=== PATIENT | female | born 1940 | race Caucasian/White ===

== ENCOUNTER 2017-07-09 13:47 | Emergency (ER) | payer OTHER ==
[~2017-07-09] VITALS: Ht 154.9 cm; Wt 66.5 kg
[~2017-07-09 13:47] MED LIST: ASPI-320 PO; CALC1CHW57 PO; DIAZ2TAB PO; LSN5 PO; MISC-573; ULT50X PO
[2017-07-09 13:51] VITALS: Ht 154.9 cm; Wt 66.5 kg
--- NOTE | 2017-07-09 14:23 | EMERGENCY ROOM VISIT NOTE ---
ED Visit Note First contact with patient: 13:57 This Patient was discussed with the physician assistant bookkeeper, Bird Ramachandran PA-C. The pertinent historical and physical exam findings were confirmed. I agree with the studies ordered and with the interpretations of these studies. I agree with the disposition and care plan.
[2017-07-09 14:29] VITALS: BP 194/98; PULSE 100; TEMP 36.8; O2SAT 96
--- NOTE | 2017-07-11 17:37 | EMERGENCY ROOM VISIT NOTE ---
History First contact with patient: 13:57 Chief Complaint: EAR PAIN Stated Complaint: L EAR PAIN History of Present Illness The patient is a 77 year old white female who presents to the Emergency Room with complaints of decreased hearing in her left ear that has been present for a few weeks. Symptoms started after she developed a cold. She states it took a few days to get over the cold. Gradually her hearing has been getting worse in the left ear. She did see her PCP. She states she was given a trial of antibiotic drops but this did not help her symptoms. She denies any sudden change in hearing. She was told that she would need to see an ENT. She states that when she called a local ENT, she was told that she really needed to see an deli/bakery associate. She reports here for evaluation. No current fevers, chills, sweats, nausea, vomiting, or diarrhea. No rhinorrhea or cough. No other upper respiratory symptoms at this time. She denies any pain, just a lack of hearing on the left. Of note, she does not drive due to recent femur fracture and her was recently diagnosed with cancer. He does receive chemotherapy at the [facility]. Review of Systems REVIEW OF SYSTEM: HEENT: No dizziness, visual problems, or tinnitus. There is no difficulty swallowing and no oral lesions are present. LYMPH: No adenopathy. PULMONARY: No current cough, shortness of breath, sputum production or hemoptysis. CARDIOVASCULAR: No chest pain, palpitations, shortness of breath or peripheral edema. GASTROINTESTINAL: No diarrhea, constipation, nausea, vomiting, or abdominal pain. GENITOURINARY: No dysuria, frequency, urgency or nocturia. NEUROLOGIC: No weakness, muscle tenderness, epilepsy or history of neurological problems. No history of chronic headaches. MUSCULOSKELETAL: No history of joint tenderness/swelling. Positive history of arthritis and arthralgias. SKIN: No rashes or lesions. PSYCHIATRIC: No history of depression or mental illness. ENDOCRINE: No history of diabetes, thyroid disorders, or abnormal hair growth. Past Medical/Surgical History Medical Problems: (1) Hip fracture (2) Hypertension (3) Left leg injury (4) Osteoporosis Surgical Problems: (1) H/O exploratory laparotomy Family History FH: lupus Significant for heart disease. Parents are . Social History Smoking Status: Never Smoker Smokeless Tobacco Use: No Alcohol Use: none Drug Use: none Marital Status: Housing Status: lives with family Occupation Status: retired Current/Historical Medications Scheduled Aspirin (Aspirin EC Low Dose), 81 MG PO BID Calcium W/ Vitamins D & K (Calcium + D), 1 TAB PO DAILY Lisinopril (Lisinopril), 5 MG PO QAM Scheduled PRN Diazepam (Valium), 2 MG PO DAILY PRN for Anxiety Tramadol HCl (Tramadol HCl), 25-50 MG PO Q6H PRN for Pain Durable Medical Equipment Misc. Devices (Roller Walker), UNIT Physical Exam Vital Signs Date Time Temp Pulse Resp B/P (MAP) Pulse Ox O2 Delivery O2 Flow Rate FiO2 07/09/17 14:29 36.8 100 18 194/98 96 07/09/17 13:51 36.8 100 18 194/98 96 Room Air Physical Exam General: Well-developed, well-nourished, elderly white female, in no acute distress. Sitting on the bed. Alert and oriented. Skin: Warm and dry with fair turgor. No rashes or lesions. No ecchymosis or erythema. The patient is not diaphoretic. No abrasions. HEENT: Normocephalic atraumatic. Eyes PERRLA, EOMI. No conjunctiva or scleral injection. Ears TMs intact bilaterally with good light reflexes. No erythema or bulging. No hemotympanum. Canals are patent. No visible abnormality of the external ear auditory canal. Nares patent bilaterally without turbinate enlargement. No significant drainage. No epistaxis. Oropharynx without erythema or exudate. Uvula midline, oral mucosa moist. No lesions present. Lymphatics are palpated without anterior or posterior chain enlargement or tenderness. Medical Decision & Procedures ED Course Patient was educated regarding today's findings. Conservative care measures were discussed. Her symptoms are gradual in onset after a previous upper respiratory infection. They have become worse with time. She was supposed to see an ENT. She states she did call one, but was told to see an deli/bakery associate. She was informed that we do not have any here on the weekend. I did speak with Dr. Yu from ENT. He would be happy to see the patient in his office this week. She may call on Monday for an appointment. Return to the ED for any acute worsening of symptoms. She was reassured that I find nothing visibly wrong with her ear. Patient was seen in conjunction with Dr. Bradshaw, who also evaluated the patient and concurred with today's diagnosis and treatment plan. Medical Decision Possibility of retained foreign body, ear infection, perforated membrane, abnormal bony structure, cerumen impaction, and age-related loss of hearing were considered among others. Medication Reconcilliation Current Medication List: was personally reviewed by me Blood Pressure Screening Patient's blood pressure: Normal blood pressure Impression Primary Impression: Hearing loss in left ear Departure Information Referrals Lee Tellez D.O. (PCP) Forms WORK / SCHOOL INSTRUCTIONS, HOME CARE DOCUMENTATION FORM, IMPORTANT VISIT INFORMATION Patient Instructions My [facility] Additional Instructions Call [facility] ear, nose, throat, or [facility] for follow-up Problem Qualifiers Primary Impression: Hearing loss in left ear Hearing loss type: other Contralateral hearing status: unrestricted hearing on contralateral side Qualified Codes: H91.8X2 - Other specified hearing loss , left ear
== END 2017-07-09 14:30 | disposition home or self-care (01) ==
LOC: C.EDB 13:48 → C.EDD 14:30
DX: H91.8X2 Other specified hearing loss, left ear (principal); I10 Essential (primary) hypertension; M81.0 Age-related osteoporosis without current pathological fracture; Z83.2 Family history of diseases of the blood and blood-forming organs and certain disorders involving the immune mechanism; Z79.82 Long term (current) use of aspirin; Z79.899 Other long term (current) drug therapy

== ENCOUNTER 2018-04-27 06:43 | Inpatient (IN) ==
--- NOTE | 2018-04-26 14:47 | Anesthesiology Consultation ---
Date of Service April 26, 2018 Assessment & Plan (1) Encounter for pre-operative examination: Plan: CBC STAT AM DOS TYPE AND SCREEN AM DOS PATIENT HAS PROCAINE ALLERGY-- "CANT BREATHE." PER PAST ANESTHESIA PRE-EVAL, ALLERGY TO "ALL CAINS." HAD L IM FEMUR NAILING 11/2016 UNDER GENERAL. SEEN IN PRE-OP BY DR MYRICK, WHO NOTED, "Stated she has been told she is allergic to "all cains", actually had allergy testing done to confirm this per her report." NO "CAINS" GIVEN; ANESTHESIA RECORD DOES NOTE THAT ON EMERGENCE PATIENT COMPLAINED OF DIFFICULTY BREATHING, BUT LUNGS WERE CTA B/L AND O2 SAT WAS 100% AND CONTINUED TO BE WNL IN PACU. Chart Review Chart Review: Acceptable Risk for Surgery and Patient NOT seen in Pre Admission Testing History Surgery Operation Date: 04/27/18 08:30 Proposed Procedures p Right Hip Open Reduction Internal Fixation Proximal Femur Fracture - Odell Garza DO Height/Weight Height: 5 ft 1 in Weight: 66.9 kg Allergies Allergy/AdvReac Type Severity Reaction Status Date / Time procaine Allergy Severe CAN'T Unverified 12/02/16 15:15 BREATH oxytetracycline Allergy Unknown . Unverified 12/02/16 15:15 polymyxin B Allergy Unknown . Unverified 12/02/16 15:15 prednisone Allergy Unknown . Unverified 12/02/16 15:15 Sulfa (Sulfonamide Allergy Unknown . Unverified 12/02/16 15:15 Antibiotics) Medications Home Medications Medication Instructions Recorded Confirmed Last Taken ciprofloxacin HCl 500 mg PO BID #20 tab 01/25/18 Unknown diazepam 5 mg PO DAILY 01/25/18 01/25/18 Unknown Past Medical History Medical History Hip fracture Femur fracture Osteoporosis Hypertension Anxiety Retinal artery occlusion Past Surgical History Surgical History H/O exploratory laparotomy (Chronic) History of open reduction and internal fixation (ORIF) procedure "left femur bobby" per pt questionnaire History of tonsillectomy and adenoidectomy Social History Smoking Status: Never smoker Testing Electrocardiogram Date: 01/25/18 Findings: + ST @ (111) Nonspecific ST abnormality. (done in ED at time of fracture)
--- NOTE | 2018-04-26 22:26 | History & Physical Report ---
Date of Service April 26, 2018 Assessment & Plan (1) Fracture of proximal end of right femur: Schedule prophylactic ORIF right proximal femur fx with trochanteric nail for 04.27.18. All potential risks, benefits, complications, alternatives, and rehab have been discussed with the patient and she wishes to proceed. Plan for home with home health upon d/c. History of Present Illness Chief Complaint: right hip pain This is a patient with right hip/thigh pain since 2017. She sustained a fall onto the right side and has had persistent pain. She was seen in our [facility] office with updated x-rays in March that noted a cortical irregularity of the lateral cortex of the proximal right femur. She later had an MRI that noted a stress fx at the site. She is currently being set up for prophylactic IM nail of the femur. Allergies Allergy/AdvReac Type Severity Reaction Status Date / Time minocycline [From Minocin] Allergy Severe SEVERE Verified 04/26/18 16:19 PAIN IN THE HEAD procaine Allergy Severe NOVACAINE->CAN'T Unverified 04/26/18 16:19 BREATH erythromycin base Allergy Unknown Unknown Verified 04/26/18 16:19 oxytetracycline Allergy Unknown . Unverified 04/26/18 16:19 polymyxin B Allergy Unknown . Unverified 04/26/18 16:19 prednisone Allergy Unknown "COULD BE Unverified 04/26/18 16:22 FATAL" - PER PCP Sulfa (Sulfonamide Allergy Unknown Rash Unverified 04/26/18 16:19 Antibiotics) tramadol AdvReac Unknown "PUT ME IN Verified 04/26/18 16:19 A DAZE" Home Medications Home Medications Medication Instructions Recorded Confirmed Type diazepam 5 mg PO DAILY PRN 01/25/18 04/26/18 History acetaminophen [Acetaminophen Extra 500 mg PO QID PRN 04/26/18 04/26/18 History Strength] calcium carbonate-vitamin D3 1 tab PO DAILY 04/26/18 04/26/18 History [Calcium 600 + D(3)] ciprofloxacin HCl 500 mg PO BID 04/26/18 04/26/18 History Past Med/Surg History Medical History Hip fracture Femur fracture Osteoporosis Hypertension H/O - NO MEDICATIONS CURRENTLY PER MD ORDERS Cancer SKIN CANCER Cardiac murmur H/O A CHILD Nausea and vomiting after administration of anesthetic agent Urinary tract infection RECURRENT, TAKING ABX. (STARTED 04/25/18) Anxiety Retinal artery occlusion Surgical History H/O exploratory laparotomy (Chronic) History of dilatation and curettage History of open reduction and internal fixation (ORIF) procedure "left femur bobby" History of tonsillectomy and adenoidectomy Social History Feels Safe at Home: Yes Smoking Status: Never smoker Physical Exam 2 Constitutional: well developed and well nourished; no acute distress ENMT: external ear and nose normal, oropharynx normal Neck: trachea midline, no thyromegaly Respiratory: normal respiratory effort, lungs clear to auscultation Cardiovascular: Rate/Rhythm: regular rate and regular rhythm Heart Sounds: normal S2 Gastrointestinal (Abdomen): normal bowel sounds, soft, nontender, no hepatosplenomegaly Musculoskeletal: Gait: + antalgic gait (right side with the aid of a walker) Hip: + joint line tenderness (Tender along the lateral and anterior right hip /proximal femur.); no deformity, no effusion, no skin erythema, no ecchymosis, SANDRA test negative and log roll test negative Skin: no rashes, warm and dry Neurologic: normal touch/pain/proprioception Psychiatric: A+Ox3, euthymic affect Lymphatic: no cervical or axillary lymphadenopathy
[~2018-04-27 06:43] MED LIST changes: -ASPI-320 PO; -CALC1CHW57 PO; +CEFAZOLIN 1000MG 1,000 MG/7.5 ML SYR IV SCH; -DIAZ2TAB PO; +LR 15ML/HR IV SCH; -LSN5 PO; -MISC-573; -ULT50X PO
[2018-04-27] MEDS ORDERED: BUPIVACAINE 0.5 % 5 MG/1 ML PF 10ML VIAL ONE (06:55)
[2018-04-27] MEDS ORDERED: BUPIVACAINE 0.5 % 5 MG/1 ML MPF 30ML VIAL ONE (07:03)
[2018-04-27] MEDS ORDERED: LIDOCAINE HCL 2% 2 ML VIAL/AMP(20MG/ML) INFIL ONE (07:07)
[2018-04-27] MEDS ORDERED: ROCURONIUM BROMIDE 10 MG/ML 5 ML VIAL ONE (07:07)
[2018-04-27] MEDS ORDERED: PROPOFOL IV EMULSION 10 MG/ML 20 ML VIAL IV ONE (07:07)
[2018-04-27] MEDS ORDERED: MIDAZOLAM HCL 1 MG/ML 2ML VIAL ONE (07:08)
[2018-04-27] MEDS ORDERED: KETAMINE HCL INJ 50 MG/ML 10 ML VIAL ONE (07:08)
[2018-04-27] MEDS ORDERED: fentaNYL citrate 100 MCG/2 ML VIAL ONE (07:08)
[2018-04-27] MEDS ORDERED: HYDROmorphone INJ 2 MG/ML SYR/VIAL ONE (07:09)
[2018-04-27] MEDS ORDERED: SODIUM CHLORIDE 0.9% INJ 10 ML VIAL ONE (07:12)
[2018-04-27 07:23] LABS: Hematocrit (blood only) 36.9 % (37-47); Hemoglobin 12.4 g/dL (12.0-16.0); Mean Corpuscular Volume 83.7 fL (80-100); Mean Platelet Volume 9.6 fL (7.4-10.4); Platelet Count 256 K/uL (130-400); RDW Coefficient of Variation 13.6 % (11.5-14.5); Red Blood Count 4.41 M/uL (4.2-5.4); White Blood Count 8.52 K/uL (4.8-10.8)
[2018-04-27 07:35] LABS: Mean Corpuscular Hgb Conc 33.6 g/dL (32-36)
--- NOTE | 2018-04-27 07:50 | History & Physical Bridge Note ---
Date of Service April 27, 2018 History & Physical Bridge Note I have examined the patient, reviewed the History & Physical and in the interval since the performance of the History & Physical I have noted the following changes of clinical significance: no changes noted
[2018-04-27] MEDS ORDERED: fentaNYL citrate 100 MCG/2 ML VIAL IV PRN (08:03)
[2018-04-27] MEDS ORDERED: ATROPINE SULFATE 0.1 MG/ML 10ML SYR IV PRN (08:03)
[2018-04-27] MEDS ORDERED: ONDANSETRON INJ 2 MG/ML 2 ML VIAL IV PRN ×2 (08:03→11:53)
[2018-04-27] MEDS ORDERED: ePHEDrine sulfate 50 MG/ML AMP IV PRN (08:03)
[2018-04-27] MEDS ORDERED: DEXAMETHASONE SOD INJ 4 MG/ML VIAL ONE (08:59)
[2018-04-27] MEDS ORDERED: ONDANSETRON INJ 2 MG/ML 2 ML VIAL ONE (08:59)
[2018-04-27] MEDS ORDERED: BACITRACIN INJ 50,000 UNIT VIAL ONE (09:18)
[2018-04-27] MEDS ORDERED: GLYCOPYRROLATE 0.2 MG/ML VIAL ONE (09:29)
[2018-04-27] MEDS ORDERED: ATROPINE SO4 1 MG/ML 1ML VIAL ONE (09:29)
[2018-04-27] MEDS ORDERED: PROMETHAZINE HCL INJ 25 MG/ML 1 ML VIAL ONE (09:47)
[2018-04-27] MEDS ORDERED: ePHEDrine sulfate 50 MG/ML SYR ONE (09:47)
--- NOTE | 2018-04-27 10:14 | Post Operative Brief Note ---
Immediate Post Op Note v1 Date of Surgery April 27, 2018 Pre & Post Diagnosis Operation Date: 04/27/18 08:30 Pre-Operative Diagnosis: Right Hip Proximal Femur Fracture Post-Operative Diagnosis: Right Hip Proximal Femur Fracture Procedure Operation Date: 04/27/18 08:30 Actual Procedures p Right Hip Open Reduction Internal Fixation Proximal Femur Fracture(Right) - Odell Garza DO Surgeon Odell Garza DO Hand Ii Cutter Héctor Gore PA-C Estimated Blood Loss 15 Findings Consistent with Post-Op Diagnosis Specimens Bone biopsy right femur Anesthesia Type General Complications none Disposition Accompanied Patient To Recovery: No Disposition: Recovery Room Overlapping Procedure I was present for: the critical portions of procedure. I was immediately available: during the entire case.
--- NOTE | 2018-04-27 10:47 | Anesthesiology Progress Note ---
Date of Service April 27, 2018 Anesthesia Post Procedure Vital Signs Vital Signs: Temp Pulse Pulse Resp BP Pulse Ox 04/27/18 10:40 115 H 15 159/80 H 98 04/27/18 10:30 124 H 13 159/81 H 99 04/27/18 10:22 97.7 F 127 H 28 H 161/75 H 98 04/27/18 07:23 98.2 F 94 H 18 190/86 H 97 Pain Intensity Right Hip: Pain Intensity: 0 Notes Mental Status: alert / awake / arousable and participated in evaluation Patient Amnestic to Procedure: Yes Nausea / Vomiting: adequately controlled Pain: adequately controlled Airway Patency, RR, SpO2: stable & adequate BP & HR: stable & adequate (pt with a baseline sinus tachycardia) Hydration State: stable & adequate Anesthetic Complications: no major complications apparent and Pt Satisfied with anesthetic care
[2018-04-27] MEDS ORDERED: HYDROmorphone INJ 0.5 MG/0.5 ML SYR IV PRN (11:53)
[2018-04-27] MEDS ORDERED: BISACODYL 10 MG SUPP PR PRN (11:53)
[2018-04-27] MEDS ORDERED: diazePAM 5 MG TABLET PO PRN (11:53)
[2018-04-27] MEDS ORDERED: METOCLOPRAMIDE HCL INJ 5 MG/ML 2 ML VIAL IV PRN (11:53)
[2018-04-27] MEDS ORDERED: NALOXONE HCL 0.4 MG/1 ML VIAL/CARP IV PRN (11:53)
[2018-04-27] MEDS ORDERED: MAGNESIUM HYDROXIDE SUSP 30 ML UDC PO PRN (11:53)
[2018-04-27] MEDS: CIPROFLOXACIN 500 MG TAB PO SCH ×2 (13:50→21:14)
[2018-04-27] MEDS: ACETAMINOPHEN 500 MG TAB PO SCH ×2 (13:51→21:13)
[2018-04-27] MEDS: SODIUM CHLORIDE 0.9% 1000ML 1,000 ML IV SCH (13:51)
--- NOTE | 2018-04-27 14:38 | Fluoroscopy Report ---
FL femur RT 2V CLINICAL HISTORY: RIGHT TROCH NAIL COMPARISON STUDY: Right femur fracture 04/13/2018. FLUOROSCOPY TIME: 1 minute and 14 seconds.. FINDINGS: 8 fluoroscopic spot images of the right femur demonstrate an intramedullary bobby with an int erlocking femoral neck pin. The hardware is intact. This traverses the proximal femoral shaft fractur e. Alignment is anatomic. IMPRESSION: Fluoroscopy provided for internal fixation of a right femoral shaft insufficiency fractur e. Electronically signed by: Hilario Moore M.D. 04/27/2018 2:37 PM
[2018-04-27] MEDS: OXYCODONE HCL IR 5 MG TAB (IMMEDIATE RELEASE) PO PRN ×2 (15:48→21:08)
[2018-04-27] MEDS: CEFAZOLIN 1000MG 1,000 MG/7.5 ML SYR IV SCH ×2 (17:15→23:35)
[2018-04-27] MEDS ORDERED: SENNA 8.6 MG TAB PO SCH (21:00)
[2018-04-27] MEDS: ASPIRIN 81 MG ECTAB PO SCH (21:14)
[2018-04-27] MEDS: DOCUSATE SODIUM 100 MG CAP PO SCH (21:14)
[2018-04-28] MEDS: SODIUM CHLORIDE 0.9% 1000ML 1,000 ML IV SCH (00:33)
[2018-04-28] MEDS: OXYCODONE HCL IR 5 MG TAB (IMMEDIATE RELEASE) PO PRN (02:40)
[2018-04-28] MEDS: ACETAMINOPHEN 500 MG TAB PO SCH ×2 (05:28→13:43)
[2018-04-28 06:00] LABS: Hematocrit (blood only) 28.2 % (37-47); Hemoglobin 9.2 g/dL (12.0-16.0); Mean Corpuscular Hgb Conc 32.6 g/dL (32-36); Mean Corpuscular Volume 84.7 fL (80-100); Mean Platelet Volume 9.4 fL (7.4-10.4); Platelet Count 232 K/uL (130-400); RDW Coefficient of Variation 13.7 % (11.5-14.5); RDW Standard Deviation 41.8 fL (36.4-46.3); Red Blood Count 3.33 M/uL (4.2-5.4); White Blood Count 9.58 K/uL (4.8-10.8)
[2018-04-28 06:34] LABS: Calcium 8.4 mg/dl (8.5-10.1); Creatinine Clr Calc Pharmacy 43.6 ml/min; Est GFR (African American) 65.4; Est GFR (Non-African American) 56.4; Potassium 3.9 mmol/L (3.5-5.1)
[2018-04-28 07:00] VITALS: BP 125/64; PULSE 87; TEMP 97.7; O2SAT 93
--- NOTE | 2018-04-28 08:16 | Orthopedic Progress Note ---
Date of Service April 28, 2018 Assessment & Plan (1) Fracture of proximal end of right femur: Postop day 1 PT and OT protocols today. DVT prophylaxis with SCDs, CHELSEY hose, aspirin twice daily Continue pain management. DC planning-patient is planning on home health services. Subjective Postop day 1 status post right TFN for pending fracture. Patient is sitting up in her chair at the bedside. She was having some pain earlier this morning however pain medication has helped that. She denies shortness of breath, chest pain, lightheadedness. No other complaints this morning. She is hoping to go home today. Physical Exam 2 Vital Signs (Past 24 Hours): Last Vital Signs Temp 36.5 C 04/28/18 06:59 Pulse 87 04/28/18 06:59 Resp 18 04/28/18 06:59 BP 125/64 04/28/18 06:59 Pulse Ox 93 04/28/18 06:59 Physical Exam: Dressings are clean, dry, and intact. Thigh is swollen and soft. Nontender. Calves are soft and nontender. Neurovascular is intact. Toes are mobile.
[2018-04-28] MEDS ORDERED: MULTIVITAMIN TAB PO SCH (09:00)
[2018-04-28] MEDS ORDERED: CALCIUM 600MG + VIT D 400 IU TAB PO SCH (09:00)
[2018-04-28] MEDS: DOCUSATE SODIUM 100 MG CAP PO SCH (09:09)
[2018-04-28] MEDS: ASPIRIN 81 MG ECTAB PO SCH (09:09)
[2018-04-28] MEDS: CIPROFLOXACIN 500 MG TAB PO SCH (09:09)
--- NOTE | 2018-04-29 08:17 | Operative Report ---
DATE OF OPERATION: 04/27/2018 PREOPERATIVE DIAGNOSIS: Right proximal femur fracture. POSTOPERATIVE DIAGNOSIS: Same. PROCEDURE: 1. Open reduction internal fixation of right proximal femur fracture with Synthes trochanteric fixation nail. 2. Bone biopsy, right proximal femur. SURGEON: Odell Garza DO VP CARDIOVASCULAR SERVICE LINE: Héctor Gore PA-C, who was present for patient positioning, sterile prep and drape, management of retractors and instruments. He was present through the critical portions of the case including wound closure, application of sterile dressing and transport of the patient to recovery. ANESTHESIA: General LMA. SPECIMENS: Bone biopsy, right proximal femur. DRAINS: None. COMPLICATIONS: None. BLOOD LOSS: 20 mL. PERTINENT HISTORY: This is a 77-year-old woman who had right thigh pain. She has been seen in the office, had radiographs. Noted an occult fracture of her right proximal femur diagnosed as proximal femur fracture. The patient was then scheduled for surgery as indicated. All potential risks, benefits, complications, alternatives, rehab, potential for incomplete relief of symptoms, need for further surgery, DVT, PE, , persistent pain, swelling, scarring, weakness, neurovascular injury, wound complications, hardware failure, nonunion, malunion, and bone fracture were discussed with the patient. The patient decided to proceed with the procedure as indicated. PROCEDURE: The patient was transferred to the operative suite. The proper site was identified. The consent was reviewed, the patient was then administered sedation and spinal anesthetic. Once appropriate, the patient then transferred to the fracture table where the lower extremity was placed in fracture table traction and the nonoperative leg was placed in the well leg gotti. All bony prominences were properly padded and protected. The padded post was placed in the peroneal and the patient was positioned appropriately. Next the left leg was placed on traction and reduction of the fracture was performed under fluoroscopic control. Next the operative hip was then sterilely prepped and draped in the usual fashion. Next a 10-blade scalpel incision was used to make an incision proximal to the greater trochanter. The incision was deep in the subcutaneous tissue and fascia and the tip of the greater trochanter was then palpated followed by placement of a guide pin under fluoroscopic control driven into the greater trochanter down to the level of the less trochanter. This was confirmed in AP and lateral projections followed by placement of the proximal reamer over the cannulated guide pin. Next the reamer was then removed using the soft tissue protector, which was also removed. Next the ball tip guide bobby was placed into the proximal femur under fluoroscopic control confirmed with AP and lateral fluoroscope projections. Next the trochanteric nail was then passed over the guide bobby into the femur, the guide bobby was removed and then under fluoroscopic control appropriate level of the femoral nail was then placed in AP projections. Next the targeting device was then fixed to the driving handle and 10-blade scalpel incision was made in the lateral aspect of the thigh. Next the tissue protector and cannulated guide system was then passed into the soft tissue until it was securely fixed against a lateral aspect of the femoral cortex. This was also confirmed under C-arm. Next the guide pin for the spiral blade was driven into the lateral aspect of the femur confirming this with AP lateral projections until the guide pin was in the center of the femoral neck and head approximately 5 mm from the subcortical bone of the femur. Next the spiral blade was then measured and then the lateral cortex was then drilled with the cortex reamer followed by use of the triple reamer with the depth stop set at appropriate depth. In this case a 90-mm titanium helical blade and a locking screw was then inserted over the cannulated guide bobby under fluoroscopic control. This was seated appropriately then traction was reduced from the limb and the fracture was then gently compressed and locked proximally with the flexible screwdriver. Next the spiral blade was then disengaged from its insertion handle, insertion handle was then removed and the guide pin was removed from the femoral neck and head. Next the lateral targeting arm was used to insert the distal locking screw. First a 10-blade scalpel incision was made in the lateral aspect of the thigh, captured drill sleeves were then tamped gently to the lateral aspect of the femoral cortex then the locking screw hole was then drilled, measured and then an appropriate length screw was placed to lock the distal aspect of the nail. Next targeting sleeves were then removed. The insertion arm was then removed from the nail and final x-rays were obtained in AP and lateral projections. All incisions were then copiously irrigated with sterile normal saline. The proximal gluteus fascia was then closed using interrupted #1 Vicryl, the dermis was closed using buried interrupted 2-0 Vicryl sutures in all three incisions and the skin was then closed using skin shivani. A sterile compressive dressing consisting of Xeroform gauze, sterile 4 x 4's and Tegaderm was applied. The patient was then awakened and taken to recovery in stable condition. After I placed the fixation nail, note that bone biopsy specimen was harvested from the reamers and passed off for pathological evaluation. I attest to the content of the Intraoperative Record and any orders documented therein. Any exceptions are noted below. IVETHD
--- NOTE | 2018-05-04 00:54 | Discharge Summary ---
DISCHARGE DIAGNOSIS: Right proximal femur fracture. SECONDARY DIAGNOSES: Osteoporosis; hypertension; history of skin carcinoma; history of cardiac murmur; history of urinary tract infection in the recent past, still taking antibiotics; anxiety; retinal artery occlusion. CONSULTATIONS: None. COMPLICATIONS: None. PROCEDURES: Right hip open reduction internal fixation, proximal femur fracture, by Dr. Garza on 04/27/2018. BRIEF HISTORY: As dictated in the history and physical. HOSPITAL SUMMARY: The patient was admitted on the above-noted date and had the above-noted surgery performed which she tolerated well. On the first postoperative day, she was sitting in a chair at the bedside. She was having pain earlier that morning, but the pain medication was doing its job. She denies shortness of breath, chest pain or lightheadedness. She had no other complaints and was hoping to go home. Vital signs were stable. She is afebrile. Dressings were clean, dry and intact. The thigh was swollen but soft and nontender. Calves were soft and nontender. Neurovascularly intact. Toes were mobile. The patient was started on PT and OT protocols, continued on DVT prophylaxis and pain management. She was progressing with her physical therapy and it was felt she could be discharged to home on 04/28/2018. For further review, please see chart. LABORATORY AND X-RAY DATA: As per chart. DISCHARGE INSTRUCTIONS: The patient was discharged to home in satisfactory condition with home health services, on 04/28/2018. DIET: Regular. ACTIVITY: Weightbearing as tolerated, right lower extremity with crutches. Follow hip fracture instructions as written and follow up with Dr. Garza in 10-14 days. The patient to call for appointment if one has not been made for her. DISCHARGE MEDICATIONS: Aspirin 81 mg p.o. b.i.d., Percocet 1-2 tabs p.o. q. 6 hours, sennosides 17.2 mg p.o. at bedtime. Resume home meds as listed. Stop taking previous acetaminophen dosage and stop taking naproxen.
== END 2018-04-28 14:20 | disposition home health service (06) | DRG 479 ==
LOC: ASU 06:43 → 3E 10:32

== ENCOUNTER 2020-11-26 12:28 | Inpatient (IN) ==
--- NOTE | 2020-11-26 12:38 | Emergency Department Note ---
Impression & Plan Rebeca-prosthetic femoral shaft fracture, COVID-19, Fall ED Provider Note NAME: RODRIGO CAUSEY AGE: 80 SEX: F : 1940 ARRIVES VIA: Ambulance INFORMANT: Patient, ED PROVIDER(S): Carlos Enrique Santiago MD Chief Complaint: Fall, hip pain HPI: Patient does present with concern for fall that occurred prior to arrival a nd associated right-sided hip pain. The patient states that she believes that she was developing a UTI and was drinking cranberry juice. When the patient was in the kitchen she had gotten the cranberry juice but fell in the kitchen. Patient did not strike her head and denies any head or neck pain. 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 This has been completed by [facility] in the past. The patient did take ibuprofen earlier today. She denies any pain at rest but is worse with movement or palpation. She describes it as achy and nonradiating. Patient denies any upper extremity back chest or abdominal pain. The patient denies any lower extremity pain. The patient is not take blood thinners and denies any CP ROS: See HPI for pertinent positives and negatives. A total of 10 systems were reviewed and otherwise negative. Past medical history: See below Surgical history: See below Social history: See below Physical Exam: GENERAL: NAD, wearing a mask, non-toxic. EYE EXAM: Normal conjunctiva. PERRL, no anisocoria and EOM's grossly intact w/o pain. NECK: Supple, no nuchal rigidity, no adenopathy, non-tender. No signs of meningismus. LUNGS: Clear to auscultation. Normal chest wall mechanics. HEART: NSR, no MRG. ABDOMEN: Abdomen soft, non-tender, normo-active bowel sounds, no masses, no rebound or guarding. BACK: No CVA TTP. SKIN: No rashes and no bruising. UPPER EXTREMITIES: Upper extremities are grossly normal. LOWER EXTREMITIES: Mild pain to the proximal and middle thigh of right lower extremity, which is slightly shortened compared to the left lower extremity. NEURO EXAM: A&O x3, cranial nerves II-XII grossly intact, normal speech, moves all 4 extremities with exception of right lower extremity secondary to pain. Differential diagnoses: Fracture, subluxation, dislocation, contusion, ligamentous injury, neurovascular, compartment syndrome, rhabdomyolysis, as well as other pathologies. Course: Patient was seen and evaluated the bedside. Full history physical exam was performed. EKG interpreted by me Normal sinus rhythm, rate of 94, normal intervals, normal axis, no T WI. Imaging Studies: See Below Cardiac monitoring: An order was placed for continuous cardiac monitoring. The monitor shows a rate of 75 with sinus rhythm. MDM: Patient was seen due to concern for fall and hip pain. Blood work was obtained along with x-rays. Patient also did have a Covid swab. Patient does have a spiral fracture of the hip. Patient is covid positive. I did speak with the on- call hospitalist as well as the on-call orthopedist and the patient was admitted to the medicine service. I spoke with both Dr. Sanchez and Dr. May. Past Med/Surg History Medical History Anxiety Cancer SKIN CANCER Cardiac murmur H/O A CHILD Femur fracture Hip fracture Hypertension H/O - NO MEDICATIONS CURRENTLY PER MD ORDERS Nausea and vomiting after administration of anesthetic agent Osteoporosis Retinal artery occlusion Urinary tract infection RECURRENT, TAKING ABX. (STARTED 04/25/18) Surgical History H/O exploratory laparotomy History of dilatation and curettage History of open reduction and internal fixation (ORIF) procedure "left femur bobby" History of tonsillectomy and adenoidectomy Social History Smoking Status: Never smoker Second Hand Exposure: No; Hx Alcohol Use: No Hx Substance Use: No Preferred Language: Spanish Communication Ability: Effective Adding Machine Operator Required: No Beliefs That Will Affect Care: None Current Living Situation: Alone Feels Safe at Home: Yes Assistive Devices: Walker Allergies Allergies Allergy/AdvReac Type Severity Reaction Status Date / Time minocycline [From Minocin] Allergy Severe SEVERE Verified 11/26/20 16:23 PAIN IN THE HEAD procaine Allergy Severe NOVACAINE->CAN'T Verified 11/26/20 16:23 BREATH erythromycin base Allergy Unknown Unknown Verified 11/26/20 16:23 oxytetracycline Allergy Unknown . Verified 11/26/20 16:23 polymyxin B Allergy Unknown . Verified 11/26/20 16:23 prednisone Allergy Unknown "COULD BE Verified 11/26/20 16:23 FATAL" - PER PCP Sulfa (Sulfonamide Allergy Unknown Rash Verified 11/26/20 16:23 Antibiotics) tramadol AdvReac Unknown "PUT ME IN Verified 11/26/20 16:23 A DAZE" Home Meds Home Medications Medication Instructions Recorded Confirmed ibuprofen 200 mg tablet 400 mg PO Q8H PRN 11/26/20 11/26/20 Results & Data (ED) Vital Signs Vital Signs - 24 hr 11/26/20 12:37 11/26/20 15:44 11/26/20 18:10 Temperature 37.2 C 36.8 C 36.7 C Temperature Source Oral Oral Oral Pulse Rate 70 Pulse Rate [Apical] 96 H 97 H Pulse Rhythm Regular Pulse Rhythm [Apical] Regular Regular Pulse Strength Normal Pulse Strength [Apical] Normal Normal Respiratory Rate 18 17 17 Respiratory Effort / Characteristics Non-Labored Non-Labored Non-Labored Respiratory Depth Normal Normal Normal Respiratory Pattern Regular Regular Regular Blood Pressure 134/54 L Blood Pressure [Left Arm] 150/83 H 156/90 H Blood Pressure Mean 80 Blood Pressure Mean [Left Arm] 105 112 Blood Pressure Position Lying Pulse Oximetry 99 94 94 Oxygen Delivery Method Room Air Room Air Room Air Sepsis Recent Fever Within 48 Hours No Sepsis New/Unexplained Change in Mental Status N/A Sepsis Action Taken by Nursing No Action Required Home Medications Current Medication List: was personally reviewed by me Laboratory Data Attestation: I reviewed the patient's lab results. Result diagrams: 11/26/20 12:51 11/26/20 12:51 Lab Results 11/26/20 11/26/20 11/26/20 Range/Units 12:51 12:51 12:51 WBC 5.76 (4.8-10.8) K/uL RBC 4.14 L (4.2-5.4) M/uL Hgb 11.0 L (12.0-16.0) g/dL Hct 34.8 L (37-47) % MCV 84.1 (80-100) fL MCH 26.6 (25-34) pg MCHC 31.6 L (32-36) g/dL RDW Std Deviation 46.1 (36.4-46.3) fL RDW Coeff of Pj 15.0 H (11.5-14.5) % Plt Count 179 (130-400) K/uL MPV 9.8 (7.4-10.4) fL Immature Gran % (Auto) 0.2 % Neut % (Auto) 81.5 % Lymph % (Auto) 11.8 % Grainger % (Auto) 6.3 % Eos % (Auto) 0.2 % Baso % (Auto) 0.0 % Neut # (Auto) 4.70 (1.4-6.5) K/uL Lymph # (Auto) 0.68 L (1.2-3.4) K/uL Grainger # (Auto) 0.36 (0.11-0.59) K/uL Eos # (Auto) 0.01 (0-0.5) K/uL Baso # (Auto) 0.00 (0-0.2) K/uL Immature Gran # (Auto) 0.01 (0.00-0.02) K/uL PT 9.9 (9.0-12.0) Seconds INR 1.0 (0.9-1.1) APTT 22.4 (21.0-31.0) Seconds PTT Ratio 0.9 Sodium 138 (136-145) mmol/L Potassium 4.2 (3.5-5.1) mmol/L Chloride 109 H (98-107) mmol/L Carbon Dioxide 24 (21-32) mmol/L Anion Gap 5.0 (3-11) BUN 16 (7-18) mg/dl Creatinine 0.94 (0.6-1.2) mg/dl Est Cr Clr Drug Dosing 45.0 ml/min Est GFR ( Amer) 67.3 ml/min Est GFR (Non-Af Amer) 58.1 ml/min BUN/Creatinine Ratio 17.0 (10-20) Glucose 140 H (70-99) mg/dl Calcium 9.1 (8.5-10.1) mg/dl Total Bilirubin 0.3 (0.2-1) mg/dl AST 27 (15-37) U/L ALT 21 (12-78) U/L Alkaline Phosphatase 105 (45-117) U/L Total Protein 7.4 (6.4-8.2) gm/dl Albumin 3.7 (3.4-5.0) gm/dl Globulin 3.7 (2.5-4.0) gm/dl Albumin/Globulin Ratio 1.0 (0.9-2) Urine Color Urine Appearance (Clear) Urine pH (4.5-7.5) Ur Specific Golden (1.000-1.030) Urine Protein (Negative) Urine Glucose (UA) (Negative) Urine Ketones (Negative) Urine Blood (Negative) Urine Nitrite (Negative) Urine Bilirubin (Negative) Urine Urobilinogen (Negative) Ur Leukocyte Esterase (Negative) COVID-19 Eval Order SARS-CoV-2 (PCR) (Negative) 11/26/20 11/26/20 11/26/20 Range/Units 12:53 12:53 13:09 WBC (4.8-10.8) K/uL RBC (4.2-5.4) M/uL Hgb (12.0-16.0) g/dL Hct (37-47) % MCV (80-100) fL MCH (25-34) pg MCHC (32-36) g/dL RDW Std Deviation (36.4-46.3) fL RDW Coeff of Pj (11.5-14.5) % Plt Count (130-400) K/uL MPV (7.4-10.4) fL Immature Gran % (Auto) % Neut % (Auto) % Lymph % (Auto) % Grainger % (Auto) % Eos % (Auto) % Baso % (Auto) % Neut # (Auto) (1.4-6.5) K/uL Lymph # (Auto) (1.2-3.4) K/uL Grainger # (Auto) (0.11-0.59) K/uL Eos # (Auto) (0-0.5) K/uL Baso # (Auto) (0-0.2) K/uL Immature Gran # (Auto) (0.00-0.02) K/uL PT (9.0-12.0) Seconds INR (0.9-1.1) APTT (21.0-31.0) Seconds PTT Ratio Sodium (136-145) mmol/L Potassium (3.5-5.1) mmol/L Chloride (98-107) mmol/L Carbon Dioxide (21-32) mmol/L Anion Gap (3-11) BUN (7-18) mg/dl Creatinine (0.6-1.2) mg/dl Est Cr Clr Drug Dosing ml/min Est GFR ( Amer) ml/min Est GFR (Non-Af Amer) ml/min BUN/Creatinine Ratio (10-20) Glucose (70-99) mg/dl Calcium (8.5-10.1) mg/dl Total Bilirubin (0.2-1) mg/dl AST (15-37) U/L ALT (12-78) U/L Alkaline Phosphatase (45-117) U/L Total Protein (6.4-8.2) gm/dl Albumin (3.4-5.0) gm/dl Globulin (2.5-4.0) gm/dl Albumin/Globulin Ratio (0.9-2) Urine Color Yellow Urine Appearance Clear (Clear) Urine pH 6.0 (4.5-7.5) Ur Specific Golden 1.012 (1.000-1.030) Urine Protein Negative (Negative) Urine Glucose (UA) Negative (Negative) Urine Ketones Negative (Negative) Urine Blood Negative (Negative) Urine Nitrite Negative (Negative) Urine Bilirubin Negative (Negative) Urine Urobilinogen Negative (Negative) Ur Leukocyte Esterase Negative (Negative) COVID-19 Eval Order Covid19 at [facility] SARS-CoV-2 (PCR) POSITIVE A* (Negative) Administered Medications Sodium Chloride (Nss 1000ml) 1,000 mls @ 150 mls/hr IV .[id number] AGUILAR Stop: 11/26/20 19:24 Last Admin: 11/26/20 13:02 Dose: 150 mls/hr Documented by: [id number] Discontinued Medications Fentanyl Citrate (Fentanyl Citrate 100 Mcg/2 Ml Vial) 25 mcg IV NOW STA Stop: 11/26/20 12:46 Last Admin: 11/26/20 13:01 Dose: 25 mcg Documented by: [id number] Ondansetron HCl (Ondansetron Inj 2 Mg/Ml 2 Ml Vial) 4 mg IV NOW STA Stop: 11/26/20 12:46 Last Admin: 11/26/20 13:00 Dose: 4 mg Documented by: [id number] Imaging Data Radiologist's Impression: Hip/Pelvis X-Ray 11/26/20 12:45 XR hip RT 2V w pelvis INDICATION: MN ^fall, r hip pain; prior IRENE TECHNIQUE: 2 views of the right hip and single frontal view of the pelvis were obtained. Comparison: Comparison is made to hip and pelvis radiographs 11/26/2020 FINDINGS: There is a spiral fracture of the proximal femoral diaphysis. The distal fragment is displaced approximately 1 cortex width medially. Bones are osteopenic. IMPRESSION: Spiral fracture of the proximal right femoral diaphysis. ACT 112: Negative or not required by law. Electronically signed by: Familia Borrego M.D. 11/26/2020 2:05 PM Knee X-Ray 11/26/20 13:44 XR knee RT 1 or 2V routine CLINICAL HISTORY: Hip fracture. COMPARISON: Right femur MRI April 13, 2018. FINDINGS: A right femoral intramedullary bobby is partially imaged on this exam. Note is made of an acute oblique mildly displaced fracture of the proximal to mid diaphysis of the right femur better depicted on the right hip radiographs. No distal right femoral fracture is present. There is no right knee joint effusion. IMPRESSION: 1. Partial visualization of a right femoral intramedullary bobby and an acute oblique proximal to mid diaphyseal fracture of the right femur. 2. No distal right femoral fracture. ACT 112: Negative or not required by law. Electronically signed by: Jesse Zambrano M.D. 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 COMPARISON: Right hip and knee radiographs of same day, chest radiograph 01/23/2018 TECHNIQUE: Portable AP view of the chest FINDINGS: Cardiac silhouette is enlarged. Atherosclerosis of the thoracic aorta. Mild right hemidiaphragmatic elevation. Chronic interstitial coarsening with lateral left midlung and left lung base atelectasis/scarring. No pneumothorax, pleural effusion, lobar airspace consolidation or overt pulmonary edema. Degenerative changes of the shoulders and spine. IMPRESSION: No acute process. ACT 112: Negative or not required by law. The above report was generated using voice recognition software. It may contain grammatical, syntax or spelling errors. Electronically signed by: Liu Ibarra M.D. 11/26/2020 4:40 PM Discharge Plan Visit Data Chief Complaint: Hip Pain ED Provider: Carlos Enrique Santiago Discharge Problem: Rebeca-prosthetic femoral shaft fracture, COVID-19, Fall Forms Stand Alone Forms: [employer] Prescriptions Prescriptions: No Action ibuprofen 200 mg Tablet 400 mg PO Q8H PRN (Reason: Pain) RF: 0 Referrals Referrals: Lee Tellez [Primary Care Provider] - Discharge Problem: Fall Qualifiers: Encounter type: initial encounter Qualified Code(s): W19.XXXA - Unspecified fall, initial encounter
[2020-11-26] MEDS ORDERED: SODIUM CHLORIDE 0.9% 1000ML 1,000 ML IV SCH ×2 (12:45→16:30)
[2020-11-26] MEDS ORDERED: ONDANSETRON INJ 2 MG/ML 2 ML VIAL IV STA (12:45)
[2020-11-26] MEDS ORDERED: fentaNYL citrate 100 MCG/2 ML VIAL IV STA (12:45)
[2020-11-26 13:02] LABS: Eosinophils # (auto) 0.01 K/uL (0-0.5); Eosinophils % (auto) 0.2 %; Hematocrit (blood only) 34.8 % (37-47); Immature Granulocytes # (auto) 0.01 K/uL (0.00-0.02); Immature Granulocytes % (auto) 0.2 %; Lymphocytes # (auto) 0.68 K/uL (1.2-3.4); Lymphocytes % (auto) 11.8 %; Mean Corpuscular Hemoglobin 26.6 pg (25-34); Mean Corpuscular Hgb Conc 31.6 g/dL (32-36); Mean Corpuscular Volume 84.1 fL (80-100); Mean Platelet Volume 9.8 fL (7.4-10.4); Monocytes # (auto) 0.36 K/uL (0.11-0.59); Monocytes % (auto) 6.3 %; Neutrophils % (auto) 81.5 %; Platelet Count 179 K/uL (130-400); RDW Standard Deviation 46.1 fL (36.4-46.3); Red Blood Count 4.14 M/uL (4.2-5.4); White Blood Count 5.76 K/uL (4.8-10.8)
[2020-11-26 13:20] LABS: Albumin Level 3.7 gm/dl (3.4-5.0); Calcium 9.1 mg/dl (8.5-10.1); Est GFR (African American) 67.3 ml/min; Est GFR (Non-African American) 58.1 ml/min; Potassium 4.2 mmol/L (3.5-5.1)
[2020-11-26 13:21] LABS: Appearance Urine Clear (Clear); Bilirubin Urine Negative (Negative); Blood Urine Negative (Negative); Color Urine Yellow; Glucose Urine UA Negative (Negative); Ketones Urine Negative (Negative); Leukocyte Esterase Urine Negative (Negative); Nitrite Urine Negative (Negative); Protein Urine Negative (Negative); Specific Gravity Urine 1.012 (1.000-1.030); Urobilinogen Urine Negative (Negative)
[2020-11-26 13:21] LABS: Partial Thromboplastin Ratio 0.9; Partial Thromboplastin Time 22.4 Seconds (21.0-31.0); Prothrombin Time 9.9 Seconds (9.0-12.0)
[2020-11-26 13:23] LABS: Bilirubin,Total 0.3 mg/dl (0.2-1); Globulin 3.7 gm/dl (2.5-4.0); Total Protein 7.4 gm/dl (6.4-8.2)
--- NOTE | 2020-11-26 14:04 | XRay Report ---
XR knee RT 1 or 2V routine CLINICAL HISTORY: Hip fracture. COMPARISON: Right femur MRI April 13, 2018. FINDINGS: A right femoral intramedullary bobby is partially imaged on this exam. Note is made of an ac little traverse oblique mildly displaced fracture of the proximal to mid diaphysis of the right femur better depi cted on the right hip radiographs. No distal right femoral fracture is present. There is no right kne e joint effusion. IMPRESSION: 1. Partial visualization of a right femoral intramedullary bobby and an acute oblique proximal to mid d iaphyseal fracture of the right femur. 2. No distal right femoral fracture. ACT 112: Negative or not required by law. Electronically signed by: Jesse Zambrano M.D. 11/26/2020 2:03 PM
--- NOTE | 2020-11-26 14:07 | XRay Report ---
XR hip RT 2V w pelvis INDICATION: MN ^fall, r hip pain; prior IRENE TECHNIQUE: 2 views of the right hip and single frontal view of the pelvis were obtained. Comparison: Comparison is made to hip and pelvis radiographs 11/26/2020 FINDINGS: There is a spiral fracture of the proximal femoral diaphysis. The distal fragment is displaced approx imately 1 cortex width medially. Bones are osteopenic. IMPRESSION: Spiral fracture of the proximal right femoral diaphysis. ACT 112: Negative or not required by law. Electronically signed by: Familia Borrego M.D. 11/26/2020 2:05 PM
--- NOTE | 2020-11-26 14:59 | History & Physical Report ---
Date of Service November 26, 2020 Assessment & Plan (1) Fracture of proximal end of right femur: Plan: Complex fracture of the proximal right femur with pre-existing intramedullary bobby from previous fracture awaiting Dr. May feels he can address this patient's fracture to our facility Patient is independent takes medications has no unstable angina or heart failure symptoms her cardiac risk factor in the perioperative period is very low really only related to her age. I see no medical reason not to proceed to surgery if we feel we have the equipment expertise to repair here (2) COVID: Plan: Patient was Covid positive status not hypoxic chest x-ray is pending at this time will be need negative pressure and appropriate operative protective equipment (3) Hypertension: Plan: In the past patient was on lisinopril currently on no medications (4) Osteoporosis: Plan: Typically taking calcium vitamin D for osteoporosis (5) DVT prophylaxis: Plan: Postoperative DVT prevention will be based on surgeons preference History of Present Illness Primary Care Provider: Lee Tellez 80-year-old female presents after ground-level fall with a spiral fracture of the proximal right femoral diaphysis. [facility] fractures of both the left and right femurs. Patient has very little medical conditions for her age. She felt she was developing a urinary tract infection as an outpatient. She is however Covid positive in the emergency department. Patient states over the last few days she had a little bit of urinary urgency and a low-grade temp which is what made her think should UTI. She did not take any antibiotics for UTI but she is not in any persistent coughing or fevers that are documented at home. He denies having any ill contacts or going out of her home to have her groceries delivered by [employer] or [employer] Allergies Allergy/AdvReac Type Severity Reaction Status Date / Time minocycline [From Minocin] Allergy Severe SEVERE Verified 04/27/18 07:14 PAIN IN THE HEAD procaine Allergy Severe NOVACAINE->CAN'T Verified 04/27/18 07:14 BREATH erythromycin base Allergy Unknown Unknown Verified 04/27/18 07:14 oxytetracycline Allergy Unknown . Verified 04/27/18 07:14 polymyxin B Allergy Unknown . Verified 04/27/18 07:14 prednisone Allergy Unknown "COULD BE Verified 04/27/18 07:14 FATAL" - PER PCP Sulfa (Sulfonamide Allergy Unknown Rash Verified 04/27/18 07:14 Antibiotics) tramadol AdvReac Unknown "PUT ME IN Verified 04/27/18 07:14 A DAZE" Home Medications Medication Instructions Recorded Confirmed Type diazepam 5 mg tablet 5 mg PO DAILY PRN 01/25/18 04/27/18 History calcium carbonate-vitamin D3 600 1 tab PO DAILY 04/26/18 04/27/18 History mg calcium-200 unit capsule (Calcium 600 + D(3)) ciprofloxacin HCl 500 mg tablet 500 mg PO BID 04/26/18 04/27/18 History sennosides 8.6 mg tablet (Senokot) 17.2 mg PO HS #30 tab 04/28/18 Rx oxycodone-acetaminophen 5 mg-325 1 - 2 tab PO Q6H PRN #30 tab 04/29/18 Rx mg tablet (Percocet) Past Med/Surg History Medical History Anxiety Cancer SKIN CANCER Cardiac murmur H/O A CHILD Femur fracture Hip fracture Hypertension H/O - NO MEDICATIONS CURRENTLY PER MD ORDERS Nausea and vomiting after administration of anesthetic agent Osteoporosis Retinal artery occlusion Urinary tract infection RECURRENT, TAKING ABX. (STARTED 04/25/18) Surgical History H/O exploratory laparotomy History of dilatation and curettage History of open reduction and internal fixation (ORIF) procedure "left femur bobby" History of tonsillectomy and adenoidectomy Social History Smoking Status: Never smoker Second Hand Exposure: No; Hx Alcohol Use: No Hx Substance Use: No Preferred Language: Cambodian Communication Ability: Effective Car Hostler Required: No Beliefs That Will Affect Care: None Current Living Situation: Alone Feels Safe at Home: Yes Assistive Devices: Walker Review of Systems Review of Systems: Moderate distress due to leg pain and fatigue no headache, no visual changes no speech or swallowing issues no chest pain, pressure or palpitations no shortness of breath, cough or wheezes no abdominal pain, nausea or vomiting, diarrhea or constipation no dysuria, hematuria or frequency Mid thigh to right hip pain especially with movement no back pain, CVA tenderness or radicular pain no bruising, bleeding or rashes no focal signs of weakness or numbness or altered sensation no complaints of anxiety or depression.. Physical Exam Physical Exam: The patient appeared well nourished and normally developed. Vital signs as documented. Head exam is normocephalic atraumatic Neck is without JVD, thyromegaly, or carotid bruits. Lungs are clear to auscultation, no focal loss of breath sounds Cardiac exam, Rhythm is regular.. No murmurs, rubs or gallops. Abdominal exam reveals normal bowel sounds, soft non tender, no masses Extremities right leg is shortened and externally rotated distal pulses are intact Neurologic exam is alert and oriented, no focal loss of strength or sensation to right leg sensation and strength is intact Skin is without bruises or rashes Psychologically is without concerns for anxiety or depression Results & Data Results & Data ([facility]) Vital Signs (Past 12 Hours) Vital Signs Temp Pulse Resp BP Pulse Ox 11/26/20 12:37 99.0 F 70 18 134/54 L 99 Diagnostic Findings Hip pelvis x-ray 11/26/2020 spiral fracture of proximal right femoral diaphysis, knee x-ray on the same date shows partial visualization of the right femoral intramedullary bobby and acute oblique proximal and mild diaphyseal fracture of the right femur Urinalysis from admission is fairly unremarkable including negative blood negat tonya nitrates negative leukocyte esterase ECG Additional Comments: EKG shows normal sinus rhythm PG Care Time/CCT Total # of Minutes Spent Total Time Spent with Patient: Total time spent is greater than 50% in coordination of care (as documented) at patient's floor/unit and/or counseling patient: Coding Level of Care Code 68424 Initial Inpt Care Lvl 2 Diagnoses Fracture of proximal end of right femur S72.001A Hypertension I10 Osteoporosis M81.0 DVT prophylaxis Z29.9 COVID U07.1
[2020-11-26] MEDS ORDERED: diphenhydrAMINE 50 MG/ML VIAL IV PRN (16:21)
[2020-11-26] MEDS ORDERED: ONDANSETRON INJ 2 MG/ML 2 ML VIAL IV PRN (16:21)
--- NOTE | 2020-11-26 16:31 | Orthopedic Consultation ---
Date of Consultation November 26, 2020 Assessment & Plan (1) Rebeca-prosthetic femoral shaft fracture: Patient's treatment options of conservative versus surgical intervention were discussed and as she was an ambulator, recommended open reduction internal fixation right periprosthetic femur fracture. The risks and benefits of the procedure and alternatives were discussed. She would like to proceed with surgery, and due to her being positive for COVID-19, the consent was witnessed by 2 nurses. She will remain nonweightbearing. She has a [place]. DVT prophylaxis with TEDs and foot pumps. We will plan on performing the ORIF tomorrow, there may be a delay due to room availability and her +COVID-19 status. NPO after midnight. Antibiotics are business process consultant to the OR. The patient understood all my instructions and explanation; all their questions were satisfactorily addressed. I, Dr. May, saw and examined the patient and discussed the management with my PA. I reviewed my PAs note and agree with the documented findings and the plan of care I developed. Present on Admission?: Yes History of Present Illness Reason for Consultation: Periprosthetic right femoral fracture Attending Physician: Dr. Jason May History of Present Illness This 72-year-old female seen today in the emergency department after sustaining a ground-level fall in her home. Patient states that she got dizzy and lost her balance and fell striking her right hip. She states that after the fall she was unable to get up due to the pain in her hip. She states that this happened before in the past 2 times. Both instances in the past required surgical fixation with troch nailing. He is surgeries were performed by [place]. Garza of [facility] [place] He was consulted by the emergency department and care was transferred to our service as he was unavailable, and his partner who is covering, does not feel comfortable with treating a periprosthetic fracture. Patient states that she really has no other health problems other than bronchitis. She states that occasionally she takes some ibuprofen. She denies chest pain, shortness of breath, fever, chills, sweats or lethargy, however she is COVID positive. She lives at home with her son and [id number]. She ambulates with a cane. Allergies Allergy/AdvReac Type Severity Reaction Status Date / Time minocycline [From Minocin] Allergy Severe SEVERE Verified 11/26/20 16:23 PAIN IN THE HEAD procaine Allergy Severe NOVACAINE->CAN'T Verified 11/26/20 16:23 BREATH erythromycin base Allergy Unknown Unknown Verified 11/26/20 16:23 oxytetracycline Allergy Unknown . Verified 11/26/20 16:23 polymyxin B Allergy Unknown . Verified 11/26/20 16:23 prednisone Allergy Unknown "COULD BE Verified 11/26/20 16:23 FATAL" - PER PCP Sulfa (Sulfonamide Allergy Unknown Rash Verified 11/26/20 16:23 Antibiotics) tramadol AdvReac Unknown "PUT ME IN Verified 11/26/20 16:23 A DAZE" Home Medications Medication Instructions Recorded Confirmed Type ibuprofen 200 mg tablet 400 mg PO Q8H PRN 11/26/20 11/26/20 History Patient History Medical History Anxiety Cancer SKIN CANCER Cardiac murmur H/O A CHILD Femur fracture Hip fracture Hypertension H/O - NO MEDICATIONS CURRENTLY PER MD ORDERS Nausea and vomiting after administration of anesthetic agent Osteoporosis Retinal artery occlusion Urinary tract infection RECURRENT, TAKING ABX. (STARTED 04/25/18) Surgical History H/O exploratory laparotomy History of dilatation and curettage History of open reduction and internal fixation (ORIF) procedure "left femur bobby" History of tonsillectomy and adenoidectomy Social History Smoking Status: Never smoker Second Hand Exposure: No; Hx Alcohol Use: No Hx Substance Use: No Preferred Language: Chilean Communication Ability: Effective Supervisor Press Room Required: No Beliefs That Will Affect Care: None Current Living Situation: Alone Feels Safe at Home: Yes Assistive Devices: Walker Review of Systems Review of Systems: All systems reviewed & are unremarkable except as noted in Subjective Respiratory: Cough which started ~ 3 days ago Physical Exam Physical Exam: Right lower extremity: Patient has visible shortening and external rotation of her right lower extremity. She is able to actively dorsi and plantarflex her foot. She is unable to flex her knee. She is able to detect light sensation to touch in her toes and the Plantar aspect of her foot. She has no dermatomal deficit in the right lower extremity. She does have tenderness to palpation over the anterior and lateral aspect of her proximal femur. There is some mild edema but no erythema, ecchymosis, warmth or palpable bony deformity. She is neurovascularly intact in the right lower extremity. Constitutional: WD/WN, vitals as above Eyes: PERRL, conjunctivae normal, anicteric sclerae Respiratory: + cough Cardiovascular: RRR, no murmur, no edema Neurologic: patellar DTR's 2+ bilat, sensation intact Psychiatric: A+Ox3, euthymic affect Results & Data ([facility]) Vital Signs (Past 12 Hours) Vital Signs Temp Pulse Pulse Resp BP BP Pulse Ox 11/26/20 15:44 36.8 C 96 H 17 150/83 H 94 11/26/20 12:37 37.2 C 70 18 134/54 L 99 Laboratory Results 11/26/20 11/26/20 11/26/20 Range/Units 13:09 12:53 12:53 WBC (4.8-10.8) K/uL RBC (4.2-5.4) M/uL Hgb (12.0-16.0) g/dL Hct (37-47) % MCV (80-100) fL MCH (25-34) pg MCHC (32-36) g/dL RDW Std Deviation (36.4-46.3) fL RDW Coeff of Pj (11.5-14.5) % Plt Count (130-400) K/uL MPV (7.4-10.4) fL Immature Gran % (Auto) % Neut % (Auto) % Lymph % (Auto) % [place] % (Auto) % Eos % (Auto) % Baso % (Auto) % Neut # (Auto) (1.4-6.5) K/uL Lymph # (Auto) (1.2-3.4) K/uL [place] # (Auto) (0.11-0.59) K/uL Eos # (Auto) (0-0.5) K/uL Baso # (Auto) (0-0.2) K/uL Immature Gran # (Auto) (0.00-0.02) K/uL PT (9.0-12.0) Seconds INR (0.9-1.1) APTT (21.0-31.0) Seconds PTT Ratio Sodium (136-145) mmol/L Potassium (3.5-5.1) mmol/L Chloride (98-107) mmol/L Carbon Dioxide (21-32) mmol/L Anion Gap (3-11) BUN (7-18) mg/dl Creatinine (0.6-1.2) mg/dl Est Cr Clr Drug Dosing ml/min Est GFR ( Amer) ml/min Est GFR (Non-Af Amer) ml/min BUN/Creatinine Ratio (10-20) Glucose (70-99) mg/dl Calcium (8.5-10.1) mg/dl Total Bilirubin (0.2-1) mg/dl AST (15-37) U/L ALT (12-78) U/L Alkaline Phosphatase (45-117) U/L Total Protein (6.4-8.2) gm/dl Albumin (3.4-5.0) gm/dl Globulin (2.5-4.0) gm/dl Albumin/Globulin Ratio (0.9-2) Urine Color Yellow Urine Appearance Clear (Clear) Urine pH 6.0 (4.5-7.5) Ur Specific [place] 1.012 (1.000-1.030) Urine Protein Negative (Negative) Urine Glucose (UA) Negative (Negative) Urine Ketones Negative (Negative) Urine Blood Negative (Negative) Urine Nitrite Negative (Negative) Urine Bilirubin Negative (Negative) Urine Urobilinogen Negative (Negative) Ur Leukocyte Esterase Negative (Negative) COVID-19 Eval Order Covid19 at [facility] SARS-CoV-2 (PCR) POSITIVE A* (Negative) 11/26/20 11/26/20 11/26/20 Range/Units 12:51 12:51 12:51 WBC 5.76 (4.8-10.8) K/uL RBC 4.14 L (4.2-5.4) M/uL Hgb 11.0 L (12.0-16.0) g/dL Hct 34.8 L (37-47) % MCV 84.1 (80-100) fL MCH 26.6 (25-34) pg MCHC 31.6 L (32-36) g/dL RDW Std Deviation 46.1 (36.4-46.3) fL RDW Coeff of Pj 15.0 H (11.5-14.5) % Plt Count 179 (130-400) K/uL MPV 9.8 (7.4-10.4) fL Immature Gran % (Auto) 0.2 % Neut % (Auto) 81.5 % Lymph % (Auto) 11.8 % [place] % (Auto) 6.3 % Eos % (Auto) 0.2 % Baso % (Auto) 0.0 % Neut # (Auto) 4.70 (1.4-6.5) K/uL Lymph # (Auto) 0.68 L (1.2-3.4) K/uL [place] # (Auto) 0.36 (0.11-0.59) K/uL Eos # (Auto) 0.01 (0-0.5) K/uL Baso # (Auto) 0.00 (0-0.2) K/uL Immature Gran # (Auto) 0.01 (0.00-0.02) K/uL PT 9.9 (9.0-12.0) Seconds INR 1.0 (0.9-1.1) APTT 22.4 (21.0-31.0) Seconds PTT Ratio 0.9 Sodium 138 (136-145) mmol/L Potassium 4.2 (3.5-5.1) mmol/L Chloride 109 H (98-107) mmol/L Carbon Dioxide 24 (21-32) mmol/L Anion Gap 5.0 (3-11) BUN 16 (7-18) mg/dl Creatinine 0.94 (0.6-1.2) mg/dl Est Cr Clr Drug Dosing 45.0 ml/min Est GFR ( Amer) 67.3 ml/min Est GFR (Non-Af Amer) 58.1 ml/min BUN/Creatinine Ratio 17.0 (10-20) Glucose 140 H (70-99) mg/dl Calcium 9.1 (8.5-10.1) mg/dl Total Bilirubin 0.3 (0.2-1) mg/dl AST 27 (15-37) U/L ALT 21 (12-78) U/L Alkaline Phosphatase 105 (45-117) U/L Total Protein 7.4 (6.4-8.2) gm/dl Albumin 3.7 (3.4-5.0) gm/dl Globulin 3.7 (2.5-4.0) gm/dl Albumin/Globulin Ratio 1.0 (0.9-2) Urine Color Urine Appearance (Clear) Urine pH (4.5-7.5) Ur Specific [place] (1.000-1.030) Urine Protein (Negative) Urine Glucose (UA) (Negative) Urine Ketones (Negative) Urine Blood (Negative) Urine Nitrite (Negative) Urine Bilirubin (Negative) Urine Urobilinogen (Negative) Ur Leukocyte Esterase (Negative) COVID-19 Eval Order SARS-CoV-2 (PCR) (Negative) Diagnostic Findings Hip/Pelvis X-Ray 11/26/20 12:45 XR hip RT 2V w pelvis INDICATION: MN ^fall, r hip pain; prior IRENE TECHNIQUE: 2 views of the right hip and single frontal view of the pelvis were obtained. Comparison: Comparison is made to hip and pelvis radiographs 11/26/2020 FINDINGS: There is a spiral fracture of the proximal femoral diaphysis. The distal fragment is displaced approximately 1 cortex width medially. Bones are osteopenic. IMPRESSION: Spiral fracture of the proximal right femoral diaphysis. ACT 112: Negative or not required by law. Electronically signed by: Familia Borrego M.D. 11/26/2020 2:05 PM Knee X-Ray 11/26/20 13:44 XR knee RT 1 or 2V routine CLINICAL HISTORY: Hip fracture. COMPARISON: Right femur MRI April 13, 2018. FINDINGS: A right femoral intramedullary bobby is partially imaged on this exam. Note is made of an acute oblique mildly displaced fracture of the proximal to mid diaphysis of the right femur better depicted on the right hip radiographs. No distal right femoral fracture is present. There is no right knee joint effusion. IMPRESSION: 1. Partial visualization of a right femoral intramedullary bobby and an acute oblique proximal to mid diaphyseal fracture of the right femur. 2. No distal right femoral fracture. ACT 112: Negative or not required by law. Electronically signed by: Jesse Zambrano M.D. 11/26/2020 2:03 PM
--- NOTE | 2020-11-26 16:41 | XRay Report ---
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 COMPARISON: Right hip and knee radiographs of same day, chest radiograph 01/23/2018 TECHNIQUE: Portable AP view of the chest FINDINGS: Cardiac silhouette is enlarged. Atherosclerosis of the thoracic aorta. Mild right hemidiaphragmatic e levation. Chronic interstitial coarsening with lateral left midlung and left lung base atelectasis/sc arring. No pneumothorax, pleural effusion, lobar airspace consolidation or overt pulmonary edema. Deg enerative changes of the shoulders and spine. IMPRESSION: No acute process. ACT 112: Negative or not required by law. The above report was generated using voice recognition software. It may contain grammatical, syntax o r spelling errors. Electronically signed by: Liu Ibarra M.D. 11/26/2020 4:40 PM
--- NOTE | 2020-11-26 18:03 | Anesthesiology Consultation ---
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 Verified 11/26/20 16:23 polymyxin B Allergy Unknown . Verified 11/26/20 16:23 prednisone Allergy Unknown "COULD BE Verified 11/26/20 16:23 FATAL" - PER PCP Sulfa (Sulfonamide Allergy Unknown Rash Verified 11/26/20 16:23 Antibiotics) tramadol AdvReac Unknown "PUT ME IN Verified 11/26/20 16:23 A DAZE" Medications Home Medications Medication Instructions Recorded Confirmed Last Taken ibuprofen 200 mg tablet 400 mg PO Q8H PRN 11/26/20 11/26/20 Unknown Active Medications Generic Name Dose Route Start Last Admin Trade Name Freq PRN Reason Stop Dose Admin Sodium Chloride 1,000 mls @ 150 mls/hr 11/26/20 12:45 11/26/20 13:02 Nss 1000ml IV 11/26/20 19:24 150 mls/hr .[id number] AGUILAR Administration Past Medical History Medical History Anxiety Cancer SKIN CANCER Cardiac murmur H/O A CHILD Femur fracture Hip fracture Hypertension H/O - NO MEDICATIONS CURRENTLY PER MD ORDERS Nausea and vomiting after administration of anesthetic agent Osteoporosis Retinal artery occlusion Urinary tract infection RECURRENT, TAKING ABX. (STARTED 04/25/18) Past Surgical History Surgical History H/O exploratory laparotomy History of dilatation and curettage History of open reduction and internal fixation (ORIF) procedure "left femur bobby" History of tonsillectomy and adenoidectomy Social History Smoking Status: Never smoker Hx Alcohol Use: No Hx Substance Use: No substance use type: does not use Physical Exam Vital Signs Last Vital Signs Temp 98.2 F 11/26/20 15:44 Pulse 96 H 11/26/20 15:44 Resp 17 11/26/20 15:44 BP 150/83 H 11/26/20 15:44 Pulse Ox 94 11/26/20 15:44 Testing Laboratory Results 11/26/20 12:51 11/26/20 12:51 PT 9.9 Seconds (9.0-12.0) 11/26/20 12:51 INR 1.0 (0.9-1.1) 11/26/20 12:51 APTT 22.4 Seconds (21.0-31.0) 11/26/20 12:51 Urine Color Yellow 11/26/20 13:09 Urine Appearance Clear (Clear) 11/26/20 13:09 Urine pH 6.0 (4.5-7.5) 11/26/20 13:09 Ur Specific [place] 1.012 (1.000-1.030) 11/26/20 13:09 Urine Protein Negative (Negative) 11/26/20 13:09 Urine Glucose (UA) Negative (Negative) 11/26/20 13:09 Urine Ketones Negative (Negative) 11/26/20 13:09 Urine Nitrite Negative (Negative) 11/26/20 13:09 Ur Leukocyte Esterase Negative (Negative) 11/26/20 13:09 Laboratory Tests 11/26/20 12:53 SARS-CoV-2 (PCR) POSITIVE A* Electrocardiogram Date: 11/26/20 Poor data quality, interpretation may be adversely affected Normal sinus rhythm, rate 94 bpm Possible Left atrial enlargement Nonspecific ST and T wave abnormality Abnormal ECG When compared with ECG of 26-APR-2018 14:50, Non-specific change in ST segment in Inferior leads Chest X-Ray Date: 11/26/20 Findings: + NAD
--- NOTE | 2020-11-26 18:05 | Electrocardiogram Report ---
Test Reason : Blood Pressure : / mmHG Vent. Rate : 094 BPM Atrial Rate : 094 BPM P-R Int : 124 ms QRS Dur : 078 ms QT Int : 350 ms P-R-T Axes : 057 061 083 degrees QTc Int : 437 ms Poor data quality, interpretation may be adversely affected Normal sinus rhythm Left atrial enlargement Diffuse Minor Nonspecific ST abnormality Abnormal ECG When compared with ECG of 26-APR-2018 14:50, No significant change Confirmed by Lee Izquierdo ([id number]) on 11/26/2020 6:04:42 PM Referred By: REFERRED SELF Confirmed By:Lee Izquierdo
[2020-11-26] MEDS ORDERED: diazePAM 5 MG TABLET PO PRN (23:16)
[2020-11-26] MEDS ORDERED: MoRPHine SULFATE 2 MG/ML CARP IV PRN (23:16)
[2020-11-26] MEDS ORDERED: MAGNESIUM HYDROXIDE SUSP 30 ML UDC PO PRN (23:16)
[2020-11-26] MEDS ORDERED: NALOXONE HCL 0.4 MG/1 ML VIAL/CARP IV PRN (23:16)
[2020-11-26] MEDS ORDERED: MoRPHine SULFATE 4 MG/ML 1 ML CARP\\VIAL IV PRN (23:16)
[2020-11-26] MEDS ORDERED: bisacodyL 10 MG SUPP PR PRN (23:16)
[2020-11-26] MEDS ORDERED: ALUMINUM/MAGNESIUM SUSP 30 ML UDC PO PRN (23:16)
[2020-11-26] MEDS ORDERED: oxyCODONE HCL IR 5 MG TAB (IMMEDIATE RELEASE) PO PRN (23:16)
[2020-11-26] MEDS: LACTATED RINGER'S 1,000 ML IV SCH (23:31)
[2020-11-26] MEDS: SENNA 8.6 MG TAB PO SCH (23:49)
[2020-11-26] MEDS: DOCUSATE SODIUM/SENNA 50/8.6MG TAB PO SCH (23:49)
[2020-11-27] MEDS ORDERED: ceFAZolin 2000MG 2,000 MG/15 ML SYR IV SCH ×2 (06:00)
[2020-11-27 07:34] LABS: Hematocrit (blood only) 30.6 % (37-47); Hemoglobin 9.6 g/dL (12.0-16.0); Mean Corpuscular Hemoglobin 25.7 pg (25-34); Mean Corpuscular Hgb Conc 31.4 g/dL (32-36); Mean Platelet Volume 9.9 fL (7.4-10.4); Platelet Count 162 K/uL (130-400); RDW Coefficient of Variation 14.9 % (11.5-14.5); RDW Standard Deviation 44.6 fL (36.4-46.3); Red Blood Count 3.73 M/uL (4.2-5.4); White Blood Count 5.54 K/uL (4.8-10.8)
[2020-11-27 07:46] LABS: Partial Thromboplastin Time 25.2 Seconds (21.0-31.0)
[2020-11-27 08:09] LABS: BUN Creatinine Ratio 21.5 (10-20); Calcium 8.6 mg/dl (8.5-10.1); Est GFR (African American) 91.4 ml/min; Est GFR (Non-African American) 78.9 ml/min
[2020-11-27] MEDS: LACTATED RINGER'S 1,000 ML IV SCH ×2 (08:42→16:33)
--- NOTE | 2020-11-27 09:13 | Orthopedic Progress Note ---
Date of Service November 27, 2020 Assessment & Plan (1) Rebeca-prosthetic femoral shaft fracture: Plan: Plan for ORIF right hip with distal locking screws placement with Dr. May later today. She is currently NPO Pain controlled Continue bedrest Consent obtained by Dr. May and on chart. Ice to right hip PRN All questions answered. I did not see patient prior to OR due to isolation and transport, I agree with my PA's note and plan of care which I discussed with my PA. Admission and Anticipated Discharge Date Admission Date: November 26, 2020 Subjective Patient resting in bed, comfortable. States that she doesn't have pain unless she moves her right leg. No pain anywhere else today. Physical Exam Musculoskeletal: Right LE shortened. Distal pulses and sensation normal. No distal edema. No skin abrasions. Knee not tender with palpation. Results & Data ([facility]) Vital Signs (Past 12 Hours) Vital Signs Temp Pulse Pulse Resp BP BP Pulse Ox 11/27/20 07:37 38.2 C H 76 20 142/78 H 96 11/26/20 23:19 37.3 C 80 14 148/80 H 93 11/26/20 22:00 100 H 22 148/109 H 96 Laboratory Results 11/27/20 11/27/20 11/27/20 Range/Units 06:59 06:59 06:59 WBC 5.54 (4.8-10.8) K/uL RBC 3.73 L (4.2-5.4) M/uL Hgb 9.6 L (12.0-16.0) g/dL Hct 30.6 L (37-47) % MCV 82.0 (80-100) fL MCH 25.7 (25-34) pg MCHC 31.4 L (32-36) g/dL RDW Std Deviation 44.6 (36.4-46.3) fL RDW Coeff of Pj 14.9 H (11.5-14.5) % Plt Count 162 (130-400) K/uL MPV 9.9 (7.4-10.4) fL Immature Gran % (Auto) % Neut % (Auto) % Lymph % (Auto) % [place] % (Auto) % Eos % (Auto) % Baso % (Auto) % Neut # (Auto) (1.4-6.5) K/uL Lymph # (Auto) (1.2-3.4) K/uL [place] # (Auto) (0.11-0.59) K/uL Eos # (Auto) (0-0.5) K/uL Baso # (Auto) (0-0.2) K/uL Immature Gran # (Auto) (0.00-0.02) K/uL PT 10.0 (9.0-12.0) Seconds INR 1.0 (0.9-1.1) APTT 25.2 (21.0-31.0) Seconds PTT Ratio 1.0 Sodium 137 (136-145) mmol/L Potassium 4.0 (3.5-5.1) mmol/L Chloride 107 (98-107) mmol/L Carbon Dioxide 24 (21-32) mmol/L Anion Gap 6.0 (3-11) BUN 16 (7-18) mg/dl Creatinine 0.73 (0.6-1.2) mg/dl Est Cr Clr Drug Dosing 58.0 ml/min Est GFR ( Amer) 91.4 ml/min Est GFR (Non-Af Amer) 78.9 ml/min BUN/Creatinine Ratio 21.5 H (10-20) Glucose 97 (70-99) mg/dl Calcium 8.6 (8.5-10.1) mg/dl Total Bilirubin (0.2-1) mg/dl AST (15-37) U/L ALT (12-78) U/L Alkaline Phosphatase (45-117) U/L Total Protein (6.4-8.2) gm/dl Albumin (3.4-5.0) gm/dl Globulin (2.5-4.0) gm/dl Albumin/Globulin Ratio (0.9-2) 25-OH Vitamin D Total (30-100) ng/ml Urine Color Urine Appearance (Clear) Urine pH (4.5-7.5) Ur Specific [place] (1.000-1.030) Urine Protein (Negative) Urine Glucose (UA) (Negative) Urine Ketones (Negative) Urine Blood (Negative) Urine Nitrite (Negative) Urine Bilirubin (Negative) Urine Urobilinogen (Negative) Ur Leukocyte Esterase (Negative) COVID-19 Eval Order SARS-CoV-2 (PCR) (Negative) Blood Type Antibody Screen Antibody Identification Antibody ID Comment 11/26/20 11/26/20 11/26/20 Range/Units 17:44 13:09 12:53 WBC (4.8-10.8) K/uL RBC (4.2-5.4) M/uL Hgb (12.0-16.0) g/dL Hct (37-47) % MCV (80-100) fL MCH (25-34) pg MCHC (32-36) g/dL RDW Std Deviation (36.4-46.3) fL RDW Coeff of Pj (11.5-14.5) % Plt Count (130-400) K/uL MPV (7.4-10.4) fL Immature Gran % (Auto) % Neut % (Auto) % Lymph % (Auto) % [place] % (Auto) % Eos % (Auto) % Baso % (Auto) % Neut # (Auto) (1.4-6.5) K/uL Lymph # (Auto) (1.2-3.4) K/uL [place] # (Auto) (0.11-0.59) K/uL Eos # (Auto) (0-0.5) K/uL Baso # (Auto) (0-0.2) K/uL Immature Gran # (Auto) (0.00-0.02) K/uL PT (9.0-12.0) Seconds INR (0.9-1.1) APTT (21.0-31.0) Seconds PTT Ratio Sodium (136-145) mmol/L Potassium (3.5-5.1) mmol/L Chloride (98-107) mmol/L Carbon Dioxide (21-32) mmol/L Anion Gap (3-11) BUN (7-18) mg/dl Creatinine (0.6-1.2) mg/dl Est Cr Clr Drug Dosing ml/min Est GFR ( Amer) ml/min Est GFR (Non-Af Amer) ml/min BUN/Creatinine Ratio (10-20) Glucose (70-99) mg/dl Calcium (8.5-10.1) mg/dl Total Bilirubin (0.2-1) mg/dl AST (15-37) U/L ALT (12-78) U/L Alkaline Phosphatase (45-117) U/L Total Protein (6.4-8.2) gm/dl Albumin (3.4-5.0) gm/dl Globulin (2.5-4.0) gm/dl Albumin/Globulin Ratio (0.9-2) 25-OH Vitamin D Total (30-100) ng/ml Urine Color Yellow Urine Appearance Clear (Clear) Urine pH 6.0 (4.5-7.5) Ur Specific [place] 1.012 (1.000-1.030) Urine Protein Negative (Negative) Urine Glucose (UA) Negative (Negative) Urine Ketones Negative (Negative) Urine Blood Negative (Negative) Urine Nitrite Negative (Negative) Urine Bilirubin Negative (Negative) Urine Urobilinogen Negative (Negative) Ur Leukocyte Esterase Negative (Negative) COVID-19 Eval Order SARS-CoV-2 (PCR) POSITIVE A* (Negative) Blood Type A Positive Antibody Screen POSITIVE A Antibody Identification Pending Antibody ID Comment Pending 11/26/20 11/26/20 11/26/20 Range/Units 12:53 12:51 12:51 WBC (4.8-10.8) K/uL RBC (4.2-5.4) M/uL Hgb (12.0-16.0) g/dL Hct (37-47) % MCV (80-100) fL MCH (25-34) pg MCHC (32-36) g/dL RDW Std Deviation (36.4-46.3) fL RDW Coeff of Pj (11.5-14.5) % Plt Count (130-400) K/uL MPV (7.4-10.4) fL Immature Gran % (Auto) % Neut % (Auto) % Lymph % (Auto) % [place] % (Auto) % Eos % (Auto) % Baso % (Auto) % Neut # (Auto) (1.4-6.5) K/uL Lymph # (Auto) (1.2-3.4) K/uL [place] # (Auto) (0.11-0.59) K/uL Eos # (Auto) (0-0.5) K/uL Baso # (Auto) (0-0.2) K/uL Immature Gran # (Auto) (0.00-0.02) K/uL PT (9.0-12.0) Seconds INR (0.9-1.1) APTT (21.0-31.0) Seconds PTT Ratio Sodium 138 (136-145) mmol/L Potassium 4.2 (3.5-5.1) mmol/L Chloride 109 H (98-107) mmol/L Carbon Dioxide 24 (21-32) mmol/L Anion Gap 5.0 (3-11) BUN 16 (7-18) mg/dl Creatinine 0.94 (0.6-1.2) mg/dl Est Cr Clr Drug Dosing 45.0 ml/min Est GFR ( Amer) 67.3 ml/min Est GFR (Non-Af Amer) 58.1 ml/min BUN/Creatinine Ratio 17.0 (10-20) Glucose 140 H (70-99) mg/dl Calcium 9.1 (8.5-10.1) mg/dl Total Bilirubin 0.3 (0.2-1) mg/dl AST 27 (15-37) U/L ALT 21 (12-78) U/L Alkaline Phosphatase 105 (45-117) U/L Total Protein 7.4 (6.4-8.2) gm/dl Albumin 3.7 (3.4-5.0) gm/dl Globulin 3.7 (2.5-4.0) gm/dl Albumin/Globulin Ratio 1.0 (0.9-2) 25-OH Vitamin D Total 27.3 L (30-100) ng/ml Urine Color Urine Appearance (Clear) Urine pH (4.5-7.5) Ur Specific [place] (1.000-1.030) Urine Protein (Negative) Urine Glucose (UA) (Negative) Urine Ketones (Negative) Urine Blood (Negative) Urine Nitrite (Negative) Urine Bilirubin (Negative) Urine Urobilinogen (Negative) Ur Leukocyte Esterase (Negative) COVID-19 Eval Order Covid19 at [facility] SARS-CoV-2 (PCR) (Negative) Blood Type Antibody Screen Antibody Identification Antibody ID Comment 11/26/20 11/26/20 Range/Units 12:51 12:51 WBC 5.76 (4.8-10.8) K/uL RBC 4.14 L (4.2-5.4) M/uL Hgb 11.0 L (12.0-16.0) g/dL Hct 34.8 L (37-47) % MCV 84.1 (80-100) fL MCH 26.6 (25-34) pg MCHC 31.6 L (32-36) g/dL RDW Std Deviation 46.1 (36.4-46.3) fL RDW Coeff of Pj 15.0 H (11.5-14.5) % Plt Count 179 (130-400) K/uL MPV 9.8 (7.4-10.4) fL Immature Gran % (Auto) 0.2 % Neut % (Auto) 81.5 % Lymph % (Auto) 11.8 % [place] % (Auto) 6.3 % Eos % (Auto) 0.2 % Baso % (Auto) 0.0 % Neut # (Auto) 4.70 (1.4-6.5) K/uL Lymph # (Auto) 0.68 L (1.2-3.4) K/uL [place] # (Auto) 0.36 (0.11-0.59) K/uL Eos # (Auto) 0.01 (0-0.5) K/uL Baso # (Auto) 0.00 (0-0.2) K/uL Immature Gran # (Auto) 0.01 (0.00-0.02) K/uL PT 9.9 (9.0-12.0) Seconds INR 1.0 (0.9-1.1) APTT 22.4 (21.0-31.0) Seconds PTT Ratio 0.9 Sodium (136-145) mmol/L Potassium (3.5-5.1) mmol/L Chloride (98-107) mmol/L Carbon Dioxide (21-32) mmol/L Anion Gap (3-11) BUN (7-18) mg/dl Creatinine (0.6-1.2) mg/dl Est Cr Clr Drug Dosing ml/min Est GFR ( Amer) ml/min Est GFR (Non-Af Amer) ml/min BUN/Creatinine Ratio (10-20) Glucose (70-99) mg/dl Calcium (8.5-10.1) mg/dl Total Bilirubin (0.2-1) mg/dl AST (15-37) U/L ALT (12-78) U/L Alkaline Phosphatase (45-117) U/L Total Protein (6.4-8.2) gm/dl Albumin (3.4-5.0) gm/dl Globulin (2.5-4.0) gm/dl Albumin/Globulin Ratio (0.9-2) 25-OH Vitamin D Total (30-100) ng/ml Urine Color Urine Appearance (Clear) Urine pH (4.5-7.5) Ur Specific [place] (1.000-1.030) Urine Protein (Negative) Urine Glucose (UA) (Negative) Urine Ketones (Negative) Urine Blood (Negative) Urine Nitrite (Negative) Urine Bilirubin (Negative) Urine Urobilinogen (Negative) Ur Leukocyte Esterase (Negative) COVID-19 Eval Order SARS-CoV-2 (PCR) (Negative) Blood Type Antibody Screen Antibody Identification Antibody ID Comment
[2020-11-27] MEDS ORDERED: EPINEPHrine INJ 1 MG/ML AMP ONE (12:08)
[2020-11-27] MEDS ORDERED: BUPIVACAINE 0.5 % 5 MG/1 ML MPF 30ML VIAL ONE (12:08)
[2020-11-27] MEDS ORDERED: LIDOCAINE/EPINEPHRINE 1% 20 ML VIAL ONE (12:08)
[2020-11-27] MEDS ORDERED: ONDANSETRON INJ 2 MG/ML 2 ML VIAL ONE (12:12)
[2020-11-27] MEDS ORDERED: PROPOFOL IV EMULSION 10 MG/ML 20 ML VIAL IV ONE (12:12)
[2020-11-27] MEDS ORDERED: fentaNYL citrate 100 MCG/2 ML VIAL ONE ×3 (12:12→12:13)
[2020-11-27] MEDS ORDERED: SUGAMMADEX SODIUM 200 MG/2 ML VIAL IV ONE (12:49)
[2020-11-27] MEDS ORDERED: ePHEDrine sulfate 50 MG/ML AMP IV PRN (13:45)
[2020-11-27] MEDS ORDERED: PROMETHAZINE HCL 12.5 MG in SODIUM CHLORIDE 0.9% 50 ML IV PRN (13:45)
[2020-11-27] MEDS ORDERED: NALOXONE HCL 0.4 MG/1 ML VIAL/CARP IV PRN (13:45)
[2020-11-27] MEDS ORDERED: LABETALOL HCL IV 5 MG/ML 20ML IV PRN (13:45)
[2020-11-27] MEDS ORDERED: ONDANSETRON INJ 2 MG/ML 2 ML VIAL IV PRN ×2 (13:45→16:04)
[2020-11-27] MEDS ORDERED: FLUMAZENIL 0.1 MG/1 ML 10 ML VIAL IV PRN (13:45)
[2020-11-27] MEDS ORDERED: fentaNYL citrate 100 MCG/2 ML VIAL IV PRN (13:45)
[2020-11-27] MEDS ORDERED: ATROPINE SULFATE 0.1 MG/ML 10ML SYR IV PRN (13:45)
--- NOTE | 2020-11-27 14:41 | Post Operative Brief Note ---
Immediate Post Op Note v1 Date of Surgery November 27, 2020 Pre & Post Diagnosis Operation Date: 11/27/20 07:00 Pre-Op Diagnosis: Rebeca-prosthetic femoral shaft fracture Post-Op Diagnosis: Rebeca-prosthetic femoral shaft fracture I identified the patient and participated in the time-out.: Yes Procedure Operation Date: 11/27/20 07:00 Actual Procedures p Open Reduction Internal Fixation Right Rebeca-Prosthetic Femur Fracture(Right) - Jason May MD Surgeon Jason May MD Maintenance Carpenter Dominguez Gonzalez MD & Steve Smyth PA-C Estimated Blood Loss 5 Findings Consistent with Post-Op Diagnosis Fluids 500 cc Drains [place] Catheter (Present on arrival to OR) Anesthesia Type General Complications none
--- NOTE | 2020-11-27 14:42 | Operative Report ---
Post Operative Report Pre & Post Diagnosis Operation Date: 11/27/20 07:00 Pre-Op Diagnosis: Rebeca-prosthetic femoral shaft fracture Post-Op Diagnosis: Rebeca-prosthetic femoral shaft fracture I identified the patient and participated in the time-out.: Yes Procedure Operation Date: 11/27/20 07:00 Actual Procedures p Open Reduction Internal Fixation Right Rebeca-Prosthetic Femur Fracture(Right) - Jason May MD Surgeon Jason May MD Boat [employer] Operator Dominguez Gonzalez MD & Steve Smyth PA-C Estimated Blood Loss 5 Findings See Below Displaced shortened right femur rebeca-prosthetic fracture, status post previous IM rodding with long Troch nail without distal locking screws. Fluids 500 cc Specimens n/a Drains [place] Anesthesia Type General Complications none Indications The patient is a 80 year old female who sustained a right femur sprial fracture fracture from a ground level fall, around her IM bobby, which is well fixed. The patients treatment options of conservative versus surgical intervention were discussed. I recommended surgery, once the patient was medically cleared, to allow for decreased morbidity and mortality. The patient understands the risks of surgery, which include but are not limited to: bleeding, infection, re- operation, damage to nerves and arteries, continued pain, failure of the hardware, mal-union, non-union, DVT, and . The patient understands all of these instructions and explanations, all of their questions have been satisfactorily addressed. The patient has elected to proceed with surgery and the informed consent was signed. Description of Procedure IMPLANTS: 5.0 mm Locking screws (34 & 36 mm) Synthes. PROCEDURE: COVID precautions were taken and the patient was intubated in a n egative pressure room. The patient was taken to the Operating Room and placed in the Supine position on the radiolucent table after spinal anesthesia was administered. A multidisciplinary time-out was performed identifying my initials on the right lower limb as the correct and operative limb. Prior to the incision being made, 2 grams of intravenous Ancef was given. Fluoroscopy was brought in to ensure adequate x-rays images could be obtained. Traction was applied and the limb was internally rotated. Fluoroscopy was used to show that the fracture was brought out to length was well reduced. The right lower extremity was prepped in the standard fashion. The planned incision were marked. The incision was injected with a 50:50 mixture of 1% Lidocaine plain and 0.5% Bupivacaine with epinephrine for a total of 10cc. Fluoroscopy was used to create perfect circles. The planned incisions were made and carried down and through the IT band. Using perfect [place] technique the distal static holes were filled with 5.0 locking screws in the standard fashion. The wounds were copiously irrigated. The subcutaneous tissue was closed with 4-0 Monocryl. The skin was closed with Dermabond. The incisions were covered with Steri strips, 4x4s,Tegaderm. The alignment of her lower leg was the same as her non-operative side. The patient was transfer to the hospital bed and taken to the PACU in stable condition. The sponge and needle counts were correct. Post-op Instructions: The patient was re-admitted to the hospitalist service. The patient will be WBAT. The patient will be seen by PT/OT. Labs will be checked in the am. DVT prophylaxis will be with mechanical devices, TEDs, and ASA for 6 weeks. I attest to the content of the Intraoperative Record and any orders documented therein. Any exceptions are noted below.
--- NOTE | 2020-11-27 15:00 | Fluoroscopy Report ---
FL hip RT 2-3V HISTORY: 80 years-old Female RT CANNULATED SCREWS acute fracture of the proximal right femur COMPARISON: Pelvis and right hip radiographs 11/26/2020 TECHNIQUE: 4 spot fluoroscopic images of the right hip were obtained utilizing 72.5 seconds fluorosco py time FINDINGS: Intertrochanteric nail with medullary bobby and distal cannulated screws noted. Acute fracture of the p roximal femoral diaphysis redemonstrated again with slight displacement. IMPRESSION: Fluoroscopic assistance as above. ACT 112: Negative or not required by law. The above report was generated using voice recognition software. It may contain grammatical, syntax o r spelling errors. Electronically signed by: Liu Ibarra M.D. 11/27/2020 2:58 PM
[2020-11-27] MEDS ORDERED: ROCURONIUM BROMIDE 10 MG/ML 5 ML VIAL IV ONE (15:25)
[2020-11-27] MEDS ORDERED: ePHEDrine sulfate 50 MG/ML AMP ONE (15:25)
--- NOTE | 2020-11-27 15:40 | Operative Report ---
Post Operative Report Pre & Post Diagnosis Operation Date: 11/27/20 07:00 Pre-Op Diagnosis: Rebeca-prosthetic femoral shaft fracture Post-Op Diagnosis: Rebeca-prosthetic femoral shaft fracture I identified the patient and participated in the time-out.: Yes Procedure Operation Date: 11/27/20 07:00 Actual Procedures p Open Reduction Internal Fixation Right Rebeca-Prosthetic Femur Fracture(Right) - Jason May MD Surgeon Jason May Social Media Specialist Dominguez Gonzalez MD & J ANDREA Smyth Estimated Blood Loss 5 Findings Consistent with Post-Op Diagnosis Right Rebeca-prosthetic femoral shaft fracture Specimens no specimens Description of Procedure see Dr May note I attest to the content of the Intraoperative Record and any orders documented therein. Any exceptions are noted below. Supervising Physician Co-Signing Physician Notes Dr. May
[2020-11-27] MEDS ORDERED: METOCLOPRAMIDE HCL INJ 5 MG/ML 2 ML VIAL IV PRN (16:04)
--- NOTE | 2020-11-27 16:06 | Anesthesiology Progress Note ---
Date of Service November 27, 2020 Anesthesia Post Procedure Vital Signs Vital Signs: Temp Pulse Pulse Pulse Resp BP BP 11/27/20 15:50 36.7 C 89 18 106/69 11/27/20 15:40 84 14 157/67 H 11/27/20 15:30 87 12 141/77 H 11/27/20 15:20 93 H 12 125/82 11/27/20 15:10 37.1 C 91 H 13 147/75 H 11/27/20 10:28 37.4 C 80 16 137/76 11/27/20 07:37 38.2 C H 76 20 142/78 H 11/26/20 23:19 37.3 C 80 14 148/80 H 11/26/20 22:00 100 H 22 148/109 H 11/26/20 21:00 86 17 153/80 H 11/26/20 20:00 88 26 H 140/94 11/26/20 19:00 94 H 20 144/85 H 11/26/20 18:10 36.7 C 97 H 17 156/90 H 11/26/20 18:00 94 H 18 143/77 H 11/26/20 17:00 103 H 22 145/83 H Pulse Ox 11/27/20 15:50 94 11/27/20 15:40 97 11/27/20 15:30 95 11/27/20 15:20 97 11/27/20 15:10 95 11/27/20 10:28 94 11/27/20 07:37 96 11/26/20 23:19 93 11/26/20 22:00 96 11/26/20 21:00 93 11/26/20 20:00 94 11/26/20 19:00 94 11/26/20 18:10 94 11/26/20 18:00 94 11/26/20 17:00 94 Pain Intensity Right Hip: Pain Intensity: 2 Transfer of Care Handoff Completed per policy Notes Mental Status: alert / awake / arousable and participated in evaluation Patient Amnestic to Procedure: Yes Nausea / Vomiting: adequately controlled Pain: adequately controlled Airway Patency, RR, SpO2: stable & adequate BP & HR: stable & adequate Hydration State: stable & adequate Anesthetic Complications: no major complications apparent
--- NOTE | 2020-11-27 20:44 | Hospitalist Progress Note ---
Date of Service November 27, 2020 Assessment & Plan (1) Fracture of proximal end of right femur: Plan: Complex fracture of the proximal right femur with pre-existing intramedullary bobby from previous fracture awaiting Dr. May feels he can address this patient's fracture to our facility Patient is independent takes medications has no unstable angina or heart failure symptoms her cardiac risk factor in the perioperative period is very low really only related to her age. I see no medical reason not to proceed to surgery if we feel we have the equipment expertise to repair here Patient is awaiting procedure. (2) COVID: Plan: Patient was Covid positive status not hypoxic chest x-ray is pending at this time will be need negative pressure and appropriate operative protective equipment (3) Hypertension: Plan: In the past patient was on lisinopril currently on no medications (4) Osteoporosis: Plan: Typically taking calcium vitamin D for osteoporosis (5) DVT prophylaxis: Plan: Postoperative DVT prevention will be based on surgeons preference Admission and Anticipated Discharge Date Admission Date: November 26, 2020 Subjective Patient reports feeling well. Review of Systems Review of Systems: All systems reviewed & are unremarkable except as noted in HPI & below Physical Exam Physical Exam: The patient appeared well nourished and normally developed. Vital signs as documented. Head exam is normocephalic atraumatic Neck is without JVD, thyromegaly, or carotid bruits. Lungs are clear to auscultation, no focal loss of breath sounds Cardiac exam, Rhythm is regular.. No murmurs, rubs or gallops. Abdominal exam reveals normal bowel sounds, soft non tender, no masses Extremities right leg is shortened and externally rotated distal pulses are intact Neurologic exam is alert and oriented, no focal loss of strength or sensation to right leg sensation and strength is intact Skin is without bruises or rashes Psychologically is without concerns for anxiety or depression Results & Data Results & Data ([facility]) Vital Signs (Past 12 Hours) Vital Signs Temp Pulse Pulse Pulse Resp BP Pulse Ox 11/27/20 19:11 36.8 C 83 16 133/69 94 11/27/20 17:04 36.7 C 85 16 137/67 91 11/27/20 16:35 36.9 C 82 20 142/80 H 97 11/27/20 16:05 36.7 C 75 16 136/78 99 11/27/20 15:50 36.7 C 89 18 106/69 94 11/27/20 15:40 84 14 157/67 H 97 11/27/20 15:30 87 12 141/77 H 95 11/27/20 15:20 93 H 12 125/82 97 11/27/20 15:10 37.1 C 91 H 13 147/75 H 95 11/27/20 10:28 37.4 C 80 16 137/76 94 PG Care Time/CCT Total # of Minutes Spent Total Time Spent with Patient: Total time spent is greater than 50% in coordination of care (as documented) at patient's floor/unit and/or counseling patient: Coding Level of Care Code 66499 Subseq Hosp Care Lvl 2 Diagnoses Fracture of proximal end of right femur S72.001A COVID U07.1 Hypertension I10 Osteoporosis M81.0 DVT prophylaxis Z29.9
[2020-11-27] MEDS: SENNA 8.6 MG TAB PO SCH (21:39)
[2020-11-27] MEDS: oxyCODONE HCL IR 5 MG TAB (IMMEDIATE RELEASE) PO PRN (21:43)
[2020-11-27] MEDS: DOCUSATE SODIUM/SENNA 50/8.6MG TAB PO SCH (21:43)
[2020-11-27] MEDS: ASPIRIN 81 MG ECTAB PO SCH (21:44)
[2020-11-27] MEDS: ceFAZolin 2000MG 2,000 MG/15 ML SYR IV SCH (21:44)
[2020-11-28] MEDS: ceFAZolin 2000MG 2,000 MG/15 ML SYR IV SCH (06:13)
--- NOTE | 2020-11-28 08:23 | Orthopedic Progress Note ---
Date of Service November 28, 2020 Assessment & Plan (1) Rebeca-prosthetic femoral shaft fracture: Plan: POD #1 s/p ORIF right hip with distal locking screws, doing as well as expected. WBAT PT/OT Ice to right thigh and knee PRN Resume diet. DVT Prophylaxis: TEDs, foot pumps, ASA 81 mg PO BID 6 weeks. Continue care per primary service. D/C planning May change to dry sterile dressing POD #2, Leave steri strips in place. Keep covered while in hospital. Follow-up Dr. May's office 6 weeks post-op for X-rays. Present on Admission?: Yes Admission and Anticipated Discharge Date Admission Date: November 26, 2020 Subjective Doing well, no pain. But has not been moving her leg. Review of Systems Review of Systems: All systems reviewed & are unremarkable except as noted in HPI & below Physical Exam Physical Exam: RLE: Neurovascularly intact. Dressing clean, dry, intact. Calf soft and Non-tender. Results & Data ([facility]) Vital Signs (Past 12 Hours) Vital Signs Temp Pulse Resp BP Pulse Ox 11/28/20 06:14 37.5 C 88 14 119/65 92 11/28/20 02:52 36.8 C 86 14 119/69 93 11/27/20 22:46 37.4 C 86 18 128/69 92 Laboratory Results 11/27/20 11/26/20 Range/Units 11:22 17:44 Blood Type A Positive Antibody Screen POSITIVE A Antibody Identification Pending Antibody ID Referred Pending Antibody ID Comment Elution Pending Direct Antiglob Test Positive A (Negative) ALBERTINA (IgG-AHG) 2+ A (Negative) ALBERTINA, Polyspecific 2+ A (Negative) ALBERTINA C3b, C3d 5 Min Weak Pos A (Negative)
[2020-11-28 09:57] LABS: Hematocrit (blood only) 29.5 % (37-47); Immature Granulocytes # (auto) 0.02 K/uL (0.00-0.02); Immature Granulocytes % (auto) 0.4 %; Lymphocytes # (auto) 1.11 K/uL (1.2-3.4); Mean Corpuscular Hgb Conc 30.5 g/dL (32-36); Mean Corpuscular Volume 85.3 fL (80-100); Mean Platelet Volume 9.8 fL (7.4-10.4); Monocytes # (auto) 0.42 K/uL (0.11-0.59); Monocytes % (auto) 8.3 %; Neutrophils % (auto) 69.3 %; Platelet Count 164 K/uL (130-400); RDW Coefficient of Variation 15.2 % (11.5-14.5); RDW Standard Deviation 47.2 fL (36.4-46.3); Red Blood Count 3.46 M/uL (4.2-5.4); White Blood Count 5.05 K/uL (4.8-10.8)
[2020-11-28] MEDS: ASPIRIN 81 MG ECTAB PO SCH ×2 (10:02→21:24)
[2020-11-28 10:33] LABS: BUN Creatinine Ratio 20.1 (10-20); Calcium 8.3 mg/dl (8.5-10.1); Creatinine Clr Calc Pharmacy 58.8 ml/min; Est GFR (Non-African American) 80.2 ml/min; Potassium 4.1 mmol/L (3.5-5.1)
[2020-11-28] MEDS: oxyCODONE HCL IR 5 MG TAB (IMMEDIATE RELEASE) PO PRN (10:51)
[2020-11-28] MEDS ORDERED: Nursing to Pharmacy Communication SCH (13:30)
[2020-11-28] MEDS: POLYETHYLENE (MIRALAX) 17 GM PACK PO SCH (14:18)
[2020-11-28] MEDS: DOCUSATE SODIUM/SENNA 50/8.6MG TAB PO SCH (19:44)
--- NOTE | 2020-11-28 20:05 | Hospitalist Progress Note ---
Date of Service November 28, 2020 Assessment & Plan (1) Fracture of proximal end of right femur: Plan: Complex fracture of the proximal right femur with pre-existing intramedullary bobby from previous fracture awaiting Dr. May feels he can address this patient's fracture to our facility Patient is independent takes medications has no unstable angina or heart failure symptoms her cardiac risk factor in the perioperative period is very low really only related to her age. I see no medical reason not to proceed to surgery if we feel we have the equipment expertise to repair here POD #1 s/p ORIF right hip with distal locking screws. Awaiting input from PT/OT (2) COVID: Plan: Patient was Covid positive status not hypoxic chest x-ray is pending at this time will be need negative pressure and appropriate operative protective equipment (3) Hypertension: Plan: In the past patient was on lisinopril currently on no medications (4) Osteoporosis: Plan: Typically taking calcium vitamin D for osteoporosis (5) DVT prophylaxis: Plan: Postoperative DVT prevention will be based on surgeons preference Admission and Anticipated Discharge Date Admission Date: November 26, 2020 Subjective Patient reports feeling well. Review of Systems Review of Systems: All systems reviewed & are unremarkable except as noted in HPI & below Physical Exam Physical Exam: The patient appeared well nourished and normally developed. Vital signs as documented. Head exam is normocephalic atraumatic Neck is without JVD, thyromegaly, or carotid bruits. Lungs are clear to auscultation, no focal loss of breath sounds Cardiac exam, Rhythm is regular.. No murmurs, rubs or gallops. Abdominal exam reveals normal bowel sounds, soft non tender, no masses Extremities right leg is shortened and externally rotated distal pulses are intact Neurologic exam is alert and oriented, no focal loss of strength or sensation to right leg sensation and strength is intact Skin is without bruises or rashes Psychologically is without concerns for anxiety or depression Results & Data Results & Data ([facility]) Vital Signs (Past 12 Hours) Vital Signs Temp Pulse Resp BP Pulse Ox 11/28/20 16:10 37.3 C 90 18 144/70 H 92 11/28/20 10:29 37.3 C 86 18 146/71 H 95 PG Care Time/CCT Total # of Minutes Spent Total Time Spent with Patient: Total time spent is greater than 50% in coordination of care (as documented) at patient's floor/unit and/or counseling patient: Coding Level of Care Code 62388 Subseq Hosp Care Lvl 2 Diagnoses Fracture of proximal end of right femur S72.001A COVID U07.1 Hypertension I10 Osteoporosis M81.0 DVT prophylaxis Z29.9 Time Spent (min) 25
[2020-11-28] MEDS: ACETAMINOPHEN 325 MG TAB PO PRN (21:19)
[2020-11-29 05:15] LABS: Hematocrit (blood only) 28.7 % (37-47); Hemoglobin 9.1 g/dL (12.0-16.0); Mean Corpuscular Hemoglobin 25.9 pg (25-34); Mean Corpuscular Hgb Conc 31.7 g/dL (32-36); Mean Corpuscular Volume 81.5 fL (80-100); Mean Platelet Volume 9.3 fL (7.4-10.4); Platelet Count 134 K/uL (130-400); RDW Coefficient of Variation 14.9 % (11.5-14.5); RDW Standard Deviation 44.2 fL (36.4-46.3); Red Blood Count 3.52 M/uL (4.2-5.4); White Blood Count 3.66 K/uL (4.8-10.8)
[2020-11-29 05:48] LABS: BUN Creatinine Ratio 17.1 (10-20); Calcium 8.5 mg/dl (8.5-10.1); Creatinine Clr Calc Pharmacy 63.2 ml/min; Est GFR (African American) 97.6 ml/min; Est GFR (Non-African American) 84.2 ml/min; Potassium 3.6 mmol/L (3.5-5.1)
[2020-11-29] MEDS: ASPIRIN 81 MG ECTAB PO SCH ×2 (08:58→20:43)
[2020-11-29] MEDS: POLYETHYLENE (MIRALAX) 17 GM PACK PO SCH (08:59)
[2020-11-29 16:21] LABS: C Reactive Protein 2.74 mg/dl (0-0.29); D Dimer 3260 ug/L FEU (0-500); Ferritin 46.5 ng/ml (8-388)
[2020-11-29 16:51] LABS: Albumin Level 2.8 gm/dl (3.4-5.0); Bilirubin Direct 0.3 mg/dl (0-0.2); Bilirubin,Total 0.6 mg/dl (0.2-1); Total Protein 6.5 gm/dl (6.4-8.2)
--- NOTE | 2020-11-29 16:55 | Hospitalist Progress Note ---
Date of Service November 29, 2020 Assessment & Plan (1) Fracture of proximal end of right femur: Plan: Complex fracture of the proximal right femur with pre-existing intramedullary bobby from previous fracture POD #1 s/p ORIF right hip with distal locking screws. Awaiting input from PT/OT (2) COVID: Plan: Patient was Covid positive status Non vaccinated Has intermittently required oxygen. Now on room air, ordered remedesevir. If patient becomes more hypoxic, will order dexamethasone. (3) Hypertension: Plan: In the past patient was on lisinopril currently on no medications (4) Osteoporosis: Plan: Typically taking calcium vitamin D for osteoporosis (5) DVT prophylaxis: Plan: Postoperative DVT prevention will be based on surgeons preference Admission and Anticipated Discharge Date Admission Date: November 26, 2020 Subjective Patient has no new complaints. Nurse however reports she appears more fatigued today. Review of Systems Review of Systems: All systems reviewed & are unremarkable except as noted in HPI & below Physical Exam Physical Exam: The patient appeared well nourished and normally developed. Vital signs as documented. Head exam is normocephalic atraumatic Neck is without JVD, thyromegaly, or carotid bruits. Lungs are clear to auscultation, no focal loss of breath sounds Cardiac exam, Rhythm is regular.. No murmurs, rubs or gallops. Abdominal exam reveals normal bowel sounds, soft non tender, no masses Extremities right leg is shortened and externally rotated distal pulses are intact Neurologic exam is alert and oriented, no focal loss of strength or sensation to right leg sensation and strength is intact Skin is without bruises or rashes Psychologically is without concerns for anxiety or depression Results & Data Results & Data ([facility]) Vital Signs (Past 12 Hours) Vital Signs Temp Pulse Resp BP Pulse Ox Pulse Ox Pulse Ox 11/29/20 15:33 37.7 C H 92 H 18 154/62 H 93 11/29/20 15:07 91 91 11/29/20 13:03 91 11/29/20 08:42 36.9 C 66 17 125/69 994 H 11/29/20 06:14 76 14 97 Pulse Ox 11/29/20 15:33 11/29/20 15:07 90 11/29/20 13:03 11/29/20 08:42 11/29/20 06:14 PG Care Time/CCT Total # of Minutes Spent Total Time Spent with Patient: Total time spent is greater than 50% in coordination of care (as documented) at patient's floor/unit and/or counseling patient: Coding Level of Care Code 36226 Subseq Hosp Care Lvl 3 Diagnoses Fracture of proximal end of right femur S72.001A COVID U07.1 Hypertension I10 Osteoporosis M81.0 DVT prophylaxis Z29.9
[2020-11-29] MEDS ORDERED: REMDESIVIR 200 MG in SODIUM CHLORIDE 0.9% 210 ML IV ONE (18:00)
[2020-11-29] MEDS ORDERED: SODIUM CHLORIDE 0.9% 10ML FLUSH IV SCH (18:00)
--- NOTE | 2020-11-29 20:00 | XRay Report ---
SINGLE VIEW CHEST CLINICAL HISTORY: Dyspnea. FINDINGS: An AP, portable, upright chest radiograph is compared to study dated 11/26/2020. The examina tion is degraded by portable technique and patient rotation. The heart is enlarged noting atheroscler otic calcification of the thoracic aorta. There is mild pulmonary vascular congestion. Chronic inters titial thickening is similar to previous. Scarring/atelectasis is noted at the lung bases. No airspac e consolidation, large pleural effusion, or pneumothorax is seen. The skeletal structures are osteope johan. The bony thorax is grossly intact. IMPRESSION: 1. Cardiomegaly with mild pulmonary vascular congestion. This is new from 11/26/2020. 2. No airspace consolidation or large pleural effusion is identified. ACT 112: Negative or not required by law. Electronically signed by: Sudheer Diego M.D. 11/29/2020 7:58 PM
[2020-11-29] MEDS: DOCUSATE SODIUM/SENNA 50/8.6MG TAB PO SCH (20:42)
[2020-11-29] MEDS: ACETAMINOPHEN 325 MG TAB PO PRN (21:37)
[2020-11-30 07:52] LABS: Hemoglobin 8.8 g/dL (12.0-16.0); Immature Granulocytes # (auto) 0.02 K/uL (0.00-0.02); Immature Granulocytes % (auto) 0.6 %; Lymphocytes # (auto) 0.95 K/uL (1.2-3.4); Lymphocytes % (auto) 29.8 %; Mean Corpuscular Hemoglobin 26.5 pg (25-34); Mean Corpuscular Hgb Conc 31.4 g/dL (32-36); Mean Corpuscular Volume 84.3 fL (80-100); Mean Platelet Volume 9.8 fL (7.4-10.4); Monocytes # (auto) 0.32 K/uL (0.11-0.59); Neutrophils % (auto) 59.6 %; Platelet Count 148 K/uL (130-400); RDW Standard Deviation 45.8 fL (36.4-46.3); Red Blood Count 3.32 M/uL (4.2-5.4); White Blood Count 3.19 K/uL (4.8-10.8)
[2020-11-30] MEDS: ASPIRIN 81 MG ECTAB PO SCH ×2 (08:09→20:33)
[2020-11-30] MEDS: POLYETHYLENE (MIRALAX) 17 GM PACK PO SCH (08:09)
[2020-11-30 08:28] LABS: BUN Creatinine Ratio 20.3 (10-20); Calcium 8.8 mg/dl (8.5-10.1); Creatinine Clr Calc Pharmacy 70.6 ml/min; Est GFR (African American) 101.2 ml/min; Est GFR (Non-African American) 87.3 ml/min; Potassium 3.2 mmol/L (3.5-5.1)
--- NOTE | 2020-11-30 12:45 | Hospitalist Progress Note ---
Date of Service November 30, 2020 Assessment & Plan (1) Fracture of proximal end of right femur: Plan: Complex fracture of the proximal right femur with pre-existing intramedullary bobby from previous fracture POD #2 s/p ORIF right hip with distal locking screws. will benefit from going to rehab, patient agrees, asking about [facility] discussed with her positive COVID test it could make discharge to rehab difficult will repeat nasal COVID test today, hopeful it will be negative and can then repeat tomorrow (2) COVID: Plan: Patient with Covid positive status Non vaccinated no oxygen requirement stop Remdesivir, no dexamethasone needed CXR is clear, no fever, no cough, no dyspnea repeat COVID test today (3) Hypertension: Plan: In the past patient was on lisinopril currently on no medications (4) Osteoporosis: Plan: Typically taking calcium vitamin D for osteoporosis (5) DVT prophylaxis: Plan: Postoperative DVT prevention will be based on surgeons preference Admission and Anticipated Discharge Date Admission Date: November 26, 2020 Subjective patient doing great today, she got up with therapy, walked in the room with walker sat in a chair for an hour eating and drinking well no dyspnea or cough, no chest pain, no fever, no diarrhea, basically no symptoms of COVID at all CXR 11/29 with some mild pulmonary congestion, no infiltrates she is NOT vaccinated will repeat COVID test today as she is going to need rehab with her fracture and recent surgery hopeful she will test negative because otherwise it will take some time to get her to rehab Review of Systems Review of Systems: All systems reviewed & are unremarkable except as noted in Subjective Musculoskeletal: + joint pain (right hip and knee, right thigh) and + muscle weakness (generalized); no back pain and no neck pain Physical Exam Physical Exam: General: well developed, overweight female, no acute distress, comfortable Neck: supple, trachea midline, normal thyroid Lungs: clear to auscultation bilaterally, normal respiratory effort, no accessory muscle use, no distress Heart: regular S1 and S2, no murmur, peripheral pulses normal, capillary refill normal, no edema Abdomen: soft, NT, ND, + BS, no hepatomegaly, normal to percussion Extremities: right leg immobilized, tender, swollen, no cyanosis, no petechiae, strength is 5/5 bilaterally Neuro: awake, cooperative, moves all extremities, no focal motor deficits, CN II-XII intact, sensation in extremities intact, normal speech Skin: warm, dry, no rash, normal turgor Psych: Awake, alert oriented x 3, euthymic affect Results & Data Results & Data ([facility]) Vital Signs (Past 12 Hours) Vital Signs Temp Pulse Resp BP Pulse Ox 11/30/20 08:13 36.9 C 82 18 145/72 H 97 Laboratory Results Laboratory Results - last 24 hr 11/26/20 11/29/20 11/29/20 17:44 15:46 15:46 WBC RBC Hgb Hct MCV MCH MCHC RDW Std Deviation RDW Coeff of Pj Plt Count MPV Immature Gran % (Auto) Neut % (Auto) Lymph % (Auto) [place] % (Auto) Eos % (Auto) Baso % (Auto) Neut # (Auto) Lymph # (Auto) [place] # (Auto) Eos # (Auto) Baso # (Auto) Immature Gran # (Auto) D-Dimer 3260 H* Sodium Potassium Chloride Carbon Dioxide Anion Gap BUN Creatinine Est Cr Clr Drug Dosing Est GFR ( Amer) Est GFR (Non-Af Amer) BUN/Creatinine Ratio Glucose Calcium Ferritin 46.5 Total Bilirubin 0.6 Direct Bilirubin 0.3 H AST 40 H ALT 17 Alkaline Phosphatase 76 C-Reactive Protein 2.74 H Total Protein 6.5 Albumin 2.8 L Procalcitonin Crossmatch See Detail 11/29/20 11/30/20 11/30/20 15:46 07:05 07:05 WBC 3.19 L RBC 3.32 L Hgb 8.8 L Hct 28.0 L MCV 84.3 MCH 26.5 MCHC 31.4 L RDW Std Deviation 45.8 RDW Coeff of Pj 15.0 H Plt Count 148 MPV 9.8 Immature Gran % (Auto) 0.6 Neut % (Auto) 59.6 Lymph % (Auto) 29.8 [place] % (Auto) 10.0 Eos % (Auto) 0.0 Baso % (Auto) 0.0 Neut # (Auto) 1.90 Lymph # (Auto) 0.95 L [place] # (Auto) 0.32 Eos # (Auto) 0.00 Baso # (Auto) 0.00 Immature Gran # (Auto) 0.02 D-Dimer Sodium 137 Potassium 3.2 L Chloride 104 Carbon Dioxide 25 Anion Gap 8.0 BUN 12 Creatinine 0.60 Est Cr Clr Drug Dosing 70.6 Est GFR ( Amer) 101.2 Est GFR (Non-Af Amer) 87.3 BUN/Creatinine Ratio 20.3 H Glucose 98 Calcium 8.8 Ferritin Total Bilirubin Direct Bilirubin AST ALT Alkaline Phosphatase C-Reactive Protein Total Protein Albumin Procalcitonin < 0.05 Crossmatch Medications Administered Current Inpatient Medications Acetaminophen (Acetaminophen 325 Mg Tab) 650 mg PO Q4H PRN PRN Reason: pain/fever Stop: 12/26/20 23:15 Last Admin: 11/29/20 21:37 Dose: 650 mg Documented by: Al Hydrox/Mg Hydrox/Simethicone (Aluminum/Magnesium Susp 30 Ml Udc) 30 ml PO Q6H PRN PRN Reason: Dyspepsia Stop: 12/26/20 23:15 Aspirin (Aspirin 81 Mg Ectab) 81 mg PO BID AGUILAR Stop: 12/27/20 20:59 Last Admin: 11/30/20 08:09 Dose: 81 mg Documented by: Bisacodyl (Bisacodyl 10 Mg Supp) 10 mg IN DAILY PRN PRN Reason: Constipation Stop: 12/26/20 23:15 Diazepam (Diazepam 5 Mg Tablet) 5 mg PO DAILY PRN PRN Reason: Anxiety Stop: 12/26/20 23:15 Diphenhydramine HCl (Diphenhydramine 50 Mg/Ml Vial) 25 mg IV Q8H PRN PRN Reason: Itching Stop: 12/26/20 16:20 Sodium Chloride (Nss 1000ml) 1,000 mls @ 0 mls/hr IV .Q0M AGUILAR Stop: 12/26/20 16:29 Magnesium Hydroxide (Magnesium Hydroxide Susp 30 Ml Udc) 30 ml PO DAILY PRN PRN Reason: Constipation Stop: 12/26/20 23:15 Metoclopramide HCl (Metoclopramide Hcl Inj 5 Mg/Ml 2 Ml Vial) 10 mg IV Q6H PRN PRN Reason: Nausea And Vomiting Stop: 12/27/20 16:03 Morphine Sulfate (Morphine Sulfate 2 Mg/Ml Carp) 2 mg IV Q3H PRN PRN Reason: Pain (1,2,3,4,5) & Pre PT Stop: 12/10/20 23:15 Last Admin: 11/26/20 23:31 Dose: 2 mg Documented by: Morphine Sulfate (Morphine Sulfate 4 Mg/Ml 1 Ml Carp\Vial) 4 mg IV Q3H PRN PRN Reason: Pain (6,7,8,9,10) Stop: 12/10/20 23:15 Naloxone HCl (Naloxone Hcl 0.4 Mg/1 Ml Vial/Carp) 0.1 mg IV UD PRN PRN Reason: Opiate Overdose Stop: 12/26/20 23:15 Ondansetron HCl (Ondansetron Inj 2 Mg/Ml 2 Ml Vial) 4 mg IV Q6H PRN PRN Reason: Nausea/Vomiting Stop: 12/26/20 16:20 Last Admin: 11/28/20 21:20 Dose: 4 mg Documented by: Oxycodone HCl (Oxycodone Hcl Ir 5 Mg Tab (Immediate Release)) 5 mg PO Q4H PRN PRN Reason: MODERATE Pain (4,5,6) & Pre PT Stop: 12/10/20 23:15 Last Admin: 11/28/20 10:51 Dose: 5 mg Documented by: Oxycodone HCl (Oxycodone Hcl Ir 5 Mg Tab (Immediate Release)) 10 mg PO Q4H PRN PRN Reason: SEVERE Pain (7,8,9,10) Stop: 12/10/20 23:15 Polyethylene Glycol (Polyethylene (Miralax) 17 Gm Pack) 17 gm PO DAILY AGUILAR Stop: 12/28/20 11:59 Last Admin: 11/30/20 08:09 Dose: 17 gm Documented by: Senna/Docusate Sodium (Docusate Sodium/Senna 50/8.6mg Tab) 2 tab PO HS AGUILAR Stop: 12/26/20 23:15 Last Admin: 11/29/20 20:42 Dose: 2 tab Documented by: PG Care Time/CCT Total # of Minutes Spent Total Time Spent with Patient: Total time spent is greater than 50% in coord ination of care (as documented) at patient's floor/unit and/or counseling patient: Coding Level of Care Code 48272 Subseq Hosp Care Lvl 2 Diagnoses Fracture of proximal end of right femur S72.001A COVID U07.1 Hypertension I10 Osteoporosis M81.0 DVT prophylaxis Z29.9
--- NOTE | 2020-11-30 14:03 | Orthopedic Progress Note ---
Date of Service November 30, 2020 Assessment & Plan (1) Rebeca-prosthetic femoral shaft fracture: Plan: POD #3 s/p ORIF right hip with distal locking screws WBAT PT/OT Ice to right thigh and knee PRN Resume diet. DVT Prophylaxis: TEDs, foot pumps, ASA 81 mg PO BID 6 weeks. Continue care per primary service. D/C planning Dressing changed by nursing on POD #2. Currently C/D/I. Leave steri strips in place. Keep covered while in hospital. Follow-up Dr. May's office 6 weeks post-op for X-rays. Admission and Anticipated Discharge Date Admission Date: November 26, 2020 Subjective This 80 yo F is day 3 s/p ORIF of Right femur periprosthetic fracture. Patient states that she is doing well. She states that she still gets some slight twing es of pain when she is doing her PT. Currently she denies fever, chills, sweats, lethargy, CP, SOB, nausea, vomiting or diarrhea. Review of Systems Review of Systems: All systems reviewed & are unremarkable except as noted in Subjective Physical Exam Physical Exam: Right lower extremity: Right LE is in anatomic alignment. Dressing is clean, dry and intact without drainage. She is able to actively dorsi and plantarflex her foot. Patient is able to perform SLRT and flex knee to 85 degrees. She continues to have slight TTP over fracture site of mid femur. She has "twinge" of pain with light passive internal hip rotation. No pain with light external rotator or log roll. There is some mild edema but no erythema, ecchymosis, warmth or palpable bony deformity. She is neurovascularly intact in the right lower extremity. Results & Data ([facility]) Vital Signs (Past 12 Hours) Vital Signs Temp Pulse Resp BP Pulse Ox 11/30/20 08:13 36.9 C 82 18 145/72 H 97 Diagnostic Findings Laboratory Results WBC 3.19 K/uL (4.8-10.8) L 11/30/20 07:05 RBC 3.32 M/uL (4.2-5.4) L 11/30/20 07:05 Hgb 8.8 g/dL (12.0-16.0) L 11/30/20 07:05 Hct 28.0 % (37-47) L 11/30/20 07:05 MCV 84.3 fL (80-100) 11/30/20 07:05 MCH 26.5 pg (25-34) 11/30/20 07:05 MCHC 31.4 g/dL (32-36) L 11/30/20 07:05 RDW Std Deviation 45.8 fL (36.4-46.3) 11/30/20 07:05 RDW Coeff of Pj 15.0 % (11.5-14.5) H 11/30/20 07:05 Plt Count 148 K/uL (130-400) 11/30/20 07:05 MPV 9.8 fL (7.4-10.4) 11/30/20 07:05 Immature Gran % (Auto) 0.6 % 11/30/20 07:05 Neut % (Auto) 59.6 % 11/30/20 07:05 Lymph % (Auto) 29.8 % 11/30/20 07:05 [place] % (Auto) 10.0 % 11/30/20 07:05 Eos % (Auto) 0.0 % 11/30/20 07:05 Baso % (Auto) 0.0 % 11/30/20 07:05 Neut # (Auto) 1.90 K/uL (1.4-6.5) 11/30/20 07:05 Lymph # (Auto) 0.95 K/uL (1.2-3.4) L 11/30/20 07:05 [place] # (Auto) 0.32 K/uL (0.11-0.59) 11/30/20 07:05 Eos # (Auto) 0.00 K/uL (0-0.5) 11/30/20 07:05 Baso # (Auto) 0.00 K/uL (0-0.2) 11/30/20 07:05 Immature Gran # (Auto) 0.02 K/uL (0.00-0.02) 11/30/20 07:05 PT 10.0 Seconds (9.0-12.0) 11/27/20 06:59 INR 1.0 (0.9-1.1) 11/27/20 06:59 APTT 25.2 Seconds (21.0-31.0) 11/27/20 06:59 PTT Ratio 1.0 11/27/20 06:59 D-Dimer 3260 ug/L FEU (0-500) H* 11/29/20 15:46 Sodium 137 mmol/L (136-145) 11/30/20 07:05 Potassium 3.2 mmol/L (3.5-5.1) L 11/30/20 07:05 Chloride 104 mmol/L (98-107) 11/30/20 07:05 Carbon Dioxide 25 mmol/L (21-32) 11/30/20 07:05 Anion Gap 8.0 (3-11) 11/30/20 07:05 BUN 12 mg/dl (7-18) 11/30/20 07:05 Creatinine 0.60 mg/dl (0.6-1.2) 11/30/20 07:05 Est Cr Clr Drug Dosing 70.6 ml/min 11/30/20 07:05 Est GFR ( Amer) 101.2 ml/min 11/30/20 07:05 Est GFR (Non-Af Amer) 87.3 ml/min 11/30/20 07:05 BUN/Creatinine Ratio 20.3 (10-20) H 11/30/20 07:05 Glucose 98 mg/dl (70-99) 11/30/20 07:05 Calcium 8.8 mg/dl (8.5-10.1) 11/30/20 07:05 Ferritin 46.5 ng/ml (8-388) 11/29/20 15:46 Total Bilirubin 0.6 mg/dl (0.2-1) 11/29/20 15:46 Direct Bilirubin 0.3 mg/dl (0-0.2) H 11/29/20 15:46 AST 40 U/L (15-37) H 11/29/20 15:46 ALT 17 U/L (12-78) 11/29/20 15:46 Alkaline Phosphatase 76 U/L (45-117) 11/29/20 15:46 C-Reactive Protein 2.74 mg/dl (0-0.29) H 11/29/20 15:46 Total Protein 6.5 gm/dl (6.4-8.2) 11/29/20 15:46 Albumin 2.8 gm/dl (3.4-5.0) L 11/29/20 15:46 Globulin 3.7 gm/dl (2.5-4.0) 11/26/20 12:51 Albumin/Globulin Ratio 1.0 (0.9-2) 11/26/20 12:51 25-OH Vitamin D Total 27.3 ng/ml (30-100) L 11/26/20 12:51 Procalcitonin < 0.05 ng/ml (0-0.5) 11/29/20 15:46 Urine Color Yellow 11/26/20 13:09 Urine Appearance Clear (Clear) 11/26/20 13:09 Urine pH 6.0 (4.5-7.5) 11/26/20 13:09 Ur Specific [place] 1.012 (1.000-1.030) 11/26/20 13:09 Urine Protein Negative (Negative) 11/26/20 13:09 Urine Glucose (UA) Negative (Negative) 11/26/20 13:09 Urine Ketones Negative (Negative) 11/26/20 13:09 Urine Blood Negative (Negative) 11/26/20 13:09 Urine Nitrite Negative (Negative) 11/26/20 13:09 Urine Bilirubin Negative (Negative) 11/26/20 13:09 Urine Urobilinogen Negative (Negative) 11/26/20 13:09 Ur Leukocyte Esterase Negative (Negative) 11/26/20 13:09 COVID-19 Eval Order Covid19 at [facility] 11/26/20 12:53 SARS-CoV-2 (PCR) POSITIVE (Negative) A* 11/26/20 12:53 Blood Type A Positive 11/26/20 17:44 Antibody Screen POSITIVE A 11/26/20 17:44 Antibody Identification Auto [place] Agglutinin 11/26/20 17:44 Antibody ID Comment 11/26/20 17:44 Elution 11/26/20 17:44 Direct Antiglob Test Positive (Negative) A 11/26/20 17:44 ALBERTINA (IgG-AHG) 2+ (Negative) A 11/26/20 17:44 ALBERTINA, Polyspecific 2+ (Negative) A 11/26/20 17:44 ALBERTINA C3b, C3d 5 Min Weak Pos (Negative) A 11/26/20 17:44 Crossmatch See Detail 11/26/20 17:44 Impressions Hip/Pelvis X-Ray 11/26/20 12:45 XR hip RT 2V w pelvis INDICATION: MN ^fall, r hip pain; prior IRENE TECHNIQUE: 2 views of the right hip and single frontal view of the pelvis were obtained. Comparison: Comparison is made to hip and pelvis radiographs 11/26/2020 FINDINGS: There is a spiral fracture of the proximal femoral diaphysis. The distal fragment is displaced approximately 1 cortex width medially. Bones are osteopenic. IMPRESSION: Spiral fracture of the proximal right femoral diaphysis. ACT 112: Negative or not required by law. Electronically signed by: Familia Borrego M.D. 11/26/2020 2:05 PM Knee X-Ray 11/26/20 13:44 XR knee RT 1 or 2V routine CLINICAL HISTORY: Hip fracture. COMPARISON: Right femur MRI April 13, 2018. FINDINGS: A right femoral intramedullary bobby is partially imaged on this exam. Note is made of an acute oblique mildly displaced fracture of the proximal to mid diaphysis of the right femur better depicted on the right hip radiographs. No distal right femoral fracture is present. There is no right knee joint effusion. IMPRESSION: 1. Partial visualization of a right femoral intramedullary bobby and an acute oblique proximal to mid diaphyseal fracture of the right femur. 2. No distal right femoral fracture. ACT 112: Negative or not required by law. Electronically signed by: Jesse Zambrano M.D. 11/26/2020 2:03 PM Hip X-Ray 11/27/20 12:00 FL hip RT 2-3V HISTORY: 80 years-old Female RT CANNULATED SCREWS acute fracture of the proximal right femur COMPARISON: Pelvis and right hip radiographs 11/26/2020 TECHNIQUE: 4 spot fluoroscopic images of the right hip were obtained utilizing 72.5 seconds fluoroscopy time FINDINGS: Intertrochanteric nail with medullary bobby and distal cannulated screws noted. Acute fracture of the proximal femoral diaphysis redemonstrated again with slight displacement. IMPRESSION: Fluoroscopic assistance as above. ACT 112: Negative or not required by law. The above report was generated using voice recognition software. It may contain grammatical, syntax or spelling errors. Electronically signed by: Liu Ibarra M.D. 11/27/2020 2:58 PM Chest X-Ray 11/29/20 14:57 SINGLE VIEW CHEST CLINICAL HISTORY: Dyspnea. FINDINGS: An AP, portable, upright chest radiograph is compared to study dated 11/26/2020. The examination is degraded by portable technique and patient rotation. The heart is enlarged noting atherosclerotic calcification of the thoracic aorta. There is mild pulmonary vascular congestion. Chronic interstitial thickening is similar to previous. Scarring/atelectasis is noted at the lung bases. No airspace consolidation, large pleural effusion, or pneumothorax is seen. The skeletal structures are osteopenic. The bony thorax is grossly intact. IMPRESSION: 1. Cardiomegaly with mild pulmonary vascular congestion. This is new from 11/26/2020. 2. No airspace consolidation or large pleural effusion is identified. ACT 112: Negative or not required by law. Electronically signed by: Sudheer Diego M.D. 11/29/2020 7:58 PM
[2020-11-30] MEDS: DOCUSATE SODIUM/SENNA 50/8.6MG TAB PO SCH (20:33)
[2020-12-01] MEDS: POLYETHYLENE (MIRALAX) 17 GM PACK PO SCH (08:03)
[2020-12-01] MEDS: ASPIRIN 81 MG ECTAB PO SCH ×2 (08:03→20:52)
[2020-12-01 09:16] LABS: Basophils # (auto) 0.01 K/uL (0-0.2); Basophils % (auto) 0.2 %; Immature Granulocytes # (auto) 0.06 K/uL (0.00-0.02); Immature Granulocytes % (auto) 1.5 %; Lymphocytes # (auto) 1.34 K/uL (1.2-3.4); Lymphocytes % (auto) 32.8 %; Mean Corpuscular Hemoglobin 26.4 pg (25-34); Mean Corpuscular Hgb Conc 32.1 g/dL (32-36); Mean Corpuscular Volume 82.1 fL (80-100); Mean Platelet Volume 9.9 fL (7.4-10.4); Monocytes # (auto) 0.33 K/uL (0.11-0.59); Monocytes % (auto) 8.1 %; Neutrophils # (auto) 2.34 K/uL (1.4-6.5); Neutrophils % (auto) 57.4 %; Platelet Count 180 K/uL (130-400); RDW Coefficient of Variation 15.1 % (11.5-14.5); RDW Standard Deviation 44.1 fL (36.4-46.3); Red Blood Count 3.41 M/uL (4.2-5.4); White Blood Count 4.08 K/uL (4.8-10.8)
[2020-12-01 09:40] LABS: Alanine Aminotransferase 18 U/L (12-78); Aspartate Aminotransferase 35 U/L (15-37)
--- NOTE | 2020-12-01 13:15 | Hospitalist Progress Note ---
Date of Service December 01, 2020 Assessment & Plan (1) Fracture of proximal end of right femur: Plan: Complex fracture of the proximal right femur with pre-existing intramedullary bobby from previous fracture POD #3 s/p ORIF right hip with distal locking screws. will benefit from going to rehab, patient agrees, asking about [facility] discussed with her positive COVID test will need 10 days from test for [facility] and 14 days for SNF she understands she will be here until next week (2) COVID: Plan: Patient with Covid positive status Non vaccinated no oxygen requirement stopped Remdesivir, no dexamethasone needed CXR is clear, no fever, no cough, no dyspnea repeat COVID test n 11/30 was still POSITIVE no need to check again might be contributing to orthostatic changes? might be why she fell at home (3) Orthostatic hypotension: Plan: already has compression stockings liberalize salt in diet start on Florinef 0.1mg qAM (4) Hypertension: Plan: h/o such In the past patient was on lisinopril currently on no medications BP stable, actually drops with standing (5) Osteoporosis: Plan: Typically taking calcium vitamin D for osteoporosis (6) DVT prophylaxis: Plan: Postoperative DVT prevention will be based on surgeons preference Admission and Anticipated Discharge Date Admission Date: November 26, 2020 Subjective patient doing reasonably well this morning, says she has more pain in leg than expected she is eating well disappointed that repeat COVID test was positive yesterday d/w CM, [facility] will need 10 days from positive test, SNF will need 14 days so patient knows she is here for a while in afternoon she had orthostatic BP drop, felt light headed not on any BP medications will ask RN to place compression stockings, change position slowly if orthostatic hypotension continues to be an issue will add Florinef Review of Systems Review of Systems: All systems reviewed & are unremarkable except as noted in Subjective Cardiovascular: + lightheadedness (when standing) Musculoskeletal: + joint pain (right leg) Physical Exam Physical Exam: General: well developed, overweight female, no acute distress, comfortable Neck: supple, trachea midline, normal thyroid Lungs: clear to auscultation bilaterally, normal respiratory effort, no accessory muscle use, no distress Heart: regular S1 and S2, no murmur, peripheral pulses normal, capillary refill normal, no edema Abdomen: soft, NT, ND, + BS, no hepatomegaly, normal to percussion Extremities: right leg immobilized, tender, swollen, no cyanosis, no petechiae, strength is 5/5 bilaterally Neuro: awake, cooperative, moves all extremities, no focal motor deficits, CN II-XII intact, sensation in extremities intact, normal speech Skin: warm, dry, no rash, normal turgor Psych: Awake, alert oriented x 3, euthymic affect Results & Data Results & Data ([facility]) Vital Signs (Past 12 Hours) Vital Signs Temp Pulse Resp BP Pulse Ox 12/01/20 08:04 36.7 C 80 18 155/60 H 98 Laboratory Results Laboratory Results - last 24 hr 11/30/20 11/30/20 12/01/20 15:00 15:00 08:20 WBC 4.08 L RBC 3.41 L Hgb 9.0 L Hct 28.0 L MCV 82.1 MCH 26.4 MCHC 32.1 RDW Std Deviation 44.1 RDW Coeff of Pj 15.1 H Plt Count 180 MPV 9.9 Immature Gran % (Auto) 1.5 Neut % (Auto) 57.4 Lymph % (Auto) 32.8 [place] % (Auto) 8.1 Eos % (Auto) 0.0 Baso % (Auto) 0.2 Neut # (Auto) 2.34 Lymph # (Auto) 1.34 [place] # (Auto) 0.33 Eos # (Auto) 0.00 Baso # (Auto) 0.01 Immature Gran # (Auto) 0.06 H AST ALT COVID-19 Eval Order Covid19 [facility] SARS-CoV-2, RNA, NAAT POSITIVE A* 12/01/20 08:20 WBC RBC Hgb Hct MCV MCH MCHC RDW Std Deviation RDW Coeff of Pj Plt Count MPV Immature Gran % (Auto) Neut % (Auto) Lymph % (Auto) [place] % (Auto) Eos % (Auto) Baso % (Auto) Neut # (Auto) Lymph # (Auto) [place] # (Auto) Eos # (Auto) Baso # (Auto) Immature Gran # (Auto) AST 35 ALT 18 COVID-19 Eval Order SARS-CoV-2, RNA, NAAT Medications Administered Current Inpatient Medications Acetaminophen (Acetaminophen 325 Mg Tab) 650 mg PO Q4H PRN PRN Reason: pain/fever Stop: 12/26/20 23:15 Last Admin: 11/29/20 21:37 Dose: 650 mg Documented by: Al Hydrox/Mg Hydrox/Simethicone (Aluminum/Magnesium Susp 30 Ml Udc) 30 ml PO Q6H PRN PRN Reason: Dyspepsia Stop: 12/26/20 23:15 Aspirin (Aspirin 81 Mg Ectab) 81 mg PO BID [facility] Stop: 12/27/20 20:59 Last Admin: 12/01/20 08:03 Dose: 81 mg Documented by: Bisacodyl (Bisacodyl 10 Mg Supp) 10 mg SC DAILY PRN PRN Reason: Constipation Stop: 12/26/20 23:15 Diazepam (Diazepam 5 Mg Tablet) 5 mg PO DAILY PRN PRN Reason: Anxiety Stop: 12/26/20 23:15 Diphenhydramine HCl (Diphenhydramine 50 Mg/Ml Vial) 25 mg IV Q8H PRN PRN Reason: Itching Stop: 12/26/20 16:20 Sodium Chloride (Nss 1000ml) 1,000 mls @ 0 mls/hr IV .Q0M [facility] Stop: 12/26/20 16:29 Magnesium Hydroxide (Magnesium Hydroxide Susp 30 Ml Udc) 30 ml PO DAILY PRN PRN Reason: Constipation Stop: 12/26/20 23:15 Metoclopramide HCl (Metoclopramide Hcl Inj 5 Mg/Ml 2 Ml Vial) 10 mg IV Q6H PRN PRN Reason: Nausea And Vomiting Stop: 12/27/20 16:03 Morphine Sulfate (Morphine Sulfate 2 Mg/Ml Carp) 2 mg IV Q3H PRN PRN Reason: Pain (1,2,3,4,5) & Pre PT Stop: 12/10/20 23:15 Last Admin: 11/26/20 23:31 Dose: 2 mg Documented by: Morphine Sulfate (Morphine Sulfate 4 Mg/Ml 1 Ml Carp\Vial) 4 mg IV Q3H PRN PRN Reason: Pain (6,7,8,9,10) Stop: 12/10/20 23:15 Naloxone HCl (Naloxone Hcl 0.4 Mg/1 Ml Vial/Carp) 0.1 mg IV UD PRN PRN Reason: Opiate Overdose Stop: 12/26/20 23:15 Ondansetron HCl (Ondansetron Inj 2 Mg/Ml 2 Ml Vial) 4 mg IV Q6H PRN PRN Reason: Nausea/Vomiting Stop: 12/26/20 16:20 Last Admin: 11/28/20 21:20 Dose: 4 mg Documented by: Oxycodone HCl (Oxycodone Hcl Ir 5 Mg Tab (Immediate Release)) 5 mg PO Q4H PRN PRN Reason: MODERATE Pain (4,5,6) & Pre PT Stop: 12/10/20 23:15 Last Admin: 11/28/20 10:51 Dose: 5 mg Documented by: Oxycodone HCl (Oxycodone Hcl Ir 5 Mg Tab (Immediate Release)) 10 mg PO Q4H PRN PRN Reason: SEVERE Pain (7,8,9,10) Stop: 12/10/20 23:15 Polyethylene Glycol (Polyethylene (Miralax) 17 Gm Pack) 17 gm PO DAILY AGUILAR Stop: 12/28/20 11:59 Last Admin: 12/01/20 08:03 Dose: Not Given Documented by: Senna/Docusate Sodium (Docusate Sodium/Senna 50/8.6mg Tab) 2 tab PO HS AGUILAR Stop: 12/26/20 23:15 Last Admin: 11/30/20 20:33 Dose: Not Given Documented by: PG Care Time/CCT Total # of Minutes Spent Total Time Spent with Patient: Total time spent is greater than 50% in coordination of care (as documented) at patient's floor/unit and/or counseling patient: Coding Level of Care Code 06418 Subseq Hosp Care Lvl 2 Diagnoses Fracture of proximal end of right femur S72.001A COVID U07.1 Hypertension I10 Osteoporosis M81.0 DVT prophylaxis Z29.9 Orthostatic hypotension I95.1
[2020-12-01] MEDS: DOCUSATE SODIUM 100 MG CAP PO SCH (20:53)
[2020-12-02] MEDS: ASPIRIN 81 MG ECTAB PO SCH ×2 (07:53→20:00)
[2020-12-02] MEDS: FLUDROCORTISONE ACETATE 0.1 MG TAB PO SCH (07:53)
[2020-12-02] MEDS: POLYETHYLENE (MIRALAX) 17 GM PACK PO SCH (07:54)
[2020-12-02 07:59] LABS: Basophils # (auto) 0.01 K/uL (0-0.2); Basophils % (auto) 0.2 %; Eosinophils # (auto) 0.01 K/uL (0-0.5); Eosinophils % (auto) 0.2 %; Hematocrit (blood only) 29.1 % (37-47); Hemoglobin 9.2 g/dL (12.0-16.0); Immature Granulocytes # (auto) 0.05 K/uL (0.00-0.02); Lymphocytes # (auto) 1.65 K/uL (1.2-3.4); Lymphocytes % (auto) 34.2 %; Mean Corpuscular Hemoglobin 25.9 pg (25-34); Mean Corpuscular Hgb Conc 31.6 g/dL (32-36); Mean Platelet Volume 9.7 fL (7.4-10.4); Monocytes # (auto) 0.46 K/uL (0.11-0.59); Monocytes % (auto) 9.5 %; Neutrophils # (auto) 2.65 K/uL (1.4-6.5); Neutrophils % (auto) 54.9 %; Platelet Count 209 K/uL (130-400); RDW Coefficient of Variation 15.3 % (11.5-14.5); RDW Standard Deviation 44.8 fL (36.4-46.3); Red Blood Count 3.55 M/uL (4.2-5.4); White Blood Count 4.83 K/uL (4.8-10.8)
[2020-12-02 08:25] LABS: Alanine Aminotransferase 16 U/L (12-78); Aspartate Aminotransferase 34 U/L (15-37)
--- NOTE | 2020-12-02 14:04 | Hospitalist Progress Note ---
Date of Service December 02, 2020 Assessment & Plan (1) Fracture of proximal end of right femur: Plan: Complex fracture of the proximal right femur with pre-existing intramedullary bobby from previous fracture POD #4 s/p ORIF right hip with distal locking screws. will benefit from going to rehab, patient agrees, asking about [facility] discussed with her positive COVID test will need 10 days from test for [facility] and 14 days for SNF she understands she will be here until next week Hb is stable, > 9 (2) COVID: Plan: Patient with Covid positive status Non vaccinated no oxygen requirement stopped Remdesivir, no dexamethasone needed CXR is clear, no fever, no cough, no dyspnea repeat COVID test n 11/30 was still POSITIVE no need to check again might be contributing to orthostatic changes? might be why she fell at home (3) Orthostatic hypotension: Plan: already has compression stockings liberalize salt in diet started on Florinef 0.1mg qAM today, will look for it to work in the next few days still with drop in SBP 30 points today (4) Hypertension: Plan: h/o such In the past patient was on lisinopril currently on no medications BP stable, actually drops with standing (5) Osteoporosis: Plan: Typically taking calcium vitamin D for osteoporosis (6) DVT prophylaxis: Plan: Postoperative DVT prevention will be based on surgeons preference Admission and Anticipated Discharge Date Admission Date: November 26, 2020 Subjective again with orthostatic changes today, SBP dropped 30 points she felt light headed, could not complete full round of therapy discussed that this might have been the cause of her syncope at home eating fairly well, pain controlled wants to get scott out Review of Systems Review of Systems: All systems reviewed & are unremarkable except as noted in Subjective Physical Exam Physical Exam: General: well developed, overweight female, no acute distress, comfortable Neck: supple, trachea midline, normal thyroid Lungs: clear to auscultation bilaterally, normal respiratory effort, no accessory muscle use, no distress Heart: regular S1 and S2, no murmur, peripheral pulses normal, capillary refill normal, no edema Abdomen: soft, NT, ND, + BS, no hepatomegaly, normal to percussion Extremities: right leg immobilized, tender, swollen, no cyanosis, no petechiae, strength is 5/5 bilaterally Neuro: awake, cooperative, moves all extremities, no focal motor deficits, CN II-XII intact, sensation in extremities intact, normal speech Skin: warm, dry, no rash, normal turgor Psych: Awake, alert oriented x 3, euthymic affect Results & Data Results & Data ([facility]) Vital Signs (Past 12 Hours) Vital Signs Temp Pulse Resp BP Pulse Ox 12/02/20 07:24 36.8 C 70 18 146/75 H 95 Laboratory Results Laboratory Results - last 24 hr 12/02/20 12/02/20 07:06 07:06 WBC 4.83 RBC 3.55 L Hgb 9.2 L Hct 29.1 L MCV 82.0 MCH 25.9 MCHC 31.6 L RDW Std Deviation 44.8 RDW Coeff of Pj 15.3 H Plt Count 209 MPV 9.7 Immature Gran % (Auto) 1.0 Neut % (Auto) 54.9 Lymph % (Auto) 34.2 [place] % (Auto) 9.5 Eos % (Auto) 0.2 Baso % (Auto) 0.2 Neut # (Auto) 2.65 Lymph # (Auto) 1.65 [place] # (Auto) 0.46 Eos # (Auto) 0.01 Baso # (Auto) 0.01 Immature Gran # (Auto) 0.05 H AST 34 ALT 16 Medications Administered Current Inpatient Medications Acetaminophen (Acetaminophen 325 Mg Tab) 650 mg PO Q4H PRN PRN Reason: pain/fever Stop: 12/26/20 23:15 Last Admin: 11/29/20 21:37 Dose: 650 mg Documented by: Al Hydrox/Mg Hydrox/Simethicone (Aluminum/Magnesium Susp 30 Ml Udc) 30 ml PO Q6H PRN PRN Reason: Dyspepsia Stop: 12/26/20 23:15 Aspirin (Aspirin 81 Mg Ectab) 81 mg PO BID AGUILAR Stop: 12/27/20 20:59 Last Admin: 12/02/20 07:53 Dose: 81 mg Documented by: Bisacodyl (Bisacodyl 10 Mg Supp) 10 mg [place] DAILY PRN PRN Reason: Constipation Stop: 12/26/20 23:15 Diazepam (Diazepam 5 Mg Tablet) 5 mg PO DAILY PRN PRN Reason: Anxiety Stop: 12/26/20 23:15 Diphenhydramine HCl (Diphenhydramine 50 Mg/Ml Vial) 25 mg IV Q8H PRN PRN Reason: Itching Stop: 12/26/20 16:20 Docusate Sodium (Docusate Sodium 100 Mg Cap) 100 mg PO HS [facility] Stop: 12/31/20 20:59 Last Admin: 12/01/20 20:53 Dose: Not Given Documented by: Fludrocortisone Acetate (Fludrocortisone Acetate 0.1 Mg Tab) 0.1 mg PO QAM [facility] Stop: 01/01/21 08:59 Last Admin: 12/02/20 07:53 Dose: 0.1 mg Documented by: Sodium Chloride (Nss 1000ml) 1,000 mls @ 0 mls/hr IV .Q0M AG[facility] Stop: 12/26/20 16:29 Magnesium Hydroxide (Magnesium Hydroxide Susp 30 Ml Udc) 30 ml PO DAILY PRN PRN Reason: Constipation Stop: 12/26/20 23:15 Metoclopramide HCl (Metoclopramide Hcl Inj 5 Mg/Ml 2 Ml Vial) 10 mg IV Q6H PRN PRN Reason: Nausea And Vomiting Stop: 12/27/20 16:03 Morphine Sulfate (Morphine Sulfate 2 Mg/Ml Carp) 2 mg IV Q3H PRN PRN Reason: Pain (1,2,3,4,5) & Pre PT Stop: 12/10/20 23:15 Last Admin: 11/26/20 23:31 Dose: 2 mg Documented by: Morphine Sulfate (Morphine Sulfate 4 Mg/Ml 1 Ml Carp\Vial) 4 mg IV Q3H PRN PRN Reason: Pain (6,7,8,9,10) Stop: 12/10/20 23:15 Naloxone HCl (Naloxone Hcl 0.4 Mg/1 Ml Vial/Carp) 0.1 mg IV UD PRN PRN Reason: Opiate Overdose Stop: 12/26/20 23:15 Ondansetron HCl (Ondansetron Inj 2 Mg/Ml 2 Ml Vial) 4 mg IV Q6H PRN PRN Reason: Nausea/Vomiting Stop: 12/26/20 16:20 Last Admin: 11/28/20 21:20 Dose: 4 mg Documented by: Oxycodone HCl (Oxycodone Hcl Ir 5 Mg Tab (Immediate Release)) 5 mg PO Q4H PRN PRN Reason: MODERATE Pain (4,5,6) & Pre PT Stop: 12/10/20 23:15 Last Admin: 11/28/20 10:51 Dose: 5 mg Documented by: Oxycodone HCl (Oxycodone Hcl Ir 5 Mg Tab (Immediate Release)) 10 mg PO Q4H PRN PRN Reason: SEVERE Pain (7,8,9,10) Stop: 12/10/20 23:15 Polyethylene Glycol (Polyethylene (Miralax) 17 Gm Pack) 17 gm PO DAILY AG[facility]ILAR Stop: 12/28/20 11:59 Last Admin: 12/02/20 07:54 Dose: Not Given Documented by: PG Care Time/CCT Total # of Minutes Spent Total Time Spent with Patient: Total time spent is greater than 50% in coordination of care (as documented) at patient's floor/unit and/or counseling patient: Coding Level of Care Code 21262 Subseq Hosp Care Lvl 2 Diagnoses Fracture of proximal end of right femur S72.001A COVID U07.1 Orthostatic hypotension I95.1 Hypertension I10 Osteoporosis M81.0 DVT prophylaxis Z29.9
[2020-12-02] MEDS: ACETAMINOPHEN 325 MG TAB PO PRN (19:59)
[2020-12-02] MEDS: DOCUSATE SODIUM 100 MG CAP PO SCH (20:00)
[2020-12-03 06:07] LABS: Eosinophils # (auto) 0.01 K/uL (0-0.5); Eosinophils % (auto) 0.2 %; Hematocrit (blood only) 26.3 % (37-47); Hemoglobin 8.5 g/dL (12.0-16.0); Immature Granulocytes # (auto) 0.06 K/uL (0.00-0.02); Immature Granulocytes % (auto) 1.2 %; Lymphocytes # (auto) 1.27 K/uL (1.2-3.4); Lymphocytes % (auto) 26.1 %; Mean Corpuscular Hemoglobin 26.2 pg (25-34); Mean Corpuscular Hgb Conc 32.3 g/dL (32-36); Mean Corpuscular Volume 81.2 fL (80-100); Mean Platelet Volume 9.6 fL (7.4-10.4); Monocytes # (auto) 0.57 K/uL (0.11-0.59); Monocytes % (auto) 11.7 %; Neutrophils # (auto) 2.96 K/uL (1.4-6.5); Neutrophils % (auto) 60.8 %; Nucleated RBC # (auto) 0.03 K/uL (0-0); Nucleated RBC % (auto) 0.5 %; Platelet Count 220 K/uL (130-400); RDW Coefficient of Variation 15.4 % (11.5-14.5); Red Blood Count 3.24 M/uL (4.2-5.4); White Blood Count 4.87 K/uL (4.8-10.8)
[2020-12-03 06:29] LABS: Alanine Aminotransferase 17 U/L (12-78); Aspartate Aminotransferase 33 U/L (15-37)
[2020-12-03] MEDS: ASPIRIN 81 MG ECTAB PO SCH ×2 (08:42→21:33)
[2020-12-03] MEDS: FLUDROCORTISONE ACETATE 0.1 MG TAB PO SCH (08:42)
[2020-12-03] MEDS: POLYETHYLENE (MIRALAX) 17 GM PACK PO SCH (08:44)
[2020-12-03] MEDS: ACETAMINOPHEN 325 MG TAB PO PRN ×3 (09:37→19:46)
--- NOTE | 2020-12-03 15:45 | Hospitalist Progress Note ---
Date of Service December 03, 2020 Assessment & Plan (1) Fracture of proximal end of right femur: Plan: Complex fracture of the proximal right femur with pre-existing intramedullary bobby from previous fracture POD #5 s/p ORIF right hip with distal locking screws. will benefit from going to rehab, patient agrees, asking about [facility] discussed with her positive COVID test will need 10 days from test for [facility] and 14 days for SNF she understands she will be here until next week Hb is 8.5 today, will monitor periodically (2) COVID: Plan: Patient with Covid positive status Non vaccinated no oxygen requirement stopped Remdesivir, no dexamethasone needed CXR is clear, no fever, no cough, no dyspnea repeat COVID test n 11/30 was still POSITIVE no need to check again might be contributing to orthostatic changes? might be why she fell at home (3) Orthostatic hypotension: Plan: already has compression stockings liberalize salt in diet started on Florinef 0.1mg qAM 12/02, working a little better (4) Hypertension: Plan: h/o such In the past patient was on lisinopril currently on no medications BP elevated (5) Osteoporosis: Plan: Typically taking calcium vitamin D for osteoporosis (6) DVT prophylaxis: Plan: Postoperative DVT prevention will be based on surgeons preference Admission and Anticipated Discharge Date Admission Date: November 26, 2020 Subjective patient doing "so so" today she says her pain is fairly well controlled, breathing well, eating okay she did not have the same light headed sensation when she stood up today so that is good BP is elevated at rest Review of Systems Review of Systems: All systems reviewed & are unremarkable except as noted in Subjective Musculoskeletal: + joint pain (right knee, thigh) and + muscle weakness (legs) Physical Exam Physical Exam: General: well developed, overweight female, no acute distress, comfortable Neck: supple, trachea midline, normal thyroid Lungs: clear to auscultation bilaterally, normal respiratory effort, no accessory muscle use, no distress Heart: regular S1 and S2, no murmur, peripheral pulses normal, capillary refill normal, no edema Abdomen: soft, NT, ND, + BS, no hepatomegaly, normal to percussion Extremities: right leg immobilized, tender, swollen, no cyanosis, no petechiae, strength is 5/5 bilaterally Neuro: awake, cooperative, moves all extremities, no focal motor deficits, CN II-XII intact, sensation in extremities intact, normal speech Skin: warm, dry, no rash, normal turgor Psych: Awake, alert oriented x 3, euthymic affect Results & Data Results & Data ([facility]) Vital Signs (Past 12 Hours) Vital Signs Pulse Pulse Resp BP Pulse Ox 12/03/20 08:40 97 H 86 16 157/77 H 98 Laboratory Results Laboratory Results - last 24 hr 12/03/20 12/03/20 05:44 05:44 WBC 4.87 RBC 3.24 L Hgb 8.5 L Hct 26.3 L MCV 81.2 MCH 26.2 MCHC 32.3 RDW Std Deviation 44.0 RDW Coeff of Pj 15.4 H Plt Count 220 MPV 9.6 Immature Gran % (Auto) 1.2 Neut % (Auto) 60.8 Lymph % (Auto) 26.1 [place] % (Auto) 11.7 Eos % (Auto) 0.2 Baso % (Auto) 0.0 Neut # (Auto) 2.96 Lymph # (Auto) 1.27 [place] # (Auto) 0.57 Eos # (Auto) 0.01 Baso # (Auto) 0.00 Immature Gran # (Auto) 0.06 H Absolute Nucleated RBC 0.03 H Nucleated RBC % (auto) 0.5 AST 33 ALT 17 Medications Administered Current Inpatient Medications Acetaminophen (Acetaminophen 325 Mg Tab) 650 mg PO Q4H PRN PRN Reason: pain/fever Stop: 12/26/20 23:15 Last Admin: 12/03/20 09:37 Dose: 650 mg Documented by: Al Hydrox/Mg Hydrox/Simethicone (Aluminum/Magnesium Susp 30 Ml Udc) 30 ml PO Q6H PRN PRN Reason: Dyspepsia Stop: 12/26/20 23:15 Aspirin (Aspirin 81 Mg Ectab) 81 mg PO BID AGUILAR Stop: 12/27/20 20:59 Last Admin: 12/03/20 08:42 Dose: 81 mg Documented by: Bisacodyl (Bisacodyl 10 Mg Supp) 10 mg [place] DAILY PRN PRN Reason: Constipation Stop: 12/26/20 23:15 Diazepam (Diazepam 5 Mg Tablet) 5 mg PO DAILY PRN PRN Reason: Anxiety Stop: 12/26/20 23:15 Diphenhydramine HCl (Diphenhydramine 50 Mg/Ml Vial) 25 mg IV Q8H PRN PRN Reason: Itching Stop: 12/26/20 16:20 Docusate Sodium (Docusate Sodium 100 Mg Cap) 100 mg PO HS [facility] Stop: 12/31/20 20:59 Last Admin: 12/02/20 20:00 Dose: 100 mg Documented by: Fludrocortisone Acetate (Fludrocortisone Acetate 0.1 Mg Tab) 0.1 mg PO QAM [facility] Stop: 01/01/21 08:59 Last Admin: 12/03/20 08:42 Dose: 0.1 mg Documented by: Sodium Chloride (Nss 1000ml) 1,000 mls @ 0 mls/hr IV .Q0M [facility] Stop: 12/26/20 16:29 Magnesium Hydroxide (Magnesium Hydroxide Susp 30 Ml Udc) 30 ml PO DAILY PRN PRN Reason: Constipation Stop: 12/26/20 23:15 Metoclopramide HCl (Metoclopramide Hcl Inj 5 Mg/Ml 2 Ml Vial) 10 mg IV Q6H PRN PRN Reason: Nausea And Vomiting Stop: 12/27/20 16:03 Morphine Sulfate (Morphine Sulfate 2 Mg/Ml Carp) 2 mg IV Q3H PRN PRN Reason: Pain (1,2,3,4,5) & Pre PT Stop: 12/10/20 23:15 Last Admin: 11/26/20 23:31 Dose: 2 mg Documented by: Morphine Sulfate (Morphine Sulfate 4 Mg/Ml 1 Ml Carp\\Vial) 4 mg IV Q3H PRN PRN Reason: Pain (6,7,8,9,10) Stop: 12/10/20 23:15 Naloxone HCl (Naloxone Hcl 0.4 Mg/1 Ml Vial/Carp) 0.1 mg IV UD PRN PRN Reason: Opiate Overdose Stop: 12/26/20 23:15 Ondansetron HCl (Ondansetron Inj 2 Mg/Ml 2 Ml Vial) 4 mg IV Q6H PRN PRN Reason: Nausea/Vomiting Stop: 12/26/20 16:20 Last Admin: 11/28/20 21:20 Dose: 4 mg Documented by: Oxycodone HCl (Oxycodone Hcl Ir 5 Mg Tab (Immediate Release)) 5 mg PO Q4H PRN PRN Reason: MODERATE Pain (4,5,6) & Pre PT Stop: 10/07/21 23:15 Last Admin: 11/28/20 10:51 Dose: 5 mg Documented by: Oxycodone HCl (Oxycodone Hcl Ir 5 Mg Tab (Immediate Release)) 10 mg PO Q4H PRN PRN Reason: SEVERE Pain (7,8,9,10) Stop: 12/10/20 23:15 Polyethylene Glycol (Polyethylene (Miralax) 17 Gm Pack) 17 gm PO DAILY [facility] Stop: 12/28/20 11:59 Last Admin: 12/03/20 08:44 Dose: Not Given Documented by: PG Care Time/CCT Total # of Minutes Spent Total Time Spent with Patient: Total time spent is greater than 50% in coordi nation of care (as documented) at patient's floor/unit and/or counseling patient: Coding Level of Care Code 31379 Subseq Hosp Care Lvl 2 Diagnoses Fracture of proximal end of right femur S72.001A COVID U07.1 Orthostatic hypotension I95.1 Hypertension I10 Osteoporosis M81.0 DVT prophylaxis Z29.9
[2020-12-03] MEDS: DOCUSATE SODIUM 100 MG CAP PO SCH (21:33)
[2020-12-04 06:35] LABS: Basophils # (auto) 0.01 K/uL (0-0.2); Basophils % (auto) 0.2 %; Eosinophils # (auto) 0.02 K/uL (0-0.5); Eosinophils % (auto) 0.5 %; Hematocrit (blood only) 26.1 % (37-47); Hemoglobin 8.3 g/dL (12.0-16.0); Immature Granulocytes # (auto) 0.04 K/uL (0.00-0.02); Lymphocytes # (auto) 1.06 K/uL (1.2-3.4); Lymphocytes % (auto) 25.9 %; Mean Corpuscular Hemoglobin 25.7 pg (25-34); Mean Corpuscular Hgb Conc 31.8 g/dL (32-36); Mean Corpuscular Volume 80.8 fL (80-100); Mean Platelet Volume 9.5 fL (7.4-10.4); Monocytes # (auto) 0.41 K/uL (0.11-0.59); Neutrophils # (auto) 2.55 K/uL (1.4-6.5); Neutrophils % (auto) 62.4 %; Platelet Count 238 K/uL (130-400); RDW Coefficient of Variation 15.7 % (11.5-14.5); RDW Standard Deviation 45.5 fL (36.4-46.3); Red Blood Count 3.23 M/uL (4.2-5.4); White Blood Count 4.09 K/uL (4.8-10.8)
[2020-12-04 07:12] LABS: Alanine Aminotransferase 20 U/L (12-78); Aspartate Aminotransferase 34 U/L (15-37)
[2020-12-04] MEDS: POLYETHYLENE (MIRALAX) 17 GM PACK PO SCH (07:44)
[2020-12-04] MEDS: FLUDROCORTISONE ACETATE 0.1 MG TAB PO SCH (07:48)
[2020-12-04] MEDS: ASPIRIN 81 MG ECTAB PO SCH ×2 (07:48→19:47)
[2020-12-04] MEDS: ACETAMINOPHEN 325 MG TAB PO PRN ×3 (07:49→23:19)
[2020-12-04] MEDS: DOCUSATE SODIUM 100 MG CAP PO SCH (19:47)
--- NOTE | 2020-12-04 21:20 | Hospitalist Progress Note ---
Date of Service December 04, 2020 Assessment & Plan (1) Fracture of proximal end of right femur: Plan: Complex fracture of the proximal right femur with pre-existing intramedullary bobby from previous fracture POD #6 s/p ORIF right hip with distal locking screws. will benefit from going to rehab, patient agrees, asking about [facility] discussed with her positive COVID test will need 10 days from test for [facility] and 14 days for SNF she understands she will be here until next week Hb is 8.3 today, will continue to monitor (2) COVID: Plan: Patient with Covid positive status Non vaccinated no oxygen requirement stopped Remdesivir, no dexamethasone needed CXR is clear, no fever, no cough, no dyspnea repeat COVID test n 11/30 was still POSITIVE no need to check again might be contributing to orthostatic changes? might be why she fell at home (3) Orthostatic hypotension: Plan: already has compression stockings liberalize salt in diet started on Florinef 0.1mg qAM 12/02, working today, no light headedness when standing can check formal orthostatic vitals with therapy (4) Hypertension: Plan: h/o such In the past patient was on lisinopril currently on no medications BP elevated (5) Osteoporosis: Plan: Typically taking calcium vitamin D for osteoporosis (6) DVT prophylaxis: Plan: Postoperative DVT prevention will be based on surgeons preference Admission and Anticipated Discharge Date Admission Date: November 26, 2020 Subjective patient doing well today, still very weak per nursing, she is a 2 assist to stand up and pivot, not very motivated her blood pressure is better today, she reports she was not light headed when standing eating fairly well, breathing stable, no chest pain, no fever Review of Systems Review of Systems: All systems reviewed & are unremarkable except as noted in Subjective Musculoskeletal: + joint pain (right leg) Physical Exam Physical Exam: General: well developed, overweight female, no acute distress, comfortable Neck: supple, trachea midline, normal thyroid Lungs: clear to auscultation bilaterally, normal respiratory effort, no accessory muscle use, no distress Heart: regular S1 and S2, no murmur, peripheral pulses normal, capillary refill normal, no edema Abdomen: soft, NT, ND, + BS, no hepatomegaly, normal to percussion Extremities: right leg immobilized, tender, swollen, no cyanosis, no petechiae, generalized weakness, especially in legs Neuro: awake, cooperative, moves all extremities, no focal motor deficits, CN II-XII intact, sensation in extremities intact, normal speech Skin: warm, dry, no rash, normal turgor Psych: Awake, alert oriented x 3, euthymic affect Results & Data Results & Data ([facility]) Vital Signs (Past 12 Hours) Vital Signs Temp Pulse Resp BP Pulse Ox 12/04/20 16:03 36.9 C 78 22 138/72 99 Laboratory Results Laboratory Results - last 24 hr 11/27/20 12/04/20 12/04/20 11:22 05:40 05:40 WBC 4.09 L RBC 3.23 L Hgb 8.3 L Hct 26.1 L MCV 80.8 MCH 25.7 MCHC 31.8 L RDW Std Deviation 45.5 RDW Coeff of Pj 15.7 H Plt Count 238 MPV 9.5 Immature Gran % (Auto) 1.0 Neut % (Auto) 62.4 Lymph % (Auto) 25.9 [place] % (Auto) 10.0 Eos % (Auto) 0.5 Baso % (Auto) 0.2 Neut # (Auto) 2.55 Lymph # (Auto) 1.06 L [place] # (Auto) 0.41 Eos # (Auto) 0.02 Baso # (Auto) 0.01 Immature Gran # (Auto) 0.04 H AST 34 ALT 20 Antibody ID Referred Medications Administered Current Inpatient Medications Acetaminophen (Acetaminophen 325 Mg Tab) 650 mg PO Q4H PRN PRN Reason: pain/fever Stop: 12/26/20 23:15 Last Admin: 12/04/20 16:55 Dose: 650 mg Documented by: Al Hydrox/Mg Hydrox/Simethicone (Aluminum/Magnesium Susp 30 Ml Udc) 30 ml PO Q6H PRN PRN Reason: Dyspepsia Stop: 12/26/20 23:15 Aspirin (Aspirin 81 Mg Ectab) 81 mg PO BID AGUILAR Stop: 12/27/20 20:59 Last Admin: 12/04/20 19:47 Dose: 81 mg Documented by: Bisacodyl (Bisacodyl 10 Mg Supp) 10 mg [place] DAILY PRN PRN Reason: Constipation Stop: 12/26/20 23:15 Diazepam (Diazepam 5 Mg Tablet) 5 mg PO DAILY PRN PRN Reason: Anxiety Stop: 12/26/20 23:15 Diphenhydramine HCl (Diphenhydramine 50 Mg/Ml Vial) 25 mg IV Q8H PRN PRN Reason: Itching Stop: 12/26/20 16:20 Docusate Sodium (Docusate Sodium 100 Mg Cap) 100 mg PO HS [facility] Stop: 12/31/20 20:59 Last Admin: 12/04/20 19:47 Dose: 100 mg Documented by: Fludrocortisone Acetate (Fludrocortisone Acetate 0.1 Mg Tab) 0.1 mg PO QAM [facility] Stop: 01/01/21 08:59 Last Admin: 12/04/20 07:48 Dose: 0.1 mg Documented by: Sodium Chloride (Nss 1000ml) 1,000 mls @ 0 mls/hr IV .Q0M [facility] Stop: 12/26/20 16:29 Magnesium Hydroxide (Magnesium Hydroxide Susp 30 Ml Udc) 30 ml PO DAILY PRN PRN Reason: Constipation Stop: 12/26/20 23:15 Metoclopramide HCl (Metoclopramide Hcl Inj 5 Mg/Ml 2 Ml Vial) 10 mg IV Q6H PRN PRN Reason: Nausea And Vomiting Stop: 12/27/20 16:03 Morphine Sulfate (Morphine Sulfate 2 Mg/Ml Carp) 2 mg IV Q3H PRN PRN Reason: Pain (1,2,3,4,5) & Pre PT Stop: 12/10/20 23:15 Last Admin: 11/26/20 23:31 Dose: 2 mg Documented by: Morphine Sulfate (Morphine Sulfate 4 Mg/Ml 1 Ml Carp\Vial) 4 mg IV Q3H PRN PRN Reason: Pain (6,7,8,9,10) Stop: 12/10/20 23:15 Naloxone HCl (Naloxone Hcl 0.4 Mg/1 Ml Vial/Carp) 0.1 mg IV UD PRN PRN Reason: Opiate Overdose Stop: 12/26/20 23:15 Ondansetron HCl (Ondansetron Inj 2 Mg/Ml 2 Ml Vial) 4 mg IV Q6H PRN PRN Reason: Nausea/Vomiting Stop: 12/26/20 16:20 Last Admin: 11/28/20 21:20 Dose: 4 mg Documented by: Oxycodone HCl (Oxycodone Hcl Ir 5 Mg Tab (Immediate Release)) 5 mg PO Q4H PRN PRN Reason: MODERATE Pain (4,5,6) & Pre PT Stop: 12/10/20 23:15 Last Admin: 11/28/20 10:51 Dose: 5 mg Documented by: Oxycodone HCl (Oxycodone Hcl Ir 5 Mg Tab (Immediate Release)) 10 mg PO Q4H PRN PRN Reason: SEVERE Pain (7,8,9,10) Stop: 12/10/20 23:15 Polyethylene Glycol (Polyethylene (Miralax) 17 Gm Pack) 17 gm PO DAILY [facility] Stop: 12/28/20 11:59 Last Admin: 12/04/20 07:44 Dose: Not Given Documented by: PG Care Time/CCT Total # of Minutes Spent Total Time Spent with Patient: Total time spent is greater than 50% in coordination of care (as documented) at patient's floor/unit and/or counseling patient: Coding Level of Care Code 81423 Subseq Hosp Care Lvl 2 Diagnoses Fracture of proximal end of right femur S72.001A COVID U07.1 Orthostatic hypotension I95.1 Hypertension I10 Osteoporosis M81.0 DVT prophylaxis Z29.9
[2020-12-05] MEDS: ACETAMINOPHEN 325 MG TAB PO PRN ×3 (07:53→20:11)
[2020-12-05] MEDS: POLYETHYLENE (MIRALAX) 17 GM PACK PO SCH (07:54)
[2020-12-05] MEDS: ASPIRIN 81 MG ECTAB PO SCH ×2 (07:54→20:10)
[2020-12-05] MEDS: FLUDROCORTISONE ACETATE 0.1 MG TAB PO SCH (07:54)
[2020-12-05 10:58] LABS: Basophils # (auto) 0.01 K/uL (0-0.2); Basophils % (auto) 0.2 %; Eosinophils # (auto) 0.02 K/uL (0-0.5); Eosinophils % (auto) 0.4 %; Hemoglobin 9.3 g/dL (12.0-16.0); Immature Granulocytes # (auto) 0.05 K/uL (0.00-0.02); Lymphocytes # (auto) 0.86 K/uL (1.2-3.4); Lymphocytes % (auto) 17.5 %; Mean Corpuscular Hemoglobin 26.2 pg (25-34); Mean Corpuscular Hgb Conc 32.1 g/dL (32-36); Mean Corpuscular Volume 81.7 fL (80-100); Mean Platelet Volume 9.3 fL (7.4-10.4); Monocytes # (auto) 0.45 K/uL (0.11-0.59); Monocytes % (auto) 9.2 %; Neutrophils # (auto) 3.52 K/uL (1.4-6.5); Neutrophils % (auto) 71.7 %; Platelet Count 312 K/uL (130-400); RDW Coefficient of Variation 16.2 % (11.5-14.5); RDW Standard Deviation 46.5 fL (36.4-46.3); Red Blood Count 3.55 M/uL (4.2-5.4); White Blood Count 4.91 K/uL (4.8-10.8)
--- NOTE | 2020-12-05 16:27 | Hospitalist Progress Note ---
Date of Service December 05, 2020 Assessment & Plan (1) Fracture of proximal end of right femur: Plan: Complex fracture of the proximal right femur with pre-existing intramedullary bobby from previous fracture POD #7 s/p ORIF right hip with distal locking screws. will benefit from going to rehab, patient agrees, asking about [facility] discussed with her positive COVID test will need 10 days from test for [facility] and 14 days for SNF she understands she will be here until next week Hb is 9 today, will continue to monitor (2) COVID: Plan: Patient with Covid positive status Non vaccinated no oxygen requirement stopped Remdesivir, no dexamethasone needed CXR is clear, no fever, no cough, no dyspnea repeat COVID test n 11/30 was still POSITIVE no need to check again might be contributing to orthostatic changes? might be why she fell at home (3) Orthostatic hypotension: Plan: already has compression stockings liberalize salt in diet started on Florinef 0.1mg qAM 12/02, working well the past few days, no light headedness when standing can check formal orthostatic vitals with therapy (4) Hypertension: Plan: h/o such In the past patient was on lisinopril currently on no medications BP elevated (5) Osteoporosis: Plan: Typically taking calcium vitamin D for osteoporosis (6) DVT prophylaxis: Plan: Postoperative DVT prevention will be based on surgeons preference Admission and Anticipated Discharge Date Admission Date: November 26, 2020 Subjective discussed with her that [facility] could take some COVID patients this week she refuses to consider [facility], that is where her sister was, had a bad experience says she will speak with CM on Monday eating well, breathing well, better strength with standing today Review of Systems Review of Systems: All systems reviewed & are unremarkable except as noted in Subjective Musculoskeletal: + joint pain (right leg) Physical Exam Physical Exam: General: well developed, overweight female, no acute distress, comfortable Neck: supple, trachea midline, normal thyroid Lungs: clear to auscultation bilaterally, normal respiratory effort, no accessory muscle use, no distress Heart: regular S1 and S2, no murmur, peripheral pulses normal, capillary refill normal, no edema Abdomen: soft, NT, ND, + BS, no hepatomegaly, normal to percussion Extremities: right leg immobilized, tender, swollen, no cyanosis, no petechiae, generalized weakness, especially in legs Neuro: awake, cooperative, moves all extremities, no focal motor deficits, CN II-XII intact, sensation in extremities intact, normal speech Skin: warm, dry, no rash, normal turgor Psych: Awake, alert oriented x 3, euthymic affect Results & Data Results & Data ([facility]) Vital Signs (Past 12 Hours) Vital Signs Temp Pulse Resp BP Pulse Ox 12/05/20 15:45 36.8 C 79 16 148/79 H 94 12/05/20 06:42 37 C 80 18 150/74 H 92 Laboratory Results Laboratory Results - last 24 hr 12/05/20 10:20 WBC 4.91 RBC 3.55 L Hgb 9.3 L Hct 29.0 L MCV 81.7 MCH 26.2 MCHC 32.1 RDW Std Deviation 46.5 H RDW Coeff of Pj 16.2 H Plt Count 312 MPV 9.3 Immature Gran % (Auto) 1.0 Neut % (Auto) 71.7 Lymph % (Auto) 17.5 Mcdowell % (Auto) 9.2 Eos % (Auto) 0.4 Baso % (Auto) 0.2 Neut # (Auto) 3.52 Lymph # (Auto) 0.86 L Mcdowell # (Auto) 0.45 Eos # (Auto) 0.02 Baso # (Auto) 0.01 Immature Gran # (Auto) 0.05 H Medications Administered Current Inpatient Medications Acetaminophen (Acetaminophen 325 Mg Tab) 650 mg PO Q4H PRN PRN Reason: pain/fever Stop: 12/26/20 23:15 Last Admin: 12/05/20 15:57 Dose: 650 mg Documented by: Al Hydrox/Mg Hydrox/Simethicone (Aluminum/Magnesium Susp 30 Ml Udc) 30 ml PO Q6H PRN PRN Reason: Dyspepsia Stop: 12/26/20 23:15 Aspirin (Aspirin 81 Mg Ectab) 81 mg PO BID AGU[facility]AR Stop: 12/27/20 20:59 Last Admin: 12/05/20 07:54 Dose: 81 mg Documented by: Bisacodyl (Bisacodyl 10 Mg Supp) 10 mg [place] DAILY PRN PRN Reason: Constipation Stop: 12/26/20 23:15 Diazepam (Diazepam 5 Mg Tablet) 5 mg PO DAILY PRN PRN Reason: Anxiety Stop: 12/26/20 23:15 Diphenhydramine HCl (Diphenhydramine 50 Mg/Ml Vial) 25 mg IV Q8H PRN PRN Reason: Itching Stop: 12/26/20 16:20 Docusate Sodium (Docusate Sodium 100 Mg Cap) 100 mg PO HS [facility] Stop: 12/31/20 20:59 Last Admin: 12/04/20 19:47 Dose: 100 mg Documented by: Fludrocortisone Acetate (Fludrocortisone Acetate 0.1 Mg Tab) 0.1 mg PO QAM [facility] Stop: 01/01/21 08:59 Last Admin: 12/05/20 07:54 Dose: 0.1 mg Documented by: Sodium Chloride (Nss 1000ml) 1,000 mls @ 0 mls/hr IV .Q0M [facility] Stop: 12/26/20 16:29 Magnesium Hydroxide (Magnesium Hydroxide Susp 30 Ml Udc) 30 ml PO DAILY PRN PRN Reason: Constipation Stop: 12/26/20 23:15 Metoclopramide HCl (Metoclopramide Hcl Inj 5 Mg/Ml 2 Ml Vial) 10 mg IV Q6H PRN PRN Reason: Nausea And Vomiting Stop: 12/27/20 16:03 Morphine Sulfate (Morphine Sulfate 2 Mg/Ml Carp) 2 mg IV Q3H PRN PRN Reason: Pain (1,2,3,4,5) & Pre PT Stop: 12/10/20 23:15 Last Admin: 11/26/20 23:31 Dose: 2 mg Documented by: Morphine Sulfate (Morphine Sulfate 4 Mg/Ml 1 Ml Carp\Vial) 4 mg IV Q3H PRN PRN Reason: Pain (6,7,8,9,10) Stop: 12/10/20 23:15 Naloxone HCl (Naloxone Hcl 0.4 Mg/1 Ml Vial/Carp) 0.1 mg IV UD PRN PRN Reason: Opiate Overdose Stop: 12/26/20 23:15 Ondansetron HCl (Ondansetron Inj 2 Mg/Ml 2 Ml Vial) 4 mg IV Q6H PRN PRN Reason: Nausea/Vomiting Stop: 12/26/20 16:20 Last Admin: 11/28/20 21:20 Dose: 4 mg Documented by: Oxycodone HCl (Oxycodone Hcl Ir 5 Mg Tab (Immediate Release)) 5 mg PO Q4H PRN PRN Reason: MODERATE Pain (4,5,6) & Pre PT Stop: 12/10/20 23:15 Last Admin: 11/28/20 10:51 Dose: 5 mg Documented by: Oxycodone HCl (Oxycodone Hcl Ir 5 Mg Tab (Immediate Release)) 10 mg PO Q4H PRN PRN Reason: SEVERE Pain (7,8,9,10) Stop: 12/10/20 23:15 Polyethylene Glycol (Polyethylene (Miralax) 17 Gm Pack) 17 gm PO DAILY [facility] Stop: 12/28/20 11:59 Last Admin: 12/05/20 07:54 Dose: Not Given Documented by: PG Care Time/CCT Total # of Minutes Spent Total Time Spent with Patient: Total time spent is greater than 50% in coordination of care (as documented) at patient's floor/unit and/or counseling patient: Coding Level of Care Code 56590 Subseq Hosp Care Lvl 2 Diagnoses Fracture of proximal end of right femur S72.001A COVID U07.1 Orthostatic hypotension I95.1 Hypertension I10 Osteoporosis M81.0 DVT prophylaxis Z29.9
[2020-12-05] MEDS: DOCUSATE SODIUM 100 MG CAP PO SCH (20:10)
[2020-12-06] MEDS: ACETAMINOPHEN 325 MG TAB PO PRN ×3 (07:35→21:06)
--- NOTE | 2020-12-06 09:00 | Hospitalist Progress Note ---
Date of Service December 06, 2020 Assessment & Plan (1) Fracture of proximal end of right femur: Plan: Complex fracture of the proximal right femur with pre-existing intramedullary bobby from previous fracture POD #8 s/p ORIF right hip with distal locking screws. will benefit from going to rehab, patient agrees, asking about [facility] discussed with her positive COVID test will need 10 days from test for [facility] and 14 days for SNF she NEEDS to go to rehab, high risk of falling, she keeps bringing up the idea of going home with home therapy told her this is dangerous, likely to fall and fracture something else or damage the recent repair she understands Hb is 9.3 today, will continue to monitor (2) COVID: Plan: Patient with Covid positive status Non vaccinated no oxygen required all week, saturations 95-98% stopped Remdesivir, no dexamethasone needed CXR is clear, no fever, no cough, no dyspnea repeat COVID test n 11/30 was still POSITIVE no need to check again might be contributing to orthostatic changes? might be why she fell at home (3) Orthostatic hypotension: Plan: already has compression stockings liberalize salt in diet started on Florinef 0.1mg qAM 12/02, working well the past few days, no light headedness when standing BP is markedly elevated will STOP Florinef, see how BP does the next two days without it (4) Hypertension: Plan: h/o such In the past patient was on lisinopril currently on no medications BP elevated, going to stop Florinef and observe while still in the hospital (5) Osteoporosis: Plan: Typically taking calcium vitamin D for osteoporosis (6) DVT prophylaxis: Plan: Postoperative DVT prevention will be based on surgeons preference Plan: try to get to SNF rehab later this week Admission and Anticipated Discharge Date Admission Date: November 26, 2020 Subjective patient doing better she was talking about going home with home health I told her this is a very bad idea, she has fallen numerous times, and now she has a fresh fracture she needs to go to rehab she is eating well, breathing well, told the RN to remove continuous pulse ox BP is elevated all the time, no issues with orthostatics will stop the Florinef tomorrow, see how she does off of it while in the hospital Review of Systems Review of Systems: All systems reviewed & are unremarkable except as noted in Subjective Constitutional: + fatigue and + weakness Physical Exam Physical Exam: General: well developed, overweight female, no acute distress, comfortable Neck: supple, trachea midline, normal thyroid Lungs: clear to auscultation bilaterally, normal respiratory effort, no accessory muscle use, no distress Heart: regular S1 and S2, no murmur, peripheral pulses normal, capillary refill normal, no edema Abdomen: soft, NT, ND, + BS, no hepatomegaly, normal to percussion Extremities: right leg immobilized, tender, swollen, no cyanosis, no petechiae, generalized weakness, especially in legs Neuro: awake, cooperative, moves all extremities, no focal motor deficits, CN II-XII intact, sensation in extremities intact, normal speech Skin: warm, dry, no rash, normal turgor Psych: Awake, alert oriented x 3, euthymic affect Results & Data Results & Data ([facility]) Vital Signs (Past 12 Hours) Vital Signs Temp Pulse Resp BP Pulse Ox 12/06/20 08:16 36.8 C 79 16 148/77 H 100 12/05/20 23:13 36.8 C 89 16 177/70 H 100 Laboratory Results Laboratory Results - last 24 hr 12/05/20 10:20 WBC 4.91 RBC 3.55 L Hgb 9.3 L Hct 29.0 L MCV 81.7 MCH 26.2 MCHC 32.1 RDW Std Deviation 46.5 H RDW Coeff of Pj 16.2 H Plt Count 312 MPV 9.3 Immature Gran % (Auto) 1.0 Neut % (Auto) 71.7 Lymph % (Auto) 17.5 Atkinson % (Auto) 9.2 Eos % (Auto) 0.4 Baso % (Auto) 0.2 Neut # (Auto) 3.52 Lymph # (Auto) 0.86 L Atkinson # (Auto) 0.45 Eos # (Auto) 0.02 Baso # (Auto) 0.01 Immature Gran # (Auto) 0.05 H Medications Administered Current Inpatient Medications Acetaminophen (Acetaminophen 325 Mg Tab) 650 mg PO Q4H PRN PRN Reason: pain/fever Stop: 12/26/20 23:15 Last Admin: 12/06/20 07:35 Dose: 650 mg Documented by: Al Hydrox/Mg Hydrox/Simethicone (Aluminum/Magnesium Susp 30 Ml Udc) 30 ml PO Q6H PRN PRN Reason: Dyspepsia Stop: 12/26/20 23:15 Aspirin (Aspirin 81 Mg Ectab) 81 mg PO BID [facility] Stop: 12/27/20 20:59 Last Admin: 12/05/20 20:10 Dose: 81 mg Documented by: Bisacodyl (Bisacodyl 10 Mg Supp) 10 mg [place] DAILY PRN PRN Reason: Constipation Stop: 12/26/20 23:15 Diazepam (Diazepam 5 Mg Tablet) 5 mg PO DAILY PRN PRN Reason: Anxiety Stop: 12/26/20 23:15 Diphenhydramine HCl (Diphenhydramine 50 Mg/Ml Vial) 25 mg IV Q8H PRN PRN Reason: Itching Stop: 12/26/20 16:20 Docusate Sodium (Docusate Sodium 100 Mg Cap) 100 mg PO HS [facility] Stop: 12/31/20 20:59 Last Admin: 12/05/20 20:10 Dose: 100 mg Documented by: Fludrocortisone Acetate (Fludrocortisone Acetate 0.1 Mg Tab) 0.1 mg PO QAM [facility] Stop: 01/01/21 08:59 Last Admin: 12/05/20 07:54 Dose: 0.1 mg Documented by: Sodium Chloride (Nss 1000ml) 1,000 mls @ 0 mls/hr IV .Q0M [facility] Stop: 12/26/20 16:29 Magnesium Hydroxide (Magnesium Hydroxide Susp 30 Ml Udc) 30 ml PO DAILY PRN PRN Reason: Constipation Stop: 12/26/20 23:15 Metoclopramide HCl (Metoclopramide Hcl Inj 5 Mg/Ml 2 Ml Vial) 10 mg IV Q6H PRN PRN Reason: Nausea And Vomiting Stop: 12/27/20 16:03 Morphine Sulfate (Morphine Sulfate 2 Mg/Ml Carp) 2 mg IV Q3H PRN PRN Reason: Pain (1,2,3,4,5) & Pre PT Stop: 12/10/20 23:15 Last Admin: 11/26/20 23:31 Dose: 2 mg Documented by: Morphine Sulfate (Morphine Sulfate 4 Mg/Ml 1 Ml Carp\Vial) 4 mg IV Q3H PRN PRN Reason: Pain (6,7,8,9,10) Stop: 12/10/20 23:15 Naloxone HCl (Naloxone Hcl 0.4 Mg/1 Ml Vial/Carp) 0.1 mg IV UD PRN PRN Reason: Opiate Overdose Stop: 12/26/20 23:15 Ondansetron HCl (Ondansetron Inj 2 Mg/Ml 2 Ml Vial) 4 mg IV Q6H PRN PRN Reason: Nausea/Vomiting Stop: 12/26/20 16:20 Last Admin: 11/28/20 21:20 Dose: 4 mg Documented by: Oxycodone HCl (Oxycodone Hcl Ir 5 Mg Tab (Immediate Release)) 5 mg PO Q4H PRN PRN Reason: MODERATE Pain (4,5,6) & Pre PT Stop: 12/10/20 23:15 Last Admin: 11/28/20 10:51 Dose: 5 mg Documented by: Oxycodone HCl (Oxycodone Hcl Ir 5 Mg Tab (Immediate Release)) 10 mg PO Q4H PRN PRN Reason: SEVERE Pain (7,8,9,10) Stop: 12/10/20 23:15 Polyethylene Glycol (Polyethylene (Miralax) 17 Gm Pack) 17 gm PO DAILY [facility] Stop: 12/28/20 11:59 Last Admin: 12/05/20 07:54 Dose: Not Given Documented by: PG Care Time/CCT Total # of Minutes Spent Total Time Spent with Patient: Total time spent is greater than 50% in coordination of care (as documented) at patient's floor/unit and/or counseling patient: Coding Level of Care Code 13040 Subseq Hosp Care Lvl 2 Diagnoses Fracture of proximal end of right femur S72.001A COVID U07.1 Orthostatic hypotension I95.1 Hypertension I10 Osteoporosis M81.0 DVT prophylaxis Z29.9
[2020-12-06] MEDS: ASPIRIN 81 MG ECTAB PO SCH ×2 (09:42→21:07)
[2020-12-06] MEDS: FLUDROCORTISONE ACETATE 0.1 MG TAB PO SCH (09:42)
[2020-12-06] MEDS: POLYETHYLENE (MIRALAX) 17 GM PACK PO SCH (09:43)
[2020-12-06] MEDS: DOCUSATE SODIUM 100 MG CAP PO SCH (20:50)
[2020-12-07] MEDS: ACETAMINOPHEN 325 MG TAB PO PRN ×3 (01:56→19:56)
[2020-12-07] MEDS: ASPIRIN 81 MG ECTAB PO SCH ×2 (10:46→19:55)
[2020-12-07] MEDS: POLYETHYLENE (MIRALAX) 17 GM PACK PO SCH (10:46)
--- NOTE | 2020-12-07 16:54 | Hospitalist Progress Note ---
Date of Service December 07, 2020 Assessment & Plan (1) Fracture of proximal end of right femur: Plan: Complex fracture of the proximal right femur with pre-existing intramedullary bobby from previous fracture POD #9 s/p ORIF right hip with distal locking screws. 12/07: Discussed with lCaudia from infection control. Patient is currently asymptomatic with no shortness of breath and on room air. Patient does clear her throat, but has no cough. Per isolation downgrade criteria agree with infection control that patient is asymptomatic, may be downgraded from Covid precautions. Patient requires rehab, must be 10 days from test [facility] and 14 days for SNF referral Home therapy is not appropriate for this patient, she requires inpatient rehab. Discussed with prior provider that home therapy is not appropriate for her c urrent level of strength. (2) COVID: Plan: Patient with Covid positive status Non vaccinated no oxygen required all week, saturations 95-98% completd tx Remdesivir, no dexamethasone needed CXR is clear, no fever, no cough, no dyspnea repeat COVID test n 11/30 was still POSITIVE no additional check indicated ?contribution to orthostasis (3) Orthostatic hypotension: Plan: already has compression stockings liberalize salt in diet started on Florinef 0.1mg qAM 12/02, working well the past few days, no light headedness when standing BP is markedly elevated - Florinef held, continue to follow BP> (4) Hypertension: Plan: h/o such In the past patient was on lisinopril currently on no medications BP elevated, stopped Florinef and observe while still in the hospital (5) Osteoporosis: Plan: Typically taking calcium vitamin D for osteoporosis (6) DVT prophylaxis: Plan: Postoperative DVT prevention will be based on surgeons preference Plan: try to get to SNF rehab later this week Admission and Anticipated Discharge Date Admission Date: November 26, 2020 Subjective Seen at the bedside. Pleasant, in no acute distress sitting up in a chair at time of visit. Patient reports she feels well, has some pain in her right hip. Denies any respiratory symptoms, fevers, chills, sweats. Reports she clears her throat intermittently but has no cough. Awaiting ability to be placed for rehab. No questions or concerns at time of bedside visit Review of Systems Review of Systems: Constitutional: Denies fever, chills, malaise. +fatigue Eyes: Denies double vision, vision change, eye pain ENT: Denies ear pain, sore throat, sinus pain Cardiovascular: Denies Chest pain, chest pressure, palpitations, extremity swelling Respiratory: Denies shortness of breath, cough, sputum production, difficulty breathing Gastrointestinal: Denies abdominal pain, nausea, vomiting, constipation, diarrhea Genitourinary: Denies pain with urination, urinary urgency, urinary frequency Musculoskeletal: +hip pain. Integumentary:Denies rash, lesions, bruising Neurological: Denies headache, numbness, tingling, focal weakness Physical Exam Physical Exam: General: A&Ox3. NAD. Cooperative. HEENT: Atraumatic, normocephalic. Pulm: CTAB A&P. -wheezes, -rales, -rhonchi. Symmetrical chest rise. No increase work of breathing. No respiratory distress. Cardiac: RRR, -mrg. Radial pulses intact and symmetrical. Abdominal: Nontender, nondistended, soft. BS present. Extremities: Right leg immobilized. PT pulses intact bilaterally without asymmetry. Results & Data Results & Data ([facility]) Vital Signs (Past 12 Hours) Vital Signs Temp Pulse Resp BP Pulse Ox 12/07/20 15:20 36.7 C 97 H 16 178/74 H 95 12/07/20 07:35 36.7 C 85 18 170/78 H 94 PG Care Time/CCT Total # of Minutes Spent Total Time Spent with Patient: Total time spent is greater than 50% in coordination of care (as documented) at patient's floor/unit and/or counseling patient: Coding Level of Care Code 32451 Subseq Hosp Care Lvl 2 Diagnoses Fracture of proximal end of right femur S72.001A COVID U07.1 Orthostatic hypotension I95.1 Hypertension I10 Osteoporosis M81.0 DVT prophylaxis Z29.9
[2020-12-07] MEDS: DOCUSATE SODIUM 100 MG CAP PO SCH (19:57)
[2020-12-08] MEDS: ACETAMINOPHEN 325 MG TAB PO PRN ×4 (02:46→22:25)
[2020-12-08] MEDS: ASPIRIN 81 MG ECTAB PO SCH ×2 (08:20→20:08)
[2020-12-08] MEDS: POLYETHYLENE (MIRALAX) 17 GM PACK PO SCH (08:21)
[2020-12-08 11:25] LABS: Appearance Urine Cloudy (Clear); Bacteria Urine Automated 4+ (Negative); Bilirubin Urine Negative (Negative); Blood Urine Negative (Negative); Color Urine Yellow; Glucose Urine UA Negative (Negative); Ketones Urine Negative (Negative); Leukocyte Esterase Urine 2+ (Negative); Nitrite Urine Positive (Negative); Protein Urine Negative (Negative); RBC Urine Automated 0-4 /hpf (0-4); Specific Gravity Urine 1.018 (1.000-1.030); Urobilinogen Urine Negative (Negative); WBC Urine Automated >30 /hpf (0-5)
--- NOTE | 2020-12-08 16:38 | Hospitalist Progress Note ---
Date of Service December 08, 2020 Assessment & Plan (1) Fracture of proximal end of right femur: Plan: Complex fracture of the proximal right femur with pre-existing intramedullary bobby from previous fracture POD #9 s/p ORIF right hip with distal locking screws. 12/07: Discussed with Claudia from infection control. Patient is currently asymptomatic with no shortness of breath and on room air. Patient does clear her throat, but has no cough. Per isolation downgrade criteria agree with infection control that patient is asymptomatic, may be downgraded from Covid precautions. Patient requires rehab, must be 10 days from test [facility] and 14 days for SNF referral Home therapy is not appropriate for this patient, she requires inpatient rehab. Discussed with prior provider that home therapy is not appropriate for her c urrent level of strength. -> [facility] denied. Will call for appeal this afternoon. (2) COVID: Plan: Patient with Covid positive status Non-vaccinated no oxygen required all week, saturations 95-98% completd tx Remdesivir, no dexamethasone needed CXR is clear, no fever, no cough, no dyspnea repeat COVID test n 11/30 was still POSITIVE no additional check indicated ?contribution to orthostasis (3) Orthostatic hypotension: Plan: already has compression stockings liberalize salt in diet started on Florinef 0.1mg qAM 12/02, working well the past few days, no light headedness when standing BP is markedly elevated - Florinef held, continue to follow BP> (4) Hypertension: Plan: h/o such In the past patient was on lisinopril currently on no medications BP elevated, stopped Florinef and observe while still in the hospital (5) Osteoporosis: Plan: Typically taking calcium vitamin D for osteoporosis (6) DVT prophylaxis: Plan: Postoperative DVT prevention will be based on surgeons preference Admission and Anticipated Discharge Date Admission Date: November 26, 2020 Subjective Reports some urinary urgency. Reports no fevers/chills, chest pain, shortness of breath, abdominal pain, nausea, or vomiting. Physical Exam Constitutional: WD/WN, vitals as above Eyes: EOM intact bilaterally; no conjunctival abnormality ENMT: external ear and nose normal, oropharynx normal Neck: trachea midline, no thyromegaly normal visual inspection Respiratory: normal respiratory effort, lungs clear to auscultation no respiratory distress Cardiovascular: RRR, no murmur, no edema Gastrointestinal (Abdomen): Inspection/Auscultation: abdomen normal to ins pection; abdomen not distended Musculoskeletal: no cyanosis or clubbing, extremities motor strength 5/5 Skin: no rashes, warm and dry Neurologic: moves all extremities and awake Psychiatric: Orientation: alert, oriented to person and cooperative Results & Data Results & Data ([facility]) Vital Signs (Past 12 Hours) Vital Signs Temp Pulse Resp BP Pulse Ox 12/08/20 15:17 36.5 C 86 16 175/74 H 95 12/08/20 07:17 36.7 C 79 16 168/76 H 94 PG Care Time/CCT Total # of Minutes Spent Total Time Spent with Patient: Total time spent is greater than 50% in coordination of care (as documented) at patient's floor/unit and/or counseling patient: Coding Level of Care Code 75572 Subseq Hosp Care Lvl 2 Diagnoses Fracture of proximal end of right femur S72.001A COVID U07.1 Orthostatic hypotension I95.1 Hypertension I10 Osteoporosis M81.0 DVT prophylaxis Z29.9
[2020-12-08] MEDS: CIPROFLOXACIN 500 MG TAB PO SCH (20:08)
[2020-12-08] MEDS: DOCUSATE SODIUM 100 MG CAP PO SCH (20:08)
[2020-12-09] MEDS: ACETAMINOPHEN 325 MG TAB PO PRN ×2 (06:16→19:45)
[2020-12-09 07:21] LABS: Hematocrit (blood only) 28.5 % (37-47); Hemoglobin 8.9 g/dL (12.0-16.0); Mean Corpuscular Hemoglobin 25.9 pg (25-34); Mean Corpuscular Hgb Conc 31.2 g/dL (32-36); Mean Corpuscular Volume 83.1 fL (80-100); Mean Platelet Volume 8.7 fL (7.4-10.4); Platelet Count 408 K/uL (130-400); RDW Coefficient of Variation 16.4 % (11.5-14.5); RDW Standard Deviation 48.3 fL (36.4-46.3); Red Blood Count 3.43 M/uL (4.2-5.4); White Blood Count 7.05 K/uL (4.8-10.8)
[2020-12-09 07:51] LABS: BUN Creatinine Ratio 16.9 (10-20); Calcium 8.9 mg/dl (8.5-10.1); Creatinine Clr Calc Pharmacy 63.2 ml/min; Est GFR (African American) 97.6 ml/min; Est GFR (Non-African American) 84.2 ml/min; Magnesium 2.2 mg/dl (1.8-2.4); Potassium 3.3 mmol/L (3.5-5.1)
[2020-12-09] MEDS: ASPIRIN 81 MG ECTAB PO SCH (07:51)
[2020-12-09] MEDS: CIPROFLOXACIN 500 MG TAB PO SCH ×2 (07:51→19:46)
[2020-12-09] MEDS: POLYETHYLENE (MIRALAX) 17 GM PACK PO SCH (07:52)
[2020-12-09] MEDS: POTASSIUM CHLORIDE CRTAB 20 MEQ TABCR PO SCH ×3 (10:45→19:46)
[2020-12-09] MEDS: CHOLECALCIFEROL 1,000 UNITS 25 MCG TAB PO SCH (10:45)
[2020-12-09] MEDS ORDERED: IRON SUCROSE 200 MG in 0.9 % SODIUM CHLORIDE 100 ML IV ONE (12:35)
[2020-12-09] MEDS: RIVAROXABAN 10 MG TABLET PO SCH (13:22)
[2020-12-09] MEDS: DOCUSATE SODIUM 100 MG CAP PO SCH (19:47)
--- NOTE | 2020-12-09 21:40 | Hospitalist Progress Note ---
Date of Service December 09, 2020 Assessment & Plan (1) Fracture of proximal end of right femur: Plan: Periprosthetic proximal right femur fracture. POD #10 s/p ORIF right hip with distal locking screws. Patient requires rehab, must be 10 days from test for [facility] and 14 days for SNF referral I completed [id number] with insurance co medical lab scientist today - [facility] denied; SNF approved patient agreeable to SNF for rehab DVT proph - spoke with Peri Guerra from ortho - in light of heightened DVT risk because of COVID-19 infection in the setting of Fx with ORIF we will d/c aspirin and use xarelto 10mg daily x 30 days for DVT proph. Will make this switch today. (2) COVID: Plan: COVID-19 + at time of hospital admission. Repeat test 11/30 also +. Non-vaccinated. Never had O2 requirement or significant symptoms. Completed course of Remdesivir. No dexamethasone. Appears to have made full recovery from her mild COVID. (3) Orthostatic hypotension: Plan: resolved (4) Hypertension: Plan: h/o such In the past patient was on lisinopril currently on no medications BPs mildly elevated Will cont to follow off of meds given recent orthostasis (5) Osteoporosis: Plan: Typically taking calcium vitamin D for osteoporosis Needs DEXA following discharge (6) UTI (urinary tract infection): Plan: day #2 cipro 2nd GNR follow urine cx to completion (7) Hypokalemia: Plan: replace repeat BMP am (8) Acute blood loss anemia: Plan: 2 gram loss s/p ORIF of R femur Fx remains anemia with Hb of 8.5 to 9 venofer 200mg IV x 1 repeat H/H am consider another dose of venofer tomorrow (9) Vitamin D insufficiency: Plan: vit D supplementation 2000 IU daily repeat a level in 6-8 weeks (10) DVT prophylaxis: Plan: d/c asa 81 BID change to xarelto 10mg daily x 30 days after discussing heightened DVT risk in setting of COVID ortho ok with switch Plan: updated pt's son by phone should be ready for d/c to SNF tomorrow Admission and Anticipated Discharge Date Admission Date: November 26, 2020 Subjective no events overnight mild dysuria remains some frequency denies any cough, dyspnea or PEARCE denies chest discomfort no dizziness or lightheadedness; orthostatics negative today still willing to attend rehab post-d/c no new COVID symptoms Review of Systems Review of Systems: gen - no fevers/chills CV - no chest pain pulm - no cough/wheeze/dyspnea GI - no abd pain/N/V/constipation musculo - mild right leg pain Physical Exam Physical Exam: gen - NAD, looks great, sitting in chair mouth/ENT - mmm neck - no JVD heart - RRR, s1 s2 lungs - scant rales bases b/l, good air movement, no wheeze abd - soft, NT, ND, BS+ ext - no edema, pulses 2+ b/l skin - dressings intact right thigh psych - a/o x 3 Results & Data Results & Data ([facility]) Vital Signs (Past 12 Hours) Vital Signs Temp Pulse Resp BP Pulse Ox 12/09/20 15:11 37.1 C 84 16 150/72 H 95 Laboratory Results Laboratory Results - last 24 hr 12/09/20 12/09/20 06:55 06:55 WBC 7.05 RBC 3.43 L Hgb 8.9 L Hct 28.5 L MCV 83.1 MCH 25.9 MCHC 31.2 L RDW Std Deviation 48.3 H RDW Coeff of Pj 16.4 H Plt Count 408 H MPV 8.7 Sodium 140 Potassium 3.3 L Chloride 108 H Carbon Dioxide 25 Anion Gap 7.0 BUN 11 Creatinine 0.67 Est Cr Clr Drug Dosing 63.2 Est GFR ( Amer) 97.6 Est GFR (Non-Af Amer) 84.2 BUN/Creatinine Ratio 16.9 Glucose 100 H Calcium 8.9 Magnesium 2.2 PG Care Time/CCT Total # of Minutes Spent Total Time Spent with Patient: Total time spent is greater than 50% in coordination of care (as documented) at patient's floor/unit and/or counseling patient: Coding Level of Care Code 48887 Subseq Hosp Care Lvl 3 Diagnoses Fracture of proximal end of right femur S72.001A COVID U07.1 Orthostatic hypotension I95.1 Hypertension I10 Osteoporosis M81.0 DVT prophylaxis Z29.9 UTI (urinary tract infection) N39.0 Hypokalemia E87.6 Acute blood loss anemia D62 Vitamin D insufficiency E55.9
[2020-12-10 07:26] LABS: Basophils # (auto) 0.01 K/uL (0-0.2); Basophils % (auto) 0.1 %; Eosinophils # (auto) 0.09 K/uL (0-0.5); Eosinophils % (auto) 1.1 %; Hematocrit (blood only) 28.8 % (37-47); Hemoglobin 9.2 g/dL (12.0-16.0); Immature Granulocytes # (auto) 0.05 K/uL (0.00-0.02); Immature Granulocytes % (auto) 0.6 %; Lymphocytes # (auto) 1.97 K/uL (1.2-3.4); Mean Corpuscular Hemoglobin 26.4 pg (25-34); Mean Corpuscular Hgb Conc 31.9 g/dL (32-36); Mean Corpuscular Volume 82.5 fL (80-100); Mean Platelet Volume 8.7 fL (7.4-10.4); Monocytes # (auto) 0.85 K/uL (0.11-0.59); Monocytes % (auto) 10.8 %; Neutrophils # (auto) 4.92 K/uL (1.4-6.5); Neutrophils % (auto) 62.4 %; Nucleated RBC # (auto) 0.03 K/uL (0-0); Nucleated RBC % (auto) 0.4 %; Platelet Count 482 K/uL (130-400); RDW Coefficient of Variation 16.7 % (11.5-14.5); RDW Standard Deviation 49.1 fL (36.4-46.3); Red Blood Count 3.49 M/uL (4.2-5.4); White Blood Count 7.89 K/uL (4.8-10.8)
[2020-12-10] MEDS: ACETAMINOPHEN 325 MG TAB PO PRN (07:47)
[2020-12-10] MEDS: CIPROFLOXACIN 500 MG TAB PO SCH (07:48)
[2020-12-10] MEDS: RIVAROXABAN 10 MG TABLET PO SCH (07:48)
[2020-12-10] MEDS: POLYETHYLENE (MIRALAX) 17 GM PACK PO SCH (07:48)
[2020-12-10] MEDS: CHOLECALCIFEROL 1,000 UNITS 25 MCG TAB PO SCH (07:48)
[2020-12-10 07:52] LABS: Calcium 9.2 mg/dl (8.5-10.1); Creatinine Clr Calc Pharmacy 67.2 ml/min; Est GFR (African American) 99.6 ml/min; Est GFR (Non-African American) 85.9 ml/min; Potassium 3.8 mmol/L (3.5-5.1)
[2020-12-10] MEDS ORDERED: cephALEXin 500 MG CAP PO STA (11:17)
--- NOTE | 2020-12-10 11:35 | Discharge Summary ---
Date of Service date of admission - November 26, 2020 date of discharge - December 10, 2020 Admission HPI Per Admitting Provider 80-year-old female presents after ground-level fall with a spiral fracture of the proximal right femoral diaphysis. [facility] fractures of both the left and right femurs. Patient has very little medical conditions for her age. She felt she was developing a urinary tract infection as an outpatient. She is however Covid positive in the emergency department. Patient states over the last few days she had a little bit of urinary urgency and a low-grade temp which is what made her think should UTI. She did not take any antibiotics for UTI but she is not in any persistent coughing or fevers that are documented at home. He denies having any ill contacts or going out of her home to have her groceries delivered by [employer] or [employer]. Principal Diagnosis 1. Right rebeca-prosthetic femoral shaft fracture s/p ORIF 2. COVID-19 infection 3. UTI Discharge Exam gen - NAD, looks great, sitting in chair comfortably mouth/ENT - mmm neck - no JVD heart - RRR, s1 s2, ?mid-systolic click, no murmur lungs - scant rales bases b/l, good air movement, no wheeze abd - soft, NT, ND, BS+ ext - no edema, pulses 2+ b/l skin - dressings intact right thigh psych - a/o x 3 Discharge Data Allergies Allergy/AdvReac Type Severity Reaction Status Date / Time minocycline [From Minocin] Allergy Severe SEVERE Verified 11/26/20 16:23 PAIN IN THE HEAD procaine Allergy Severe NOVACAINE->CAN'T Verified 11/26/20 16:23 BREATH erythromycin base Allergy Unknown Unknown Verified 11/26/20 16:23 oxytetracycline Allergy Unknown . Verified 11/26/20 16:23 polymyxin B Allergy Unknown . Verified 11/26/20 16:23 prednisone Allergy Unknown "COULD BE Verified 11/26/20 16:23 FATAL" - PER PCP Sulfa (Sulfonamide Allergy Unknown Rash Verified 11/26/20 16:23 Antibiotics) tramadol AdvReac Unknown "PUT ME IN Verified 11/26/20 16:23 A DAZE" Consultations [facility] [address] Orthopedic Surgery PT, OT Procedures Performed Operation Date: 11/27/20 07:00 Actual Procedures - Open Reduction Internal Fixation Right Rebeca-Prosthetic Femur Fracture(Right) - Jason Park May MD Ordered Studies Hip/Pelvis X-Ray 11/26/20 12:45 XR hip RT 2V w pelvis INDICATION: MN ^fall, r hip pain; prior IRENE TECHNIQUE: 2 views of the right hip and single frontal view of the pelvis were obtained. Comparison: Comparison is made to hip and pelvis radiographs 11/26/2020 FINDINGS: There is a spiral fracture of the proximal femoral diaphysis. The distal fragment is displaced approximately 1 cortex width medially. Bones are osteopenic. IMPRESSION: Spiral fracture of the proximal right femoral diaphysis. ACT 112: Negative or not required by law. Electronically signed by: Familia Borrego M.D. 11/26/2020 2:05 PM Knee X-Ray 11/26/20 13:44 XR knee RT 1 or 2V routine CLINICAL HISTORY: Hip fracture. COMPARISON: Right femur MRI April 13, 2018. FINDINGS: A right femoral intramedullary bobby is partially imaged on this exam. Note is made of an acute oblique mildly displaced fracture of the proximal to mid diaphysis of the right femur better depicted on the right hip radiographs. No distal right femoral fracture is present. There is no right knee joint effusion. IMPRESSION: 1. Partial visualization of a right femoral intramedullary bobby and an acute oblique proximal to mid diaphyseal fracture of the right femur. 2. No distal right femoral fracture. ACT 112: Negative or not required by law. Electronically signed by: Jesse Zambrano M.D. 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 COMPARISON: Right hip and knee radiographs of same day, chest radiograph 01/23/2018 TECHNIQUE: Portable AP view of the chest FINDINGS: Cardiac silhouette is enlarged. Atherosclerosis of the thoracic aorta. Mild right hemidiaphragmatic elevation. Chronic interstitial coarsening with lateral left midlung and left lung base atelectasis/scarring. No pneumothorax, pleural effusion, lobar airspace consolidation or overt pulmonary edema. Degenerative changes of the shoulders and spine. IMPRESSION: No acute process. ACT 112: Negative or not required by law. The above report was generated using voice recognition software. It may contain grammatical, syntax or spelling errors. Electronically signed by: Liu Ibarra M.D. 11/26/2020 4:40 PM Hip X-Ray 11/27/20 12:00 FL hip RT 2-3V HISTORY: 80 years-old Female RT CANNULATED SCREWS acute fracture of the proximal right femur COMPARISON: Pelvis and right hip radiographs 11/26/2020 TECHNIQUE: 4 spot fluoroscopic images of the right hip were obtained utilizing 72.5 seconds fluoroscopy time FINDINGS: Intertrochanteric nail with medullary bobby and distal cannulated screws noted. Acute fracture of the proximal femoral diaphysis redemonstrated again with slight displacement. IMPRESSION: Fluoroscopic assistance as above. ACT 112: Negative or not required by law. The above report was generated using voice recognition software. It may contain grammatical, syntax or spelling errors. Electronically signed by: Liu Ibarra M.D. 11/27/2020 2:58 PM Chest X-Ray 11/29/20 14:57 SINGLE VIEW CHEST CLINICAL HISTORY: Dyspnea. FINDINGS: An AP, portable, upright chest radiograph is compared to study dated 11/26/2020. The examination is degraded by portable technique and patient rotation. The heart is enlarged noting atherosclerotic calcification of the thoracic aorta. There is mild pulmonary vascular congestion. Chronic interstitial thickening is similar to previous. Scarring/atelectasis is noted at the lung bases. No airspace consolidation, large pleural effusion, or pneumothorax is seen. The skeletal structures are osteopenic. The bony thorax is grossly intact. IMPRESSION: 1. Cardiomegaly with mild pulmonary vascular congestion. This is new from 11/26/2020. 2. No airspace consolidation or large pleural effusion is identified. ACT 112: Negative or not required by law. Electronically signed by: Sudheer Diego M.D. 11/29/2020 7:58 PM Hospital Course (1) Fracture of proximal end of right femur: Periprosthetic proximal right femur fracture. s/p ORIF right femur with distal locking screws by Dr Jason May. Did well from orthopedic standpoint during the stay. Made good progress with PT/OT but [id number] rehab was advised. DVT proph - initially aspirin twice daily, but in light of heightened VTE risk because of concomitant COVID-19 infection, we switched to Xarelto 10mg once daily for an additional 30 days. Weight-bearing status to RLE - as tolerated with walker or crutches. Follow-up - 01/06/[address] May, [facility]. 25-OH vitamin D level - 27. Continue vitamin D supplementation. (2) COVID: COVID-19 + at time of hospital admission. Repeat test 11/30/20 also +. Non-vaccinated. Never had O2 requirement or significant symptoms during the hospitalization. Completed a course of Remdesivir while here. No dexamethasone however. Appears to have made full recovery from her mild COVID-19 illness. (3) Orthostatic hypotension: resolved prior to discharge. (4) Hypertension: h/o such in the past. Previously the patient was on lisinopril but currently she is on no medications. BPs mildly elevated during the stay however BP meds were not initiated. (5) Osteoporosis: Typically taking calcium + vitamin D for osteoporosis. Needs DEXA following discharge. (6) UTI (urinary tract infection): There was no evidence of UTI at time of admission. However, late in her stay, she developed UTI symptoms and urine culture grew e.coli. She will complete a course of oral cephalexin post-discharge for such. (7) Hypokalemia: replaced and resolved (8) Acute blood loss anemia: 2 gram loss s/p ORIF of R femur Fx. she never required PRBCs. remained with mild-moderate anemia with Hb of 8.5 to 9 in the days leading up to discharge. venofer 200mg IV x 1 given 12/09/20. at discharge recommended ferrous sulfate 325mg daily for another 2 months. recommend a repeat CBC in about 1 week post-discharge for stability. (9) Vitamin D insufficiency: vit D supplementation 2000 IU daily vit D level was 27 (normal = >30) repeat a level in 6-8 weeks (10) DVT prophylaxis: Xarelto 10mg daily x 30 days. Total Time Total Time Spent Total Time Spent (In Minutes): 45 Discharge Plan Discharge Items Patient Disposition: [facility] Reason For Visit: RIGHT FEMUR FRACTURE; COVID-19 Infection Discharge Diagnosis: 1. right rebeca-prosthetic femur fracture with surgical repair on 11/27/20 (Dr Jason May) 2. COVID-19 infection - resolved 3. e.coli UTI 4. anemia due to blood loss from #1 - discharge hemoglobin 9.2 5. mild vitamin D deficiency Activity: Per Instructions section Bathing Comment: May shower in 4-5 days; redress incision as needed Weightbearing: Right weightbearing Weightbearing Comment: with walker Non-emergency contact: Primary Care Provider and Surgeon Call non-emergency contact if: you have any medication questions, your symptoms worsen, your pain is worsening, your temperature is above 101, your wound has increased redness, your wound has increased drainage and your wound pain has increased Follow-up/Referrals: Jason May MD [Physician] - 01/06/21 4:00 pm Lee Tellez [Primary Care Provider] - (see within 1 week of discharge from rehab ) Diet: Regular Addtl Attending Provider Instructions: ORTHOPEDIC INSTRUCTIONS: You may weight bear as tolerated right lower extremity Use walker to assist with ambulation. You may do full movement of your right hip, knee and ankle No hip precautions necessary. Ice to right hip/knee as needed for pain/swelling Buck stockings - on during the day; off at night for 2 weeks and as needed for swelling. Tylenol or stronger pain medication (as prescribed) as needed for pain in right thigh. No prolonged standing or pushing or pulling. You may shower starting in 4 days; keep incision dry x 2 weeks, then may remove dressing and get incision wet, steri strips can remain off after 2 weeks or be used as necessary, after 2 weeks can dress incision only as needed. Follow up with Dr. May on January 06, 2021 at 4:00 p.m. Add Police Stenographer Provider Instructions: Mrs Jay was hospitalized at [facility] for a right-sided femur fracture. At time of admission she tested positive for COVID-19. A repeat test several days later was also positive. She underwent an uncomplicated operative repair of the fracture by Dr Jason May, [facility]. Fortunately her COVID-19 illness was very mild -- she never had respiratory symptoms or oxygen requirement. Other problems encountered during the stay are listed above in "discharge diagnoses." Recommendations - 1. xarelto 10mg once daily for DVT prophylaxis for 30 additional days. 2. cephalexin 500mg twice daily for 7 days, first dose tonight, for UTI. 3. CBC, BMP in 5-7 days for stability. 4. repeat urine culture after antibiotics are complete for UTI (to ensure UTI has resolved). 5. follow-up with orthopedics as scheduled. Pending Studies at Discharge: No Stand-Alone Forms: [facility] Skilled Items Patient informed of condition?: Yes DNR: No Discharge Level of Care: Skilled Communicable Disease: No Discharge Prognosis: Stable Lines: None Urinary Catheter: No Medications and DC Order Prescriptions: New Xarelto 10 mg Tablet 10 mg PO DAILY 30 Days Qty: 30 RF: 0 polyethylene glycol 3350 [Miralax] 17 gram Powder In Packet 17 g PO DAILY Qty: 30 RF: 0 oxycodone 5 mg Tablet 5 mg PO Q6H PRN (Reason: pain) Qty: 30 RF: 0 cholecalciferol (vitamin D3) 25 mcg (1,000 unit) Capsule 2,000 unit PO QAM Qty: 60 RF: 5 acetaminophen [Tylenol Extra Strength] 500 mg tablet 1,000 mg PO BID Qty: 60 RF: 0 ferrous sulfate 325 mg (65 mg iron) tablet 325 mg PO DAILY Qty: 30 RF: 1 sennosides [senna] 8.6 mg tablet 8.6 mg PO DAILY Qty: 30 RF: 0 Saccharomyces boulardii 250 mg capsule 250 mg PO DAILY 10 Days Qty: 10 RF: 0 cephalexin 500 mg capsule 500 mg PO BID 7 Days Qty: 14 RF: 0 Discontinued ibuprofen 200 mg Tablet 400 mg PO Q8H PRN (Reason: Pain) RF: 0 Discharge Orders: Discharge Order (Routine); Ordered 12/10/20 Ordered By: Cornelius Estevez/Other Patient Handouts: How COVID-19 Spreads, COVID-19 Prevention Admission Data Admit Date/Time: 11/26/20 15:53 Attending Provider: Cornelius Sebastian Admit Provider: Hugo Sanchez Primary Care Provider: Lee Tellez Other Providers: [facility] ; Jason May ; [facility] ; [place],[facility] ; [place],[facility] ; [facility] ; Juan M Marie Other Interventions: Discharge Summary Assessment (RN) Last Done: 12/10/20 11:42 Coding Level of Care Code D/C DAY MANAGEMENT >30 MINS Diagnoses Fracture of proximal end of right femur S72.001A COVID U07.1 Orthostatic hypotension I95.1 Hypertension I10 Osteoporosis M81.0 UTI (urinary tract infection) N39.0 Hypokalemia E87.6 Acute blood loss anemia D62 Vitamin D insufficiency E55.9 DVT prophylaxis Z29.9
== END 2020-12-10 12:30 | DRG 480 ==
LOC: ED 12:28 → SUATTDRO 15:53 → 3N 15:53 → 3W 11-28 20:59

== ENCOUNTER 2023-01-14 11:01 | Observation (INO) ==
[2023-01-14] MEDS ORDERED: SODIUM CHLORIDE 0.9% 500 ML IV SCH (11:15)
--- NOTE | 2023-01-14 11:17 | Emergency Department Note ---
Impression & Plan Dizziness, Fall, Anemia, macrocytic, Near syncope ED Provider Note Provider: Pako Smart MD DATE OF SERVICE: 01/14/2023 CHIEF COMPLAINT: Near syncope, dizzy, fall HISTORY OF PRESENT ILLNESS: Patient is a 82-year-old female history of hypertension, osteoporosis, and UTI presenting here today via ambulance from her home. States that yesterday she felt a bit weak and dizzy but this was transient. Today got up and was going to get some food for breakfast and was walking and felt dizzy and weak and fell to the ground. Denies loss of conscious today. Called out to family who gave her some toast and coffee. She did vomit the coffee up. States EMS was called and she was brought here. Denies significant dizziness now. Denies any speech issue. Denies headache or neck pain. Denies chest pain or abdominal pain. Denies numbness or weakness in the extremities. Denies significant hip leg or back pain but states he has a little bit of mild chronic back discomfort given her age. States she has a history of some years ago of passing out and having dizziness as well. States she was seen about a month ago at urgent care and was given a prescription for Cipro for a UTI but only took a dose or 2 as this made her sick to her stomach. Denies urinary frequency or burning at this time. Denies cough or cold symptoms. PAST MEDICAL HISTORY: As noted above MEDICATIONS: Reviewed home medication list but did not complete recent Cipro prescription SOCIAL HISTORY: Lives at home with family PHYSICAL EXAM: GENERAL: alert and oriented in no acute distress on stretcher Head: normocephalic and atraumatic EYES: No injection, discharge or icterus. PERRL, EOMI. NECK: Trachea midline. Supple no midline cervical tenderness ENT: Mucous membranes pink and moist. Pharynx without erythema or exudate. TMs clear bilaterally. LUNGS: Airway patent. No retractions. Breath sounds clear with good air entry bilaterally. HEART: Regular rate and rhythm. No chest wall tenderness ABDOMEN: Soft and non-tender, without guarding or rebound. BACK: No midline tenderness, no SI joint tenderness. No bilateral flank tenderness. SKIN: Acyanotic, warm, dry, without rashes EXTREMITIES: Without swelling, tenderness or deformity NEUROLOGICAL: No focal deficits. No aphasia. No facial droop or slurred speech. Normal strength and tone in the extremities. Sensation to gross touch normal. Ambulatory. EK bpm sinus tachycardia. No PVC or PAC. No acute ST segment elevation or depression with QTc of 451. CONTINUOUS CARDIAC MONITORING: was ordered and showed a heart rate of 90s to 100s bpm in normal sinus rhythm to sinus tachycardia GCS 15. Patient's laboratory studies and imaging reviewed. Differential includes Benign positional vertigo, dehydration, hypovolemia, anemia, tumor, infection, hypoglycemia, electrolyte abnormalities, cardiac sources, intracerebral event, toxicologic, neurologic, traumatic injury, as well as other pathologies. IMPRESSION/MEDICAL DECISION MAKING: Patient with of dizziness near syncope but without true LOC reported today. Did fall. Given her age we will complete a CT of the head but no evidence of head or other significant trauma on exam. Denies significant pain. Benign abdomen but did have an episode of vomiting earlier. Given some gentle IV fluid hydration and basic labs sent. Will check urinalysis again given recent only partially treated UTI to ensure resolution. Denies significant URI symptoms but COVID test was sent. Pelvis x-ray as well as chest x-ray but given the lack of other significant tenderness or signs of trauma without high risk anticoagulants do not feel we need additional imaging studies today. X-rays of the pelvis as well as the chest x-ray reviewed by myself as well as radiology without evidence of significant new traumatic injury appreciated. Blood work returns with a normal white blood cell count thrombocytopenia with a platelet count of 95 however and significant anemia hemoglobin 6.2. Chemistries without severe electrolyte abnormality evaded or elevated BUN. Bilirubin mildly elevated at 2.2. Low suspicion for upper GI bleed. . Given low risk of adverse effect, given a dose of IV Protonix. Denies any black or bloody stools and declined rectal exam for Hemoccult stools here today. Iron panel ordered as well as folate and B12 level. Differential does show macrocytosis. Discussed with patient and family at bedside this may be contributing to her weakness and dizziness. Discussed and consented for blood transfusion. 1 unit packed red blood cells ordered. No history of transfusion. Slight troponin elevation possibly related to her anemia. No active chest pain and doubt ACS. Patient states her diet is not the best. Denies alcohol use. CT head radiology report unremarkable. DIAGNOSIS: Macrocytic anemia, dizziness, fall, near syncope, thrombocytopenia DISPOSITION: Hospitalist will evaluate Patient was agreeable with this plan. Critical Care I have personally spent 32 minutes of critical care time in the direct management of this patient. This includes bedside care, interpretation of diagnostic studies, and testing, discussion with consultants, patient, and family members, and other required patient management activities. These 32 minutes is in excess of all separately billable procedures. Past Med/Surg History Medical History Anxiety Cancer SKIN CANCER Cardiac murmur H/O A CHILD Femur fracture Hip fracture Hypertension H/O - NO MEDICATIONS CURRENTLY PER MD ORDERS Nausea and vomiting after administration of anesthetic agent Osteoporosis Retinal artery occlusion Urinary tract infection RECURRENT, TAKING ABX. (STARTED 04/25/18) Surgical History H/O exploratory laparotomy History of dilatation and curettage History of open reduction and internal fixation (ORIF) procedure "left femur bobby" History of tonsillectomy and adenoidectomy Social History Smoking Status: Never smoker Second Hand Exposure: No; Do You Dip or Chew Tobacco: No; Tobacco Cessation Education Requested by Patient: No Hx Alcohol Use: No Hx Substance Use: No Preferred Language: Tajik Communication Ability: Effective Shake Splitter Required: No Beliefs That Will Affect Care: None Current Living Situation: Alone Other Information That Helps Us Care for You: No Feels Safe at Home: Yes Safety Concerns: Feels Safe At This Time Assistive Devices: Denture - Lower and Walker Allergies Allergies Allergy/AdvReac Type Severity Reaction Status Date / Time minocycline [From Minocin] Allergy Severe SEVERE Verified 11/26/20 16:23 PAIN IN THE HEAD procaine Allergy Severe NOVACAINE->CAN'T Verified 11/26/20 16:23 BREATH erythromycin base Allergy Unknown Unknown Verified 11/26/20 16:23 oxytetracycline Allergy Unknown . Verified 11/26/20 16:23 polymyxin B Allergy Unknown . Verified 11/26/20 16:23 prednisone Allergy Unknown "COULD BE Verified 11/26/20 16:23 FATAL" - PER PCP Sulfa (Sulfonamide Allergy Unknown Rash Verified 11/26/20 16:23 Antibiotics) tramadol AdvReac Unknown "PUT ME IN Verified 11/26/20 16:23 A DAZE" Home Meds Previous Rx's Medication Instructions Recorded acetaminophen 500 mg tablet 1,000 mg (2 x 500 mg) PO BID #60 12/10/20 (Tylenol Extra Strength) tabs cholecalciferol (vitamin D3) 25 2,000 unit PO QAM #60 caps 12/10/20 mcg (1,000 unit) capsule ferrous sulfate 325 mg (65 mg 325 mg PO DAILY #30 tabs 12/10/20 iron) tablet oxycodone 5 mg tablet 5 mg PO Q6H PRN pain #30 tabs 12/10/20 polyethylene glycol 3350 17 gram 17 g PO DAILY #30 ea 12/10/20 oral powder packet (Miralax) sennosides 8.6 mg tablet (senna) 8.6 mg PO DAILY #30 tabs 12/10/20 Results & Data (ED) Vital Signs Vital Signs - 24 hr 01/14/23 11:32 01/14/23 12:34 01/14/23 12:35 Temperature 36.9 C Temperature Source Oral Pulse Rate 106 H 115 H 107 H Respiratory Rate 22 18 Blood Pressure 175/65 H Blood Pressure Mean 101 Pulse Oximetry 95 99 Oxygen Delivery Method Room Air Room Air Sepsis Recent Fever Within 48 Hours No Sepsis New/Unexplained Change in Mental Status No Sepsis Action Taken by Nursing No Action Required Laboratory Data 01/14/23 11:38 01/14/23 11:38 Lab Results 01/14/23 01/14/23 01/14/23 Range/Units 11:38 11:38 11:38 WBC 5.90 (4.8-10.8) K/ul RBC 1.46 L (4.20-5.40) M/uL Hgb 6.2 L* (12.0-16.0) g/dl Hct 17.4 L* (37.0-47.0) % MCV 119.2 H (80.0-100.0) fL MCH 42.5 H (25.0-34.0) pg MCHC 35.6 (32.0-36.0) g/dL RDW Std Deviation 88.4 H (36.4-46.3) fL RDW Coeff of Pj 25.0 H (11.5-14.5) % Plt Count 95 L (130-400) K/uL Immature Gran % (Auto) 2.5 % Neut % (Auto) 73.2 % Lymph % (Auto) 20.0 % Hand % (Auto) 4.1 % Eos % (Auto) 0.0 % Baso % (Auto) 0.2 % Reticulocyte % (Auto) 4.9 H Cancelled (0.5-2.0) % Neut # (Auto) 4.32 (1.40-6.50) K/uL Lymph # (Auto) 1.18 L (1.20-3.40) K/uL Hand # (Auto) 0.24 (0.11-0.59) K/uL Eos # (Auto) 0.00 (0.00-0.50) K/uL Baso # (Auto) 0.01 (0.00-0.20) K/uL Reticulocyte # 0.07 Cancelled (0.02-0.10) 10^6/uL Immature Gran # (Auto) 0.15 (0.01-0.20) K/uL Absolute Nucleated RBC 0.04 (0.00-0.12) K/uL Nucleated RBC % (auto) 0.7 % Platelet Estimate Decreased L (Normal) Polychromasia 2+ Anisocytosis Present Macrocytosis Present Tear Drop Cells 1+ Ovalocytes 1+ Sodium 140 (136-145) mmol/L Potassium 4.0 (3.5-5.1) mmol/L Chloride 108 H (98-107) mmol/L Carbon Dioxide 27 (21-32) mmol/L Anion Gap 5 (3-11) BUN 22 (6-23) mg/dl Creatinine 0.69 (0.6-1.2) mg/dl Est Cr Clr Drug Dosing Not Reportable Est GFR ( Amer) 95.3 ml/min Est GFR (Non-Af Amer) 82.2 ml/min BUN/Creatinine Ratio 31.9 H (10-20) Glucose 114 H (70-99(Fasting)) mg/dl Calcium 9.9 (8.6-10.3) mg/dl Magnesium 2.0 (1.7-2.4) mg/dl Iron 217 H (35-150) mcg/dl TIBC 396 (250-450) mcg/dl Unsaturated IBC 179 (155-355) mcg/dl Transferrin % Sat 55 H (15-50) % Ferritin 161.8 (8-388) ng/ml Total Bilirubin 2.2 H (0.2-1.0) mg/dl AST 54 H (13-39) U/L ALT 15 (7-52) U/L Alkaline Phosphatase 68 (34-104) U/L Troponin I High Sens 24.1 H (0-14) pg/ml Total Protein 7.1 (6.0-8.3) gm/dl Albumin 4.7 (3.4-5.0) gm/dl Globulin 2.4 L (2.5-4.0) gm/dl Albumin/Globulin Ratio 2.0 (0.9-2) TSH 2.449 (0.300-4.500) uIu/ml SARS-CoV-2, RNA, NAAT (NEGATIVE) Blood Type Antibody Screen Crossmatch 01/14/23 01/14/23 Range/Units 12:31 12:45 WBC (4.8-10.8) K/ul RBC (4.20-5.40) M/uL Hgb (12.0-16.0) g/dl Hct (37.0-47.0) % MCV (80.0-100.0) fL MCH (25.0-34.0) pg MCHC (32.0-36.0) g/dL RDW Std Deviation (36.4-46.3) fL RDW Coeff of Pj (11.5-14.5) % Plt Count (130-400) K/uL Immature Gran % (Auto) % Neut % (Auto) % Lymph % (Auto) % Hand % (Auto) % Eos % (Auto) % Baso % (Auto) % Reticulocyte % (Auto) (0.5-2.0) % Neut # (Auto) (1.40-6.50) K/uL Lymph # (Auto) (1.20-3.40) K/uL Hand # (Auto) (0.11-0.59) K/uL Eos # (Auto) (0.00-0.50) K/uL Baso # (Auto) (0.00-0.20) K/uL Reticulocyte # (0.02-0.10) 10^6/uL Immature Gran # (Auto) (0.01-0.20) K/uL Absolute Nucleated RBC (0.00-0.12) K/uL Nucleated RBC % (auto) % Platelet Estimate (Normal) Polychromasia Anisocytosis Macrocytosis Tear Drop Cells Ovalocytes Sodium (136-145) mmol/L Potassium (3.5-5.1) mmol/L Chloride (98-107) mmol/L Carbon Dioxide (21-32) mmol/L Anion Gap (3-11) BUN (6-23) mg/dl Creatinine (0.6-1.2) mg/dl Est Cr Clr Drug Dosing Est GFR ( Amer) ml/min Est GFR (Non-Af Amer) ml/min BUN/Creatinine Ratio (10-20) Glucose (70-99(Fasting)) mg/dl Calcium (8.6-10.3) mg/dl Magnesium (1.7-2.4) mg/dl Iron (35-150) mcg/dl TIBC (250-450) mcg/dl Unsaturated IBC (155-355) mcg/dl Transferrin % Sat (15-50) % Ferritin (8-388) ng/ml Total Bilirubin (0.2-1.0) mg/dl AST (13-39) U/L ALT (7-52) U/L Alkaline Phosphatase (34-104) U/L Troponin I High Sens (0-14) pg/ml Total Protein (6.0-8.3) gm/dl Albumin (3.4-5.0) gm/dl Globulin (2.5-4.0) gm/dl Albumin/Globulin Ratio (0.9-2) TSH (0.300-4.500) uIu/ml SARS-CoV-2, RNA, NAAT NEGATIVE (NEGATIVE) Blood Type A Positive Antibody Screen NEGATIVE Crossmatch See Detail Administered Medications Discontinued Medications Sodium Chloride (Nss) 500 mls @ 999 mls/hr IV .Q31M AGUILAR Stop: 01/14/23 11:45 Last Infusion: 01/14/23 13:30 Dose: Infused Documented By: Admin: 01/14/23 12:26 Dose: 999 mls/hr Documented By: GIDEON Pantoprazole Sodium 80 mg/ (Dextrose) 120 mls @ 480 mls/hr IV ONE STA Stop: 01/14/23 12:26 Last Infusion: 01/14/23 13:57 Dose: Infused Documented By: Admin: 01/14/23 13:30 Dose: 480 mls/hr Documented By: GIDEON Imaging Data Radiologist's Impression: Chest X-Ray 01/14/23 11:13 XR chest 1V portable CLINICAL HISTORY: weakness/dizzy COMPARISON STUDY: Chest radiograph November 29, 2020. FINDINGS: Old right-sided rib fractures are incidentally noted. There is no pneumothorax or pleural effusion. Cardiomegaly is unchanged. Pulmonary vascular congestion is similar to prior exam. No evidence for overt pulmonary edema. IMPRESSION: Cardiomegaly with pulmonary vascular congestion, similar to prior exam. ACT 112: Negative or not required by law. Electronically signed by: Jesse Zambrano M.D. 01/14/2023 11:[address] 01/14/23 11:13 CT OF THE HEAD WITHOUT CONTRAST CLINICAL HISTORY: dizzy, fall COMPARISON STUDY: Head CT January 25, 2018. CT DOSE: 547.75 mGy.cm TECHNIQUE: Helical axial images of the head were obtained without IV contrast. Automated exposure control was utilized for the study. A dose lowering technique was utilized adhering to the principles of ALARA. FINDINGS: No acute intracranial hemorrhage, midline shift or mass effect is present. Extensive white matter hypodensities are suggestive of small vessel disease. The ventricular system is unremarkable. The basal cisterns are patent. No extra-axial collections are present. There are no findings to suggest acute dural sinus thrombosis or acute territorial infarct. No significant calvarial abnormalities are present. Visualized portions of the sinuses and mastoid air cells are clear. IMPRESSION: 1. No acute intracranial findings. 2. No acute calvarial fracture. ACT 112: Negative or not required by law. Electronically signed by: Jesse Zambrano M.D. 01/14/2023 12:32 PM Pelvis X-Ray 01/14/23 11:13 XR pelvis 1-2V routine CLINICAL HISTORY: fall COMPARISON: Right femur radiographs September 09, 2021. Pelvis and right hip radiographs November 26, 2020. FINDINGS: Sacroiliac joints and symphysis pubis are intact. No acute fractures within the pelvis or hips are identified. Bilateral femoral internal fixation hardware is partially imaged. Visualized portions are intact. IMPRESSION: 1. No acute fracture within the pelvis or hips. 2. Status post bilateral femoral internal fixation. ACT 112: Negative or not required by law. Electronically signed by: Jesse Zambrano M.D. 01/14/2023 11:47 AM Discharge Plan Visit Data Chief Complaint: Illness Stated Complaint: GENERALIZED ILLNESS, DIZZINESS ED Provider: Pako Smart Discharge Problem: Dizziness, Fall, Anemia, macrocytic, Near syncope Patient Disposition: Admitted As Inpatient Discharge Instructions Interventions: ED Discharge Assessment Last Done: 01/14/23 14:31 Discharge Problem: Fall Qualifiers: Encounter type: initial encounter Qualified Code(s): W19.XXXA - Unspecified fall, initial encounter
--- NOTE | 2023-01-14 11:47 | XRay Report ---
XR chest 1V portable CLINICAL HISTORY: weakness/dizzy COMPARISON STUDY: Chest radiograph November 29, 2020. FINDINGS: Old right-sided rib fractures are incidentally noted. There is no pneumothorax or pleural e ffusion. Cardiomegaly is unchanged. Pulmonary vascular congestion is similar to prior exam. No eviden ce for overt pulmonary edema. IMPRESSION: Cardiomegaly with pulmonary vascular congestion, similar to prior exam. ACT 112: Negative or not required by law. Electronically signed by: Jesse Zambrano M.D. 01/14/2023 11:46 AM
--- NOTE | 2023-01-14 11:49 | XRay Report ---
XR pelvis 1-2V routine CLINICAL HISTORY: fall COMPARISON: Right femur radiographs September 09, 2021. Pelvis and right hip radiographs November 26, 2020 . FINDINGS: Sacroiliac joints and symphysis pubis are intact. No acute fractures within the pelvis or h ips are identified. Bilateral femoral internal fixation hardware is partially imaged. Visualized port ions are intact. IMPRESSION: 1. No acute fracture within the pelvis or hips. 2. Status post bilateral femoral internal fixation. ACT 112: Negative or not required by law. Electronically signed by: Jesse Zambrano M.D. 01/14/2023 11:47 AM
[2023-01-14 12:06] LABS: Hematocrit (blood only) 17.4 % (37.0-47.0); Hemoglobin 6.2 g/dl (12.0-16.0); Mean Corpuscular Hemoglobin 42.5 pg (25.0-34.0); Mean Corpuscular Hgb Conc 35.6 g/dL (32.0-36.0); Mean Corpuscular Volume 119.2 fL (80.0-100.0); Nucleated RBC # (auto) 0.04 K/uL (0.00-0.12); Nucleated RBC % (auto) 0.7 %; Platelet Count 95 K/uL (130-400); RDW Standard Deviation 88.4 fL (36.4-46.3); Red Blood Count 1.46 M/uL (4.20-5.40)
[2023-01-14 12:11] LABS: Alanine Aminotransferase 15 U/L (7-52); Albumin Level 4.7 gm/dl (3.4-5.0); Alkaline Phosphatase 68 U/L (34-104); Anion Gap 5 (3-11); Aspartate Aminotransferase 54 U/L (13-39); BUN Creatinine Ratio 31.9 (10-20); Bilirubin,Total 2.2 mg/dl (0.2-1.0); Blood Urea Nitrogen 22 mg/dl (6-23); Calcium 9.9 mg/dl (8.6-10.3); Carbon Dioxide 27 mmol/L (21-32); Chloride 108 mmol/L (98-107); Est GFR (African American) 95.3 ml/min; Est GFR (Non-African American) 82.2 ml/min; Globulin 2.4 gm/dl (2.5-4.0); Glucose 114 mg/dl (70-99(Fasting)); Sodium 140 mmol/L (136-145); Total Protein 7.1 gm/dl (6.0-8.3)
[2023-01-14] MEDS ORDERED: PANTOprazole 80 MG in DEXTROSE 5% 100 ML IV STA (12:12)
[2023-01-14 12:17] LABS: Troponin I High Sensitivity 24.1 pg/ml (0-14)
[2023-01-14 12:20] LABS: Anisocytosis Present; Basophils # (auto) 0.01 K/uL (0.00-0.20); Basophils % (auto) 0.2 %; Immature Granulocytes # (auto) 0.15 K/uL (0.01-0.20); Immature Granulocytes % (auto) 2.5 %; Lymphocytes # (auto) 1.18 K/uL (1.20-3.40); Macrocytosis Present; Monocytes # (auto) 0.24 K/uL (0.11-0.59); Monocytes % (auto) 4.1 %; Neutrophils # (auto) 4.32 K/uL (1.40-6.50); Neutrophils % (auto) 73.2 %; Ovalocytes 1+; Platelet Estimate Decreased (Normal); Polychromasia 2+; Tear Drop Cells 1+
[2023-01-14 12:26] LABS: Thyroid Stimulating Hormone 2.449 uIu/ml (0.300-4.500)
[2023-01-14] MEDS ORDERED: SODIUM CHLORIDE 0.9% 250 ML IV PRN (12:27)
--- NOTE | 2023-01-14 12:33 | CT Scan Report ---
CT OF THE HEAD WITHOUT CONTRAST CLINICAL HISTORY: dizzy, fall COMPARISON STUDY: Head CT January 25, 2018. CT DOSE: 547.75 mGy.cm TECHNIQUE: Helical axial images of the head were obtained without IV contrast. Automated exposure con trol was utilized for the study. A dose lowering technique was utilized adhering to the principles o f ALARA. FINDINGS: No acute intracranial hemorrhage, midline shift or mass effect is present. Extensive white matter hypodensities are suggestive of small vessel disease. The ventricular system is unremarkable. The basal cisterns are patent. No extra-axial collections are present. There are no findings to sugge st acute dural sinus thrombosis or acute territorial infarct. No significant calvarial abnormalities are present. Visualized portions of the sinuses and mastoid air cells are clear. IMPRESSION: 1. No acute intracranial findings. 2. No acute calvarial fracture. ACT 112: Negative or not required by law. Electronically signed by: Jesse Zambrano M.D. 01/14/2023 12:32 PM
--- NOTE | 2023-01-14 13:19 | History & Physical Report ---
Date of Service January 14, 2023 Assessment & Plan (1) Anemia, macrocytic: Plan: Fall near syncope. 2/2 Anemia, unclear chronicity CThead without acute finding Pelvis x-ray without acute finding/hip/pelvic fracture. Prior bilateral femoral internal fixation is noted Without evidence of upper or lower GI bleeding although patient does decline Hemoccult. BUN is normal Macrocytic. B12/folate unable to be run in-house and is currently a send outs which cannot be processed until Monday. Vitamin supplementation is added Iron panel pending 2 units held. Transfuse 1 unit and hold 1 unit. Hemoglobin transfusion threshold of 7.0. H&H check posttransfusion, and then every 8 hours High sensitive troponin 24.1 without chest pain, suspect demand. Trended. No history of ischemic cardiac disease DDx for anemia includes iron deficiency, although is macrocytic rather than microcytic; B12/folate deficiency, and occult loss. No signs of active bleeding on admission. Reticulocyte count 4.9%, index of 0.29 dramatically under 2, hypoproliferative. If no clear iron deficiency or nutritional deficiency is identified on follow-up labs consult hematology and add a peripheral smear Hemoccult negative (2) Fall: Plan: - As noted. Fall precautions. (3) Hypokalemia: Plan: Historical, normal on admission (4) Hypertension: Plan: Hypertension BSG 175/65, labile as outpatient and not currently on antihypertensives. reactive with acute anemia and tachycardia. Will defer antihypertensives pending transfusion and SBP is less than 180. she has no history of CHF and does not appear volume overloaded. Plan Diet: Clears Disposition: Medical telemetry CODE STATUS: DNR/DNI, discussed the patient at bedside. This is a change from prior code, but she notes that she is DNR/DNI and has updated her living well with this as. Does not want heroic measures DVT prophylaxis: SCDs while under anemia eval History of Present Illness Primary Care Provider: Lee Faustin is an 82-year-old female with past medical history of hypertension who presents with increasing fatigue and weakness and was found to have a hemoglobin of 6.2 on admission. She declines Hemoccult testing. Denies bright red blood per rectum and melena. Did receive 1 dose of empiric PPI IV treatment however has not had epigastric pain or hematemesis and BUN is normal.Hemoglobin was last 9.2 12/2020, no interval check available in the preceding 2 years. Fouzia in the bedside. She reports she has had around 2 to 3 days of increased weakness, and probably around 1 week of fatigue overall. No chest pain or chest pressure. She felt lightheaded and presyncopal but did not completely lose consciousness today, but he she did feel so weak that she fell and struck her right hip which is not currently painful. She has had no bleeding to her knowledge. Has had no bloody or black bowel movements. No hematemesis. No abdominal pain. No family history of colorectal cancer, she has never had colon cancer screening. No kidney disease Medical History: Reviewed Medications: Reviewed Surgical History: Reviewed Family history: Reviewed Allergies: Reviewed Social History: No tobacco or alcohol Code Status: DNR Allergies Allergy/AdvReac Type Severity Reaction Status Date / Time minocycline [From Minocin] Allergy Severe SEVERE Verified 11/26/20 16:23 PAIN IN THE HEAD procaine Allergy Severe NOVACAINE->CAN'T Verified 11/26/20 16:23 BREATH erythromycin base Allergy Unknown Unknown Verified 11/26/20 16:23 oxytetracycline Allergy Unknown . Verified 11/26/20 16:23 polymyxin B Allergy Unknown . Verified 11/26/20 16:23 prednisone Allergy Unknown "COULD BE Verified 11/26/20 16:23 FATAL" - PER PCP Sulfa (Sulfonamide Allergy Unknown Rash Verified 11/26/20 16:23 Antibiotics) tramadol AdvReac Unknown "PUT ME IN Verified 11/26/20 16:23 A DAZE" Home Medications Medication Instructions Recorded Confirmed Type acetaminophen 500 mg tablet 1,000 mg (2 x 500 mg) PO BID #60 12/10/20 Rx (Tylenol Extra Strength) tabs cholecalciferol (vitamin D3) 25 2,000 unit PO QAM #60 caps 12/10/20 Rx mcg (1,000 unit) capsule ferrous sulfate 325 mg (65 mg 325 mg PO DAILY #30 tabs 12/10/20 Rx iron) tablet oxycodone 5 mg tablet 5 mg PO Q6H PRN pain #30 tabs 12/10/20 Rx polyethylene glycol 3350 17 gram 17 g PO DAILY #30 ea 12/10/20 Rx oral powder packet (Miralax) sennosides 8.6 mg tablet (senna) 8.6 mg PO DAILY #30 tabs 12/10/20 Rx Past Med/Surg History Medical History Anxiety Cancer SKIN CANCER Cardiac murmur H/O A CHILD Femur fracture Hip fracture Hypertension H/O - NO MEDICATIONS CURRENTLY PER MD ORDERS Nausea and vomiting after administration of anesthetic agent Osteoporosis Retinal artery occlusion Urinary tract infection RECURRENT, TAKING ABX. (STARTED 04/25/18) Surgical History H/O exploratory laparotomy History of dilatation and curettage History of open reduction and internal fixation (ORIF) procedure "left femur bobby" History of tonsillectomy and adenoidectomy Social History Smoking Status: Never smoker Second Hand Exposure: No; Do You Dip or Chew Tobacco: No; Hx Alcohol Use: No Hx Substance Use: No Preferred Language: Malay Communication Ability: Effective Perfumer Required: No Beliefs That Will Affect Care: None Current Living Situation: Family Feels Safe at Home: Yes Assistive Devices: Walker Physical Exam Physical Exam: General: A&Ox3. NAD. Cooperative. HEENT: Atraumatic, normocephalic. PERLAA. Eom intact. Vision/hearing intact Pulm: CTAB A&P. -wheezes, -rales, -rhonchi. Symmetrical chest rise. No increased work of breathing. No respiratory distress. Cardiac: RRR, soft sm. Radial pulses intact and symmetrical. Abdominal: Nontender, nondistended, soft. BS present. Extremities: Warm, Results & Data Results & Data Vital Signs (Past 12 Hours) Vital Signs Temp Pulse Resp BP Pulse Ox O2 Del Method 01/14/23 12:35 36.9 C 107 H 18 175/65 H 99 Room Air 01/14/23 12:34 115 H 22 95 Room Air 01/14/23 11:32 106 H PG Care Time/CCT Total # of Minutes Spent Total Time Spent with Patient: Total time spent is greater than 50% in coordination of care (as documented) at patient's floor/unit and/or counseling patient: Coding Level of Care Code 78640 INT INP/OBS CARE 3/75MIN Diagnoses Anemia, macrocytic D53.9 Fall W19.XXXA Encounter type: initial encounter Hypokalemia E87.6 Hypertension I10 (2) Fall Encounter type: initial encounter Qualified Code(s): W19.XXXA - Unspecified fall, initial encounter
[2023-01-14 13:41] LABS: Ferritin 161.8 ng/ml (8-388)
[2023-01-14 13:49] LABS: Reticulocyte % 4.9 % (0.5-2.0); Reticulocytes # 0.07 10^6/uL (0.02-0.10)
[2023-01-14 13:54] LABS: Iron 217 mcg/dl (35-150); Total Iron Binding Cap Calc 396 mcg/dl (250-450); Transferrin (FE) Percent Satur 55 % (15-50); Unsaturated Iron Binding Cap 179 mcg/dl (155-355)
[2023-01-14] MEDS ORDERED: oxyCODONE HCL IR 5 MG TAB (IMMEDIATE RELEASE) PO PRN (14:54)
[2023-01-14] MEDS: ACETAMINOPHEN 500 MG TAB PO SCH (21:38)
[2023-01-14 22:17] LABS: Hematocrit (blood only) 22.3 % (37.0-47.0)
[2023-01-14 22:23] LABS: Appearance Urine Clear (Clear); Bacteria Urine Automated Negative (Negative); Bilirubin Urine Negative (Negative); Blood Urine Trace (Negative); Cast Urine Automated 0 /lpf (0-5); Color Urine Yellow; Epithelial Cell Urine Auto 20-30 /lpf (0-5); Glucose Urine UA Negative (Negative); Ketones Urine Trace (Negative); Leukocyte Esterase Urine Negative (Negative); Nitrite Urine Negative (Negative); Protein Urine Negative (Negative); RBC Urine Automated 0-4 /hpf (0-4); Specific Gravity Urine 1.013 (1.000-1.030); Urobilinogen Urine Negative (Negative)
[2023-01-15 01:09] LABS: Hematocrit (blood only) 19.6 % (37.0-47.0); Hemoglobin 6.9 g/dl (12.0-16.0)
[2023-01-15] MEDS ORDERED: SODIUM CHLORIDE 0.9% 250 ML IV PRN (01:22)
[2023-01-15 03:50] LABS: BUN Creatinine Ratio 23.5 (10-20); Calcium 9.3 mg/dl (8.6-10.3); Creatinine Clr Calc Pharmacy 57.4 ml/min; Est GFR (African American) 95.8 ml/min; Est GFR (Non-African American) 82.6 ml/min
[2023-01-15 04:14] LABS: Anisocytosis Present; Basophils # (auto) 0.01 K/uL (0.00-0.20); Basophils % (auto) 0.2 %; Hematocrit (blood only) 19.7 % (37.0-47.0); Hemoglobin 6.9 g/dl (12.0-16.0); Immature Granulocytes # (auto) 0.07 K/uL (0.01-0.20); Immature Granulocytes % (auto) 1.5 %; Lymphocytes # (auto) 2.08 K/uL (1.20-3.40); Lymphocytes % (auto) 43.4 %; Macrocytosis Present; Mean Corpuscular Hemoglobin 37.7 pg (25.0-34.0); Mean Corpuscular Volume 107.7 fL (80.0-100.0); Monocytes # (auto) 0.27 K/uL (0.11-0.59); Monocytes % (auto) 5.6 %; Neutrophils # (auto) 2.36 K/uL (1.40-6.50); Neutrophils % (auto) 49.3 %; Nucleated RBC # (auto) 0.06 K/uL (0.00-0.12); Nucleated RBC % (auto) 1.3 %; Ovalocytes 1+; Platelet Count 84 K/uL (130-400); Polychromasia 1+; Red Blood Count 1.83 M/uL (4.20-5.40); Schistocytes 1+; Tear Drop Cells 1+; White Blood Count 4.79 K/ul (4.8-10.8)
[2023-01-15] MEDS: ACETAMINOPHEN 500 MG TAB PO SCH ×2 (07:50→20:25)
[2023-01-15] MEDS: SENNA 8.6 MG TAB PO SCH (07:51)
[2023-01-15 09:29] LABS: Hematocrit (blood only) 26.1 % (37.0-47.0); Hemoglobin 9.2 g/dl (12.0-16.0)
[2023-01-15] MEDS: amLODIPine BESYLATE 5 MG TAB PO SCH (13:42)
--- NOTE | 2023-01-15 18:03 | Hospitalist Progress Note ---
Date of Service January 15, 2023 Assessment & Plan (1) Anemia, macrocytic: Plan: Fall near syncope -Trauma work-up was unremarkable, patient has macrocytic anemia with hemoglobin around 6, status posttransfusion of 1 unit packed RBC, current hemoglobin is over 7, the patient's symptoms is resolved, -Patient has been anemic for a while, iron deficiency work-up is unremarkable, discussed with oncology over the phone visit the patient tomorrow DDx for anemia includes B12/folate deficiency, and occult loss. No signs of active bleeding on admission. Reticulocyte count 4.9%, index of 0.29 dramatically under 2, hypoproliferative. If no nutritional deficiency is identified possibly is bone marrow for Hemoccult negative (2) Fall: Plan: - As noted. Fall precautions. (3) Hypokalemia: Plan: Historical, normal on admission (4) Hypertension: Plan: Hypertension BSG 175/65, labile as outpatient and not currently on antihypertensives. reactive with acute anemia and tachycardia. Will defer antihypertensives pending transfusion and SBP is less than 180. she has no history of CHF and does not appear volume overloaded. Plan Diet: Clears Disposition: Medical telemetry CODE STATUS: DNR/DNI, discussed the patient at bedside. This is a change from prior code, but she notes that she is DNR/DNI and has updated her living well with this as. Does not want heroic measures DVT prophylaxis: SCDs while under anemia eval Admission and Anticipated Discharge Date Admission Date: January 14, 2023 Subjective The patient presented to the hospital with near syncope and generalized weakness found to be significantly anemic with hemoglobin of 6, patient microcytic anemia, patient received transfusion, currently hemoglobin is over 7 and patient feels significantly better, reviewing old labs patient has be anemic for a while, unfortunately had no outpatient work-up, discussed with will see the patient tomorrow, most likely bone marrow failure, blood work-up did not show evidence of iron deficiency anemia, B12 and folate level is pending Physical Exam Physical Exam: General: A&Ox3. NAD. Cooperative. HEENT: Atraumatic, normocephalic. PERLAA. Eom intact. Vision/hearing intact Pulm: CTAB A&P. -wheezes, -rales, -rhonchi. Symmetrical chest rise. No increased work of breathing. No respiratory distress. Cardiac: RRR, soft sm. Radial pulses intact and symmetrical. Abdominal: Nontender, nondistended, soft. BS present. Extremities: Warm, Results & Data Results & Data Vital Signs (Past 12 Hours) Vital Signs Temp Pulse Pulse Pulse Resp BP BP 01/15/23 15:20 36.6 C 94 H 18 168/80 H 01/15/23 14:59 157/67 H 01/15/23 14:55 82 18 01/15/23 11:32 36.9 C 96 H 18 181/80 H 01/15/23 08:14 36.8 C 97 H 18 184/94 H 01/15/23 07:32 36.6 C 92 H 18 167/77 H 01/15/23 07:15 87 01/15/23 07:14 36.6 C 96 H 18 157/92 H 01/15/23 06:14 37.2 C 87 20 159/72 H Pulse Ox O2 Del Method O2 Flow Rate 01/15/23 15:20 96 Room Air 01/15/23 14:59 01/15/23 14:55 97 Room Air 01/15/23 11:32 95 Room Air 01/15/23 08:14 97 Room Air 01/15/23 07:32 94 01/15/23 07:15 01/15/23 07:14 95 95 01/15/23 06:14 94 PG Care Time/CCT Total # of Minutes Spent Total Time Spent with Patient: Total time spent is greater than 50% in coordination of care (as documented) at patient's floor/unit and/or counseling patient: Coding Level of Care Code 49032 SUB INP/OBS CARE 2/35MIN Diagnoses Anemia, macrocytic D53.9 Fall W19.XXXA Encounter type: initial encounter Hypokalemia E87.6 Hypertension I10 (2) Fall Encounter type: initial encounter Qualified Code(s): W19.XXXA - Unspecified fall, initial encounter
--- NOTE | 2023-01-15 20:01 | Electrocardiogram Report ---
Test Reason : Blood Pressure : / mmHG Vent. Rate : 106 BPM Atrial Rate : 106 BPM P-R Int : 128 ms QRS Dur : 086 ms QT Int : 340 ms P-R-T Axes : 062 061 066 degrees QTc Int : 451 ms Sinus tachycardia Otherwise normal ECG When compared with ECG of 26-NOV-2020 13:18, Non-specific change in ST segment in Inferior leads Confirmed by Andrew Caruso ([id number]) on 01/15/2023 8:00:48 PM Referred By: REFERRED SELF Confirmed By:Andrew Caruso
[2023-01-16 07:09] LABS: Hematocrit (blood only) 24.2 % (37.0-47.0); Hemoglobin 8.8 g/dl (12.0-16.0); Mean Corpuscular Hemoglobin 35.5 pg (25.0-34.0); Mean Corpuscular Hgb Conc 36.4 g/dL (32.0-36.0); Mean Corpuscular Volume 97.6 fL (80.0-100.0); Nucleated RBC # (auto) 0.03 K/uL (0.00-0.12); Nucleated RBC % (auto) 0.7 %; Platelet Count 84 K/uL (130-400); RDW Coefficient of Variation 26.5 % (11.5-14.5); RDW Standard Deviation 85.6 fL (36.4-46.3); Red Blood Count 2.48 M/uL (4.20-5.40); White Blood Count 4.42 K/ul (4.8-10.8)
[2023-01-16] MEDS: amLODIPine BESYLATE 5 MG TAB PO SCH (07:20)
[2023-01-16 07:29] LABS: Anisocytosis Present; Basophils # (auto) 0.02 K/uL (0.00-0.20); Basophils % (auto) 0.5 %; Hypersegmented Neutrophils 1+; Immature Granulocytes # (auto) 0.05 K/uL (0.01-0.20); Immature Granulocytes % (auto) 1.1 %; Lymphocytes % (auto) 45.2 %; Monocytes # (auto) 0.26 K/uL (0.11-0.59); Monocytes % (auto) 5.9 %; Neutrophils # (auto) 2.09 K/uL (1.40-6.50); Neutrophils % (auto) 47.3 %; Polychromasia 1+; Tear Drop Cells 1+
[2023-01-16] MEDS: ACETAMINOPHEN 500 MG TAB PO SCH (08:18)
[2023-01-16] MEDS: SENNA 8.6 MG TAB PO SCH (08:18)
[2023-01-16 08:24] LABS: Hypersegmented Neutrophils 1+
--- NOTE | 2023-01-16 14:29 | Hospitalist Progress Note ---
Date of Service January 16, 2023 Assessment & Plan (1) Anemia, macrocytic: Plan: Fall near syncope -Trauma work-up was unremarkable, patient has macrocytic anemia with hemoglobin around 6, status posttransfusion of 1 unit packed RBC, current hemoglobin is over 7, the patient's symptoms is resolved, -Patient has been anemic for a while, iron deficiency work-up is unremarkable, discussed with oncology over the phone visit the patient today -There could be signs of marrow failure with tear drop cells, schizocytes -blood work-up did not show evidence of iron deficiency anemia, B12 and folate level is pending -Patient may need bone marrow biopsy (2) Fall: Plan: - As noted. Fall precautions. (3) Hypokalemia: Plan: Historical, normal on admission (4) Hypertension: Plan: Hypertension Continue home meds Plan Diet: Clears Disposition: Medical telemetry CODE STATUS: DNR/DNI, discussed the patient at bedside. This is a change from prior code, but she notes that she is DNR/DNI and has updated her living well with this as. Does not want heroic measures DVT prophylaxis: SCDs while under anemia eval Admission and Anticipated Discharge Date Admission Date: January 14, 2023 Subjective patient seen and examined, no new complaints Review of Systems Review of Systems: All systems reviewed are negative, apart from the ones contained in the history. Physical Exam Physical Exam: The patient is awake, alert and oriented 3, well developed and well nourished, normocephalic and atraumatic, lying in bed and in no acute distress. HEENT--PERRL, EOMI, mucous membranes and oropharynx mildly dry Neck--supple. No JVD. No bruits. Thyroid normal, trachea midline, no adenopathy. Heart--normal S1 and S2. No murmurs, rubs or gallops. Lungs--clear bilaterally, no respiratory distress, no accessory muscle use. Abdomen--normal bowel sounds and soft. Mild epigastric and left sided abdominal pain Extremities--no cyanosis or clubbing. No edema. Dermatologic--normal skin turgor, normal color, no abnormal lymph nodes, no rash. Neurologic--cranial nerves II through XII grossly intact. Rheumatologic--normal range of motion. Psychiatric--normal affect. Results & Data Results & Data Vital Signs (Past 12 Hours) Vital Signs Temp Pulse Resp BP Pulse Ox O2 Del Method 01/16/23 08:45 121/84 01/16/23 07:43 98.4 F 84 16 166/75 H 95 Room Air 01/16/23 07:18 98.6 F 97 H 16 164/79 H 96 Room Air PG Care Time/CCT Total # of Minutes Spent Total Time Spent with Patient: Total time spent is greater than 50% in coordination of care (as documented) at patient's floor/unit and/or counseling patient: Coding Level of Care Code 00482 SUB INP/OBS CARE 2/35MIN Diagnoses Anemia, macrocytic D53.9 Fall W19.XXXA Encounter type: initial encounter Hypokalemia E87.6 Hypertension I10 Time Spent (min) 35 (2) Fall Encounter type: initial encounter Qualified Code(s): W19.XXXA - Unspecified fall, initial encounter
--- NOTE | 2023-01-16 15:15 | Discharge Summary ---
Date of Service January 16, 2023 Admission HPI Per Admitting Provider Roxie is an 82-year-old female with past medical history of hypertension who presents with increasing fatigue and weakness and was found to have a hemoglobin of 6.2 on admission. She declines Hemoccult testing. Denies bright red blood per rectum and melena. Did receive 1 dose of empiric PPI IV treatment however has not had epigastric pain or hematemesis and BUN is normal.Hemoglobin was last 9.2 12/2020, no interval check available in the preceding 2 years. Fouzia in the bedside. She reports she has had around 2 to 3 days of increased weakness, and probably around 1 week of fatigue overall. No chest pain or chest pressure. She felt lightheaded and presyncopal but did not completely lose consciousness today, but he she did feel so weak that she fell and struck her right hip which is not currently painful. She has had no bleeding to her knowledge. Has had no bloody or black bowel movements. No hematemesis. No abdominal pain. No family history of colorectal cancer, she has never had colon cancer screening. No kidney disease Medical History: Reviewed Medications: Reviewed Surgical History: Reviewed Family history: Reviewed Allergies: Reviewed Social History: No tobacco or alcohol Code Status: DNR Principal Diagnosis anemia Discharge Exam The patient is awake, alert and oriented 3, well developed and well nourished, normocephalic and atraumatic, lying in bed and in no acute distress. HEENT--PERRL, EOMI, mucous membranes and oropharynx mildly dry Neck--supple. No JVD. No bruits. Thyroid normal, trachea midline, no adenopathy. Heart--normal S1 and S2. No murmurs, rubs or gallops. Lungs--clear bilaterally, no respiratory distress, no accessory muscle use. Abdomen--normal bowel sounds and soft. Mild epigastric and left sided abdominal pain Extremities--no cyanosis or clubbing. No edema. Dermatologic--normal skin turgor, normal color, no abnormal lymph nodes, no rash. Neurologic--cranial nerves II through XII grossly intact. Rheumatologic--normal range of motion. Psychiatric--normal affect. Discharge Data Allergies Allergy/AdvReac Type Severity Reaction Status Date / Time minocycline [From Minocin] Allergy Severe SEVERE Verified 11/26/20 16:23 PAIN IN THE HEAD procaine Allergy Severe NOVACAINE->CAN'T Verified 11/26/20 16:23 BREATH erythromycin base Allergy Unknown Unknown Verified 11/26/20 16:23 oxytetracycline Allergy Unknown . Verified 11/26/20 16:23 polymyxin B Allergy Unknown . Verified 11/26/20 16:23 prednisone Allergy Unknown "COULD BE Verified 11/26/20 16:23 FATAL" - PER PCP Sulfa (Sulfonamide Allergy Unknown Rash Verified 11/26/20 16:23 Antibiotics) tramadol AdvReac Unknown "PUT ME IN Verified 11/26/20 16:23 A DAZE" Consultations 01/14/23 12:26 ED Decision to Admit Stat Ordered Studies 01/14/23 11:13 CT head/brain wo con Stat Hospital Course (1) Anemia, macrocytic: Fall near syncope -Trauma work-up was unremarkable, patient has macrocytic anemia with hemoglobin around 6, status posttransfusion of 1 unit packed RBC, current hemoglobin is over 7, the patient's symptoms is resolved, -Patient has been anemic for a while, iron deficiency work-up is unremarkable, discussed with oncology over the phone visit the patient today -There could be signs of marrow failure with tear drop cells, schizocytes -blood work-up did not show evidence of iron deficiency anemia, B12 and folate level is pending -Patient may need bone marrow biopsy, although she said her niece strongly discourages that (2) Fall: - As noted. Fall precautions. (3) Hypokalemia: Historical, normal on admission (4) Hypertension: Hypertension start amlodipine 10mg daily Plan Diet: Clears Disposition: Medical telemetry CODE STATUS: DNR/DNI, discussed the patient at bedside. This is a change from prior code, but she notes that she is DNR/DNI and has updated her living well with this as. Does not want heroic measures DVT prophylaxis: SCDs while under anemia eval Total Time Total Time Spent Total Time Spent (In Minutes): 35 Discharge Plan Discharge Items Patient Disposition: Home - Self-Care Reason For Visit: ANEMIA, FALL, NEAR SYNCOPE Discharge Diagnosis: macrocytic anemia Activity: Resume your previous activity Non-emergency contact: Primary Care Provider and Oncologist Call non-emergency contact if: you have any medication questions Follow-up/Referrals: Lee Tellez [Primary Care Provider] - Diet: Regular Addtl Attending Provider Instructions: Please make appointment to follow up with Dr Hoover, fire safety manager for further outpatient evaluation Pending Studies at Discharge: Yes Studies:: vit b 12 level Stand-Alone Forms: [facility], Smoking Cessation Medications and DC Order Prescriptions: New amlodipine [Norvasc] 5 mg Tablet 10 mg PO QAM 30 Days Qty: 60 0RF Continued polyethylene glycol 3350 [Miralax] 17 gram Powder In Packet 17 g PO DAILY Qty: 30 0RF oxycodone 5 mg Tablet 5 mg PO Q6H PRN (Reason: pain) Qty: 30 0RF cholecalciferol (vitamin D3) 25 mcg (1,000 unit) Capsule 2,000 unit PO QAM Qty: 60 5RF acetaminophen [Tylenol Extra Strength] 500 mg tablet 1,000 mg PO BID Qty: 60 0RF ferrous sulfate 325 mg (65 mg iron) tablet 325 mg PO DAILY Qty: 30 1RF sennosides [senna] 8.6 mg tablet 8.6 mg PO DAILY Qty: 30 0RF Discharge Orders: Discharge Order (Routine); Ordered 01/16/23 Ordered By: Bubba Cortez Admission Data Admit Date/Time: 01/14/23 13:21 Attending Provider: Bubba Cortez Admit Provider: Ramon Benites Primary Care Provider: Lee Tellez Other Providers: Ramon Benites Coding Level of Care Code 67254 INP/OBS DISCH >30 MIN Diagnoses Anemia, macrocytic D53.9 Fall W19.XXXA Encounter type: initial encounter Hypokalemia E87.6 Hypertension I10 Time Spent (min) 35
== END 2023-01-16 17:42 | disposition home or self-care (01) | DRG 812 ==
LOC: ED 11:01 → 2E 13:21 → SUATTDRO 13:21 → INTOOBSV 13:21 → 2E 14:31 → 3W 01-15 15:27

== ENCOUNTER 2023-02-24 17:32 | Inpatient (IN) ==
[2023-02-24] MEDS ORDERED: SODIUM CHLORIDE 0.9% 1,000 ML IV SCH (19:45)
[2023-02-24] MEDS ORDERED: ACETAMINOPHEN 1,000 MG/100 ML VIAL IV STA (20:28)
--- NOTE | 2023-02-24 20:41 | Emergency Department Note ---
Impression & Plan Accidental fall, CHI (closed head injury), Closed fracture of left wrist, Acute UTI (urinary tract infection) ED Provider Note NAME: RODRIGO CAUSEY AGE: 82 SEX: Female INFORMANT: Patient and family ED PROVIDER(S): Miky Keith MD CHIEF COMPLAINT: Fall PLAN: Disposition: Admitted Outpatient prescription management: none Referral: None MEDICAL DECISION MAKING: Patient presented because of a fall. Workup was initiated. She was in a cervical collar. CT scan of the head and C-spine performed. Patient had x-ray imaging of the left wrist performed as well. She was found to have a left wrist fracture. Patient had no signs of head bleed or C-spine injury. She had some abrasions to the upper lip from a contusion but no lacerations requiring repair patient was placed in Ortho-Glass splint and sling. She was given IV Tylenol. Blood work and urinalysis performed. Patient had an ECG performed as well. ECG did show sinus tachycardia with nonspecific ST. No ischemia. Urinalysis did not reveal any signs of infection. Patient has a stable anemia on CBC. She is pending hematology evaluation for this. Patient was feeling somewhat better after splinting and Tylenol. Patient cannot give any details regarding the event. Unsure if she had a syncopal etiology. Given the head injury I am concerned about a concussion. Patient also has a left wrist fracture. Monitoring and further management in the hospital is appropriate. Patient and family in agreement. Consultation was made with Dr. Aldair Holden of the [facility] service. Patient was evaluated in the ER for further management. Care/management discussed with: Discussed with press manager Level of care consideration(s): After review of the information above and other included data, I feel the patient requires further escalation of care to admission. Triage Nursing notes: reviewed and agree them. Vital Signs: reviewed and remarkable for mild tachycardia Additional History obtained from: Family. Patient was doing well until after lunch today. They report downtime likely around 2 to 3 hours. Chronic Medical/Social Conditions affecting care: Hypertension, bilateral total hip replacement Prior/ Outside/ External records reviewed: none Differential Diagnosis: Fracture, dislocation, Infection, dehydration, metabolic abnormality, hypo/hyperglycemia, electrolyte disturbance, anemia, hypoxia, cardiac sources, intracerebral event, toxicologic, neurologic, as well as other pathologies. Diagnostics, independently interpreted by me: ECG: Twelve-lead ECG was sinus tachycardia [address] and T wave abnormality. No ST elevation. No PVCs. Cardiac Monitoring: Cardiac monitoring ordered by me: The patient was placed on continuous cardiac monitoring and observed. It revealed a tachycardic sinus rhythm at 111 beats per minute without ectopy or evidence of dysrhythmia. Medical decision rules: none Imaging studies: CT imaging of the head and cervical spine were negative for acute intracranial hemorrhage or cervical fracture. X-ray imaging of the left wrist is concerning for closed wrist fracture. HPI: 82 year old Female arrives for evaluation of a fall. This started sometime between 130 and 3 PM and is described as accidental. The patient also notes the following associated symptoms, urinary frequency over the last few days. She was trying to go to the bathroom to take a dose of Cipro as she was concerned she may be getting a UTI. Patient think she lost her balance but may have felt lightheaded as well. She fell onto her left side and notes left wrist pain. She also struck the left side of her head and face. She had mild bleeding from her lip from an abrasion. The patient has been given no medication for relieving factors. Current pain is rated as 4/10. Pt denies LOC, headache, fevers, chills, diaphoresis, visual changes, neck pain, chest pain, breathing difficulties, nausea, vomiting, abdominal pain, back pain, melena, hematochezia, numbness, weakness, lymphadenopathy, rash, or other complaints. . PAST MEDICAL HISTORY: See Below, hypertension PAST SURGICAL HISTORY: See Below, bilateral total hip replacements SOCIAL HISTORY: See Below, retired HOME MEDICATIONS: See Below ALLERGIES: See Below VITALS: See Below PHYSICAL EXAMINATION: GENERAL: Awake, alert, uncomfortable-appearing, in no distress HENT: Normocephalic, atraumatic. Oropharynx unremarkable except for abrasion and contusion to the left upper lip and minor on the left lower. EYES: Normal conjunctiva. Sclera non-icteric. PERRLA. EOMI. Left periorbital ecchymosis noted. No bony deformities or tenderness. NECK: Inspection normal. Non-tender. Supple. No nuchal rigidity. FROM. No masses. RESPIRATORY: Clear to auscultation. No wheezes. No rales. Normal respiratory effort. CARDIAC: Tachycardic rate. Normal rhythm. No murmurs. No rubs. Extremities warm and well perfused. Pulses equal. No JVD. GI: Soft, non-distended. No tenderness to palpation. No rebound or guarding. No masses. RECTAL: Deferred. MUSCULOSKELETAL: Right upper and both lower extremities are atraumatic. Chest examination reveals no tenderness. The back is symmetrical on inspection without obvious abnormality. There is no CVA tenderness to palpation. No joint edema. Examination of the left upper extremity reveals a normal shoulder, elbow and proximal forearm. There is some bruising and tenderness of the distal left forearm and wrist. No open wounds. Hands and fingers are nontender and appear atraumatic. LOWER EXTREMITIES: Calves are equal size bilaterally and non-tender. No edema. No discoloration. NEURO: Normal sensorium. No sensory or motor deficits noted. SKIN: No rash or jaundice noted. PROCEDURES: Splinting Indication: Left wrist fracture Verbal consent obtained. Risks and benefits were explained with the usual customary discussion. The injured extremity was identified. The patient was prepped and measured for the placement of a volar ortho-glass splint. Splint applied in the standard fashion over a layer of webril and secured using an elastic bandage. Set into a position of function. Normal neurovascular status after placement verified by me. The patient tolerated the procedure well. No complications. CRITICAL CARE: none OBSERVATION NOTE: none Past Med/Surg History Medical History Anxiety Cancer SKIN CANCER Cardiac murmur H/O A CHILD Femur fracture Hip fracture Hypertension H/O - NO MEDICATIONS CURRENTLY PER MD ORDERS Nausea and vomiting after administration of anesthetic agent Osteoporosis Retinal artery occlusion Urinary tract infection RECURRENT, TAKING ABX. (STARTED 04/25/18) Surgical History H/O exploratory laparotomy History of dilatation and curettage History of open reduction and internal fixation (ORIF) procedure "left femur bobby" History of tonsillectomy and adenoidectomy Social History Smoking Status: Never smoker Second Hand Exposure: No; Do You Dip or Chew Tobacco: No; Hx Alcohol Use: No Hx Substance Use: No Preferred Language: Algerian Communication Ability: Effective Tire Balancer Required: No Beliefs That Will Affect Care: None Current Living Situation: Alone Feels Safe at Home: Yes Assistive Devices: Cane and Walker Allergies Allergies Allergy/AdvReac Type Severity Reaction Status Date / Time minocycline [From Minocin] Allergy Severe SEVERE Verified 11/26/20 16:23 PAIN IN THE HEAD procaine Allergy Severe NOVACAINE->CAN'T Verified 11/26/20 16:23 BREATH erythromycin base Allergy Unknown Unknown Verified 11/26/20 16:23 oxytetracycline Allergy Unknown . Verified 11/26/20 16:23 polymyxin B Allergy Unknown . Verified 11/26/20 16:23 prednisone Allergy Unknown "COULD BE Verified 11/26/20 16:23 FATAL" - PER PCP Sulfa (Sulfonamide Allergy Unknown Rash Verified 11/26/20 16:23 Antibiotics) tramadol AdvReac Unknown "PUT ME IN Verified 11/26/20 16:23 A DAZE" Home Meds Previous Rx's Medication Instructions Recorded acetaminophen 500 mg tablet 1,000 mg (2 x 500 mg) PO BID #60 12/10/20 (Tylenol Extra Strength) tabs cholecalciferol (vitamin D3) 25 2,000 unit PO QAM #60 caps 12/10/20 mcg (1,000 unit) capsule ferrous sulfate 325 mg (65 mg 325 mg PO DAILY #30 tabs 12/10/20 iron) tablet oxycodone 5 mg tablet 5 mg PO Q6H PRN pain #30 tabs 12/10/20 polyethylene glycol 3350 17 gram 17 g PO DAILY #30 ea 12/10/20 oral powder packet (Miralax) sennosides 8.6 mg tablet (senna) 8.6 mg PO DAILY #30 tabs 12/10/20 amlodipine 10 mg tablet 10 mg PO DAILY #30 tabs 01/16/23 Results & Data (ED) Vital Signs Vital Signs - 24 hr 02/24/23 17:38 02/24/23 17:49 02/24/23 18:30 Temperature 36.8 C 36.8 C Temperature Source Oral Oral Pulse Rate 120 H 129 H Pulse Rate from SpO2 Sensor Respiratory Rate 18 18 Respiratory Effort / Characteristics Non-Labored Spontaneous Non-Labored Spontaneous Respiratory Depth Normal Normal Respiratory Pattern Regular Regular Blood Pressure 145/84 H Blood Pressure [Right Arm] 138/65 Blood Pressure Mean 104 Blood Pressure Mean [Right Arm] 89 Blood Pressure Position [Right Arm] Semi-fowlers Pulse Oximetry 100 100 Oxygen Delivery Method Room Air Room Air Sepsis Recent Fever Within 48 Hours No Sepsis New/Unexplained Change in Mental Status No Sepsis Action Taken by Nursing No Action Required 02/24/23 19:31 02/24/23 20:00 02/24/23 20:00 Temperature Temperature Source Pulse Rate 115 H 105 H Pulse Rate from SpO2 Sensor Respiratory Rate 17 18 Respiratory Effort / Characteristics Non-Labored Respiratory Depth Normal Respiratory Pattern Regular Blood Pressure 148/53 H 111/52 L Blood Pressure [Right Arm] 111/52 L Blood Pressure Mean 95 89 Blood Pressure Mean [Right Arm] 71 Blood Pressure Position [Right Arm] Lying Pulse Oximetry 94 95 Oxygen Delivery Method Room Air Sepsis Recent Fever Within 48 Hours Sepsis New/Unexplained Change in Mental Status Sepsis Action Taken by Nursing 02/24/23 20:00 02/24/23 20:32 02/24/23 21:00 Temperature Temperature Source Pulse Rate 105 H 107 H 106 H Pulse Rate from SpO2 Sensor 106 H Respiratory Rate 18 18 19 Respiratory Effort / Characteristics Respiratory Depth Respiratory Pattern Blood Pressure 150/69 H Blood Pressure [Right Arm] Blood Pressure Mean 110 Blood Pressure Mean [Right Arm] Blood Pressure Position [Right Arm] Pulse Oximetry 95 96 Oxygen Delivery Method Room Air Sepsis Recent Fever Within 48 Hours Sepsis New/Unexplained Change in Mental Status Sepsis Action Taken by Nursing 02/24/23 22:01 02/24/23 22:06 Temperature Temperature Source Pulse Rate 105 H 103 H Pulse Rate from SpO2 Sensor 103 H Respiratory Rate 21 Respiratory Effort / Characteristics Respiratory Depth Respiratory Pattern Blood Pressure 137/69 Blood Pressure [Right Arm] Blood Pressure Mean 91 Blood Pressure Mean [Right Arm] Blood Pressure Position [Right Arm] Pulse Oximetry 97 Oxygen Delivery Method Sepsis Recent Fever Within 48 Hours Sepsis New/Unexplained Change in Mental Status Sepsis Action Taken by Nursing Laboratory Data 02/24/23 17:45 02/24/23 20:40 Lab Results 02/24/23 02/24/23 02/24/23 Range/Units 17:45 19:18 20:40 WBC 5.71 (4.8-10.8) K/ul RBC 2.13 L (4.20-5.40) M/uL Hgb 7.8 L (12.0-16.0) g/dl Hct 22.5 L (37.0-47.0) % MCV 105.6 H (80.0-100.0) fL MCH 36.6 H (25.0-34.0) pg MCHC 34.7 (32.0-36.0) g/dL Plt Count 102 L (130-400) K/uL MPV 10.7 (9.4-12.4) fL Immature Gran % (Auto) 0.7 % Neut % (Auto) 88.0 % Lymph % (Auto) 7.9 % Schleicher % (Auto) 3.2 % Eos % (Auto) 0.0 % Baso % (Auto) 0.2 % Neut # (Auto) 5.03 (1.40-6.50) K/uL Lymph # (Auto) 0.45 L (1.20-3.40) K/uL Schleicher # (Auto) 0.18 (0.11-0.59) K/uL Eos # (Auto) 0.00 (0.00-0.50) K/uL Baso # (Auto) 0.01 (0.00-0.20) K/uL Immature Gran # (Auto) 0.04 (0.01-0.20) K/uL Polychromasia 1+ Poikilocytosis Present Anisocytosis Present PT 11.3 (9.0-12.0) Seconds INR 1.0 (0.9-1.1) Sodium 138 (136-145) mmol/L Potassium 3.9 (3.5-5.1) mmol/L Chloride 106 (98-107) mmol/L Carbon Dioxide 25 (21-32) mmol/L Anion Gap 7 (3-11) BUN 17 (6-23) mg/dl Creatinine 0.57 L (0.6-1.2) mg/dl Est Cr Clr Drug Dosing 65.2 ml/min Est GFR ( Amer) 101.5 ml/min Est GFR (Non-Af Amer) 87.6 ml/min BUN/Creatinine Ratio 29.8 H (10-20) Glucose 118 H (70-99(Fasting)) mg/dl Calcium 9.3 (8.6-10.3) mg/dl Total Bilirubin 1.8 H (0.2-1.0) mg/dl AST 31 (13-39) U/L ALT 12 (7-52) U/L Alkaline Phosphatase 61 (34-104) U/L Total Creatine Kinase 126 (26-192) U/L Troponin I High Sens 5.7 (0-14) pg/ml Total Protein 6.7 (6.0-8.3) gm/dl Albumin 4.4 (3.4-5.0) gm/dl Globulin 2.3 L (2.5-4.0) gm/dl Albumin/Globulin Ratio 1.9 (0.9-2) Urine Color Yellow Urine Appearance Clear (Clear) Urine pH 6.5 (4.5-7.5) Ur Specific [place] 1.014 (1.000-1.030) Urine Protein Trace H (Negative) Urine Glucose (UA) Negative (Negative) Urine Ketones 1+ H (Negative) Urine Blood Negative (Negative) Urine Nitrite Negative (Negative) Urine Bilirubin Negative (Negative) Urine Urobilinogen Negative (Negative) Ur Leukocyte Esterase Negative (Negative) Urine WBC (Auto) 1-5 (0-5) /hpf Urine RBC (Auto) 0-4 (0-4) /hpf U Hyaline Cast (Auto) 1-5 (0-5) /lpf U Epithel Cells (Auto) 10-20 H (0-5) /lpf Urine Bacteria (Auto) Negative (Negative) Administered Medications Sodium Chloride (Nss) 1,000 mls @ 125 mls/hr IV .Q8H AGUILAR Stop: 03/26/23 19:44 Last Admin: 02/24/23 20:27 Dose: 125 mls/hr Documented By: KMF Discontinued Medications Acetaminophen (Ofirmev) 1,000 mg in 100 mls @ 400 mls/hr IV NOW STA Stop: 02/24/23 20:42 Last Admin: 02/24/23 20:50 Dose: 400 mls/hr Documented By: BECCA Imaging Data Radiologist's Impression: Cervical Spine CT 02/24/23 19:10 Exam(s): CT C SPINE EXAM: CT Cervical Spine Without Intravenous Contrast CLINICAL HISTORY: Neck trauma. TECHNIQUE: Axial computed tomography images of the cervical spine without intravenous contrast. CTDI is 23.94 mGy and DLP is 452.21 mGy-cm. Automated exposure control was utilized for the study. A dose lowering technique was utilized adhering to the principles of ALARA. COMPARISON: No relevant prior studies available. FINDINGS: Vertebrae: Unremarkable. No fracture or malalignment. Discs/spinal canal/neural foramina: There are degenerative changes of the spine. No spinal canal stenosis. Soft tissues: Unremarkable. No prevertebral soft tissue swelling. IMPRESSION: No acute finding of the cervical spine. Electronically signed by: Clari Rizo MD 02/24/23 21:[address] 02/24/23 19:10 Exam(s): CT HEAD Without Contrast EXAM: CT Head Without Intravenous Contrast CLINICAL HISTORY: Head trauma moderate-severe. TECHNIQUE: Axial computed tomography images of the head/brain without intravenous contrast. CTDI is 36.43 mGy and DLP is 546.36 mGy-cm. Automated exposure control was utilized for the study. A dose lowering technique was utilized adhering to the principles of ALARA. COMPARISON: CT brain 01/14/2023 FINDINGS: Brain: No intracranial hemorrhage, mass-effect or midline shift. No abnormal extra axial fluid. No evidence of acute infarct. 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 Ventricles: Unremarkable. No ventriculomegaly. Bones/joints: Unremarkable. No acute fracture. Soft tissues: Unremarkable. Sinuses: Unremarkable as visualized. No acute sinusitis. Mastoid air cells: Unremarkable as visualized. No mastoid effusion. IMPRESSION: No acute intracranial finding. Electronically signed by: Clari Rizo MD 02/24/23 21:05 PM Discharge Plan Visit Data Chief Complaint: Fall Stated Complaint: FALL, FOUND IN RESTROOM UNKNOWN DOWNTIME ED Provider: Miky Keith Discharge Problem: Accidental fall, CHI (closed head injury), Closed fracture of left wrist, Acute UTI (urinary tract infection) Forms Stand Alone Forms: [facility] [place] Prescriptions Prescriptions: No Action amlodipine 10 mg tablet 10 mg PO DAILY Qty: 30 0RF polyethylene glycol 3350 [Miralax] 17 gram Powder In Packet 17 g PO DAILY Qty: 30 0RF oxycodone 5 mg Tablet 5 mg PO Q6H PRN (Reason: pain) Qty: 30 0RF cholecalciferol (vitamin D3) 25 mcg (1,000 unit) Capsule 2,000 unit PO QAM Qty: 60 5RF acetaminophen [Tylenol Extra Strength] 500 mg tablet 1,000 mg PO BID Qty: 60 0RF ferrous sulfate 325 mg (65 mg iron) tablet 325 mg PO DAILY Qty: 30 1RF sennosides [senna] 8.6 mg tablet 8.6 mg PO DAILY Qty: 30 0RF Referrals Referrals: Lee Tellez [Primary Care Provider] -
[2023-02-24 20:44] LABS: Appearance Urine Clear (Clear); Bacteria Urine Automated Negative (Negative); Bilirubin Urine Negative (Negative); Blood Urine Negative (Negative); Color Urine Yellow; Glucose Urine UA Negative (Negative); Ketones Urine 1+ (Negative); Leukocyte Esterase Urine Negative (Negative); Nitrite Urine Negative (Negative); Protein Urine Trace (Negative); RBC Urine Automated 0-4 /hpf (0-4); Specific Gravity Urine 1.014 (1.000-1.030); Urobilinogen Urine Negative (Negative); pH Urine 6.5 (4.5-7.5)
[2023-02-24 20:58] LABS: Hematocrit (blood only) 22.5 % (37.0-47.0); Hemoglobin 7.8 g/dl (12.0-16.0); Mean Corpuscular Hemoglobin 36.6 pg (25.0-34.0); Mean Corpuscular Hgb Conc 34.7 g/dL (32.0-36.0); Mean Corpuscular Volume 105.6 fL (80.0-100.0); Mean Platelet Volume 10.7 fL (9.4-12.4); Platelet Count 102 K/uL (130-400); Red Blood Count 2.13 M/uL (4.20-5.40); White Blood Count 5.71 K/ul (4.8-10.8)
--- NOTE | 2023-02-24 21:06 | CT Scan Report ---
Exam(s): CT HEAD Without Contrast EXAM: CT Head Without Intravenous Contrast CLINICAL HISTORY: Head trauma moderate-severe. TECHNIQUE: Axial computed tomography images of the head/brain without intravenous contrast. CTDI is 36.43 mGy and DLP is 546.36 mGy-cm. Automated exposure control was utilized for the study. A dose lowering technique was utilized adhering to the principles of ALARA. COMPARISON: CT brain 01/14/2023 FINDINGS: Brain: No intracranial hemorrhage, mass-effect or midline shift. No abnormal extra axial fluid. No evidence of acute infarct. 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 Ventricles: Unremarkable. No ventriculomegaly. Bones/joints: Unremarkable. No acute fracture. Soft tissues: Unremarkable. Sinuses: Unremarkable as visualized. No acute sinusitis. Mastoid air cells: Unremarkable as visualized. No mastoid effusion. IMPRESSION: No acute intracranial finding. Electronically signed by: Clari Rizo MD 02/24/23 21:05 PM
[2023-02-24 21:12] LABS: Albumin Globulin Ratio 1.9 (0.9-2); Albumin Level 4.4 gm/dl (3.4-5.0); BUN Creatinine Ratio 29.8 (10-20); Bilirubin,Total 1.8 mg/dl (0.2-1.0); Calcium 9.3 mg/dl (8.6-10.3); Creatinine Clr Calc Pharmacy 65.2 ml/min; Est GFR (African American) 101.5 ml/min; Est GFR (Non-African American) 87.6 ml/min; Globulin 2.3 gm/dl (2.5-4.0); Potassium 3.9 mmol/L (3.5-5.1); Total Protein 6.7 gm/dl (6.0-8.3)
[2023-02-24 21:20] LABS: Troponin I High Sensitivity 5.7 pg/ml (0-14)
[2023-02-24 21:21] LABS: Prothrombin Time 11.3 Seconds (9.0-12.0)
--- NOTE | 2023-02-24 21:24 | CT Scan Report ---
Exam(s): CT C SPINE EXAM: CT Cervical Spine Without Intravenous Contrast CLINICAL HISTORY: Neck trauma. TECHNIQUE: Axial computed tomography images of the cervical spine without intravenous contrast. CTDI is 23.94 mGy and DLP is 452.21 mGy-cm. Automated exposure control was utilized for the study. A dose lowering technique was utilized adhering to the principles of ALARA. COMPARISON: No relevant prior studies available. FINDINGS: Vertebrae: Unremarkable. No fracture or malalignment. Discs/spinal canal/neural foramina: There are degenerative changes of the spine. No spinal canal stenosis. Soft tissues: Unremarkable. No prevertebral soft tissue swelling. IMPRESSION: No acute finding of the cervical spine. Electronically signed by: Clari Rizo MD 02/24/23 21:23 PM
[2023-02-24 21:34] LABS: Anisocytosis Present; Basophils # (auto) 0.01 K/uL (0.00-0.20); Basophils % (auto) 0.2 %; Immature Granulocytes # (auto) 0.04 K/uL (0.01-0.20); Immature Granulocytes % (auto) 0.7 %; Lymphocytes # (auto) 0.45 K/uL (1.20-3.40); Lymphocytes % (auto) 7.9 %; Monocytes # (auto) 0.18 K/uL (0.11-0.59); Monocytes % (auto) 3.2 %; Neutrophils # (auto) 5.03 K/uL (1.40-6.50); Poikilocytosis Present; Polychromasia 1+
[2023-02-24 22:45] LABS: Adenovirus PCR Not Detected (NotDetected); Bordetella parapertussis PCR Not Detected (NotDetected); Bordetella pertussis PCR Not Detected (NotDetected); Chlamydia pneumoniae PCR Not Detected (NotDetected); Coronavirus 229E PCR Not Detected (NotDetected); Coronavirus HKU1 PCR Not Detected (NotDetected); Coronavirus NL63 PCR Not Detected (NotDetected); Coronavirus OC43PCR Not Detected (NotDetected); Human Metapneumovirus PCR Not Detected (NotDetected); Influenza A PCR Not Detected (NotDetected); Influenza B PCR Not Detected (NotDetected); Mycoplasma pneumoniae PCR Not Detected (NotDetected); Parainfluenza Virus 1 PCR Not Detected (NotDetected); Parainfluenza Virus 2 PCR Not Detected (NotDetected); Parainfluenza Virus 3 PCR Not Detected (NotDetected); Parainfluenza Virus 4 PCR Not Detected (NotDetected); Respiratory Syncytial VirusPCR Not Detected (NotDetected); Rhinovirus/Enterovirus PCR Not Detected (NotDetected)
[2023-02-24 22:51] LABS: Coronavirus CoV-2 (COVID19)PCR DETECTED (NotDetected)
--- NOTE | 2023-02-24 22:54 | History & Physical Report ---
Date of Service February 24, 2023 Assessment & Plan (1) Acute UTI (urinary tract infection): (2) Closed fracture of left wrist: (3) CHI (closed head injury): (4) Accidental fall: (5) Orthostatic hypotension: (6) COVID-19: (7) Anemia, macrocytic: Plan Urinary tract infection symptoms- Patient had taken a dose of Cipro at home for presumptive treatment of UTI Urinalysis looks negative in the ED Follow urine culture sensitivity, will hold on any further antibiotics NSS + KCl 20 mill equivalents at 100 mL/h x 1 L Accidental fall- Patient had an unwitnessed fall while at home The incident occurred shortly after her taking a dose of ciprofloxacin for presumptive UTI, and patient complains of multiple joint lower extremity pains Question whether she may have had a reaction to Cipro leading to the fall due to acute tendon issues or lower extremities Will consult PT/OT Anticipate patient to return home with family Closed left wrist fracture- Patient was splinted in the ED ED was concerned that the orthopedic surgeon on-call was not currently available for the patient for next week Determine orthopedist on-call, and consult in the a.m. tomorrow Acetaminophen 650 mg by mouth every 6 hours as needed for mild pain or fever Continue oxycodone 5 mg by mouth every 6 hours as needed for moderate to severe pain, which patient does take at home COVID-19 infection- Patient has no symptomatology BioFire test otherwise negative No treatment indicated History of Present Illness Chief Complaint: The patient is brought to the emergency department by family, after being found down on the floor in her home for unknown period of time Primary Care Provider: Lee Tellez The patient is an 82-year-old female with a past medical history including vitamin D insufficiency, acute blood loss anemia, UTI, orthostatic hypotension, periprosthetic femoral shaft fracture, hypertension, history of hip fracture and femur fracture. The family brought the patient to the emergency department after she was found after a fall at home from an interval time. Her main complaints are that of left wrist pain, and she did report hitting her head, but has no persistent symptoms. She has fallen a few times in the past., As noted, patient does live with family in [place]. Patient was BioFire positive for COVID-19, ever, denies any breathing, GI or other issues, and pulse ox is 97% on room air Patient did report that she thought she may have had a urinary tract infection, and had some old Cipro at home which she took a dose of the day, and then was found to be on the floor shortly after that. She does complain of bilateral lower extremity joint pains since taking the Cipro. The patient does not remember how she fell. X-rays do show a left distal radial head fracture that was splinted in the ED Allergies Allergy/AdvReac Type Severity Reaction Status Date / Time minocycline [From Minocin] Allergy Severe SEVERE Verified 02/24/23 23:28 PAIN IN THE HEAD procaine Allergy Severe NOVACAINE->CAN'T Verified 02/24/23 23:28 BREATH erythromycin base Allergy Unknown Unknown Verified 02/24/23 23:28 oxytetracycline Allergy Unknown . Verified 02/24/23 23:28 polymyxin B Allergy Unknown . Verified 02/24/23 23:28 prednisone Allergy Unknown "COULD BE Verified 02/24/23 23:28 FATAL" - PER PCP Sulfa (Sulfonamide Allergy Unknown Rash Verified 02/24/23 23:28 Antibiotics) tramadol AdvReac Unknown "PUT ME IN Verified 02/24/23 23:28 A DAZE" Home Medications Medication Instructions Recorded Confirmed Type cholecalciferol (vitamin D3) 25 2,000 unit PO QAM #60 caps 12/10/20 02/24/23 Rx mcg (1,000 unit) capsule acetaminophen 500 mg tablet 1,000 mg PO BID PRN Pain 02/24/23 02/24/23 History (Tylenol Extra Strength) ascorbic acid (vitamin C) 100 mg 0 mg PO DAILY 02/24/23 02/24/23 History tablet ciprofloxacin HCl 500 mg tablet 500 mg PO ONCE 02/24/23 02/24/23 History naproxen sodium 220 mg tablet 220 mg PO DAILY PRN Pain 02/24/23 02/24/23 History (Aleve) Past Med/Surg History Medical History Anxiety Cancer SKIN CANCER Cardiac murmur H/O A CHILD Femur fracture Hip fracture Hypertension H/O - NO MEDICATIONS CURRENTLY PER MD ORDERS Nausea and vomiting after administration of anesthetic agent Osteoporosis Retinal artery occlusion Urinary tract infection RECURRENT, TAKING ABX. (STARTED 04/25/18) Surgical History (Reviewed 11/26/20 @ 18:00 by MEMO Pedersen H/O exploratory laparotomy History of dilatation and curettage History of open reduction and internal fixation (ORIF) procedure "left femur bobby" History of tonsillectomy and adenoidectomy Social History Smoking Status: Never smoker Second Hand Exposure: No; Do You Dip or Chew Tobacco: No; Hx Alcohol Use: No Hx Substance Use: No Preferred Language: Ch[place] Communication Ability: Effective Dean Of Admissions Required: No Beliefs That Will Affect Care: None Current Living Situation: Family Feels Safe at Home: Yes Assistive Devices: Cane and Walker Review of Systems Review of Systems: The patient denies chest pain, palpitations, shortness of breath, dyspnea on exertion, cough, lower extremity swelling, sore throat, fevers, chills, sweats, weight change, fatigue, nausea, vomiting, diarrhea , constipation, abdominal pain, pelvic pain, blood in urine or stool, dysuria, urinary frequency or urgency, lightheadedness, dizziness, headache, memory loss, loss of consciousness, rash, abnormal bruising or bleeding, imbalance, focal or generalized weakness, numbness or tingling in arms or legs, generalized arthralgias or myalgias, back or neck pain, or night sweats. The review of systems is otherwise negative other than for that already noted above, and at least 10 systems have been reviewed. Physical Exam Physical Exam: The patient is awake, alert and oriented 3, well developed and well nourished, normocephalic and atraumatic, lying in bed and in no acute distress. HEENT--PERRL, EOMI, mucous membranes and oropharynx mildly dry. Neck--supple. No JVD. No bruits. Thyroid normal, trachea midline, no adenopathy. Heart--normal S1 and S2. No murmurs, rubs or gallops. Lungs--clear bilaterally, no respiratory distress, no accessory muscle use. Abdomen--normal bowel sounds and soft. Nontender. Nondistended, no hernias or masses, no organomegaly. Extremities--no cyanosis or clubbing. No edema. Dermatologic--normal skin turgor, normal color, no abnormal lymph nodes, no rash. Neurologic--cranial nerves II through XII grossly intact. Rheumatologic--limited exam of left wrist fracture Psychiatric--normal affect. Results & Data Results & Data Vital Signs (Past 12 Hours) Vital Signs Temp Pulse Resp BP BP Pulse Ox O2 Del Method 02/24/23 22:06 103 H 02/24/23 22:01 105 H 21 137/69 97 02/24/23 21:00 106 H 19 150/69 H 96 02/24/23 20:32 107 H 18 95 Room Air 02/24/23 20:00 105 H 18 02/24/23 20:00 105 H 111/52 L 02/24/23 20:00 18 111/52 L 95 Room Air 02/24/23 19:31 115 H 17 148/53 H 94 02/24/23 18:30 36.8 C 18 138/65 100 Room Air 02/24/23 17:49 129 H 02/24/23 17:38 36.8 C 120 H 18 145/84 H 100 Room Air Laboratory Results Laboratory Results WBC 5.71 K/ul (4.8-10.8) 02/24/23 17:45 RBC 2.13 M/uL (4.20-5.40) L 02/24/23 17:45 Hgb 7.8 g/dl (12.0-16.0) L 02/24/23 17:45 Hct 22.5 % (37.0-47.0) L 02/24/23 17:45 MCV 105.6 fL (80.0-100.0) H 02/24/23 17:45 MCH 36.6 pg (25.0-34.0) H 02/24/23 17:45 MCHC 34.7 g/dL (32.0-36.0) 02/24/23 17:45 Plt Count 102 K/uL (130-400) L 02/24/23 17:45 MPV 10.7 fL (9.4-12.4) 02/24/23 17:45 Immature Gran % (Auto) 0.7 % 02/24/23 17:45 Neut % (Auto) 88.0 % 02/24/23 17:45 Lymph % (Auto) 7.9 % 02/24/23 17:45 [place] % (Auto) 3.2 % 02/24/23 17:45 Eos % (Auto) 0.0 % 02/24/23 17:45 Baso % (Auto) 0.2 % 02/24/23 17:45 Neut # (Auto) 5.03 K/uL (1.40-6.50) 02/24/23 17:45 Lymph # (Auto) 0.45 K/uL (1.20-3.40) L 02/24/23 17:45 [place] # (Auto) 0.18 K/uL (0.11-0.59) 02/24/23 17:45 Eos # (Auto) 0.00 K/uL (0.00-0.50) 02/24/23 17:45 Baso # (Auto) 0.01 K/uL (0.00-0.20) 02/24/23 17:45 Immature Gran # (Auto) 0.04 K/uL (0.01-0.20) 02/24/23 17:45 Polychromasia 1+ 02/24/23 17:45 Poikilocytosis Present 02/24/23 17:45 Anisocytosis Present 02/24/23 17:45 PT 11.3 Seconds (9.0-12.0) 02/24/23 20:40 INR 1.0 (0.9-1.1) 02/24/23 20:40 Sodium 138 mmol/L (136-145) 02/24/23 20:40 Potassium 3.9 mmol/L (3.5-5.1) 02/24/23 20:40 Chloride 106 mmol/L (98-107) 02/24/23 20:40 Carbon Dioxide 25 mmol/L (21-32) 02/24/23 20:40 Anion Gap 7 (3-11) 02/24/23 20:40 BUN 17 mg/dl (6-23) 02/24/23 20:40 Creatinine 0.57 mg/dl (0.6-1.2) L 02/24/23 20:40 Est Cr Clr Drug Dosing 65.2 ml/min 02/24/23 20:40 Est GFR ( Amer) 101.5 ml/min 02/24/23 20:40 Est GFR (Non-Af Amer) 87.6 ml/min 02/24/23 20:40 BUN/Creatinine Ratio 29.8 (10-20) H 02/24/23 20:40 Glucose 118 mg/dl (70-99(Fasting)) H 02/24/23 20:40 Calcium 9.3 mg/dl (8.6-10.3) 02/24/23 20:40 Total Bilirubin 1.8 mg/dl (0.2-1.0) H 02/24/23 20:40 AST 31 U/L (13-39) 02/24/23 20:40 ALT 12 U/L (7-52) 02/24/23 20:40 Alkaline Phosphatase 61 U/L (34-104) 02/24/23 20:40 Total Creatine Kinase 126 U/L (26-192) 02/24/23 20:40 Troponin I High Sens 5.7 pg/ml (0-14) 02/24/23 20:40 Total Protein 6.7 gm/dl (6.0-8.3) 02/24/23 20:40 Albumin 4.4 gm/dl (3.4-5.0) 02/24/23 20:40 Globulin 2.3 gm/dl (2.5-4.0) L 02/24/23 20:40 Albumin/Globulin Ratio 1.9 (0.9-2) 02/24/23 20:40 Urine Color Yellow 02/24/23 19:18 Urine Appearance Clear (Clear) 02/24/23 19:18 Urine pH 6.5 (4.5-7.5) 02/24/23 19:18 Ur Specific [place] 1.014 (1.000-1.030) 02/24/23 19:18 Urine Protein Trace (Negative) H 02/24/23 19:18 Urine Glucose (UA) Negative (Negative) 02/24/23 19:18 Urine Ketones 1+ (Negative) H 02/24/23 19:18 Urine Blood Negative (Negative) 02/24/23 19:18 Urine Nitrite Negative (Negative) 02/24/23 19:18 Urine Bilirubin Negative (Negative) 02/24/23 19:18 Urine Urobilinogen Negative (Negative) 02/24/23 19:18 Ur Leukocyte Esterase Negative (Negative) 02/24/23 19:18 Urine WBC (Auto) 1-5 /hpf (0-5) 02/24/23 19:18 Urine RBC (Auto) 0-4 /hpf (0-4) 02/24/23 19:18 U Hyaline Cast (Auto) 1-5 /lpf (0-5) 02/24/23 19:18 U Epithel Cells (Auto) 10-20 /lpf (0-5) H 02/24/23 19:18 Urine Bacteria (Auto) Negative (Negative) 02/24/23 19:18 Adenovirus (PCR) Not Detected (NotDetected) 02/24/23 21:43 B. pertussis DNA (PCR) Not Detected (NotDetected) 02/24/23 21:43 B.parapertussis DNA PCR Not Detected (NotDetected) 02/24/23 21:43 C. pneumoniae DNA (PCR) Not Detected (NotDetected) 02/24/23 21:43 Coronavirus OC43 (PCR) Not Detected (NotDetected) 02/24/23 21:43 Coronavirus HKU1 (PCR) Not Detected (NotDetected) 02/24/23 21:43 Coronavirus 229E (PCR) Not Detected (NotDetected) 02/24/23 21:43 SARS-CoV-2 (PCR) DETECTED (NotDetected) A* 02/24/23 21:43 Coronavirus NL63 (PCR) Not Detected (NotDetected) 02/24/23 21:43 Human Metapneumovir PCR Not Detected (NotDetected) 02/24/23 21:43 Influenza Type A (PCR) Not Detected (NotDetected) 02/24/23 21:43 Influenza Type B (PCR) Not Detected (NotDetected) 02/24/23 21:43 M. pneumoniae (PCR) Not Detected (NotDetected) 02/24/23 21:43 Parainfluenza 1 (PCR) Not Detected (NotDetected) 02/24/23 21:43 Parainfluenza 2 (PCR) Not Detected (NotDetected) 02/24/23 21:43 Parainfluenza 3 (PCR) Not Detected (NotDetected) 02/24/23 21:43 Parainfluenza 4 (PCR) Not Detected (NotDetected) 02/24/23 21:43 RSV (PCR) Not Detected (NotDetected) 02/24/23 21:43 Entero/Rhino (PCR) Not Detected (NotDetected) 02/24/23 21:[address] 02/24/23 19:10 Exam(s): CT C SPINE EXAM: CT Cervical Spine Without Intravenous Contrast CLINICAL HISTORY: Neck trauma. TECHNIQUE: Axial computed tomography images of the cervical spine without intravenous contrast. CTDI is 23.94 mGy and DLP is 452.21 mGy-cm. Automated exposure control was utilized for the study. A dose lowering technique was utilized adhering to the principles of ALARA. COMPARISON: No relevant prior studies available. FINDINGS: Vertebrae: Unremarkable. No fracture or malalignment. Discs/spinal canal/neural foramina: There are degenerative changes of the spine. No spinal canal stenosis. Soft tissues: Unremarkable. No prevertebral soft tissue swelling. IMPRESSION: No acute finding of the cervical spine. Electronically signed by: Clari Rizo MD 02/24/23 21:[address] 02/24/23 19:10 Exam(s): CT HEAD Without Contrast EXAM: CT Head Without Intravenous Contrast CLINICAL HISTORY: Head trauma moderate-severe. TECHNIQUE: Axial computed tomography images of the head/brain without intravenous contrast. CTDI is 36.43 mGy and DLP is 546.36 mGy-cm. Automated exposure control was utilized for the study. A dose lowering technique was utilized adhering to the principles of ALARA. COMPARISON: CT brain 01/14/2023 FINDINGS: Brain: No intracranial hemorrhage, mass-effect or midline shift. No abnormal extra axial fluid. No evidence of acute infarct. 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 Ventricles: Unremarkable. No ventriculomegaly. Bones/joints: Unremarkable. No acute fracture. Soft tissues: Unremarkable. Sinuses: Unremarkable as visualized. No acute sinusitis. Mastoid air cells: Unremarkable as visualized. No mastoid effusion. IMPRESSION: No acute intracranial finding. Electronically signed by: Clari Rizo MD 02/24/23 21:05 PM Code Status & VTE Plan Code Status Full code VTE Prophylaxis Plan VTE Prophylaxis will be ordered: Yes PG Care Time/CCT Total # of Minutes Spent Total Time Spent with Patient: Total time spent is greater than 50% in coordination of care (as documented) at patient's floor/unit and/or counseling patient: Coding Level of Care Code 36880 INT INP/OBS CARE 3/75MIN Diagnoses Acute UTI (urinary tract infection) N39.0 Closed fracture of left wrist S62.102A CHI (closed head injury) S09.90XA Accidental fall W19.XXXA Orthostatic hypotension I95.1 COVID-19 U07.1 Anemia, macrocytic D53.9
[2023-02-25] MEDS ORDERED: NSS + 20MEQ KCL 20 MEQ/1,000 ML BAG IV SCH (01:12)
[2023-02-25] MEDS ORDERED: oxyCODONE HCL IR 5 MG TAB (IMMEDIATE RELEASE) PO PRN (01:12)
[2023-02-25] MEDS ORDERED: ONDANSETRON INJ 2 MG/ML 2 ML VIAL IV PRN (01:12)
--- NOTE | 2023-02-25 08:04 | XRay Report ---
XR chest 1V portable CLINICAL HISTORY: Fall. COMPARISON STUDY: Chest radiograph January 14, 2023. FINDINGS: Lung volumes are normal. Lungs are clear. There is no pneumothorax or pleural effusion. Car diac size is stable. Mediastinal contours are normal. There is no evidence for pulmonary edema. IMPRESSION: No acute cardiopulmonary findings. No significant change in appearance of the chest. ACT 112: Negative or not required by law. Electronically signed by: Jesse Zambrano M.D. 02/25/2023 8:03 AM
--- NOTE | 2023-02-25 08:07 | XRay Report ---
XR forearm LT 2V CLINICAL HISTORY: Forearm trauma COMPARISON: None FINDINGS: Alignment of the left elbow is anatomic. No proximal left radial or ulnar fracture is pres ent. No evidence for a left elbow joint effusion. Distal left radial and ulnar fractures are noted. T hese are better depicted on the left wrist radiographs. IMPRESSION: 1. Acute distal left radial and ulnar fractures better depicted on the left wrist radiographs. 2. No proximal left radial or ulnar fracture. No left elbow joint effusion. ACT 112: Negative or not required by law. Electronically signed by: Jesse Zambrano M.D. 02/25/2023 8:06 AM
--- NOTE | 2023-02-25 08:19 | XRay Report ---
XR wrist LT min 3V routine CLINICAL HISTORY: Wrist trauma. COMPARISON: None FINDINGS: There is left forearm and wrist soft tissue swelling. Note is made of an acute mildly disp laced fracture the base of the ulnar styloid. There is also an acute comminuted moderately displaced intra-articular distal left radial fracture with slight dorsal tilt of the distal component. No carpa l bone fracture is present. IMPRESSION: 1. Acute comminuted displaced distal left radial intra-articular fracture with dorsal tilt of the dis manjula component. 2. Acute mildly displaced distal left ulnar fracture. ACT 112: Negative or not required by law. Electronically signed by: Jesse Zambrano M.D. 02/25/2023 8:18 AM
[2023-02-25 08:35] LABS: Hematocrit (blood only) 17.9 % (37.0-47.0); Hemoglobin 6.2 g/dl (12.0-16.0); Mean Corpuscular Hemoglobin 36.5 pg (25.0-34.0); Mean Corpuscular Hgb Conc 34.6 g/dL (32.0-36.0); Mean Corpuscular Volume 105.3 fL (80.0-100.0); Mean Platelet Volume 11.5 fL (9.4-12.4); Nucleated RBC # (auto) 0.02 K/uL (0.00-0.12); Nucleated RBC % (auto) 0.6 %; Platelet Count 102 K/uL (130-400); White Blood Count 3.53 K/ul (4.8-10.8)
[2023-02-25 08:39] LABS: Albumin Globulin Ratio 1.7 (0.9-2); BUN Creatinine Ratio 24.1 (10-20); Bilirubin,Total 1.6 mg/dl (0.2-1.0); Calcium 8.8 mg/dl (8.6-10.3); Creatinine Clr Calc Pharmacy 64.1 ml/min; Est GFR (African American) 100.9 ml/min; Est GFR (Non-African American) 87.1 ml/min; Globulin 2.3 gm/dl (2.5-4.0); Potassium 3.9 mmol/L (3.5-5.1); Total Protein 6.3 gm/dl (6.0-8.3)
[2023-02-25 08:54] LABS: Anisocytosis Present; Hypersegmented Neutrophils 1+; Immature Granulocytes # (auto) 0.03 K/uL (0.01-0.20); Immature Granulocytes % (auto) 0.8 %; Lymphocytes # (auto) 1.02 K/uL (1.20-3.40); Lymphocytes % (auto) 28.9 %; Monocytes # (auto) 0.23 K/uL (0.11-0.59); Monocytes % (auto) 6.5 %; Neutrophils # (auto) 2.25 K/uL (1.40-6.50); Neutrophils % (auto) 63.8 %; Poikilocytosis Present; Polychromasia 2+; Tear Drop Cells 1+
[2023-02-25] MEDS ORDERED: SODIUM CHLORIDE 0.9% 250 ML IV PRN (09:18)
[2023-02-25] MEDS: CHOLECALCIFEROL 1,000 UNITS 25 MCG TAB PO SCH (09:46)
[2023-02-25] MEDS: FERROUS SULFATE 325 MG TAB PO SCH (09:46)
[2023-02-25] MEDS: amLODIPine BESYLATE 5 MG TAB PO SCH (09:46)
[2023-02-25] MEDS: SENNA 8.6 MG TAB PO SCH (09:47)
[2023-02-25] MEDS: POLYETHYLENE (MIRALAX) 17 GM PACK PO SCH (09:47)
--- NOTE | 2023-02-25 09:47 | Hospitalist Progress Note ---
Date of Service February 25, 2023 Assessment & Plan (1) Accidental fall: Plan: Patient had an unwitnessed fall while at home but suspect orthostasis from hypovolemia from severe anemia and had severe diarrhea after taking Cipro COuld also be related to COVID The incident occurred shortly after her taking a dose of ciprofloxacin for presumptive UTI, and patient complains of multiple joint lower extremity pains which are now resolved Severe anemia also contributing Will consult PT/OT transfuse PRBCs Diarrhea resolved and received IVFs (2) Anemia, macrocytic: Plan: Severe B12 deficiency based on labs from previous admission. She has not been on any B12 supplementation as the B12 lab was "pending" at the time of discharge last admission for severe anemia. She follows with an outside PCP and unclear if he was aware of this either. She was to see Heme but reports she called 3 times to schedule and never heard back B12 levels again here are undetectable and hgb 6.2, platelets low and WBC l ow-->< all can be from severe B12 deficiency -transfuse 1 unit PRBCs now -start B12 1000mcg IM daily x 3 doses and then begin B12 1000mcg po daily although I suspect shell need ongoing parenteral B12 supplement as an outpt -follow CBC (3) Acute UTI (urinary tract infection): Plan: Urinary tract infection symptoms- Patient had taken a dose of Cipro at home for presumptive treatment of UTI Urinalysis negative here due to taking Cipro and she has no further symptoms. will hold on any further antibiotics (4) COVID-19: Plan: Patient has no symptomatology except maybe a mild cough, but unclear when symptoms started. CXR neg, not hypoxic No treatment indicated (5) Closed fracture of left wrist: Plan: secondary to her fall prompting admission Patient was splinted in the ED Consult Ortho--> plan for surgical repair on 03/01 Acetaminophen 650 mg by mouth every 6 hours as needed for mild pain or fever Continue oxycodone 5 mg by mouth every 6 hours as needed for moderate to severe pain (6) CHI (closed head injury): Plan: with facial contusion but do not suspect fractures Head and cervical spine CTs negative (7) Orthostatic hypotension: Plan: could be from hypovolemia as above check orthostatics once more volume resuscitated Plan DVT proph-add Lovenox Dispo-continued stay, will likely need rehab but will have wrist surgery first Admission and Anticipated Discharge Date Admission Date: February 24, 2023 Subjective Pt reports pain in the left wrist. Denies facial pain or headache. No cough or SOB, CP. No pain anywhere else. Tele with NSR rates 80-90s Physical Exam Constitutional: WD/WN, vitals as above Eyes: left periorbital ecchymosis Respiratory: normal respiratory effort, lungs clear to auscultation Cardiovascular: RRR, no murmur, no edema Gastrointestinal (Abdomen): normal bowel sounds, soft, nontender, no hepatosplenomegaly Musculoskeletal: left wrist and forearm in splint Psychiatric: A+Ox3, euthymic affect Results & Data Results & Data Vital Signs (Past 12 Hours) Vital Signs Temp Pulse Pulse Resp BP BP Pulse Ox 02/25/23 08:17 37.6 C H 86 18 130/71 98 02/25/23 03:00 36.8 C 86 18 125/66 97 02/25/23 02:00 96 H 02/25/23 01:25 02/25/23 01:25 37.2 C 95 H 18 146/69 H 97 02/25/23 01:00 86 17 120/51 L 91 02/25/23 00:00 96 H 16 111/52 L 02/24/23 23:00 105 H 18 125/79 02/24/23 22:06 103 H 02/24/23 22:01 105 H 21 137/69 97 O2 Del Method 02/25/23 08:17 Room Air 02/25/23 03:00 Room Air 02/25/23 02:00 02/25/23 01:25 Room Air 02/25/23 01:25 Room Air 02/25/23 01:00 02/25/23 00:00 02/24/23 23:00 02/24/23 22:06 02/24/23 22:01 Laboratory Results CBC, BMP, LFTs, mag, B12, folate, iron studies, CK reviewed PG Care Time/CCT Total # of Minutes Spent Total Time Spent with Patient: Total time spent is greater than 50% in coordination of care (as documented) at patient's floor/unit and/or counseling patient: Coding Level of Care Code 90701 SUB INP/OBS CARE 3/50MIN Diagnoses Accidental fall W19.XXXA Anemia, macrocytic D53.9 Acute UTI (urinary tract infection) N39.0 COVID-19 U07.1 Closed fracture of left wrist S62.102A CHI (closed head injury) S09.90XA Orthostatic hypotension I95.1
[2023-02-25] MEDS: ACETAMINOPHEN 325 MG TAB PO PRN ×2 (09:49→18:17)
[2023-02-25 10:49] LABS: Ferritin 309.1 ng/ml (8-388)
[2023-02-25 10:55] LABS: Folate (Folic Acid),Ser orPlas > 22.30 ng/ml (>5.38)
[2023-02-25 10:59] LABS: Vitamin B12 < 50 pg/ml (180-914)
[2023-02-25] MEDS: CYANOCOBALAMIN 1000 MCG/ML VIAL IM SCH (12:39)
--- NOTE | 2023-02-25 17:21 | Orthopedic Consultation ---
Date of Consultation February 25, 2023 Assessment & Plan (1) Closed fracture of left wrist: -Sling left upper extremity as needed for comfort. I did remove it today as it was not in the correct position and around her neck. She may want to use this when out of bed mostly. -Nonweightbearing left wrist at all times. -Keep splint on left wrist at all times. -Encourage strict elevation of her left forearm and hand above her heart to reduce swelling in preparation for open reduction internal fixation. -Discussed conservative treatment versus surgical intervention with patient. She does wish to proceed with surgical intervention. She is scheduled for an open reduction internal fixation of the left distal radius with Dr. Mcdonough on March 01, 2023. Maintain splint until then. Will need a couple days to resolve edema. Informed consent obtained. Risks and benefits of the procedure were discussed. Consent was signed and placed on chart. Made n.p.o. after midnight on 03/01/2023. -She normally ambulates with a walker. She will benefit from a platform walker for ambulation with PT and OT. -Ambulate as tolerated. -Pain medication as needed. -Ice to left wrist as needed for pain and swelling. -Encouraged range of motion of her fingers elbow and shoulder as tolerated. -May need placement postoperatively. -Discussed findings with Dr. Mcdonough. He will evaluate as well in the next day or so. -Patient understands and agrees with the plan. Please call [phone] or [place] text Dr. Mcdonough with any questions or concerns. Thank you for this consultation. History of Present Illness Reason for Consultation: left distal radius/ulna fracture Attending Physician: Sowmya Vieyra MD History of Present Illness The patient is an 82-year-old female with a past medical history including vitamin D insufficiency, acute blood loss anemia, UTI, orthostatic hypotension, periprosthetic femoral shaft fracture, hypertension, history of hip fracture and femur fracture. The family brought the patient to the emergency department after she was found after a fall at home from an interval time. Her main compl aints are that of left wrist pain, and she did report hitting her head, but has no persistent symptoms. She has fallen a few times in the past., As noted, patient does live with family in [place]. Patient was [employer] positive for COVID-19, ever, denies any breathing, GI or other issues, and pulse ox is 97% on room air Patient did report that she thought she may have had a urinary tract infection, and had some old Cipro at home which she took a dose of the day, and then was found to be on the floor shortly after that. She does complain of bilateral lower extremity joint pains since taking the Cipro. The patient does not remember how she fell. X-rays do show a left distal radial head fracture that was splinted in the ED. Ortho was consulted for care of her left distal radius/ulna fracture. Doing well in bed. Mild pain in left wrist. Denies previous wrist problems. Denies pain anywhere else currently but states that she has had some leg achiness. No pain in legs currently at rest. Left wrist splinted. Sling around arm/neck. Denies numbness or tingling, but some pain with finger range of motion. Allergies Allergy/AdvReac Type Severity Reaction Status Date / Time minocycline [From Minocin] Allergy Severe SEVERE Verified 02/24/23 23:28 PAIN IN THE HEAD procaine Allergy Severe NOVACAINE->CAN'T Verified 02/24/23 23:28 BREATH erythromycin base Allergy Unknown Unknown Verified 02/24/23 23:28 oxytetracycline Allergy Unknown . Verified 02/24/23 23:28 polymyxin B Allergy Unknown . Verified 02/24/23 23:28 prednisone Allergy Unknown "COULD BE Verified 02/24/23 23:28 FATAL" - PER PCP Sulfa (Sulfonamide Allergy Unknown Rash Verified 02/24/23 23:28 Antibiotics) tramadol AdvReac Unknown "PUT ME IN Verified 02/24/23 23:28 A DAZE" Home Medications Medication Instructions Recorded Confirmed Type cholecalciferol (vitamin D3) 25 2,000 unit PO QAM #60 caps 12/10/20 02/24/23 Rx mcg (1,000 unit) capsule acetaminophen 500 mg tablet 1,000 mg PO BID PRN Pain 02/24/23 02/24/23 History (Tylenol Extra Strength) ascorbic acid (vitamin C) 100 mg 0 mg PO DAILY 02/24/23 02/24/23 History tablet ciprofloxacin HCl 500 mg tablet 500 mg PO ONCE 02/24/23 02/24/23 History naproxen sodium 220 mg tablet 220 mg PO DAILY PRN Pain 02/24/23 02/24/23 History (Aleve) Patient History Medical History Anxiety Cancer SKIN CANCER Cardiac murmur H/O A CHILD Femur fracture Hip fracture Hypertension H/O - NO MEDICATIONS CURRENTLY PER MD ORDERS Nausea and vomiting after administration of anesthetic agent Osteoporosis Retinal artery occlusion Urinary tract infection RECURRENT, TAKING ABX. 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 Physical Exam Musculoskeletal: Exam of her left upper extremity: Her left wrist is in a volar splint. She tolerates gentle range of motion with flexion extension of the left elbow. She is active full range of motion of the left shoulder. She can fully extend all of her fingers on her left hand but does have some mild stiffness across the MCPs with flexion. Distal sensation is normal. Mild edema of the left thumb with some ecchymosis. Thumb is nontender specifically. Nontender throughout the fingers of the left hand. Capillary fill is brisk. She can actively move her right arm without any discomfort. Splint of her left wrist was not removed for exam today. She is nontender across to either hip or her pelvis. She has full range of motion of bilateral lower extremity hips, knees and ankles. No edema or evidence of trauma. Calves are supple and nontender. Dorsalis pedis pulses are 2+. Sensation is normal throughout bilateral lower extremities. She is able to do belly straight leg raise both legs without discomfort. No effusions to either knee. Results & Data Vital Signs (Past 12 Hours) Vital Signs Temp Pulse Pulse Resp BP BP Pulse Ox 12/23/23 16:21 37.2 C 84 18 136/78 96 02/25/23 16:18 80 02/25/23 15:38 36.9 C 85 18 145/66 H 93 02/25/23 15:23 36.9 C 82 18 134/67 92 02/25/23 14:23 37.1 C 85 18 134/67 94 02/25/23 13:23 37.2 C 78 18 111/62 92 02/25/23 12:53 37.1 C 86 18 112/61 94 02/25/23 12:38 36.9 C 83 18 108/60 93 02/25/23 12:17 36.9 C 93 H 16 130/56 L 93 02/25/23 12:06 37.6 C H 86 18 108/65 93 02/25/23 10:08 86 02/25/23 08:17 37.6 C H 86 18 130/71 98 O2 Del Method 02/25/23 16:21 Room Air 02/25/23 16:18 02/25/23 15:38 02/25/23 15:23 02/25/23 14:23 02/25/23 13:23 02/25/23 12:53 02/25/23 12:38 02/25/23 12:17 02/25/23 12:06 Room Air 02/25/23 10:08 02/25/23 08:17 Room Air Laboratory Results 02/25/23 02/25/23 02/24/23 Range/Units 09:45 08:00 21:43 WBC 3.53 L (4.8-10.8) K/ul RBC 1.70 L (4.20-5.40) M/uL Hgb 6.2 L* (12.0-16.0) g/dl Hct 17.9 L* (37.0-47.0) % MCV 105.3 H (80.0-100.0) fL MCH 36.5 H (25.0-34.0) pg MCHC 34.6 (32.0-36.0) g/dL Plt Count 102 L (130-400) K/uL MPV 11.5 (9.4-12.4) fL Immature Gran % (Auto) 0.8 % Neut % (Auto) 63.8 % Lymph % (Auto) 28.9 % Waller % (Auto) 6.5 % Eos % (Auto) 0.0 % Baso % (Auto) 0.0 % Neut # (Auto) 2.25 (1.40-6.50) K/uL Lymph # (Auto) 1.02 L (1.20-3.40) K/uL Waller # (Auto) 0.23 (0.11-0.59) K/uL Eos # (Auto) 0.00 (0.00-0.50) K/uL Baso # (Auto) 0.00 (0.00-0.20) K/uL Immature Gran # (Auto) 0.03 (0.01-0.20) K/uL Absolute Nucleated RBC 0.02 (0.00-0.12) K/uL Nucleated RBC % (auto) 0.6 % Hypersegmented Neuts 1+ Polychromasia 2+ Poikilocytosis Present Anisocytosis Present Tear Drop Cells 1+ PT (9.0-12.0) Seconds INR (0.9-1.1) Sodium 139 (136-145) mmol/L Potassium 3.9 (3.5-5.1) mmol/L Chloride 110 H (98-107) mmol/L Carbon Dioxide 25 (21-32) mmol/L Anion Gap 4 (3-11) BUN 14 (6-23) mg/dl Creatinine 0.58 L (0.6-1.2) mg/dl Est Cr Clr Drug Dosing 64.1 ml/min Est GFR ( Amer) 100.9 ml/min Est GFR (Non-Af Amer) 87.1 ml/min BUN/Creatinine Ratio 24.1 H (10-20) Glucose 101 H (70-99(Fasting)) mg/dl Calcium 8.8 (8.6-10.3) mg/dl Magnesium 2.0 (1.7-2.4) mg/dl Iron 82 (35-150) mcg/dl TIBC 285 (250-450) mcg/dl Unsaturated IBC 203 (155-355) mcg/dl Transferrin % Sat 29 (15-50) % Ferritin 309.1 (8-388) ng/ml Total Bilirubin 1.6 H (0.2-1.0) mg/dl AST 25 (13-39) U/L ALT 10 (7-52) U/L Alkaline Phosphatase 52 (34-104) U/L Total Creatine Kinase (26-192) U/L Troponin I High Sens (0-14) pg/ml Total Protein 6.3 (6.0-8.3) gm/dl Albumin 4.0 (3.4-5.0) gm/dl Globulin 2.3 L (2.5-4.0) gm/dl Albumin/Globulin Ratio 1.7 (0.9-2) Vitamin B12 < 50 L (180-914) pg/ml Folate > 22.30 (>5.38) ng/ml Urine Color Urine Appearance (Clear) Urine pH (4.5-7.5) Ur Specific Shar[place] (1.000-1.030) Urine Protein (Negative) Urine Glucose (UA) (Negative) Urine Ketones (Negative) Urine Blood (Negative) Urine Nitrite (Negative) Urine Bilirubin (Negative) Urine Urobilinogen (Negative) Ur Leukocyte Esterase (Negative) Urine WBC (Auto) (0-5) /hpf Urine RBC (Auto) (0-4) /hpf U Hyaline Cast (Auto) (0-5) /lpf U Epithel Cells (Auto) (0-5) /lpf Urine Bacteria (Auto) (Negative) Adenovirus (PCR) Not Detected (NotDetected) B. pertussis DNA (PCR) Not Detected (NotDetected) B.parapertussis DNA PCR Not Detected (NotDetected) C. pneumoniae DNA (PCR) Not Detected (NotDetected) Coronavirus OC43 (PCR) Not Detected (NotDetected) Coronavirus HKU1 (PCR) Not Detected (NotDetected) Coronavirus 229E (PCR) Not Detected (NotDetected) SARS-CoV-2 (PCR) DETECTED A* (NotDetected) Coronavirus NL63 (PCR) Not Detected (NotDetected) Human Metapneumovir PCR Not Detected (NotDetected) Influenza Type A (PCR) Not Detected (NotDetected) Influenza Type B (PCR) Not Detected (NotDetected) M. pneumoniae (PCR) Not Detected (NotDetected) Parainfluenza 1 (PCR) Not Detected (NotDetected) Parainfluenza 2 (PCR) Not Detected (NotDetected) Parainfluenza 3 (PCR) Not Detected (NotDetected) Parainfluenza 4 (PCR) Not Detected (NotDetected) RSV (PCR) Not Detected (NotDetected) Entero/Rhino (PCR) Not Detected (NotDetected) Blood Type Antibody Screen Crossmatch 02/24/23 02/24/23 02/24/23 Range/Units 20:40 19:18 17:45 WBC 5.71 (4.8-10.8) K/ul RBC 2.13 L (4.20-5.40) M/uL Hgb 7.8 L (12.0-16.0) g/dl Hct 22.5 L (37.0-47.0) % MCV 105.6 H (80.0-100.0) fL MCH 36.6 H (25.0-34.0) pg MCHC 34.7 (32.0-36.0) g/dL Plt Count 102 L (130-400) K/uL MPV 10.7 (9.4-12.4) fL Immature Gran % (Auto) 0.7 % Neut % (Auto) 88.0 % Lymph % (Auto) 7.9 % Waller % (Auto) 3.2 % Eos % (Auto) 0.0 % Baso % (Auto) 0.2 % Neut # (Auto) 5.03 (1.40-6.50) K/uL Lymph # (Auto) 0.45 L (1.20-3.40) K/uL Waller # (Auto) 0.18 (0.11-0.59) K/uL Eos # (Auto) 0.00 (0.00-0.50) K/uL Baso # (Auto) 0.01 (0.00-0.20) K/uL Immature Gran # (Auto) 0.04 (0.01-0.20) K/uL Absolute Nucleated RBC (0.00-0.12) K/uL Nucleated RBC % (auto) % Hypersegmented Neuts Polychromasia 1+ Poikilocytosis Present Anisocytosis Present Tear Drop Cells PT 11.3 (9.0-12.0) Seconds INR 1.0 (0.9-1.1) Sodium 138 (136-145) mmol/L Potassium 3.9 (3.5-5.1) mmol/L Chloride 106 (98-107) mmol/L Carbon Dioxide 25 (21-32) mmol/L Anion Gap 7 (3-11) BUN 17 (6-23) mg/dl Creatinine 0.57 L (0.6-1.2) mg/dl Est Cr Clr Drug Dosing 65.2 ml/min Est GFR ( Amer) 101.5 ml/min Est GFR (Non-Af Amer) 87.6 ml/min BUN/Creatinine Ratio 29.8 H (10-20) Glucose 118 H (70-99(Fasting)) mg/dl Calcium 9.3 (8.6-10.3) mg/dl Magnesium (1.7-2.4) mg/dl Iron (35-150) mcg/dl TIBC (250-450) mcg/dl Unsaturated IBC (155-355) mcg/dl Transferrin % Sat (15-50) % Ferritin (8-388) ng/ml Total Bilirubin 1.8 H (0.2-1.0) mg/dl AST 31 (13-39) U/L ALT 12 (7-52) U/L Alkaline Phosphatase 61 (34-104) U/L Total Creatine Kinase 126 (26-192) U/L Troponin I High Sens 5.7 (0-14) pg/ml Total Protein 6.7 (6.0-8.3) gm/dl Albumin 4.4 (3.4-5.0) gm/dl Globulin 2.3 L (2.5-4.0) gm/dl Albumin/Globulin Ratio 1.9 (0.9-2) Vitamin B12 (180-914) pg/ml Folate (>5.38) ng/ml Urine Color Yellow Urine Appearance Clear (Clear) Urine pH 6.5 (4.5-7.5) Ur Specific Sharps 1.014 (1.000-1.030) Urine Protein Trace H (Negative) Urine Glucose (UA) Negative (Negative) Urine Ketones 1+ H (Negative) Urine Blood Negative (Negative) Urine Nitrite Negative (Negative) Urine Bilirubin Negative (Negative) Urine Urobilinogen Negative (Negative) Ur Leukocyte Esterase Negative (Negative) Urine WBC (Auto) 1-5 (0-5) /hpf Urine RBC (Auto) 0-4 (0-4) /hpf U Hyaline Cast (Auto) 1-5 (0-5) /lpf U Epithel Cells (Auto) 10-20 H (0-5) /lpf Urine Bacteria (Auto) Negative (Negative) Adenovirus (PCR) (NotDetected) B. pertussis DNA (PCR) (NotDetected) B.parapertussis DNA PCR (NotDetected) C. pneumoniae DNA (PCR) (NotDetected) Coronavirus OC43 (PCR) (NotDetected) Coronavirus HKU1 (PCR) (NotDetected) Coronavirus 229E (PCR) (NotDetected) SARS-CoV-2 (PCR) (NotDetected) Coronavirus NL63 (PCR) (NotDetected) Human Metapneumovir PCR (NotDetected) Influenza Type A (PCR) (NotDetected) Influenza Type B (PCR) (NotDetected) M. pneumoniae (PCR) (NotDetected) Parainfluenza 1 (PCR) (NotDetected) Parainfluenza 2 (PCR) (NotDetected) Parainfluenza 3 (PCR) (NotDetected) Parainfluenza 4 (PCR) (NotDetected) RSV (PCR) (NotDetected) Entero/Rhino (PCR) (NotDetected) Blood Type A Positive Antibody Screen NEGATIVE Crossmatch See Detail Diagnostic Findings XR wrist LT min 3V routine CLINICAL HISTORY: Wrist trauma. COMPARISON: None FINDINGS: There is left forearm and wrist soft tissue swelling. Note is made of an acute mildly displaced fracture the base of the ulnar styloid. There is also an acute comminuted moderately displaced intra-articular distal left radial fracture with slight dorsal tilt of the distal component. No carpal bone fracture is present. IMPRESSION: 1. Acute comminuted displaced distal left radial intra-articular fracture with dorsal tilt of the distal component. 2. Acute mildly displaced distal left ulnar fracture.
[2023-02-26] MEDS: ACETAMINOPHEN 325 MG TAB PO PRN ×2 (04:55→16:10)
[2023-02-26] MEDS: amLODIPine BESYLATE 5 MG TAB PO SCH (08:22)
[2023-02-26] MEDS: SENNA 8.6 MG TAB PO SCH (08:22)
[2023-02-26] MEDS: FERROUS SULFATE 325 MG TAB PO SCH (08:22)
[2023-02-26] MEDS: ENOXAPARIN INJ 40 MG/0.4 ML SYR SQ SCH (08:23)
[2023-02-26] MEDS: CHOLECALCIFEROL 1,000 UNITS 25 MCG TAB PO SCH (08:23)
[2023-02-26] MEDS: CYANOCOBALAMIN 1000 MCG/ML VIAL IM SCH (08:24)
[2023-02-26] MEDS: POLYETHYLENE (MIRALAX) 17 GM PACK PO SCH (08:24)
[2023-02-26 08:51] LABS: Albumin Globulin Ratio 1.7 (0.9-2); Albumin Level 4.3 gm/dl (3.4-5.0); BUN Creatinine Ratio 20.4 (10-20); Bilirubin,Total 1.6 mg/dl (0.2-1.0); Calcium 9.3 mg/dl (8.6-10.3); Creatinine Clr Calc Pharmacy 66.7 ml/min; Est GFR (African American) 103.3 ml/min; Est GFR (Non-African American) 89.1 ml/min; Globulin 2.5 gm/dl (2.5-4.0); Magnesium 2.1 mg/dl (1.7-2.4); Potassium 3.5 mmol/L (3.5-5.1); Total Protein 6.8 gm/dl (6.0-8.3)
[2023-02-26 08:58] LABS: Hematocrit (blood only) 24.4 % (37.0-47.0); Hemoglobin 8.8 g/dl (12.0-16.0); Mean Corpuscular Hemoglobin 34.1 pg (25.0-34.0); Mean Corpuscular Hgb Conc 36.1 g/dL (32.0-36.0); Mean Corpuscular Volume 94.6 fL (80.0-100.0); Mean Platelet Volume 11.3 fL (9.4-12.4); Nucleated RBC # (auto) 0.04 K/uL (0.00-0.12); Nucleated RBC % (auto) 0.8 %; Platelet Count 107 K/uL (130-400); Red Blood Count 2.58 M/uL (4.20-5.40); White Blood Count 4.85 K/ul (4.8-10.8)
[2023-02-26 09:18] LABS: Anisocytosis Present; Basophils # (auto) 0.01 K/uL (0.00-0.20); Basophils % (auto) 0.2 %; Immature Granulocytes # (auto) 0.09 K/uL (0.01-0.20); Immature Granulocytes % (auto) 1.9 %; Lymphocytes # (auto) 1.66 K/uL (1.20-3.40); Lymphocytes % (auto) 34.2 %; Monocytes # (auto) 0.44 K/uL (0.11-0.59); Monocytes % (auto) 9.1 %; Neutrophils # (auto) 2.65 K/uL (1.40-6.50); Neutrophils % (auto) 54.6 %
--- NOTE | 2023-02-26 09:25 | Electrocardiogram Report ---
Test Reason : Blood Pressure : / mmHG Vent. Rate : 120 BPM Atrial Rate : 120 BPM P-R Int : 116 ms QRS Dur : 082 ms QT Int : 322 ms P-R-T Axes : 067 063 063 degrees QTc Int : 455 ms Sinus tachycardia Nonspecific ST and T wave abnormality Abnormal ECG When compared with ECG of 14-JAN-2023 11:27, No significant change was found Confirmed by Andrew Caruso ([id number]) on 02/26/2023 9:24:32 AM Referred By: Lee Tellez Confirmed By:Andrew Caruso
--- NOTE | 2023-02-26 09:30 | Electrocardiogram Report ---
Test Reason : Blood Pressure : / mmHG Vent. Rate : 099 BPM Atrial Rate : 099 BPM P-R Int : 120 ms QRS Dur : 090 ms QT Int : 360 ms P-R-T Axes : 060 060 075 degrees QTc Int : 462 ms Normal sinus rhythm Nonspecific ST abnormality Abnormal ECG When compared with ECG of 24-FEB-2023 17:44, (unconfirmed) No significant change Confirmed by Andrew Caruso ([id number]) on 02/26/2023 9:29:35 AM Referred By: Lee Tellez Confirmed By:Andrew Caruso
--- NOTE | 2023-02-26 09:46 | Orthopedic Progress Note ---
Date of Service February 26, 2023 Assessment & Plan (1) Closed fracture of left wrist: Plan: -Sling left upper extremity as needed for comfort. I did remove it today as it was not in the correct position and around her neck. She may want to use this when out of bed mostly. -Nonweightbearing left wrist at all times. -Keep splint on left wrist at all times. -Encourage strict elevation of her left forearm and hand above her heart to reduce swelling in preparation for open reduction internal fixation. -Discussed conservative treatment versus surgical intervention with patient. She does wish to proceed with surgical intervention. She is scheduled for an o pen reduction internal fixation of the left distal radius with Dr. Mcdonough on Monday, March 01, 2023. Maintain splint until then. Will need a couple days to resolve edema. Informed consent obtained. Risks and benefits of the procedure were discussed. Consent was signed and placed on chart. Made n.p.o. after midnight on 03/01/2023. -She normally ambulates with a walker. She will benefit from a platform walker for ambulation with PT and OT. -Ambulate as tolerated. -Pain medication as needed. -Ice to left wrist as needed for pain and swelling. -Encouraged range of motion of her fingers elbow and shoulder as tolerated. -May need placement postoperatively. -Patient understands and agrees with the plan. Please call or [place] text Dr. Mcdonough with any questions or concerns. Admission and Anticipated Discharge Date Admission Date: February 24, 2023 Subjective Patient seen and examined on a.m. rounds. She reports that she has a little discomfort in her wrist. I asked if she has been elevating her wrist and she says she did not know she was supposed to. Reports the splint is fitting her well. Physical Exam Physical Exam: In general she is appropriately conversant alert and oriented x 3. Left wrist exam reveals a splint in good position. There is minimal swelling in her fingers. She is able to fire EPL FPL and interossei. She has some slight decrease sensation to moving light touch in the median nerve distribution. Sensory intact to light touch in the ulnar and radial nerve distributions. Results & Data Vital Signs (Past 12 Hours) Vital Signs Temp Pulse Pulse Resp BP Pulse Ox O2 Del Method 02/26/23 08:06 36.4 C L 82 18 147/74 H 95 Room Air 02/26/23 04:04 37.1 C 93 H 20 154/87 H 93 Room Air 02/25/23 23:42 77 02/25/23 23:00 36.9 C 79 20 111/64 96 Room Air
--- NOTE | 2023-02-26 12:34 | XRay Report ---
XR femur RT 2V routine CLINICAL HISTORY: Right femur pain. Fall. COMPARISON STUDY: Pelvis 01/14/2023. Right femur 09/09/2021. FINDINGS: No acute fracture or dislocation within the right femur. Postoperative changes again noted. The hardware appears intact. No abnormal periprosthetic lucency. There is normal, healed mid shaft r ight femoral fracture. Soft tissues are unremarkable. IMPRESSION: Stable postoperative changes within the right femur. No acute fracture or dislocation. ACT 112: Negative or not required by law. Electronically signed by: Hilario Moore M.D. 02/26/2023 12:31 PM
--- NOTE | 2023-02-26 14:39 | Hospitalist Progress Note ---
Date of Service February 26, 2023 Assessment & Plan (1) Accidental fall: Plan: No syncope. Continue OT and PT. She is nonweightbearing status on the left arm due to the left wrist fracture. (2) Anemia, macrocytic: Plan: Severe B12 deficiency based on labs from previous admission. She is now on supplementation. Hemoglobin improved from 6.2 up to 8.8 with transfusion. (3) Acute UTI (urinary tract infection): Plan: Urinary tract infection symptoms. Treated with Cipro. Urinalysis negative here. (4) COVID-19: Plan: Positive nasal swab. Asymptomatic. CXR neg. continue vitamin D. No treatment with remdesivir or Paxlovid indicated (5) Closed fracture of left wrist: Plan: Appreciate orthopedic consultation and recommendations. The left wrist has been immobilized and nonweightbearing. Open reduction internal fixation will be completed March 01. Continue pain control measures as needed (6) CHI (closed head injury): Plan: Due to mechanical fall at home. Facial contusion but no fractures. Head and cervical spine CTs negative (7) Orthostatic hypotension: Plan: Now resolved Plan Open reduction internal fixation left wrist fracture will be completed on March 01. She requires a walker at home and will be unable to use it for a while. She will need placement. Admission and Anticipated Discharge Date Admission Date: February 26, 2023 Subjective Alert and oriented. No distress. She states she uses a walker while at home. However, with the left wrist fracture which will receive surgical attention on March 01, she is unable to weight-bear at all on the left arm. It appears she will need placement. She is admitted from observation. She was COVID- positive by nasal swab but no significant symptoms. She does not require remdesivir or Paxlovid. Continue vitamin D. Hemoglobin improved to 8.8 after transfusion. Review of Systems 2 Review of Systems: Constitutional-no fever or chills ENT-no blurred vision, no double vision, no epistaxis, no sore throat Respiratory-no cough, no wheezing, no shortness of breath Cardiac-no palpitations, no chest pain, no syncope GI-no nausea, vomiting, diarrhea, melena, hematochezia -no urinary retention, no urinary incontinence, no dysuria, no hematuria Musculoskeletal-no joint pain, no muscle tenderness Skin-no bruising, no rashes, no pruritus Neuro-no isolated weakness, no paresthesia, no weakness Psych-no depression, no anxiety Physical Exam 2 Physical Exam: General-alert and oriented x3, no fevers, no chills HEENT-head atraumatic and normocephalic, pupils equal and reactive to light, extraocular muscles intact Neck-no lymphadenopathy or thyromegaly, trachea midline Chest-clear to auscultation percussion. No rales wheezing or rhonchi Cardiac-regular rate and rhythm, normal S1 and S2 Abdomen-normal bowel sounds, nontender, no hepatosplenomegaly Extremities-no cyanosis, clubbing, or edema. Left wrist immobilized in a brace Neuro-cranial nerves II through XII intact, motor and sensory function within normal limits, strength symmetrical, no focal deficits Psych-normal affect, normal mood Results & Data Results & Data Vital Signs (Past 12 Hours) Vital Signs Temp Pulse Pulse Resp BP Pulse Ox O2 Del Method 02/26/23 12:11 36.9 C 85 18 123/71 93 Room Air 02/26/23 08:06 36.4 C L 82 18 147/74 H 95 Room Air 02/26/23 07:15 78 02/26/23 04:04 37.1 C 93 H 20 154/87 H 93 Room Air Laboratory Results 02/26/23 07:51 02/26/23 07:51 PG Care Time/CCT Total # of Minutes Spent Total Time Spent with Patient: Total time spent is greater than 50% in coordination of care (as documented) at patient's floor/unit and/or counseling patient: Coding Level of Care Code 80362 SUB INP/OBS CARE 3/50MIN Diagnoses Accidental fall W19.XXXA Anemia, macrocytic D53.9 Acute UTI (urinary tract infection) N39.0 COVID-19 U07.1 Closed fracture of left wrist S62.102A CHI (closed head injury) S09.90XA Orthostatic hypotension I95.1
[2023-02-27 06:23] LABS: Hematocrit (blood only) 23.5 % (37.0-47.0); Hemoglobin 8.3 g/dl (12.0-16.0); Immature Granulocytes # (auto) 0.06 K/uL (0.01-0.20); Immature Granulocytes % (auto) 1.4 %; Lymphocytes # (auto) 1.79 K/uL (1.20-3.40); Lymphocytes % (auto) 41.7 %; Mean Corpuscular Hemoglobin 34.2 pg (25.0-34.0); Mean Corpuscular Hgb Conc 35.3 g/dL (32.0-36.0); Mean Corpuscular Volume 96.7 fL (80.0-100.0); Mean Platelet Volume 12.5 fL (9.4-12.4); Monocytes # (auto) 0.58 K/uL (0.11-0.59); Monocytes % (auto) 13.5 %; Neutrophils # (auto) 1.86 K/uL (1.40-6.50); Neutrophils % (auto) 43.4 %; Nucleated RBC # (auto) 0.04 K/uL (0.00-0.12); Nucleated RBC % (auto) 0.9 %; Platelet Count 115 K/uL (130-400); Red Blood Count 2.43 M/uL (4.20-5.40); White Blood Count 4.29 K/ul (4.8-10.8)
[2023-02-27 06:26] LABS: BUN Creatinine Ratio 17.9 (10-20); Creatinine Clr Calc Pharmacy 65.8 ml/min; Est GFR (African American) 102.1 ml/min; Est GFR (Non-African American) 88.1 ml/min; Potassium 3.4 mmol/L (3.5-5.1)
[2023-02-27 06:53] LABS: Anisocytosis Present; Poikilocytosis Present; Polychromasia 1+
[2023-02-27] MEDS: SENNA 8.6 MG TAB PO SCH (08:00)
[2023-02-27] MEDS: POLYETHYLENE (MIRALAX) 17 GM PACK PO SCH (08:00)
[2023-02-27] MEDS ORDERED: POTASSIUM CHLORIDE CRTAB 20 MEQ TABCR PO ONE (10:13)
[2023-02-27] MEDS: amLODIPine BESYLATE 5 MG TAB PO SCH (10:19)
[2023-02-27] MEDS: CHOLECALCIFEROL 1,000 UNITS 25 MCG TAB PO SCH (10:20)
[2023-02-27] MEDS: ENOXAPARIN INJ 40 MG/0.4 ML SYR SQ SCH (10:20)
[2023-02-27] MEDS: FERROUS SULFATE 325 MG TAB PO SCH ×2 (10:21→18:26)
[2023-02-27] MEDS: CYANOCOBALAMIN 1000 MCG/ML VIAL IM SCH (10:21)
[2023-02-27 10:32] LABS: Reticulocyte % 2.8 % (0.5-2.0); Reticulocytes # 0.07 10^6/uL (0.02-0.10)
--- NOTE | 2023-02-27 14:40 | Hospitalist Progress Note ---
Date of Service February 27, 2023 Assessment & Plan (1) Accidental fall: Plan: No syncope. Continue OT and PT. She is nonweightbearing status on the left arm due to the left wrist fracture. (2) Anemia, macrocytic: Plan: Severe B12 deficiency based on labs from previous admission. She is now on supplementation. Hemoglobin improved with transfusion but is now trending down. Fecal occult blood is negative. Reticulocyte count is elevated. Intravascular hemolysis needs to be ruled out. LDH and serum haptoglobin ordered and pending. She may need hematology consultation. (3) Acute UTI (urinary tract infection): Plan: Urinary tract infection symptoms. Treated with Cipro. Urinalysis negative here. (4) COVID-19: Plan: Positive nasal swab. Asymptomatic. CXR neg. Continue vitamin D. No treatment with remdesivir or Paxlovid indicated (5) Closed fracture of left wrist: Plan: Appreciate orthopedic consultation and recommendations. The left wrist has been immobilized and nonweightbearing status ordered. Open reduction internal fixation will be completed March 01. Continue pain control measures as needed (6) CHI (closed head injury): Plan: Due to mechanical fall at home. Facial contusion but no fractures. Head and cervical spine CTs negative (7) Orthostatic hypotension: Plan: Now resolved Plan Open reduction internal fixation left wrist fracture will be completed on March 01. She requires a walker at home and will be unable to use it for a while. She will need placement at the time of discharge Admission and Anticipated Discharge Date Admission Date: February 26, 2023 Subjective Alert. Pleasant. No new problems. Hemoglobin is again trending down. Fecal occult blood is negative. Reticulocyte count is elevated. This raises the specter of intravascular hemolysis. LDH and haptoglobin ordered and pending. If these are abnormal, we will consult hematology. Mild hypokalemia has been addressed with oral potassium replacement. Open reduction internal fixation left wrist fracture will be accomplished on March 01. She ambulates with a walker and will not be able to weight-bear on the left arm. She probably will need placement. Review of Systems 2 Review of Systems: Constitutional-no fever or chills ENT-no blurred vision, no double vision, no epistaxis, no sore throat Respiratory-no cough, no wheezing, no shortness of breath Cardiac-no palpitations, no chest pain, no syncope GI-no nausea, vomiting, diarrhea, melena, hematochezia -no urinary retention, no urinary incontinence, no dysuria, no hematuria Musculoskeletal-left wrist discomfort from fracture. Skin-no bruising, no rashes, no pruritus Neuro-no isolated weakness, no paresthesia Psych-no depression, no anxiety Physical Exam 2 Physical Exam: General-alert and oriented x3, no fevers, no chills HEENT-head atraumatic and normocephalic, pupils equal and reactive to light, extraocular muscles intact Neck-no lymphadenopathy or thyromegaly, trachea midline Chest-clear to auscultation percussion. No rales wheezing or rhonchi Cardiac-regular rate and rhythm, normal S1 and S2 Abdomen-normal bowel sounds, nontender, no hepatosplenomegaly Extremities-no cyanosis, clubbing, or edema. Left wrist immobilized in a brace Neuro-cranial nerves II through XII intact, motor and sensory function within normal limits, strength symmetrical, no focal deficits Psych-normal affect, normal mood Results & Data Results & Data Vital Signs (Past 12 Hours) Vital Signs Temp Pulse Resp BP Pulse Ox O2 Del Method 02/27/23 11:21 36.6 C 73 16 138/65 95 Room Air 02/27/23 08:53 37.3 C 77 16 130/71 97 Room Air 02/27/23 03:00 37.0 C 85 16 155/80 H 97 Room Air Laboratory Results 02/27/23 05:31 02/27/23 05:31 PG Care Time/CCT Total # of Minutes Spent Total Time Spent with Patient: Total time spent is greater than 50% in coordination of care (as documented) at patient's floor/unit and/or counseling patient: Coding Level of Care Code 77358 SUB INP/OBS CARE 3/50MIN Diagnoses Accidental fall W19.XXXA Anemia, macrocytic D53.9 Acute UTI (urinary tract infection) N39.0 COVID-19 U07.1 Closed fracture of left wrist S62.102A CHI (closed head injury) S09.90XA Orthostatic hypotension I95.1
[2023-02-28 09:20] LABS: Basophils # (auto) 0.01 K/uL (0.00-0.20); Basophils % (auto) 0.3 %; Eosinophils # (auto) 0.01 K/uL (0.00-0.50); Eosinophils % (auto) 0.3 %; Hematocrit (blood only) 24.6 % (37.0-47.0); Hemoglobin 8.6 g/dl (12.0-16.0); Immature Granulocytes # (auto) 0.08 K/uL (0.01-0.20); Immature Granulocytes % (auto) 2.1 %; Lymphocytes # (auto) 1.43 K/uL (1.20-3.40); Lymphocytes % (auto) 37.3 %; Mean Corpuscular Hemoglobin 34.8 pg (25.0-34.0); Mean Corpuscular Volume 99.6 fL (80.0-100.0); Mean Platelet Volume 9.7 fL (9.4-12.4); Monocytes % (auto) 13.1 %; Neutrophils % (auto) 46.9 %; Nucleated RBC # (auto) 0.03 K/uL (0.00-0.12); Nucleated RBC % (auto) 0.8 %; Platelet Count 98 K/uL (130-400); Red Blood Count 2.47 M/uL (4.20-5.40); White Blood Count 3.83 K/ul (4.8-10.8)
[2023-02-28 09:37] LABS: BUN Creatinine Ratio 21.9 (10-20); Calcium 9.2 mg/dl (8.6-10.3); Creatinine Clr Calc Pharmacy 57.2 ml/min; Est GFR (African American) 97.7 ml/min; Est GFR (Non-African American) 84.3 ml/min
[2023-02-28 09:44] LABS: Anisocytosis Present; Poikilocytosis Present; Polychromasia 1+
[2023-02-28] MEDS: POLYETHYLENE (MIRALAX) 17 GM PACK PO SCH (10:01)
[2023-02-28] MEDS: SENNA 8.6 MG TAB PO SCH (10:01)
[2023-02-28] MEDS: NAPROXEN 250 MG TAB PO PRN ×2 (10:02→20:05)
[2023-02-28] MEDS: amLODIPine BESYLATE 5 MG TAB PO SCH (10:02)
[2023-02-28] MEDS: FERROUS SULFATE 325 MG TAB PO SCH ×2 (10:03→17:04)
[2023-02-28] MEDS: CHOLECALCIFEROL 1,000 UNITS 25 MCG TAB PO SCH (10:03)
[2023-02-28] MEDS: ENOXAPARIN INJ 40 MG/0.4 ML SYR SQ SCH (10:04)
[2023-02-28] MEDS: CYANOCOBALAMIN (B-12) 500 MCG TABLET PO SCH (10:04)
--- NOTE | 2023-02-28 11:00 | Orthopedic Progress Note ---
Date of Service February 28, 2023 Assessment & Plan (1) Closed fracture of left wrist: Plan: -Sling left upper extremity as needed for comfort. -Nonweightbearing left wrist at all times. -Keep splint on left wrist at all times. -Encourage strict elevation of her left forearm and hand above her heart to reduce swelling in preparation for open reduction internal fixation. -She is scheduled for an open reduction internal fixation of the left distal radius with Dr. Mcdonough on Monday, March 01, 2023. Maintain splint until then. Informed consent obtained. in chart. Made n.p.o. after midnight on 03/01/2023. -Hold anticoags for surgery tomorrow -She normally ambulates with a walker. She will benefit from a platform walker for ambulation with PT and OT. -Ambulate as tolerated. -Pain medication as needed. -Ice to left wrist as needed for pain and swelling. -Encouraged range of motion of her fingers elbow and shoulder as tolerated. -May need placement postoperatively - said she previously went to rehab in [place] and really liked it. Recommend case management involved for placement -Patient understands and agrees with the plan. Please call or [place] text Dr. Mcdonough with any questions or concerns. Admission and Anticipated Discharge Date Admission Date: February 26, 2023 Subjective Pt seen and examined bedside. She says that she is doing well overall, pain controlled. Some tingling sensation in her right pointer finger and she has trouble moving her thumb. Physical Exam Physical Exam: Splint in tact. She can wiggle all of her fingers and can slightly flex and exten her IP thumb jt. She reports tingling sensation in her right pointer finger compared to contralateral. All other sensation distally in tact. Skin warm and pink, cap refill less than 2 seconds. She can flex and extend her elbw. Results & Data Vital Signs (Past 12 Hours) Vital Signs Temp Pulse Pulse Resp BP Pulse Ox O2 Del Method 02/28/23 08:04 36.8 C 83 18 131/73 96 Room Air 02/28/23 07:15 63 02/28/23 04:00 37 C 70 18 110/60 97 Room Air 02/28/23 02:01 83 02/27/23 23:07 37.1 C 80 16 145/75 H 97 Room Air
--- NOTE | 2023-02-28 15:33 | Hospitalist Progress Note ---
Date of Service February 28, 2023 Assessment & Plan (1) Accidental fall: Plan: No syncope. Continue OT and PT. She is nonweightbearing status on the left arm due to the left wrist fracture. (2) Anemia, macrocytic: Plan: Severe B12 deficiency based on labs from previous admission. She is now on supplementation. Hemoglobin improved with transfusion but is now trending down. Fecal occult blood is negative. Reticulocyte count is elevated. Intravascular hemolysis needs to be ruled out. 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 LDH is markedly elevated. Serum haptoglobin remains pending. Hematology consultation requested. (3) Acute UTI (urinary tract infection): Plan: Urinary tract infection symptoms. Treated with Cipro. Urinalysis negative here. (4) COVID-19: Plan: Positive nasal swab. Asymptomatic. CXR neg. Continue vitamin D. No treatment with remdesivir or Paxlovid indicated (5) Closed fracture of left wrist: Plan: Appreciate orthopedic consultation and recommendations. The left wrist has been immobilized and nonweightbearing status ordered. Open reduction internal fixation will be completed tomorrow, March 01. Continue pain control measures as needed (6) CHI (closed head injury): Plan: Due to mechanical fall at home. Facial contusion but no fractures. Head and cervical spine CTs negative (7) Orthostatic hypotension: Plan: Now resolved Plan Open reduction internal fixation left wrist fracture will be completed tomorrowMarch 01. She requires a walker at home and will be unable to use it for a while. She will need placement at the time of discharge Admission and Anticipated Discharge Date Admission Date: February 26, 2023 Subjective Alert and oriented. No new problems. LDH is significantly elevated. Haptoglobin is pending. Peripheral smear ordered. 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 Hematology consultation requested. Reticulocyte count is elevated but iron levels are normal and fecal occult blood is negative. She will undergo open reduction internal fixation left wrist fracture tomorrow, March 01. Mild hypokalemia has been corrected. Hemoglobin is somewhat low but stable at 8.6. OT and PT both recommend IPR placement at discharge. Review of Systems 2 Review of Systems: Constitutional-no fever or chills ENT-no blurred vision, no double vision, no epistaxis, no sore throat Respiratory-no cough, no wheezing, no shortness of breath Cardiac-no palpitations, no chest pain, no syncope GI-no nausea, vomiting, diarrhea, melena, hematochezia -no urinary retention, no urinary incontinence, no dysuria, no hematuria Musculoskeletal-left wrist discomfort from fracture. Skin-no bruising, no rashes, no pruritus Neuro-no isolated weakness, no paresthesia Psych-no depression, no anxiety Physical Exam 2 Physical Exam: General-alert and oriented x3, no fevers, no chills HEENT-head atraumatic and normocephalic, pupils equal and reactive to light, extraocular muscles intact Neck-no lymphadenopathy or thyromegaly, trachea midline Chest-clear to auscultation percussion. No rales wheezing or rhonchi Cardiac-regular rate and rhythm, normal S1 and S2 Abdomen-normal bowel sounds, nontender, no hepatosplenomegaly Extremities-no cyanosis, clubbing, or edema. Left wrist immobilized in a brace Neuro-cranial nerves II through XII intact, motor and sensory function within normal limits, strength symmetrical, no focal deficits Psych-normal affect, normal mood Results & Data Results & Data Vital Signs (Past 12 Hours) Vital Signs Temp Pulse Pulse Resp BP Pulse Ox O2 Del Method 02/28/23 11:37 37.1 C 75 18 127/69 95 Room Air 02/28/23 08:04 36.8 C 83 18 131/73 96 Room Air 02/28/23 07:15 63 02/28/23 04:00 37 C 70 18 110/60 97 Room Air Laboratory Results 02/28/23 08:49 02/28/23 08:49 PG Care Time/CCT Total # of Minutes Spent Total Time Spent with Patient: Total time spent is greater than 50% in coordination of care (as documented) at patient's floor/unit and/or counseling patient: Coding Level of Care Code 95460 SUB INP/OBS CARE 3/50MIN Diagnoses Accidental fall W19.XXXA Anemia, macrocytic D53.9 Acute UTI (urinary tract infection) N39.0 COVID-19 U07.1 Closed fracture of left wrist S62.102A CHI (closed head injury) S09.90XA Orthostatic hypotension I95.1
--- NOTE | 2023-02-28 17:00 | Oncology Consultation ---
Date of Consultation February 28, 2023 Assessment & Plan (1) Anemia, macrocytic: Will wait for the results of haptoglobin to determine whether the patient needs immunosuppressive therapy or not. In case we decide to give her immunosuppressive therapy that will include Solu-Medrol 1 g/day. She has elevated LDH, however she also had a concomitant viral infection. At this time it is not clear whether the elevated LDH is specific or nonspecific for autoimmune hemolytic anemia Catarina test has been negative. My concerns for warm AIHA are low. Hematology will continue to follow the patient and make appropriate recommendations. At this time will recommend transfusion to keep her hemoglobin level over 7 g/dL. Plan . Thank you for this interesting hematological consult. Hematology will continue to follow the patient and make appropriate recommendations. History of Present Illness Reason for Consultation: Autoimmune hemolytic anemia Attending Physician: Dennys Das MD History of Present Illness The patient is a very pleasant 82-year-old woman who has been in the hospital multiple times over the last few months, has been admitted this time about after sustaining a fall and getting a fracture. She is extremely weak and tired, on admission her hemoglobin was only 6.5 g/dL he was transfused since then her hemoglobin has been between 8 to 9 g/dL. Baseline hemoglobin runs between 9 to 10 g/dL. In January she again had hemoglobin routine 6 to 7 g/dL. At that [facility] the workup was done and included a Catarina test which was negative. Catarina test was also performed during this admission and turned out to be negative rest of the hemolytic workup revealed elevated LDH greater than 1000. Catarina test in 2020 was positive for her bilirubin was elevated. Stool occult blood has been negative. Hematology has been consulted to assist in management of this patient with possible autoimmune hemolytic anemia.- Allergies Allergy/AdvReac Type Severity Reaction Status Date / Time minocycline [From Minocin] Allergy Severe SEVERE Verified 02/24/23 23: PAIN IN THE HEAD procaine Allergy Severe NOVACAINE->CAN'T Verified 02/24/23: BREATH erythromycin base Allergy Unknown Unknown Verified 02/24/23: oxytetracycline Allergy Unknown . Verified 02/24/23: polymyxin B Allergy Unknown . Verified 02/24/23: prednisone Allergy Unknown "COULD BE Verified 02/24/23: FATAL" - PER PCP Sulfa (Sulfonamide Allergy Unknown Rash Verified 02/24/23 23:28 Antibiotics) tramadol AdvReac Unknown "PUT ME IN Verified 02/24/23 23:28 A DAZE" Home Medications Medication Instructions Recorded Confirmed Type cholecalciferol (vitamin D3) 25 2,000 unit PO QAM #60 caps 12/10/20 02/24/23 Rx mcg (1,000 unit) capsule acetaminophen 500 mg tablet 1,000 mg PO BID PRN Pain 02/24/23 02/24/23 History (Tylenol Extra Strength) ascorbic acid (vitamin C) 100 mg 0 mg PO DAILY 02/24/23 02/24/23 History tablet ciprofloxacin HCl 500 mg tablet 500 mg PO ONCE 02/24/23 02/24/23 History naproxen sodium 220 mg tablet 220 mg PO DAILY PRN Pain 02/24/23 02/24/23 History (Aleve) Patient History Medical History Anxiety Cancer SKIN CANCER Cardiac murmur H/O A CHILD Femur fracture Hip fracture Hypertension H/O - NO MEDICATIONS CURRENTLY PER MD ORDERS Nausea and vomiting after administration of anesthetic agent Osteoporosis Retinal artery occlusion Urinary tract infection RECURRENT, TAKING ABX. (STARTED 04/25/18) Surgical History H/O exploratory laparotomy History of dilatation and curettage History of open reduction and internal fixation (ORIF) procedure "left femur bobby" History of tonsillectomy and adenoidectomy Social History Smoking Status: Never smoker Second Hand Exposure: No; Do You Dip or Chew Tobacco: No; Hx Alcohol Use: No Hx Substance Use: No Preferred Language: Albanian Communication Ability: Effective In School Suspension Aide Required: No Beliefs That Will Affect Care: None Current Living Situation: Family Feels Safe at Home: Yes Assistive Devices: Cane and Walker Results & Data Vital Signs (Past 12 Hours) Vital Signs Temp Pulse Pulse Resp BP Pulse Ox O2 Del Method 02/28/23 15:41 36.8 C 72 18 119/69 97 Room Air 02/28/23 11:37 37.1 C 75 18 127/69 95 Room Air 02/28/23 08:04 36.8 C 83 18 131/73 96 Room Air 02/28/23 07:15 63
[2023-03-01] MEDS ORDERED: ceFAZolin 2000MG 2,000 MG/15 ML SYR IV ONE (06:00)
[2023-03-01] MEDS ORDERED: LIDOCAINE 2% 2 ML VIAL/AMP(20MG/ML) INFIL ONE (06:39)
[2023-03-01] MEDS ORDERED: PROPOFOL IV EMULSION 10 MG/ML 20 ML VIAL IV ONE (06:39)
[2023-03-01] MEDS ORDERED: ONDANSETRON INJ 2 MG/ML 2 ML VIAL ONE (06:39)
--- NOTE | 2023-03-01 06:39 | Anesthesiology Consultation ---
Date of Service March 01, 2023 Assessment & Plan (1) Encounter for pre-operative examination: Chart Review Chart Review: Acceptable Risk for Surgery History Surgery Operation Date: 03/01/23 07:00 Proposed Procedures p Left Distal Radius Open Reduction Internal Fixation - Ramon Mcdonough MD Height/Weight Height: 5 ft Weight: 62 kg Allergies Allergy/AdvReac Type Severity Reaction Status Date / Time minocycline [From Minocin] Allergy Severe SEVERE Verified 02/24/23 23:28 PAIN IN THE HEAD procaine Allergy Severe NOVACAINE->CAN'T Verified 02/24/23 23:28 BREATH erythromycin base Allergy Unknown Unknown Verified 02/24/23 23:28 oxytetracycline Allergy Unknown . Verified 02/24/23 23:28 polymyxin B Allergy Unknown . Verified 02/24/23 23:28 prednisone Allergy Unknown "COULD BE Verified 02/24/23 23:28 FATAL" - PER PCP Sulfa (Sulfonamide Allergy Unknown Rash Verified 02/24/23 23:28 Antibiotics) tramadol AdvReac Unknown "PUT ME IN Verified 02/24/23 23:28 A DAZE" Medications Home Medications Medication Instructions Recorded Confirmed Last Taken cholecalciferol (vitamin D3) 25 2,000 unit PO QAM #60 caps 12/10/20 02/24/23 Unknown mcg (1,000 unit) capsule acetaminophen 500 mg tablet 1,000 mg PO BID PRN Pain 02/24/23 02/24/23 Unknown (Tylenol Extra Strength) ascorbic acid (vitamin C) 100 mg 0 mg PO DAILY 02/24/23 02/24/23 Unknown tablet ciprofloxacin HCl 500 mg tablet 500 mg PO ONCE 02/24/23 02/24/23 02/24/23 naproxen sodium 220 mg tablet 220 mg PO DAILY PRN Pain 02/24/23 02/24/23 Unknown (Aleve) Active Medications Generic Name Dose Route Start Last Admin Trade Name Freq PRN Reason Stop Dose Admin Acetaminophen 650 mg 02/25/23 06:00 02/26/23 16:10 Acetaminophen 325 Mg Tab PO 03/27/23 05:59 650 mg Q4H PRN Administration Pain or Fever Amlodipine Besylate 10 mg 02/25/23 09:00 02/28/23 10:02 Amlodipine Besylate 5 Mg Tab PO 03/27/23 08:59 10 mg DAILY AGUILAR Administration Cyanocobalamin 1,000 mcg 02/28/23 09:00 02/28/23 10:04 Cyanocobalamin (B-12) 500 Mcg Tablet PO 03/30/23 08:59 1,000 mcg QAM AGUILAR Administration Ferrous Sulfate 325 mg 02/27/23 17:00 02/28/23 17:04 Ferrous Sulfate 325 Mg Tab PO 03/29/23 16:59 325 mg BIDM AGUILAR Administration Naproxen 250 mg 02/26/23 18:09 02/28/23 20:05 Naproxen 250 Mg Tab PO 03/28/23 18:08 250 mg BID PRN Administration Pain Polyethylene Glycol 17 gm 02/25/23 09:00 02/28/23 10:01 Polyethylene (Miralax) 17 Gm Pack PO 03/27/23 08:59 17 gm DAILY AGUILAR Administration Sennosides 8.6 mg 02/25/23 09:00 02/28/23 10:01 Senna 8.6 Mg Tab PO 03/27/23 08:59 8.6 mg DAILY AGUILAR Administration Vitamin D 2,000 units 02/25/23 09:00 02/28/23 10:03 Cholecalciferol 1,000 Units 25 Mcg Tab PO 03/27/23 08:59 2,000 units QAM AGUILAR Administration NPO Date Last Intake of Fluids: 02/28/23 Time Last Intake of Fluids: 23:45 Last Intake of Fluids Comment: sip Date Last Intake of Solids: 02/28/23 Time Last Intake of Solids: 23:30 Past Medical History Medical History Nausea and vomiting after administration of anesthetic agent Urinary tract infection RECURRENT, TAKING ABX. (STARTED 04/25/18) Cancer SKIN CANCER Cardiac murmur H/O A CHILD Retinal artery occlusion Anxiety Hip fracture Femur fracture Osteoporosis Hypertension H/O - NO MEDICATIONS CURRENTLY PER MD ORDERS Past Surgical History Surgical History History of dilatation and curettage History of open reduction and internal fixation (ORIF) procedure "left femur bobby" History of tonsillectomy and adenoidectomy H/O exploratory laparotomy Social History Smoking Status: Never smoker Do You Dip or Chew Tobacco: No Hx Alcohol Use: No Hx Substance Use: No substance use type: does not use Physical Exam Vital Signs Last Vital Signs Temp 36.9 C 12/27/23 05:56 Pulse 102 H 03/01/23 05:56 Resp 20 03/01/23 05:56 BP 151/77 H 03/01/23 05:56 Pulse Ox 96 03/01/23 05:56 O2 Del Method Room Air 03/01/23 05:56 Testing Laboratory Results 02/28/23 08:49 02/28/23 08:49 PT 11.3 Seconds (9.0-12.0) 02/24/23 20:40 INR 1.0 (0.9-1.1) 02/24/23 20:40 Urine Color Yellow 02/24/23 19:18 Urine Appearance Clear (Clear) 02/24/23 19:18 Urine pH 6.5 (4.5-7.5) 02/24/23 19:18 Ur Specific [place] 1.014 (1.000-1.030) 02/24/23 19:18 Urine Protein Trace (Negative) H 02/24/23 19:18 Urine Glucose (UA) Negative (Negative) 02/24/23 19:18 Urine Ketones 1+ (Negative) H 02/24/23 19:18 Urine Nitrite Negative (Negative) 02/24/23 19:18 Ur Leukocyte Esterase Negative (Negative) 02/24/23 19:18 Urine WBC (Auto) 1-5 /hpf (0-5) 02/24/23 19:18 Urine RBC (Auto) 0-4 /hpf (0-4) 02/24/23 19:18 U Hyaline Cast (Auto) 1-5 /lpf (0-5) 02/24/23 19:18 U Epithel Cells (Auto) 10-20 /lpf (0-5) H 02/24/23 19:18 Urine Bacteria (Auto) Negative (Negative) 02/24/23 19:18 Blood Type A Positive 02/24/23 20:40 Antibody Screen NEGATIVE 02/24/23 20:40 Electrocardiogram Date: 02/24/23 Findings: + NSR @ (99)
[2023-03-01] MEDS ORDERED: fentaNYL citrate PF 100 MCG/2 ML VIAL ONE (06:40)
[2023-03-01] MEDS ORDERED: ACETAMINOPHEN 1000 MG/100 ML IV IV ONE (06:53)
--- NOTE | 2023-03-01 07:01 | Orthopedic Progress Note ---
Date of Service March 01, 2023 Assessment & Plan (1) Closed fracture of left wrist: Plan: -Proceed to OR this morning for ORIF L distal radius fracture. -Readmit to the floor after surgery -Nonweightbearing left wrist at all times. -Keep splint on left wrist at all times. -Encourage strict elevation of her left forearm and hand above her heart to reduce swelling in preparation for open reduction internal fixation. -Informed consent in chart. -She normally ambulates with a walker. She will benefit from a platform walker for ambulation with PT and OT. -Ambulate as tolerated. -Pain medication as needed. -Ice to left wrist as needed for pain and swelling. -Encouraged range of motion of her fingers elbow and shoulder as tolerated. -May need placement postoperatively - said she previously went to rehab in [place] and really liked it. Recommend case management involved for placement -Patient understands and agrees with the plan. Please call or [place] text Dr. Mcdonough with any questions or concerns. Admission and Anticipated Discharge Date Admission Date: February 26, 2023 Subjective Patient did well overnight. Numbness in her index finger unchanged from prior. She has been NPO since midnight last night. Physical Exam Physical Exam: LUE: splint in place. Decreased sensation to LT index finger. Fires EPL, FPL, FDS, FDP and interossei. Fingers w/wp. Results & Data Vital Signs (Past 12 Hours) Vital Signs Temp Pulse Pulse Resp BP Pulse Ox O2 Del Method 03/01/23 05:56 36.9 C 102 H 20 151/77 H 96 Room Air 03/01/23 04:52 36.4 C L 77 18 123/71 95 Room Air 02/28/23 23:00 72 02/28/23 22:15 36.6 C 71 18 127/68 95 Room Air 02/28/23 19:07 36.7 C 71 18 126/68 96 Room Air
[2023-03-01] MEDS ORDERED: PROMETHAZINE HCL 6.25 MG in SODIUM CHLORIDE 0.9% 50 ML IV PRN (07:04)
[2023-03-01] MEDS ORDERED: ATROPINE SULFATE 0.1 MG/ML 10ML SYR IV PRN (07:04)
[2023-03-01] MEDS ORDERED: BUPIVACAINE 0.5 % 5 MG/1 ML MPF 30ML VIAL ONE (07:37)
--- NOTE | 2023-03-01 08:58 | Operative Report ---
Post Operative Report Pre & Post Diagnosis Operation Date: 03/01/23 07:00 Pre-Op Diagnosis: Displaced intra-articular left distal radius fracture Post-Op Diagnosis: Displaced intra-articular left distal radius fracture I identified the patient and participated in the time-out.: Yes Procedure Operation Date: 03/01/23 07:00 Actual Procedures Open Reduction Internal Fixation of Displaced intra-articular left distal radius fracture - Ramon Mcdonough MD Surgeon Ramon Mcdonough MD Officer Captain Bird Ramachandran PA-C. No resident or fellow was available to assist. Estimated Blood Loss 10 Findings Consistent with Post-Op Diagnosis Fluids 500 cc crystalloid Specimens None Anesthesia Type General Complications none Disposition Disposition: Recovery Room Indications 82-year-old female, had a syncopal event at home and fell onto her outstretched left wrist. She was brought to the emergency room where x-rays demonstrated a displaced left intra-articular distal radius fracture. Additional workup revealed the patient to be anemic with a hemoglobin of 6.2. She was admitted to the hospital and has been here for the last several days. She has been transfused so her hemoglobin is now in the 8 range. Hematology recently saw her yesterday. Her vitamin B12 was noted to be low. She was also found to be in asymptomatic COVID-positive patient and has been on isolation. Examination of her left wrist revealed the patient to have some decreased sensation to light touch in the index finger but was motor intact. I had a long discussion with the patient about her diagnosis. This is an inherently unstable pattern injury and therefore surgery is recommended. I had a long discussion with her about the risks and benefits of surgery, alternatives to surgery, and expected outcomes. After reviewing all these she elected to proceed with surgery. All questions were answered. Informed consent was signed. Description of Procedure Patient was identified in the preoperative holding area where her surgical site was marked. She was brought back to the [facility] isolation room in OR 1 and carefully moved onto the operating room table. General anesthesia was then administered. All bony prominences were padded. Perioperative antibiotics were administered. Nonsterile tourniquet was placed along the upper arm. She was prepped and draped in the usual sterile fashion. Prior to incision a multidisciplinary timeout was called. All in the room were in agreement. I began by making a 7 cm long incision starting at the distal wrist crease and moving proximally. I dissected down through subcutaneous tissues. Small crossing venous branches were coagulated. The FCR tendon was identified. The fascia overlying the FCR was incised in line with the incision. FCR was retracted ulnarly. The deep fascial layer was then incised in line with the incision. Parona space was entered and the FPL was retracted ulnarly. The pronator quadratus was then reflected subperiosteally from radial to ulnar to expose the fracture. Once this was complete the fracture was reduced using the volar carpal translation maneuver. A single K wire was placed through the radial styloid crossing the fracture into the metaphysis to stabilize the fracture. Fluoroscopy was brought in and I was happy with the reduction of the fracture. We could visualize an anatomic reduction in the wound. Therefore, a plate was brought up onto the operating room field. I elected to use the standard width 3-hole DVR plate for a left wrist as this had the best fit on her bone. The plate was secured to the bone using K wires. Fluoroscopy was brought in. Minor modifications to the position of the plate were made and then the oblong screw hole was filled in the proximal aspect of the plate. 3 distal locking screws were then placed. We used fluoroscopy to check the screw lengths and position of the plate. I was very happy with our reduction and therefore I removed the stabilizing K wires from the plate. The 2 remaining proximal screw holes were then filled. I did switch out one of the screws from a 14 to a 12 as it was a little bit longer under fluoroscopy. the radial styloid pin was then removed. The remaining distal locking screws were then placed. Once all of our screws were in place fluoroscopy was once again brought in and we checked the reduction, position of our plate and screw lengths. we had an anatomic reduction with good jewish of the volar tilt and the hardware was in appropriate position. Tourniquet was then let down. Meticulous hemostasis was ensured. The wound was irrigated out with copious amounts of normal saline. Pronator quadratus was laid over the top of the plate but was not repaired as it did not reach. Interrupted, buried 3-0 Vicryl sutures were used in the deep dermal layer. 4-0 nylon's were used in horizontal mattress fashion for the skin. a volar plaster slab splint was applied with the wrist held in neutral and the MCP joints and thumb left free. Patient was then awoke from anesthesia and transferred to recovery room in stable condition. Postoperative course: Patient will be readmitted to the internal medicine service. Although I understand there is a concern for possible autoimmune hemolytic and anemia, I recommend holding any IV steroids until minimum 2-4 weeks after surgery in order to facilitate wound healing. DVT prophylaxis per the primary team. Follow-up as an outpatient 2 weeks from now in my office for x-rays out of the splint and transition to a removable thermoplastic splint. Immediate finger range of motion is encouraged. She should elevate her left upper extremity on pillows. No lifting with the left arm. I attest to the content of the Intraoperative Record and any orders documented therein. Any exceptions are noted below.
--- NOTE | 2023-03-01 09:03 | Operative Report ---
Post Operative Report Pre & Post Diagnosis Operation Date: 03/01/23 07:00 Pre-Op Diagnosis: SYNCOPE, FALL, LEFT WRIST FRACTURE Post-Op Diagnosis: SYNCOPE, FALL, LEFT WRIST FRACTURE I identified the patient and participated in the time-out.: Yes Procedure Operation Date: 03/01/23 07:00 Actual Procedures p Left Distal Radius Open Reduction Internal Fixation(Left) - Ramon Mcdonough MD Surgeon KENTON Mcdonough MD Return Agent Bird Ramachandran PA-C. No resident or fellow was available to assist. Estimated Blood Loss 10 Findings Consistent with Post-Op Diagnosis see operative report Specimens none Drains none Complications none Disposition Accompanied Patient To Recovery: Yes Indications This 82 year old female was admitted after falling and sustaining a left distal radius fracture. She elected to proceed with surgical intervention to improve function and pain control. Preoperative imaging was obtained. Description of Procedure The patient was taken to the operating room where she was given general anesthesia. She was prepped and draped in the usual sterile fashion. Please see Dr. Mcdonough's operative report for specifics of the procedure. I present for the entire case from initial patient positioning through final closure. Assistance was provided in tissue retraction, hemostasis, fracture reduction, hardware placement, and final wound closure. The patient was taken to the recovery room in satisfactory condition. I attest to the content of the Intraoperative Record and any orders documented therein. Any exceptions are noted below.
[2023-03-01] MEDS: fentaNYL citrate PF 100 MCG/2 ML VIAL IV PRN ×3 (09:09→09:21)
[2023-03-01] MEDS ORDERED: ONDANSETRON INJ 2 MG/ML 2 ML VIAL IV PRN (09:29)
[2023-03-01] MEDS: amLODIPine BESYLATE 5 MG TAB PO SCH (10:21)
--- NOTE | 2023-03-01 10:21 | Anesthesiology Progress Note ---
Date of Service March 01, 2023 Anesthesia Post Procedure Vital Signs Vital Signs: Temp Pulse Pulse Pulse Resp BP Pulse Ox 03/01/23 09:40 36.3 C L 62 14 150/76 H 96 03/01/23 09:30 65 16 156/71 H 94 03/01/23 09:20 66 16 162/70 H 95 03/01/23 09:10 58 L 14 165/50 H 99 03/01/23 09:00 36.1 C L 64 16 157/65 H 97 03/01/23 07:00 90 03/01/23 05:56 36.9 C 102 H 20 151/77 H 96 03/01/23 04:52 36.4 C L 77 18 123/71 95 02/28/23 23:00 72 02/28/23 22:15 36.6 C 71 18 127/68 95 02/28/23 19:07 36.7 C 71 18 126/68 96 02/28/23 15:41 36.8 C 72 18 119/69 97 02/28/23 11:37 37.1 C 75 18 127/69 95 O2 Del Method O2 Flow Rate 03/01/23 09:40 Room Air 03/01/23 09:30 Room Air 03/01/23 09:20 Room Air 03/01/23 09:10 Oxymask 6 03/01/23 09:00 Oxymask 6 03/01/23 07:00 03/01/23 05:56 Room Air 03/01/23 04:52 Room Air 02/28/23 23:00 02/28/23 22:15 Room Air 02/28/23 19:07 Room Air 02/28/23 15:41 Room Air 02/28/23 11:37 Room Air Pain Intensity Left Wrist: Pain Intensity: 7 Left Upper Arm: Pain Intensity: 7 Transfer of Care Handoff Completed per policy Notes Mental Status: alert / awake / arousable Patient Amnestic to Procedure: Yes Nausea / Vomiting: adequately controlled Pain: adequately controlled Airway Patency, RR, SpO2: stable & adequate BP & HR: stable & adequate Hydration State: stable & adequate Anesthetic Complications: no major complications apparent
[2023-03-01] MEDS: FERROUS SULFATE 325 MG TAB PO SCH ×2 (10:22→16:40)
[2023-03-01] MEDS: NAPROXEN 250 MG TAB PO PRN (10:22)
[2023-03-01] MEDS: CHOLECALCIFEROL 1,000 UNITS 25 MCG TAB PO SCH (10:22)
[2023-03-01] MEDS: POLYETHYLENE (MIRALAX) 17 GM PACK PO SCH (10:23)
[2023-03-01] MEDS: SENNA 8.6 MG TAB PO SCH (10:23)
[2023-03-01] MEDS: CYANOCOBALAMIN (B-12) 500 MCG TABLET PO SCH (10:23)
--- NOTE | 2023-03-01 11:09 | Fluoroscopy Report ---
INTRAOPERATIVE RADIOGRAPHS CLINICAL HISTORY: Open reduction and internal fixation of the distal left radius. Fluoro time: 25 seconds Ka,r: 0.54 mGy FINDINGS: 3 spot fluoroscopic views of the left wrist are correlated with radiographs of the wrist da [facility] 02/24/2023. Again seen are fractures of the distal radius and ulna. A buttress plate has been chata tifafni along the volar cortex of the distal radius with bahai of near-anatomic alignment. Numerous cortical lag screw transfix the plate. Overlying soft tissue edema is noted. IMPRESSION: Intraoperative images from buttress plate fixation of the distal left radius. Electronically signed by: Sudheer Diego M.D. 03/01/2023 11:08 AM
[2023-03-01] MEDS ORDERED: METOCLOPRAMIDE HCL INJ 5 MG/ML 2 ML VIAL IV STA (11:17)
[2023-03-01 11:49] LABS: Basophils # (auto) 0.01 K/uL (0.00-0.20); Basophils % (auto) 0.2 %; Hematocrit (blood only) 27.1 % (37.0-47.0); Immature Granulocytes # (auto) 0.08 K/uL (0.01-0.20); Immature Granulocytes % (auto) 1.8 %; Lymphocytes # (auto) 0.91 K/uL (1.20-3.40); Lymphocytes % (auto) 20.4 %; Mean Corpuscular Hemoglobin 33.8 pg (25.0-34.0); Mean Corpuscular Hgb Conc 33.2 g/dL (32.0-36.0); Mean Corpuscular Volume 101.9 fL (80.0-100.0); Mean Platelet Volume 9.7 fL (9.4-12.4); Monocytes # (auto) 0.46 K/uL (0.11-0.59); Monocytes % (auto) 10.3 %; Neutrophils # (auto) 2.99 K/uL (1.40-6.50); Neutrophils % (auto) 67.3 %; Platelet Count 106 K/uL (130-400); Red Blood Count 2.66 M/uL (4.20-5.40); White Blood Count 4.45 K/ul (4.8-10.8)
[2023-03-01 12:07] LABS: BUN Creatinine Ratio 21.3 (10-20); Calcium 9.2 mg/dl (8.6-10.3); Creatinine Clr Calc Pharmacy 49.2 ml/min; Est GFR (African American) 87.3 ml/min; Est GFR (Non-African American) 75.3 ml/min; Potassium 4.3 mmol/L (3.5-5.1)
[2023-03-01 12:18] LABS: Anisocytosis Present; Polychromasia 1+
[2023-03-01] MEDS ORDERED: traMADol HCL 50 MG TABLET PO PRN (13:53)
[2023-03-01] MEDS: HYDROCODONE/ACETAMOPHEN 5/325MG TAB PO PRN ×2 (15:17→23:18)
[2023-03-01] MEDS ORDERED: ceFAZolin 1000MG 1,000 MG/7.5 ML SYR IV ONE (16:05)
--- NOTE | 2023-03-01 16:32 | Hospitalist Progress Note ---
Date of Service March 01, 2023 Assessment & Plan (1) Accidental fall: Plan: No syncope. Continue OT and PT. She is nonweightbearing status on the left arm due to the left wrist fracture. (2) Anemia, macrocytic: Plan: Severe B12 deficiency based on labs from previous admission. She is now on supplementation. Hemoglobin improved with transfusion but is now trending down. Fecal occult blood is negative. Reticulocyte count is elevated. Intravascular hemolysis needs to be ruled out. 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 LDH is markedly elevated. Serum haptoglobin remains pending. Hematology consultation and recommendations appreciated (3) Acute UTI (urinary tract infection): Plan: Urinary tract infection symptoms. Treated with Cipro. Urinalysis negative here. (4) COVID-19: Plan: Positive nasal swab. Asymptomatic. CXR neg. Continue vitamin D. No treatment with remdesivir or Paxlovid indicated (5) Closed fracture of left wrist: Plan: Appreciate orthopedic consultation and recommendations. She underwent open reduction internal fixation earlier today, March 01. Will use [place] as needed for pain control. The left forearm and left wrist are heavily bandaged at this time. (6) CHI (closed head injury): Plan: Due to mechanical fall at home. Facial contusion but no fractures. Head and cervical spine CTs negative (7) Orthostatic hypotension: Plan: Now resolved Plan She will need placement while the left wrist heals. She uses a walker chronically and is nonweightbearing at this point on the left arm Admission and Anticipated Discharge Date Admission Date: February 26, 2023 Subjective Alert and oriented postoperatively. She is complaining of postoperative left wrist pain which will be treated with as needed [place]. Otherwise stable. Case discussed with hematology. LDH is markedly elevated and haptoglobin level is pending. This will dictate treatment plans. Review of Systems 2 Review of Systems: Constitutional-no fever or chills ENT-no blurred vision, no double vision, no epistaxis, no sore throat Respiratory-no cough, no wheezing, no shortness of breath Cardiac-no palpitations, no chest pain, no syncope GI-no nausea, vomiting, diarrhea, melena, hematochezia -no urinary retention, no urinary incontinence, no dysuria, no hematuria Musculoskeletal-left wrist discomfort from fracture and surgery Skin-no bruising, no rashes, no pruritus Neuro-no isolated weakness, no paresthesia Psych-no depression, no anxiety Physical Exam 2 Physical Exam: General-alert and oriented x3, no fevers, no chills HEENT-head atraumatic and normocephalic, pupils equal and reactive to light, extraocular muscles intact Neck-no lymphadenopathy or thyromegaly, trachea midline Chest-clear to auscultation percussion. No rales wheezing or rhonchi Cardiac-regular rate and rhythm, normal S1 and S2 Abdomen-normal bowel sounds, nontender, no hepatosplenomegaly Extremities-no cyanosis, clubbing, or edema. Left wrist and forearm heavily bandaged postoperatively Neuro-cranial nerves II through XII intact, motor and sensory function within normal limits, strength symmetrical, no focal deficits Psych-normal affect, normal mood Results & Data Results & Data Vital Signs (Past 12 Hours) Vital Signs Temp Pulse Pulse Pulse Resp BP Pulse Ox 03/01/23 15:47 36.8 C 81 20 124/72 94 03/01/23 14:03 79 03/01/23 11:25 36.4 C L 64 18 148/62 H 94 03/01/23 09:40 36.3 C L 62 14 150/76 H 96 03/01/23 09:30 65 16 156/71 H 94 03/01/23 09:20 66 16 162/70 H 95 03/01/23 09:10 58 L 14 165/50 H 99 03/01/23 09:00 36.1 C L 64 16 157/65 H 97 03/01/23 07:15 54 L 03/01/23 07:00 90 03/01/23 05:56 36.9 C 102 H 20 151/77 H 96 03/01/23 04:52 36.4 C L 77 18 123/71 95 O2 Del Method O2 Flow Rate 03/01/23 15:47 Room Air 03/01/23 14:03 03/01/23 11:25 Room Air 03/01/23 09:40 Room Air 03/01/23 09:30 Room Air 03/01/23 09:20 Room Air 03/01/23 09:10 Oxymask 6 03/01/23 09:00 Oxymask 6 03/01/23 07:15 03/01/23 07:00 03/01/23 05:56 Room Air 03/01/23 04:52 Room Air Laboratory Results 03/01/23 11:22 03/01/23 11:22 PG Care Time/CCT Total # of Minutes Spent Total Time Spent with Patient: Total time spent is greater than 50% in coordination of care (as documented) at patient's floor/unit and/or counseling patient: Coding Level of Care Code 39877 SUB INP/OBS CARE 3/50MIN Diagnoses Accidental fall W19.XXXA Anemia, macrocytic D53.9 Acute UTI (urinary tract infection) N39.0 COVID-19 U07.1 Closed fracture of left wrist S62.102A CHI (closed head injury) S09.90XA Orthostatic hypotension I95.1
--- NOTE | 2023-03-01 18:14 | Hematology/Oncology Prog Note ---
Date of Service March 01, 2023 Assessment & Plan (1) Anemia, macrocytic: Plan: Hemoglobin has been holding steady. Haptoglobin is low but is not undetectable. At this point my concerns for an underlying autoimmune hemolytic anemia are low. The patient will not benefit from immunosuppressive therapy. At this point hematology will continue to follow the patient closely. Transfuse to maintain hemoglobin close to 7 g/dL Plan Transfuse to maintain hemoglobin close to 7 g/dL Admission and Anticipated Discharge Date Admission Date: February 26, 2023 Subjective Patient is doing well, postoperative today. Alert and awake for Results & Data Vital Signs (Past 12 Hours) Vital Signs Temp Pulse Pulse Resp BP Pulse Ox O2 Del Method 03/01/23 15:47 36.8 C 81 20 124/72 94 Room Air 03/01/23 14:03 79 03/01/23 11:25 36.4 C L 64 18 148/62 H 94 Room Air 03/01/23 09:40 36.3 C L 62 14 150/76 H 96 Room Air 03/01/23 09:30 65 16 156/71 H 94 Room Air 03/01/23 09:20 66 16 162/70 H 95 Room Air 03/01/23 09:10 58 L 14 165/50 H 99 Oxymask 03/01/23 09:00 36.1 C L 64 16 157/65 H 97 Oxymask 03/01/23 07:15 54 L 03/01/23 07:00 90 O2 Flow Rate 03/01/23 15:47 03/01/23 14:03 03/01/23 11:25 03/01/23 09:40 03/01/23 09:30 03/01/23 09:20 03/01/23 09:10 6 03/01/23 09:00 6 03/01/23 07:15 03/01/23 07:00
[2023-03-02] MEDS: HYDROCODONE/ACETAMOPHEN 5/325MG TAB PO PRN ×2 (03:11→08:24)
[2023-03-02 07:56] LABS: Basophils # (auto) 0.01 K/uL (0.00-0.20); Basophils % (auto) 0.2 %; Eosinophils # (auto) 0.02 K/uL (0.00-0.50); Eosinophils % (auto) 0.3 %; Hematocrit (blood only) 27.3 % (37.0-47.0); Hemoglobin 9.2 g/dl (12.0-16.0); Immature Granulocytes # (auto) 0.08 K/uL (0.01-0.20); Immature Granulocytes % (auto) 1.2 %; Lymphocytes # (auto) 1.08 K/uL (1.20-3.40); Lymphocytes % (auto) 16.6 %; Mean Corpuscular Hemoglobin 34.1 pg (25.0-34.0); Mean Corpuscular Hgb Conc 33.7 g/dL (32.0-36.0); Mean Corpuscular Volume 101.1 fL (80.0-100.0); Mean Platelet Volume 11.5 fL (9.4-12.4); Monocytes # (auto) 0.99 K/uL (0.11-0.59); Monocytes % (auto) 15.2 %; Neutrophils # (auto) 4.33 K/uL (1.40-6.50); Neutrophils % (auto) 66.5 %; Nucleated RBC # (auto) 0.02 K/uL (0.00-0.12); Nucleated RBC % (auto) 0.3 %; Platelet Count 176 K/uL (130-400); White Blood Count 6.51 K/ul (4.8-10.8)
[2023-03-02 08:11] LABS: Creatinine Clr Calc Pharmacy 61.6 ml/min; Est GFR (African American) 99.8 ml/min; Est GFR (Non-African American) 86.1 ml/min; Potassium 3.7 mmol/L (3.5-5.1)
[2023-03-02] MEDS: POLYETHYLENE (MIRALAX) 17 GM PACK PO SCH (08:18)
[2023-03-02] MEDS: SENNA 8.6 MG TAB PO SCH (08:18)
[2023-03-02] MEDS: amLODIPine BESYLATE 5 MG TAB PO SCH (08:19)
[2023-03-02] MEDS: CHOLECALCIFEROL 1,000 UNITS 25 MCG TAB PO SCH (08:19)
[2023-03-02] MEDS: FERROUS SULFATE 325 MG TAB PO SCH ×2 (08:20→16:51)
[2023-03-02] MEDS: CYANOCOBALAMIN (B-12) 500 MCG TABLET PO SCH (08:20)
[2023-03-02 08:27] LABS: Anisocytosis Present; Ovalocytes 1+; Polychromasia 2+; Tear Drop Cells 1+
--- NOTE | 2023-03-02 14:00 | Hospitalist Progress Note ---
Date of Service March 02, 2023 Assessment & Plan (1) Accidental fall: Plan: No syncope. Continue OT and PT. She is nonweightbearing status on the left arm due to the left wrist fracture. (2) Anemia, macrocytic: Plan: Severe B12 deficiency based on labs from previous admission. She is now on supplementation. Hemoglobin improved with transfusion but is now trending down. Fecal occult blood is negative. Reticulocyte count is elevated. Intravascular hemolysis has been ruled out. No indication for steroid therapy at this time. Hematology consultation and recommendations appreciated (3) Acute UTI (urinary tract infection): Plan: Urinary tract infection symptoms. Treated with Cipro. Urinalysis negative here. (4) COVID-19: Plan: Positive nasal swab. Asymptomatic. CXR neg. Continue vitamin D. No treatment with remdesivir or Paxlovid indicated (5) Closed fracture of left wrist: Plan: Appreciate orthopedic consultation and recommendations. She underwent open reduction internal fixation on March 01. Will use [place] as needed for pain control. The left forearm and left wrist are heavily bandaged at this time. Postoperative day #1 (6) CHI (closed head injury): Plan: Due to mechanical fall at home. Facial contusion but no fractures. Head and cervical spine CTs negative (7) Orthostatic hypotension: Plan: Now resolved Plan She will need placement while the left wrist heals. She uses a walker chronically and is nonweightbearing at this point on the left arm . She is medically stable for discharge Admission and Anticipated Discharge Date Admission Date: February 26, 2023 Subjective Alert and oriented. No new problems. Hematology entry noted. Low probability of autoimmune hemolytic anemia. No indication for steroid therapy at this point. Postoperative day #1 after open reduction internal fixation left wrist fracture. Hemoglobin remains stable after 1 unit packed red blood cells given on admission for hemoglobin 6.2. SNF or IPR placement pending. She is medically stable Review of Systems 2 Review of Systems: Constitutional-no fever or chills ENT-no blurred vision, no double vision, no epistaxis, no sore throat Respiratory-no cough, no wheezing, no shortness of breath Cardiac-no palpitations, no chest pain, no syncope GI-no nausea, vomiting, diarrhea, melena, hematochezia -no urinary retention, no urinary incontinence, no dysuria, no hematuria Musculoskeletal-left wrist discomfort from fracture and surgery is resolving Skin-no bruising, no rashes, no pruritus Neuro-no isolated weakness, no paresthesia Psych-no depression, no anxiety Physical Exam 2 Physical Exam: General-alert and oriented x3, no fevers, no chills HEENT-head atraumatic and normocephalic, pupils equal and reactive to light, extraocular muscles intact Neck-no lymphadenopathy or thyromegaly, trachea midline Chest-clear to auscultation percussion. No rales wheezing or rhonchi Cardiac-regular rate and rhythm, normal S1 and S2 Abdomen-normal bowel sounds, nontender, no hepatosplenomegaly Extremities-no cyanosis, clubbing, or edema. Left wrist and forearm heavily bandaged postoperatively Neuro-cranial nerves II through XII intact, motor and sensory function within normal limits, strength symmetrical, no focal deficits Psych-normal affect, normal mood Results & Data Results & Data Vital Signs (Past 12 Hours) Vital Signs Temp Pulse Resp BP Pulse Ox O2 Del Method 03/02/23 11:40 36.9 C 77 18 132/68 94 Room Air 03/02/23 07:40 36.9 C 71 18 143/66 H 91 Room Air 03/02/23 03:02 36.8 C 82 16 147/69 H 92 Room Air Laboratory Results 03/02/23 07:32 03/02/23 07:32 PG Care Time/CCT Total # of Minutes Spent Total Time Spent with Patient: Total time spent is greater than 50% in coordination of care (as documented) at patient's floor/unit and/or counseling patient: Coding Level of Care Code 71397 SUB INP/OBS CARE 2/35MIN Diagnoses Accidental fall W19.XXXA Anemia, macrocytic D53.9 Acute UTI (urinary tract infection) N39.0 COVID-19 U07.1 Closed fracture of left wrist S62.102A CHI (closed head injury) S09.90XA Orthostatic hypotension I95.1
[2023-03-03] MEDS: amLODIPine BESYLATE 5 MG TAB PO SCH (08:16)
[2023-03-03] MEDS: FERROUS SULFATE 325 MG TAB PO SCH ×2 (08:16→16:50)
[2023-03-03] MEDS: CYANOCOBALAMIN (B-12) 500 MCG TABLET PO SCH (08:16)
[2023-03-03] MEDS: CHOLECALCIFEROL 1,000 UNITS 25 MCG TAB PO SCH (08:17)
[2023-03-03] MEDS: POLYETHYLENE (MIRALAX) 17 GM PACK PO SCH (08:17)
[2023-03-03] MEDS: SENNA 8.6 MG TAB PO SCH (08:17)
--- NOTE | 2023-03-03 10:02 | Orthopedic Progress Note ---
Date of Service March 03, 2023 Assessment & Plan (1) Closed fracture of left wrist: Plan: Day 2 s/p ORIF Left distal radius fracture -Nonweightbearing left wrist at all times. -Keep splint on left wrist at all times. -Encourage strict elevation of her left forearm and hand above her heart to reduce swelling in preparation for open reduction internal fixation. -Platform walker for ambulation with PT and OT. -Ambulate as tolerated. -Pain medication as needed. -Ice to left wrist as needed for pain and swelling. -Encouraged range of motion of her fingers elbow and shoulder as tolerated. -May need placement postoperatively - said she previously went to rehab in [place] and really liked it. Recommend case management involved for placement -Will need 2 week f/u at [facility] -At follow-up, patient will most likely be fitted for a thermoplast splint by PT -Hold Steroid for next to weeks to aid with fracture healing. -With questions contact our clinic at [phone] Admission and Anticipated Discharge Date Admission Date: February 26, 2023 Subjective This 82-year-old female is seen for follow-up of an open reduction internal fixation for a left distal radius fracture after sustaining a fall. Patient is postoperative day 2. She states her pain is well-controlled. She states that the splint is comfortable, however the [place] bandage is starting to unravel. She states she does have a numb tingly sensation in her thumb with difficulty fully extending. She has been working on elbow and finger range of motion. She has been elevating and icing. She has used the platform walker for ambulatory purposes. She understands that she is to be nonweightbearing on the left upper extremity. Currently she denies chest pain, shortness of breath, fever, chills, sweats, numbness or tingling in her left upper extremity, except for her thumb. She also denies nausea, vomiting, diarrhea or difficulty voiding. Review of Systems Review of Systems: All systems reviewed & are unremarkable except as noted in Subjective Physical Exam Physical Exam: Left upper extremity: Unraveling [place] bandage was removed and reapplied in a proper fashion. Splint that is clean dry and intact and left in place. Patient is able to reach terminal flexion extension at her elbow. She has appropriate dexterity of fingers 2 through 5. She has difficulty actively extending at the MCP joint. She is able to do so at the IP joint. Her capillary fill is less than 2 seconds. She is able to detect light sensation to touch over the pads of all digits. She does have some notable edema and ecchymosis over the anterior aspect of the distal upper arm. Results & Data Vital Signs (Past 12 Hours) Vital Signs Temp Pulse Pulse Resp BP Pulse Ox O2 Del Method 03/03/23 08:00 Room Air 03/03/23 08:00 37.1 C 77 20 155/88 H 95 Room Air 03/03/23 07:00 70 03/03/23 03:09 37.3 C 85 18 146/71 H 91 Room Air 03/02/23 23:00 86 03/02/23 22:33 36.6 C 74 16 132/69 94 Room Air Diagnostic Findings Laboratory Results WBC 6.51 K/ul (4.8-10.8) 03/02/23 07:32 RBC 2.70 M/uL (4.20-5.40) L 03/02/23 07:32 Hgb 9.2 g/dl (12.0-16.0) L 03/02/23 07:32 Hct 27.3 % (37.0-47.0) L 03/02/23 07:32 MCV 101.1 fL (80.0-100.0) H 03/02/23 07:32 MCH 34.1 pg (25.0-34.0) H 03/02/23 07:32 MCHC 33.7 g/dL (32.0-36.0) 03/02/23 07:32 Plt Count 176 K/uL (130-400) D 03/02/23 07:32 MPV 11.5 fL (9.4-12.4) 03/02/23 07:32 Immature Gran % (Auto) 1.2 % 03/02/23 07:32 Neut % (Auto) 66.5 % 03/02/23 07:32 Lymph % (Auto) 16.6 % 03/02/23 07:32 [place] % (Auto) 15.2 % 03/02/23 07:32 Eos % (Auto) 0.3 % 03/02/23 07:32 Baso % (Auto) 0.2 % 03/02/23 07:32 Reticulocyte % (Auto) 2.8 % (0.5-2.0) H 02/27/23 05:31 Neut # (Auto) 4.33 K/uL (1.40-6.50) 03/02/23 07:32 Lymph # (Auto) 1.08 K/uL (1.20-3.40) L 03/02/23 07:32 [place] # (Auto) 0.99 K/uL (0.11-0.59) H 03/02/23 07:32 Eos # (Auto) 0.02 K/uL (0.00-0.50) 03/02/23 07:32 Baso # (Auto) 0.01 K/uL (0.00-0.20) 03/02/23 07:32 Reticulocyte # 0.07 10^6/uL (0.02-0.10) 02/27/23 05:31 Immature Gran # (Auto) 0.08 K/uL (0.01-0.20) 03/02/23 07:32 Absolute Nucleated RBC 0.02 K/uL (0.00-0.12) 03/02/23 07:32 Nucleated RBC % (auto) 0.3 % 03/02/23 07:32 Hypersegmented Neuts 1+ 02/25/23 08:00 Polychromasia 2+ 03/02/23 07:32 Poikilocytosis Present 02/28/23 08:49 Anisocytosis Present 03/02/23 07:32 Tear Drop Cells 1+ 03/02/23 07:32 Ovalocytes 1+ 03/02/23 07:32 Peripher Smr Path Cons 02/28/23 08:49 Haptoglobin 19 mg/dL (43-212) L 02/27/23 14:56 PT 11.3 Seconds (9.0-12.0) 02/24/23 20:40 INR 1.0 (0.9-1.1) 02/24/23 20:40 Sodium 140 mmol/L (136-145) 03/02/23 07:32 Potassium 3.7 mmol/L (3.5-5.1) 03/02/23 07:32 Chloride 108 mmol/L (98-107) H 03/02/23 07:32 Carbon Dioxide 24 mmol/L (21-32) 03/02/23 07:32 Anion Gap 8 (3-11) 03/02/23 07:32 BUN 15 mg/dl (6-23) 03/02/23 07:32 Creatinine 0.60 mg/dl (0.6-1.2) 03/02/23 07:32 Est Cr Clr Drug Dosing 61.6 ml/min 03/02/23 07:32 Est GFR ( Amer) 99.8 ml/min 03/02/23 07:32 Est GFR (Non-Af Amer) 86.1 ml/min 03/02/23 07:32 BUN/Creatinine Ratio 25.0 (10-20) H 03/02/23 07:32 Glucose 112 mg/dl (70-99(Fasting)) H 03/02/23 07:32 POC Glucose 95 mg/dl (70-99) 02/27/23 20:17 Calcium 9.0 mg/dl (8.6-10.3) 03/02/23 07:32 Magnesium 2.1 mg/dl (1.7-2.4) 02/26/23 07:51 Iron 82 mcg/dl (35-150) 02/25/23 09:45 TIBC 285 mcg/dl (250-450) 02/25/23 09:45 Unsaturated IBC 203 mcg/dl (155-355) 02/25/23 09:45 Transferrin % Sat 29 % (15-50) 02/25/23 09:45 Ferritin 309.1 ng/ml (8-388) 02/25/23 09:45 Total Bilirubin 1.6 mg/dl (0.2-1.0) H 02/26/23 07:51 AST 27 U/L (13-39) 02/26/23 07:51 ALT 11 U/L (7-52) 02/26/23 07:51 Alkaline Phosphatase 55 U/L (34-104) 02/26/23 07:51 Lactate Dehydrogenase 1002 U/L (86-244) H 02/27/23 14:56 Total Creatine Kinase 126 U/L (26-192) 02/24/23 20:40 Troponin I High Sens 5.7 pg/ml (0-14) 02/24/23 20:40 Total Protein 6.8 gm/dl (6.0-8.3) 02/26/23 07:51 Albumin 4.3 gm/dl (3.4-5.0) 02/26/23 07:51 Globulin 2.5 gm/dl (2.5-4.0) 02/26/23 07:51 Albumin/Globulin Ratio 1.7 (0.9-2) 02/26/23 07:51 Vitamin B12 < 50 pg/ml (180-914) L 02/25/23 09:45 Folate > 22.30 ng/ml (>5.38) 02/25/23 09:45 Urine Color Yellow 02/24/23 19:18 Urine Appearance Clear (Clear) 02/24/23 19:18 Urine pH 6.5 (4.5-7.5) 02/24/23 19:18 Ur Specific [place] 1.014 (1.000-1.030) 02/24/23 19:18 Urine Protein Trace (Negative) H 02/24/23 19:18 Urine Glucose (UA) Negative (Negative) 02/24/23 19:18 Urine Ketones 1+ (Negative) H 02/24/23 19:18 Urine Blood Negative (Negative) 02/24/23 19:18 Urine Nitrite Negative (Negative) 02/24/23 19:18 Urine Bilirubin Negative (Negative) 02/24/23 19:18 Urine Urobilinogen Negative (Negative) 02/24/23 19:18 Ur Leukocyte Esterase Negative (Negative) 02/24/23 19:18 Urine WBC (Auto) 1-5 /hpf (0-5) 02/24/23 19:18 Urine RBC (Auto) 0-4 /hpf (0-4) 02/24/23 19:18 U Hyaline Cast (Auto) 1-5 /lpf (0-5) 02/24/23 19:18 U Epithel Cells (Auto) 10-20 /lpf (0-5) H 02/24/23 19:18 Urine Bacteria (Auto) Negative (Negative) 02/24/23 19:18 Stool Occult Bld Scrn Negative (Negative) 02/27/23 11:05 Adenovirus (PCR) Not Detected (NotDetected) 02/24/23 21:43 B. pertussis DNA (PCR) Not Detected (NotDetected) 02/24/23 21:43 B.parapertussis DNA PCR Not Detected (NotDetected) 02/24/23 21:43 C. pneumoniae DNA (PCR) Not Detected (NotDetected) 02/24/23 21:43 Coronavirus OC43 (PCR) Not Detected (NotDetected) 02/24/23 21:43 Coronavirus HKU1 (PCR) Not Detected (NotDetected) 02/24/23 21:43 Coronavirus 229E (PCR) Not Detected (NotDetected) 02/24/23 21:43 SARS-CoV-2 (PCR) DETECTED (NotDetected) A* 02/24/23 21:43 Coronavirus NL63 (PCR) Not Detected (NotDetected) 02/24/23 21:43 Human Metapneumovir PCR Not Detected (NotDetected) 02/24/23 21:43 Influenza Type A (PCR) Not Detected (NotDetected) 02/24/23 21:43 Influenza Type B (PCR) Not Detected (NotDetected) 02/24/23 21:43 M. pneumoniae (PCR) Not Detected (NotDetected) 02/24/23 21:43 Parainfluenza 1 (PCR) Not Detected (NotDetected) 02/24/23 21:43 Parainfluenza 2 (PCR) Not Detected (NotDetected) 02/24/23 21:43 Parainfluenza 3 (PCR) Not Detected (NotDetected) 02/24/23 21:43 Parainfluenza 4 (PCR) Not Detected (NotDetected) 02/24/23 21:43 RSV (PCR) Not Detected (NotDetected) 02/24/23 21:43 Entero/Rhino (PCR) Not Detected (NotDetected) 02/24/23 21:43 Blood Type A Positive 02/24/23 20:40 Antibody Screen NEGATIVE 02/24/23 20:40 Crossmatch See Detail 02/24/23 20:[address] 02/24/23 19:10 Exam(s): CT C SPINE EXAM: CT Cervical Spine Without Intravenous Contrast CLINICAL HISTORY: Neck trauma. TECHNIQUE: Axial computed tomography images of the cervical spine without intravenous contrast. CTDI is 23.94 mGy and DLP is 452.21 mGy-cm. Automated exposure control was utilized for the study. A dose lowering technique was utilized adhering to the principles of ALARA. COMPARISON: No relevant prior studies available. FINDINGS: Vertebrae: Unremarkable. No fracture or malalignment. Discs/spinal canal/neural foramina: There are degenerative changes of the spine. No spinal canal stenosis. Soft tissues: Unremarkable. No prevertebral soft tissue swelling. IMPRESSION: No acute finding of the cervical spine. Electronically signed by: Clari Rizo MD 02/24/23 21:[address] 02/24/23 19:10 Exam(s): CT HEAD Without Contrast EXAM: CT Head Without Intravenous Contrast CLINICAL HISTORY: Head trauma moderate-severe. TECHNIQUE: Axial computed tomography images of the head/brain without intravenous contrast. CTDI is 36.43 mGy and DLP is 546.36 mGy-cm. Automated exposure control was utilized for the study. A dose lowering technique was utilized adhering to the principles of ALARA. COMPARISON: CT brain 01/14/2023 FINDINGS: Brain: No intracranial hemorrhage, mass-effect or midline shift. No abnormal extra axial fluid. No evidence of acute infarct. 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 Ventricles: Unremarkable. No ventriculomegaly. Bones/joints: Unremarkable. No acute fracture. Soft tissues: Unremarkable. Sinuses: Unremarkable as visualized. No acute sinusitis. Mastoid air cells: Unremarkable as visualized. No mastoid effusion. IMPRESSION: No acute intracranial finding. Electronically signed by: Clari Rizo MD 02/24/23 21:05 PM Forearm X-Ray 02/24/23 19:34 XR forearm LT 2V CLINICAL HISTORY: Forearm trauma COMPARISON: None FINDINGS: Alignment of the left elbow is anatomic. No proximal left radial or ulnar fracture is present. No evidence for a left elbow joint effusion. Distal left radial and ulnar fractures are noted. These are better depicted on the left wrist radiographs. IMPRESSION: 1. Acute distal left radial and ulnar fractures better depicted on the left wrist radiographs. 2. No proximal left radial or ulnar fracture. No left elbow joint effusion. ACT 112: Negative or not required by law. Electronically signed by: Jesse Zambrano M.D. 02/25/2023 8:06 AM Chest X-Ray 02/24/23 19:37 XR chest 1V portable CLINICAL HISTORY: Fall. COMPARISON STUDY: Chest radiograph January 14, 2023. FINDINGS: Lung volumes are normal. Lungs are clear. There is no pneumothorax or pleural effusion. Cardiac size is stable. Mediastinal contours are normal. There is no evidence for pulmonary edema. IMPRESSION: No acute cardiopulmonary findings. No significant change in appearance of the chest. ACT 112: Negative or not required by law. Electronically signed by: Jesse Zambrano M.D. 02/25/2023 8:03 AM Femur X-Ray 02/26/23 11:13 XR femur RT 2V routine CLINICAL HISTORY: Right femur pain. Fall. COMPARISON STUDY: Pelvis 01/14/2023. Right femur 09/09/2021. FINDINGS: No acute fracture or dislocation within the right femur. Postoperative changes again noted. The hardware appears intact. No abnormal periprosthetic lucency. There is normal, healed mid shaft right femoral fracture. Soft tissues are unremarkable. IMPRESSION: Stable postoperative changes within the right femur. No acute fracture or dislocation. ACT 112: Negative or not required by law. Electronically signed by: Hilario Moore M.D. 02/26/2023 12:31 PM Wrist X-Ray 03/01/23 07:00 INTRAOPERATIVE RADIOGRAPHS CLINICAL HISTORY: Open reduction and internal fixation of the distal left radius. Fluoro time: 25 seconds Ka,r: 0.54 mGy FINDINGS: 3 spot fluoroscopic views of the left wrist are correlated with radiographs of the wrist dated 02/24/2023. Again seen are fractures of the distal radius and ulna. A buttress plate has been placed along the volar cortex of the distal radius with buddhist of near-anatomic alignment. Numerous cortical lag screw transfix the plate. Overlying soft tissue edema is noted. IMPRESSION: Intraoperative images from buttress plate fixation of the distal left radius. Electronically signed by: Sudheer Diego M.D. 03/01/2023 11:08 AM
[2023-03-03 10:24] LABS: Basophils # (auto) 0.01 K/uL (0.00-0.20); Basophils % (auto) 0.1 %; Eosinophils # (auto) 0.02 K/uL (0.00-0.50); Eosinophils % (auto) 0.3 %; Hematocrit (blood only) 27.3 % (37.0-47.0); Hemoglobin 9.3 g/dl (12.0-16.0); Immature Granulocytes # (auto) 0.07 K/uL (0.01-0.20); Immature Granulocytes % (auto) 0.9 %; Lymphocytes # (auto) 1.18 K/uL (1.20-3.40); Lymphocytes % (auto) 15.5 %; Mean Corpuscular Hemoglobin 33.9 pg (25.0-34.0); Mean Corpuscular Hgb Conc 34.1 g/dL (32.0-36.0); Mean Corpuscular Volume 99.6 fL (80.0-100.0); Mean Platelet Volume 10.7 fL (9.4-12.4); Monocytes # (auto) 0.89 K/uL (0.11-0.59); Monocytes % (auto) 11.7 %; Neutrophils # (auto) 5.45 K/uL (1.40-6.50); Neutrophils % (auto) 71.5 %; Platelet Count 258 K/uL (130-400); RDW Coefficient of Variation 26.1 % (11.5-14.5); RDW Standard Deviation 88.3 fL (36.4-46.3); Red Blood Count 2.74 M/uL (4.20-5.40); White Blood Count 7.62 K/ul (4.8-10.8)
[2023-03-03 10:42] LABS: BUN Creatinine Ratio 24.1 (10-20); Calcium 9.4 mg/dl (8.6-10.3); Creatinine Clr Calc Pharmacy 63.7 ml/min; Est GFR (African American) 100.9 ml/min; Est GFR (Non-African American) 87.1 ml/min; Potassium 3.7 mmol/L (3.5-5.1)
[2023-03-03 10:45] LABS: Hypersegmented Neutrophils 1+; Ovalocytes 1+; Polychromasia 1+; Tear Drop Cells 1+
--- NOTE | 2023-03-03 14:58 | Hospitalist Progress Note ---
Date of Service March 03, 2023 Assessment & Plan (1) Accidental fall: Plan: No syncope. Continue OT and PT. She is nonweightbearing status on the left arm due to the left wrist fracture. (2) Anemia, macrocytic: Plan: Severe B12 deficiency based on labs from previous admission. She is now on supplementation. Fecal occult blood is negative. Reticulocyte count is elevated. Intravascular hemolysis has been ruled out. No indication for steroid therapy at this time. Hematology consultation and recommendations appreciated (3) Acute UTI (urinary tract infection): Plan: Urinary tract infection symptoms. Treated with Cipro. Urinalysis negative here. (4) COVID-19: Plan: Positive nasal swab. Asymptomatic. CXR neg. Continue vitamin D. No treatment with remdesivir or Paxlovid indicated (5) Closed fracture of left wrist: Plan: Appreciate orthopedic consultation and recommendations. She underwent open reduction internal fixation on March 01. Will use [place] as needed for pain control. The left forearm and left wrist are heavily bandaged at this time. Postoperative day #2 (6) CHI (closed head injury): Plan: Due to mechanical fall at home. Facial contusion but no fractures. Head and cervical spine CTs negative (7) Orthostatic hypotension: Plan: Now resolved Plan She will need placement while the left wrist heals. She uses a walker chronically and is nonweightbearing at this point on the left arm . She is medically stable for discharge Admission and Anticipated Discharge Date Admission Date: February 26, 2023 Subjective Alert and oriented. No new problems. Postoperative day #2 after open reduction internal fixation left wrist fracture. Placement is pending. No apparent autoimmune hemolytic anemia per hematology consultation Review of Systems 2 Review of Systems: Constitutional-no fever or chills ENT-no blurred vision, no double vision, no epistaxis, no sore throat Respiratory-no cough, no wheezing, no shortness of breath Cardiac-no palpitations, no chest pain, no syncope GI-no nausea, vomiting, diarrhea, melena, hematochezia -no urinary retention, no urinary incontinence, no dysuria, no hematuria Musculoskeletal-left wrist discomfort from fracture and surgery is resolving Skin-no bruising, no rashes, no pruritus Neuro-no isolated weakness, no paresthesia Psych-no depression, no anxiety Physical Exam 2 Physical Exam: General-alert and oriented x3, no fevers, no chills HEENT-head atraumatic and normocephalic, pupils equal and reactive to light, extraocular muscles intact Neck-no lymphadenopathy or thyromegaly, trachea midline Chest-clear to auscultation percussion. No rales wheezing or rhonchi Cardiac-regular rate and rhythm, normal S1 and S2 Abdomen-normal bowel sounds, nontender, no hepatosplenomegaly Extremities-no cyanosis, clubbing, or edema. Left wrist and forearm heavily bandaged postoperatively Neuro-cranial nerves II through XII intact, motor and sensory function within normal limits, strength symmetrical, no focal deficits Psych-normal affect, normal mood Results & Data Results & Data Vital Signs (Past 12 Hours) Vital Signs Temp Pulse Pulse Resp BP Pulse Ox O2 Del Method 03/03/23 12:00 36.8 C 83 20 129/65 95 Room Air 03/03/23 08:00 Room Air 03/03/23 08:00 37.1 C 77 20 155/88 H 95 Room Air 03/03/23 07:00 70 03/03/23 03:09 37.3 C 85 18 146/71 H 91 Room Air Laboratory Results 03/03/23 10:04 03/03/23 10:04 PG Care Time/CCT Total # of Minutes Spent Total Time Spent with Patient: Total time spent is greater than 50% in coordination of care (as documented) at patient's floor/unit and/or counseling patient: Coding Level of Care Code 93577 SUB INP/OBS CARE 2/35MIN Diagnoses Accidental fall W19.XXXA Anemia, macrocytic D53.9 Acute UTI (urinary tract infection) N39.0 COVID-19 U07.1 Closed fracture of left wrist S62.102A CHI (closed head injury) S09.90XA Orthostatic hypotension I95.1
[2023-03-04 06:35] LABS: Basophils # (auto) 0.02 K/uL (0.00-0.20); Basophils % (auto) 0.2 %; Eosinophils # (auto) 0.05 K/uL (0.00-0.50); Eosinophils % (auto) 0.6 %; Hemoglobin 8.8 g/dl (12.0-16.0); Immature Granulocytes # (auto) 0.06 K/uL (0.01-0.20); Immature Granulocytes % (auto) 0.7 %; Lymphocytes # (auto) 1.61 K/uL (1.20-3.40); Lymphocytes % (auto) 18.9 %; Mean Corpuscular Hgb Conc 32.6 g/dL (32.0-36.0); Mean Corpuscular Volume 101.1 fL (80.0-100.0); Mean Platelet Volume 10.2 fL (9.4-12.4); Monocytes # (auto) 0.95 K/uL (0.11-0.59); Monocytes % (auto) 11.2 %; Neutrophils # (auto) 5.81 K/uL (1.40-6.50); Neutrophils % (auto) 68.4 %; Platelet Count 309 K/uL (130-400); RDW Coefficient of Variation 25.1 % (11.5-14.5); RDW Standard Deviation 87.2 fL (36.4-46.3); Red Blood Count 2.67 M/uL (4.20-5.40)
[2023-03-04 06:49] LABS: BUN Creatinine Ratio 29.8 (10-20); Calcium 9.1 mg/dl (8.6-10.3); Creatinine Clr Calc Pharmacy 64.7 ml/min; Est GFR (African American) 101.5 ml/min; Est GFR (Non-African American) 87.6 ml/min; Potassium 3.6 mmol/L (3.5-5.1)
[2023-03-04 06:56] LABS: Anisocytosis Present; Hypersegmented Neutrophils 1+; Ovalocytes 1+; Polychromasia 2+; Tear Drop Cells 1+
[2023-03-04] MEDS: SENNA 8.6 MG TAB PO SCH (09:14)
[2023-03-04] MEDS: POLYETHYLENE (MIRALAX) 17 GM PACK PO SCH (09:14)
[2023-03-04] MEDS: FERROUS SULFATE 325 MG TAB PO SCH ×2 (09:14→15:48)
[2023-03-04] MEDS: CYANOCOBALAMIN (B-12) 500 MCG TABLET PO SCH (09:15)
[2023-03-04] MEDS: CHOLECALCIFEROL 1,000 UNITS 25 MCG TAB PO SCH (09:16)
[2023-03-04] MEDS: amLODIPine BESYLATE 5 MG TAB PO SCH (09:16)
--- NOTE | 2023-03-04 14:46 | Hospitalist Progress Note ---
Date of Service March 04, 2023 Assessment & Plan (1) Accidental fall: Plan: No syncope. Continue OT and PT. She is nonweightbearing status on the left arm due to the left wrist fracture. (2) Anemia, macrocytic: Plan: Severe B12 deficiency based on labs from previous admission. She is now on supplementation. Fecal occult blood is negative. Reticulocyte count is elevated. Intravascular hemolysis has been ruled out. No indication for steroid therapy at this time. Hematology consultation and recommendations appreciated (3) Acute UTI (urinary tract infection): Plan: Urinary tract infection symptoms. Treated with Cipro. Urinalysis negative here. (4) COVID-19: Plan: Positive nasal swab. Asymptomatic. CXR neg. Continue vitamin D. No treatment with remdesivir or Paxlovid indicated (5) Closed fracture of left wrist: Plan: Appreciate orthopedic consultation and recommendations. She underwent open reduction internal fixation on March 01. Will use [place] as needed for pain control. The left forearm and left wrist are heavily bandaged at this time. Postoperative day #3 (6) CHI (closed head injury): Plan: Due to mechanical fall at home. Facial contusion but no fractures. Head and cervical spine CTs negative (7) Orthostatic hypotension: Plan: Now resolved Plan She will need placement while the left wrist heals. She uses a walker chronically and is nonweightbearing at this point on the left arm . She is medically stable for discharge. Insurance has denied IPR placement. Case management is pursuing SNF placement at this time Admission and Anticipated Discharge Date Admission Date: February 26, 2023 Subjective Alert and oriented. Vital signs stable. No new problems. Insurance has denied IPR placement. Case management is pursuing SNF placement. Postoperative day #3 after open reduction internal fixation left wrist fracture Review of Systems 2 Review of Systems: Constitutional-no fever or chills ENT-no blurred vision, no double vision, no epistaxis, no sore throat Respiratory-no cough, no wheezing, no shortness of breath Cardiac-no palpitations, no chest pain, no syncope GI-no nausea, vomiting, diarrhea, melena, hematochezia -no urinary retention, no urinary incontinence, no dysuria, no hematuria Musculoskeletal-left wrist discomfort from fracture and surgery is resolving Skin-no bruising, no rashes, no pruritus Neuro-no isolated weakness, no paresthesia Psych-no depression, no anxiety Physical Exam 2 Physical Exam: General-alert and oriented x3, no fevers, no chills HEENT-head atraumatic and normocephalic, pupils equal and reactive to light, extraocular muscles intact Neck-no lymphadenopathy or thyromegaly, trachea midline Chest-clear to auscultation percussion. No rales wheezing or rhonchi Cardiac-regular rate and rhythm, normal S1 and S2 Abdomen-normal bowel sounds, nontender, no hepatosplenomegaly Extremities-no cyanosis, clubbing, or edema. Left wrist and forearm heavily bandaged postoperatively Neuro-cranial nerves II through XII intact, motor and sensory function within normal limits, strength symmetrical, no focal deficits Psych-normal affect, normal mood Results & Data Results & Data Vital Signs (Past 12 Hours) Vital Signs Temp Pulse Pulse Resp BP Pulse Ox O2 Del Method 03/04/23 10:44 37.0 C 82 17 129/70 96 Room Air 03/04/23 07:21 71 03/04/23 07:21 Room Air 03/04/23 07:20 37.3 C 73 19 120/63 96 Room Air 03/04/23 02:55 36.7 C 82 18 131/65 96 Room Air Laboratory Results 03/04/23 05:36 03/04/23 05:36 PG Care Time/CCT Total # of Minutes Spent Total Time Spent with Patient: Total time spent is greater than 50% in coordination of care (as documented) at patient's floor/unit and/or counseling patient: Coding Level of Care Code 29154 SUB INP/OBS CARE 2/35MIN Diagnoses Accidental fall W19.XXXA Anemia, macrocytic D53.9 Acute UTI (urinary tract infection) N39.0 COVID-19 U07.1 Closed fracture of left wrist S62.102A CHI (closed head injury) S09.90XA Orthostatic hypotension I95.1
[2023-03-05] MEDS: amLODIPine BESYLATE 5 MG TAB PO SCH (07:51)
[2023-03-05] MEDS: CYANOCOBALAMIN (B-12) 500 MCG TABLET PO SCH (07:51)
[2023-03-05] MEDS: CHOLECALCIFEROL 1,000 UNITS 25 MCG TAB PO SCH (07:51)
[2023-03-05] MEDS: FERROUS SULFATE 325 MG TAB PO SCH ×2 (07:52→16:48)
[2023-03-05] MEDS: POLYETHYLENE (MIRALAX) 17 GM PACK PO SCH (07:52)
[2023-03-05] MEDS: SENNA 8.6 MG TAB PO SCH (07:52)
--- NOTE | 2023-03-05 11:53 | Hospitalist Progress Note ---
Date of Service March 05, 2023 Assessment & Plan (1) Accidental fall: Plan: No syncope. Continue OT and PT. She is nonweightbearing status on the left arm due to the left wrist fracture. (2) Anemia, macrocytic: Plan: Severe B12 deficiency based on labs from previous admission. She is now on supplementation. Fecal occult blood is negative. Reticulocyte count is elevated. Intravascular hemolysis has been ruled out. No indication for steroid therapy at this time. Hematology consultation and recommendations appreciated (3) Acute UTI (urinary tract infection): Plan: Urinary tract infection symptoms. Treated with Cipro. Urinalysis negative here. (4) COVID-19: Plan: Positive nasal swab. Asymptomatic. CXR neg. Continue vitamin D. No treatment with remdesivir or Paxlovid indicated (5) Closed fracture of left wrist: Plan: Appreciate orthopedic consultation and recommendations. She underwent open reduction internal fixation on March 01. Will use [place] as needed for pain control. The left forearm and left wrist are heavily bandaged at this time. Postoperative day #4 (6) CHI (closed head injury): Plan: Due to mechanical fall at home. Facial contusion but no fractures. Head and cervical spine CTs negative (7) Orthostatic hypotension: Plan: Now resolved Plan She will need placement while the left wrist heals. She uses a walker chronically and is nonweightbearing at this point on the left arm . She is medically stable for discharge. Insurance has denied IPR placement. Case management is pursuing SNF placement at this time Admission and Anticipated Discharge Date Admission Date: February 26, 2023 Subjective Alert and oriented. No distress. No new findings. Awaiting SNF placement. Review of Systems 2 Review of Systems: Constitutional-no fever or chills ENT-no blurred vision, no double vision, no epistaxis, no sore throat Respiratory-no cough, no wheezing, no shortness of breath Cardiac-no palpitations, no chest pain, no syncope GI-no nausea, vomiting, diarrhea, melena, hematochezia -no urinary retention, no urinary incontinence, no dysuria, no hematuria Musculoskeletal-left wrist discomfort from fracture and surgery is resolving Skin-no bruising, no rashes, no pruritus Neuro-no isolated weakness, no paresthesia Psych-no depression, no anxiety Physical Exam 2 Physical Exam: General-alert and oriented x3, no fevers, no chills HEENT-head atraumatic and normocephalic, pupils equal and reactive to light, extraocular muscles intact Neck-no lymphadenopathy or thyromegaly, trachea midline Chest-clear to auscultation percussion. No rales wheezing or rhonchi Cardiac-regular rate and rhythm, normal S1 and S2 Abdomen-normal bowel sounds, nontender, no hepatosplenomegaly Extremities-no cyanosis, clubbing, or edema. Left wrist and forearm heavily bandaged postoperatively Neuro-cranial nerves II through XII intact, motor and sensory function within normal limits, strength symmetrical, no focal deficits Psych-normal affect, normal mood Results & Data Results & Data Vital Signs (Past 12 Hours) Vital Signs Temp Pulse Pulse Pulse Resp BP Pulse Ox 03/05/23 11:38 37.3 C 77 18 124/62 95 03/05/23 07:45 64 03/05/23 07:45 03/05/23 07:39 36.9 C 73 18 127/67 97 03/05/23 03:02 37.1 C 74 18 126/65 96 O2 Del Method 03/05/23 11:38 Room Air 03/05/23 07:45 03/05/23 07:45 Room Air 03/05/23 07:39 Room Air 03/05/23 03:02 Room Air Laboratory Results 03/04/23 05:36 03/04/23 05:36 PG Care Time/CCT Total # of Minutes Spent Total Time Spent with Patient: Total time spent is greater than 50% in coordination of care (as documented) at patient's floor/unit and/or counseling patient: Coding Level of Care Code 40333 SUB INP/OBS CARE 2/35MIN Diagnoses Accidental fall W19.XXXA Anemia, macrocytic D53.9 Acute UTI (urinary tract infection) N39.0 COVID-19 U07.1 Closed fracture of left wrist S62.102A CHI (closed head injury) S09.90XA Orthostatic hypotension I95.1
[2023-03-06 08:02] LABS: Basophils # (auto) 0.02 K/uL (0.00-0.20); Basophils % (auto) 0.2 %; Eosinophils # (auto) 0.01 K/uL (0.00-0.50); Eosinophils % (auto) 0.1 %; Hematocrit (blood only) 28.1 % (37.0-47.0); Hemoglobin 9.5 g/dl (12.0-16.0); Immature Granulocytes # (auto) 0.04 K/uL (0.01-0.20); Immature Granulocytes % (auto) 0.4 %; Lymphocytes # (auto) 1.83 K/uL (1.20-3.40); Lymphocytes % (auto) 20.3 %; Mean Corpuscular Hemoglobin 33.2 pg (25.0-34.0); Mean Corpuscular Hgb Conc 33.8 g/dL (32.0-36.0); Mean Corpuscular Volume 98.3 fL (80.0-100.0); Mean Platelet Volume 10.2 fL (9.4-12.4); Monocytes # (auto) 0.93 K/uL (0.11-0.59); Monocytes % (auto) 10.3 %; Neutrophils # (auto) 6.17 K/uL (1.40-6.50); Neutrophils % (auto) 68.7 %; Platelet Count 436 K/uL (130-400); RDW Coefficient of Variation 22.8 % (11.5-14.5); RDW Standard Deviation 81.2 fL (36.4-46.3); Red Blood Count 2.86 M/uL (4.20-5.40)
[2023-03-06 08:15] LABS: BUN Creatinine Ratio 28.3 (10-20); Calcium 9.2 mg/dl (8.6-10.3); Creatinine Clr Calc Pharmacy 61.9 ml/min; Est GFR (African American) 99.8 ml/min; Est GFR (Non-African American) 86.1 ml/min
[2023-03-06 08:37] LABS: Anisocytosis Present; Ovalocytes 1+; Polychromasia 1+; Tear Drop Cells 1+
[2023-03-06] MEDS: POLYETHYLENE (MIRALAX) 17 GM PACK PO SCH (08:41)
[2023-03-06] MEDS: FERROUS SULFATE 325 MG TAB PO SCH ×2 (08:41→17:40)
[2023-03-06] MEDS: CHOLECALCIFEROL 1,000 UNITS 25 MCG TAB PO SCH (08:41)
[2023-03-06] MEDS: amLODIPine BESYLATE 5 MG TAB PO SCH (08:41)
[2023-03-06] MEDS: CYANOCOBALAMIN (B-12) 500 MCG TABLET PO SCH (08:41)
[2023-03-06] MEDS: SENNA 8.6 MG TAB PO SCH (08:42)
[2023-03-06] MEDS: ACETAMINOPHEN 325 MG TAB PO PRN (09:05)
--- NOTE | 2023-03-06 12:43 | Hospitalist Progress Note ---
Date of Service March 06, 2023 Assessment & Plan (1) Accidental fall: Plan: No syncope. Continue OT and PT. She is nonweightbearing status on the left arm due to the left wrist fracture. (2) Anemia, macrocytic: Plan: Severe B12 deficiency based on labs from previous admission. She is now on supplementation. Fecal occult blood is negative. Reticulocyte count is elevated. Intravascular hemolysis has been ruled out. No indication for steroid therapy at this time. Hematology consultation and recommendations appreciated (3) Acute UTI (urinary tract infection): Plan: Urinary tract infection symptoms. Treated with Cipro. Urinalysis negative here. (4) COVID-19: Plan: Positive nasal swab. Asymptomatic. CXR neg. Continue vitamin D. No treatment with remdesivir or Paxlovid indicated (5) Closed fracture of left wrist: Plan: Appreciate orthopedic consultation and recommendations. She underwent open reduction internal fixation on March 01. She no longer requires [place] and is asking only for Tylenol at this time. The left forearm and left wrist are heavily bandaged at this time. Postoperative day #5 (6) CHI (closed head injury): Plan: Due to mechanical fall at home. Facial contusion but no fractures. Head and cervical spine CTs negative (7) Orthostatic hypotension: Plan: Now resolved Plan She will need placement while the left wrist heals. She uses a walker chronically and is nonweightbearing at this point on the left arm . She is medically stable for discharge. Insurance has denied IPR placement. Case management is pursuing SNF placement at this time Admission and Anticipated Discharge Date Admission Date: February 26, 2023 Subjective Alert and oriented. No new problems. Vital signs are stable. Awaiting SNF placement. Review of Systems 2 Review of Systems: Constitutional-no fever or chills ENT-no blurred vision, no double vision, no epistaxis, no sore throat Respiratory-no cough, no wheezing, no shortness of breath Cardiac-no palpitations, no chest pain, no syncope GI-no nausea, vomiting, diarrhea, melena, hematochezia -no urinary retention, no urinary incontinence, no dysuria, no hematuria Musculoskeletal-left wrist discomfort from fracture and surgery is resolving Skin-no bruising, no rashes, no pruritus Neuro-no isolated weakness, no paresthesia Psych-no depression, no anxiety Physical Exam 2 Physical Exam: General-alert and oriented x3, no fevers, no chills HEENT-head atraumatic and normocephalic, pupils equal and reactive to light, extraocular muscles intact Neck-no lymphadenopathy or thyromegaly, trachea midline Chest-clear to auscultation percussion. No rales wheezing or rhonchi Cardiac-regular rate and rhythm, normal S1 and S2 Abdomen-normal bowel sounds, nontender, no hepatosplenomegaly Extremities-no cyanosis, clubbing, or edema. Left wrist and forearm heavily bandaged postoperatively Neuro-cranial nerves II through XII intact, motor and sensory function within normal limits, strength symmetrical, no focal deficits Psych-normal affect, normal mood Results & Data Results & Data Vital Signs (Past 12 Hours) Vital Signs Temp Pulse Pulse Pulse Resp BP Pulse Ox 03/06/23 11:06 36.7 C 67 17 112/55 L 96 03/06/23 07:01 36.7 C 72 16 133/65 96 03/06/23 07:00 57 L 03/06/23 07:00 03/06/23 02:44 37 C 82 18 138/71 97 O2 Del Method 03/06/23 11:06 Room Air 03/06/23 07:01 Room Air 03/06/23 07:00 03/06/23 07:00 Room Air 03/06/23 02:44 Room Air Laboratory Results Abnormal lab results 03/06/23 Range/Units 07:26 RBC 2.86 L (4.20-5.40) M/uL Hgb 9.5 L (12.0-16.0) g/dl Hct 28.1 L (37.0-47.0) % RDW Std Deviation 81.2 H (36.4-46.3) fL RDW Coeff of Pj 22.8 H (11.5-14.5) % Plt Count 436 H (130-400) K/uL [place] # (Auto) 0.93 H (0.11-0.59) K/uL Chloride 108 H (98-107) mmol/L BUN/Creatinine Ratio 28.3 H (10-20) 03/06/23 07:26 03/06/23 07:26 PG Care Time/CCT Total # of Minutes Spent Total Time Spent with Patient: Total time spent is greater than 50% in coordination of care (as documented) at patient's floor/unit and/or counseling patient: Coding Level of Care Code 56215 SUB INP/OBS CARE 35MIN Diagnoses Accidental fall W19.XXXA Anemia, macrocytic D53.9 Acute UTI (urinary tract infection) N39.0 COVID-19 U07.1 Closed fracture of left wrist S62.102A CHI (closed head injury) S09.90XA Orthostatic hypotension I95.1
[2023-03-07] MEDS: SENNA 8.6 MG TAB PO SCH (08:28)
[2023-03-07] MEDS: FERROUS SULFATE 325 MG TAB PO SCH ×2 (08:28→17:29)
[2023-03-07] MEDS: CYANOCOBALAMIN (B-12) 500 MCG TABLET PO SCH (08:28)
[2023-03-07] MEDS: amLODIPine BESYLATE 5 MG TAB PO SCH (08:28)
[2023-03-07] MEDS: POLYETHYLENE (MIRALAX) 17 GM PACK PO SCH (08:28)
[2023-03-07] MEDS: CHOLECALCIFEROL 1,000 UNITS 25 MCG TAB PO SCH (08:28)
--- NOTE | 2023-03-07 10:07 | Orthopedic Progress Note ---
Date of Service March 07, 2023 Assessment & Plan (1) Closed fracture of left wrist: Plan: Day 6 s/p ORIF Left distal radius fracture -Nonweightbearing left wrist at all times. -Keep splint on left wrist at all times. -Platform walker for ambulation with PT and OT. -Ambulate as tolerated. -Pain medication as needed. -Ice to left wrist as needed for pain and swelling. -Encouraged range of motion of her fingers elbow and shoulder as tolerated. -Case management follow for placement. -Will need 2 week f/u at [facility] -At follow-up, patient will most likely be fitted for a thermoplast splint by PT -With questions contact our clinic at [phone] Admission and Anticipated Discharge Date Admission Date: February 26, 2023 Subjective This 82-year-old female is seen for follow-up of an open reduction internal fixation for a left distal radius fracture after sustaining a fall. Patient is postoperative day 6. She states her pain is well-controlled. She states that the splint is comfortable. Patient states that she is starting go get sensation back in her thumb. She does complain of locking when flexing at the IP joint. She has been working on elbow and finger range of motion. She has been elevating and icing. She has used the platform walker for ambulatory purposes. She understands that she is to be nonweightbearing on the left upper extremity. Currently she denies chest pain, shortness of breath, fever, chills, sweats, numbness or tingling in her left upper extremity, except for her thumb. She also denies nausea, vomiting, diarrhea or difficulty voiding. Review of Systems Review of Systems: as per HPI otherwise noncontributory. Physical Exam Physical Exam: Left upper extremity: Splint that is clean dry and intact and left in place. Patient is able to reach terminal flexion extension at her elbow. She has appropriate dexterity of fingers 2 through 5. She has difficulty actively extending at the MCP joint. She is able to do so at the IP joint. Her capillary fill is less than 2 seconds. She is able to detect light sensation to touch over the pads of all digits. She does have some mild edema and ecchymosis over the anterior aspect of the distal upper arm. Results & Data Vital Signs (Past 12 Hours) Vital Signs Temp Pulse Pulse Pulse Resp BP Pulse Ox 03/07/23 07:32 36.8 C 69 16 125/64 97 03/07/23 03:00 37.2 C 77 16 129/61 97 03/07/23 02:54 37.1 C 77 20 131/52 L 97 03/07/23 00:00 71 03/06/23 22:50 37.0 C 71 18 139/70 95 O2 Del Method 03/07/23 07:32 Room Air 03/07/23 03:00 Room Air 03/07/23 02:54 Room Air 03/07/23 00:00 03/06/23 22:50 Room Air Diagnostic Findings Laboratory Results WBC 9.00 K/ul (4.8-10.8) 03/06/23 07:26 RBC 2.86 M/uL (4.20-5.40) L 03/06/23 07:26 Hgb 9.5 g/dl (12.0-16.0) L 03/06/23 07:26 Hct 28.1 % (37.0-47.0) L 03/06/23 07:26 MCV 98.3 fL (80.0-100.0) 03/06/23 07:26 MCH 33.2 pg (25.0-34.0) 03/06/23 07:26 MCHC 33.8 g/dL (32.0-36.0) 03/06/23 07:26 RDW Std Deviation 81.2 fL (36.4-46.3) H 03/06/23 07:26 RDW Coeff of Pj 22.8 % (11.5-14.5) H 03/06/23 07:26 Plt Count 436 K/uL (130-400) H 03/06/23 07:26 MPV 10.2 fL (9.4-12.4) 03/06/23 07:26 Immature Gran % (Auto) 0.4 % 03/06/23 07:26 Neut % (Auto) 68.7 % 03/06/23 07:26 Lymph % (Auto) 20.3 % 03/06/23 07:26 [place] % (Auto) 10.3 % 03/06/23 07:26 Eos % (Auto) 0.1 % 03/06/23 07:26 Baso % (Auto) 0.2 % 03/06/23 07:26 Reticulocyte % (Auto) 2.8 % (0.5-2.0) H 02/27/23 05:31 Neut # (Auto) 6.17 K/uL (1.40-6.50) 03/06/23 07:26 Lymph # (Auto) 1.83 K/uL (1.20-3.40) 03/06/23 07:26 [place] # (Auto) 0.93 K/uL (0.11-0.59) H 03/06/23 07:26 Eos # (Auto) 0.01 K/uL (0.00-0.50) 03/06/23 07:26 Baso # (Auto) 0.02 K/uL (0.00-0.20) 03/06/23 07:26 Reticulocyte # 0.07 10^6/uL (0.02-0.10) 02/27/23 05:31 Immature Gran # (Auto) 0.04 K/uL (0.01-0.20) 03/06/23 07:26 Absolute Nucleated RBC 0.02 K/uL (0.00-0.12) 03/02/23 07:32 Nucleated RBC % (auto) 0.3 % 03/02/23 07:32 Hypersegmented Neuts 1+ 03/04/23 05:36 Polychromasia 1+ 03/06/23 07:26 Poikilocytosis Present 02/28/23 08:49 Anisocytosis Present 03/06/23 07:26 Tear Drop Cells 1+ 03/06/23 07:26 Ovalocytes 1+ 03/06/23 07:26 Peripher Smr Path Cons 02/28/23 08:49 Haptoglobin 19 mg/dL (43-212) L 02/27/23 14:56 PT 11.3 Seconds (9.0-12.0) 02/24/23 20:40 INR 1.0 (0.9-1.1) 02/24/23 20:40 Sodium 140 mmol/L (136-145) 03/06/23 07:26 Potassium 4.0 mmol/L (3.5-5.1) 03/06/23 07:26 Chloride 108 mmol/L (98-107) H 03/06/23 07:26 Carbon Dioxide 25 mmol/L (21-32) 03/06/23 07:26 Anion Gap 7 (3-11) 03/06/23 07:26 BUN 17 mg/dl (6-23) 03/06/23 07:26 Creatinine 0.60 mg/dl (0.6-1.2) 03/06/23 07:26 Est Cr Clr Drug Dosing 61.9 ml/min 03/06/23 07:26 Est GFR ( Amer) 99.8 ml/min 03/06/23 07:26 Est GFR (Non-Af Amer) 86.1 ml/min 03/06/23 07:26 BUN/Creatinine Ratio 28.3 (10-20) H 03/06/23 07:26 Glucose 91 mg/dl (70-99(Fasting)) 03/06/23 07:26 POC Glucose 95 mg/dl (70-99) 02/27/23 20:17 Calcium 9.2 mg/dl (8.6-10.3) 03/06/23 07:26 Magnesium 2.1 mg/dl (1.7-2.4) 02/26/23 07:51 Iron 82 mcg/dl (35-150) 02/25/23 09:45 TIBC 285 mcg/dl (250-450) 02/25/23 09:45 Unsaturated IBC 203 mcg/dl (155-355) 02/25/23 09:45 Transferrin % Sat 29 % (15-50) 02/25/23 09:45 Ferritin 309.1 ng/ml (8-388) 02/25/23 09:45 Total Bilirubin 1.6 mg/dl (0.2-1.0) H 02/26/23 07:51 AST 27 U/L (13-39) 02/26/23 07:51 ALT 11 U/L (7-52) 02/26/23 07:51 Alkaline Phosphatase 55 U/L (34-104) 02/26/23 07:51 Lactate Dehydrogenase 1002 U/L (86-244) H 02/27/23 14:56 Total Creatine Kinase 126 U/L (26-192) 02/24/23 20:40 Troponin I High Sens 5.7 pg/ml (0-14) 02/24/23 20:40 Total Protein 6.8 gm/dl (6.0-8.3) 02/26/23 07:51 Albumin 4.3 gm/dl (3.4-5.0) 02/26/23 07:51 Globulin 2.5 gm/dl (2.5-4.0) 02/26/23 07:51 Albumin/Globulin Ratio 1.7 (0.9-2) 02/26/23 07:51 Vitamin B12 < 50 pg/ml (180-914) L 02/25/23 09:45 Folate > 22.30 ng/ml (>5.38) 02/25/23 09:45 Urine Color Yellow 02/24/23 19:18 Urine Appearance Clear (Clear) 02/24/23 19:18 Urine pH 6.5 (4.5-7.5) 02/24/23 19:18 Ur Specific [place] 1.014 (1.000-1.030) 02/24/23 19:18 Urine Protein Trace (Negative) H 02/24/23 19:18 Urine Glucose (UA) Negative (Negative) 02/24/23 19:18 Urine Ketones 1+ (Negative) H 02/24/23 19:18 Urine Blood Negative (Negative) 02/24/23 19:18 Urine Nitrite Negative (Negative) 02/24/23 19:18 Urine Bilirubin Negative (Negative) 02/24/23 19:18 Urine Urobilinogen Negative (Negative) 02/24/23 19:18 Ur Leukocyte Esterase Negative (Negative) 02/24/23 19:18 Urine WBC (Auto) 1-5 /hpf (0-5) 02/24/23 19:18 Urine RBC (Auto) 0-4 /hpf (0-4) 02/24/23 19:18 U Hyaline Cast (Auto) 1-5 /lpf (0-5) 02/24/23 19:18 U Epithel Cells (Auto) 10-20 /lpf (0-5) H 02/24/23 19:18 Urine Bacteria (Auto) Negative (Negative) 02/24/23 19:18 Stool Occult Bld Scrn Negative (Negative) 02/27/23 11:05 Adenovirus (PCR) Not Detected (NotDetected) 02/24/23 21:43 B. pertussis DNA (PCR) Not Detected (NotDetected) 02/24/23 21:43 B.parapertussis DNA PCR Not Detected (NotDetected) 02/24/23 21:43 C. pneumoniae DNA (PCR) Not Detected (NotDetected) 02/24/23 21:43 Coronavirus OC43 (PCR) Not Detected (NotDetected) 02/24/23 21:43 Coronavirus HKU1 (PCR) Not Detected (NotDetected) 02/24/23 21:43 Coronavirus 229E (PCR) Not Detected (NotDetected) 02/24/23 21:43 SARS-CoV-2 (PCR) DETECTED (NotDetected) A* 02/24/23 21:43 Coronavirus NL63 (PCR) Not Detected (NotDetected) 02/24/23 21:43 Human Metapneumovir PCR Not Detected (NotDetected) 02/24/23 21:43 Influenza Type A (PCR) Not Detected (NotDetected) 02/24/23 21:43 Influenza Type B (PCR) Not Detected (NotDetected) 02/24/23 21:43 M. pneumoniae (PCR) Not Detected (NotDetected) 02/24/23 21:43 Parainfluenza 1 (PCR) Not Detected (NotDetected) 02/24/23 21:43 Parainfluenza 2 (PCR) Not Detected (NotDetected) 02/24/23 21:43 Parainfluenza 3 (PCR) Not Detected (NotDetected) 02/24/23 21:43 Parainfluenza 4 (PCR) Not Detected (NotDetected) 02/24/23 21:43 RSV (PCR) Not Detected (NotDetected) 02/24/23 21:43 Entero/Rhino (PCR) Not Detected (NotDetected) 02/24/23 21:43 Blood Type A Positive 02/24/23 20:40 Antibody Screen NEGATIVE 02/24/23 20:40 Crossmatch See Detail 02/24/23 20:[address] 02/24/23 19:10 Exam(s): CT C SPINE EXAM: CT Cervical Spine Without Intravenous Contrast CLINICAL HISTORY: Neck trauma. TECHNIQUE: Axial computed tomography images of the cervical spine without intravenous contrast. CTDI is 23.94 mGy and DLP is 452.21 mGy-cm. Automated exposure control was utilized for the study. A dose lowering technique was utilized adhering to the principles of ALARA. COMPARISON: No relevant prior studies available. FINDINGS: Vertebrae: Unremarkable. No fracture or malalignment. Discs/spinal canal/neural foramina: There are degenerative changes of the spine. No spinal canal stenosis. Soft tissues: Unremarkable. No prevertebral soft tissue swelling. IMPRESSION: No acute finding of the cervical spine. Electronically signed by: Clari Rizo MD 02/24/23 21:[address] 02/24/23 19:10 Exam(s): CT HEAD Without Contrast EXAM: CT Head Without Intravenous Contrast CLINICAL HISTORY: Head trauma moderate-severe. TECHNIQUE: Axial computed tomography images of the head/brain without intravenous contrast. CTDI is 36.43 mGy and DLP is 546.36 mGy-cm. Automated exposure control was utilized for the study. A dose lowering technique was utilized adhering to the principles of ALARA. COMPARISON: CT brain 01/14/2023 FINDINGS: Brain: No intracranial hemorrhage, mass-effect or midline shift. No abnormal extra axial fluid. No evidence of acute infarct. 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 Ventricles: Unremarkable. No ventriculomegaly. Bones/joints: Unremarkable. No acute fracture. Soft tissues: Unremarkable. Sinuses: Unremarkable as visualized. No acute sinusitis. Mastoid air cells: Unremarkable as visualized. No mastoid effusion. IMPRESSION: No acute intracranial finding. Electronically signed by: Clari Rizo MD 02/24/23 21:05 PM Forearm X-Ray 02/24/23 19:34 XR forearm LT 2V CLINICAL HISTORY: Forearm trauma COMPARISON: None FINDINGS: Alignment of the left elbow is anatomic. No proximal left radial or ulnar fracture is present. No evidence for a left elbow joint effusion. Distal left radial and ulnar fractures are noted. These are better depicted on the left wrist radiographs. IMPRESSION: 1. Acute distal left radial and ulnar fractures better depicted on the left wrist radiographs. 2. No proximal left radial or ulnar fracture. No left elbow joint effusion. ACT 112: Negative or not required by law. Electronically signed by: Jesse Zambrano M.D. 02/25/2023 8:06 AM Chest X-Ray 02/24/23 19:37 XR chest 1V portable CLINICAL HISTORY: Fall. COMPARISON STUDY: Chest radiograph January 14, 2023. FINDINGS: Lung volumes are normal. Lungs are clear. There is no pneumothorax or pleural effusion. Cardiac size is stable. Mediastinal contours are normal. There is no evidence for pulmonary edema. IMPRESSION: No acute cardiopulmonary findings. No significant change in appearance of the chest. ACT 112: Negative or not required by law. Electronically signed by: Jesse Zambrano M.D. 02/25/2023 8:03 AM Femur X-Ray 02/26/23 11:13 XR femur RT 2V routine CLINICAL HISTORY: Right femur pain. Fall. COMPARISON STUDY: Pelvis 01/14/2023. Right femur 09/09/2021. FINDINGS: No acute fracture or dislocation within the right femur. Postoperative changes again noted. The hardware appears intact. No abnormal periprosthetic lucency. There is normal, healed mid shaft right femoral fracture. Soft tissues are unremarkable. IMPRESSION: Stable postoperative changes within the right femur. No acute fracture or dislocation. ACT 112: Negative or not required by law. Electronically signed by: Hilario Moore M.D. 02/26/2023 12:31 PM Wrist X-Ray 03/01/23 07:00 INTRAOPERATIVE RADIOGRAPHS CLINICAL HISTORY: Open reduction and internal fixation of the distal left radius. Fluoro time: 25 seconds Ka,r: 0.54 mGy FINDINGS: 3 spot fluoroscopic views of the left wrist are correlated with radiographs of the wrist dated 02/24/2023. Again seen are fractures of the distal radius and ulna. A buttress plate has been placed along the volar cortex of the distal radius with amish of near-anatomic alignment. Numerous cortical lag screw transfix the plate. Overlying soft tissue edema is noted. IMPRESSION: Intraoperative images from buttress plate fixation of the distal left radius. Electronically signed by: Sudheer Diego M.D. 03/01/2023 11:08 AM
--- NOTE | 2023-03-07 17:38 | Hospitalist Progress Note ---
Date of Service March 07, 2023 Assessment & Plan (1) Accidental fall: Plan: No syncope. Continue OT and PT. She is nonweightbearing status on the left arm due to the left wrist fracture. (2) Anemia, macrocytic: Plan: Severe B12 deficiency based on labs from previous admission. She is now on supplementation. Fecal occult blood is negative. Reticulocyte count is elevated. Intravascular hemolysis has been ruled out. No indication for steroid therapy at this time. Hematology consultation and recommendations appreciated (3) Acute UTI (urinary tract infection): Plan: Urinary tract infection symptoms. Treated with Cipro. Urinalysis negative here. (4) COVID-19: Plan: Positive nasal swab. Asymptomatic. CXR neg. Continue vitamin D. No treatment with remdesivir or Paxlovid indicated Discontinue COVID isolation (5) Closed fracture of left wrist: Plan: Appreciate orthopedic consultation and recommendations. She underwent open reduction internal fixation on March 01. She no longer requires [place] and is asking only for Tylenol at this time. The left forearm and left wrist are heavily bandaged at this time. Follow-up with orthopedics in 2 weeks (6) CHI (closed head injury): Plan: Due to mechanical fall at home. Facial contusion but no fractures. Head and cervical spine CTs negative (7) Orthostatic hypotension: Plan: Now resolved Plan She will need placement while the left wrist heals. She uses a walker chronically and is nonweightbearing at this point on the left arm . She is medically stable for discharge. Insurance has denied IPR placement. Case management is pursuing SNF placement at this time. Awaiting placement. [facility] patient [facility] as not needing telemetry. Admission and Anticipated Discharge Date Admission Date: February 26, 2023 Subjective Patient feels well overall. Denies chest pain or shortness of breath. Review of Systems Review of Systems: All systems reviewed & are unremarkable except as noted in Subjective Physical Exam Physical Exam: General: Awake, conversant Heart: S1, S2/regular rate and rhythm, no murmur rubs or gallops Lungs: Clear to auscultation bilaterally. Normal effort Abdomen: Soft/nontender/nondistended. No hepatosplenomegaly Extremities: No clubbing/cyanosis. No edema. Left wrist in splint Behavior: Appropriate, cooperative Results & Data Results & Data Vital Signs (Past 12 Hours) Vital Signs Temp Pulse Pulse Resp BP Pulse Ox O2 Del Method 01/02/24 15:46 75 03/07/23 15:32 98 03/07/23 15:26 36.8 C 78 18 132/71 97 Room Air 03/07/23 11:04 36.8 C 64 18 133/63 98 Room Air 03/07/23 08:00 75 03/07/23 08:00 Room Air 03/07/23 07:32 36.8 C 69 16 125/64 97 Room Air PG Care Time/CCT Total # of Minutes Spent Total Time Spent with Patient: Total time spent is greater than 50% in coordination of care (as documented) at patient's floor/unit and/or counseling patient: Coding Level of Care Code 47950 SUB INP/OBS CARE 2/35MIN Diagnoses Accidental fall W19.XXXA Anemia, macrocytic D53.9 Acute UTI (urinary tract infection) N39.0 COVID-19 U07.1 Closed fracture of left wrist S62.102A CHI (closed head injury) S09.90XA Orthostatic hypotension I95.1
[2023-03-08] MEDS: FERROUS SULFATE 325 MG TAB PO SCH ×2 (09:10→16:09)
[2023-03-08] MEDS: CYANOCOBALAMIN (B-12) 500 MCG TABLET PO SCH (09:10)
[2023-03-08] MEDS: POLYETHYLENE (MIRALAX) 17 GM PACK PO SCH (09:11)
[2023-03-08] MEDS: amLODIPine BESYLATE 5 MG TAB PO SCH (09:11)
[2023-03-08] MEDS: SENNA 8.6 MG TAB PO SCH (09:12)
--- NOTE | 2023-03-08 09:25 | Orthopedic Progress Note ---
Date of Service March 08, 2023 Assessment & Plan (1) S/P operative procedure on wrist: Plan: The patient was educated regarding today's findings. Conservative care measures were discussed. Her splint is still fitting well. Dressings were loosened slightly around the base of the thumb. Importance of doing supination and pronation was discussed with her. She will need follow-up in the office in 1 week for suture removal. Continue with ice and elevation. The patient is willing to go to a assisted facility as well as return home with outpatient or home PT. She states she is flexible. This will be discussed with case management. Admission and Anticipated Discharge Date Admission Date: February 26, 2023 Subjective This 82-year-old female seen today for reevaluation of her left wrist. She is 7 days status post radius ORIF. She states the wrist is feeling fine. She has been moving her fingers. She is currently working with occupational therapy. She is reportedly off COVID precautions at this time according to her nurse. The patient is wondering whether she is going home or to a rehab facility. No other complaints at this time. She denies any chest pain or shortness of breath. No nausea, vomiting, or abdominal pain. She denies any numbness or tingling in her hand. Physical Exam Physical Exam: General: Well-developed, well-nourished, elderly female, in no acute distress. Sitting on the edge of her bed. Alert and oriented. Conversive. Skin: Warm and dry with good turgor. Ecchymosis is present at her elbow and her index finger. She has a postsurgical splint in place on the left wrist. It was not removed. Musculoskeletal: The patient has full range of motion of her elbow. She has intact supination and pronation. She has intact motor function of her digits. Thumb circumduction and opposition are intact. Neurologic: Gross sensation is intact across each of the digits of the left hand. Median and ulnar nerve sensations are equal. Capillary refill is equal for each of the fingers. Results & Data Vital Signs (Past 12 Hours) Vital Signs Temp Pulse Resp BP Pulse Ox O2 Del Method 03/08/23 07:24 36.8 C 72 18 120/67 96 Room Air 03/07/23 22:47 37.1 C 76 16 133/66 95 Room Air
--- NOTE | 2023-03-08 16:15 | Hospitalist Progress Note ---
Date of Service March 08, 2023 Assessment & Plan (1) Accidental fall: Plan: No syncope. Continue OT and PT. She is nonweightbearing status on the left arm due to the left wrist fracture. (2) Anemia, macrocytic: Plan: Severe B12 deficiency based on labs from previous admission. She is now on supplementation. Fecal occult blood is negative. Reticulocyte count is elevated. Intravascular hemolysis has been ruled out. No indication for steroid therapy at this time. Hematology consultation and recommendations appreciated (3) Acute UTI (urinary tract infection): Plan: Urinary tract infection symptoms. Treated with Cipro. Urinalysis negative here. (4) COVID-19: Plan: Positive nasal swab. Asymptomatic. CXR neg. Continue vitamin D. No treatment with remdesivir or Paxlovid indicated Discontinue COVID isolation (5) Closed fracture of left wrist: Plan: Appreciate orthopedic consultation and recommendations. She underwent open reduction internal fixation on March 01. She no longer requires [place] and is asking only for Tylenol at this time. The left forearm and left wrist are heavily bandaged at this time. Follow-up with orthopedics in 2 weeks (6) CHI (closed head injury): Plan: Due to mechanical fall at home. Facial contusion but no fractures. Head and cervical spine CTs negative (7) Orthostatic hypotension: Plan: Now resolved Plan She will need placement while the left wrist heals. She uses a walker chronically and is nonweightbearing at this point on the left arm . She is medically stable for discharge. Insurance has denied IPR placement. Case management is pursuing SNF placement at this time. Awaiting placement. Likely discharge tomorrow per case management. Admission and Anticipated Discharge Date Admission Date: February 26, 2023 Subjective Patient denies chest pain or shortness of breath. Feels well overall. Review of Systems Review of Systems: All systems reviewed & are unremarkable except as noted in Subjective Physical Exam Physical Exam: General: Awake, conversant Heart: S1, S2/regular rate and rhythm, no murmur rubs or gallops Lungs: Clear to auscultation bilaterally. Normal effort Abdomen: Soft/nontender/nondistended. No hepatosplenomegaly Extremities: No clubbing/cyanosis. No edema. Left wrist in splint Behavior: Appropriate, cooperative Results & Data Results & Data Vital Signs (Past 12 Hours) Vital Signs Temp Pulse Resp BP Pulse Ox O2 Del Method 03/08/23 15:24 36.8 C 73 18 130/65 95 Room Air 03/08/23 11:41 36.7 C 70 18 117/66 96 Room Air 03/08/23 07:24 36.8 C 72 18 120/67 96 Room Air PG Care Time/CCT Total # of Minutes Spent Total Time Spent with Patient: Total time spent is greater than 50% in coordination of care (as documented) at patient's floor/unit and/or counseling patient: Coding Level of Care Code 63378 SUB INP/OBS CARE 2/35MIN Diagnoses Accidental fall W19.XXXA Anemia, macrocytic D53.9 Acute UTI (urinary tract infection) N39.0 COVID-19 U07.1 Closed fracture of left wrist S62.102A CHI (closed head injury) S09.90XA Orthostatic hypotension I95.1
[2023-03-09] MEDS: amLODIPine BESYLATE 5 MG TAB PO SCH (07:30)
[2023-03-09] MEDS: SENNA 8.6 MG TAB PO SCH (07:30)
[2023-03-09] MEDS: CYANOCOBALAMIN (B-12) 500 MCG TABLET PO SCH (07:30)
[2023-03-09] MEDS: FERROUS SULFATE 325 MG TAB PO SCH ×2 (07:30→18:11)
[2023-03-09] MEDS: POLYETHYLENE (MIRALAX) 17 GM PACK PO SCH ×2 (07:31→08:49)
--- NOTE | 2023-03-09 08:38 | Orthopedic Progress Note ---
Date of Service March 09, 2023 Assessment & Plan (1) S/P operative procedure on wrist: Plan: The patient was educated regarding today's findings. Importance of moving her fingers was discussed. She will be working with PT/OT today. She was reminded to not bear weight through the left arm. Continue working on finger dexterity and ROM of the wrist for supination and pronation. We will continue to follow. Case management is working on authorization for transfer to SNF. Admission and Anticipated Discharge Date Admission Date: February 26, 2023 Subjective This 82-year-old female seen today in her room. She is now off COVID precautions. She feels the wrist is doing well. She has minimal pain. She denies any tingling. Her thumb is still a bit numb on the ulnar border, but the rest of the thumb has sensation. No other complaints. Post op day 9. Physical Exam Physical Exam: General: Well-developed, well-nourished, elderly female, in no acute distress. Sitting on her bed. Alert and oriented. Skin: Warm and dry with good turgor. No rashes. She has mild edema in her thumb. Her wrist splint is intact. There is ecchymosis at her elbow. Musculoskeletal: The patient has intact motor function of her digits and elbow. Approaching full supination and pronation. She is able to circumduct and oppose her thumb. Neurologic: Gross sensation is intact across each of the digits of the left hand by soft touch. Thumb is still not back to normal on the ulnar border. Capillary refill is equal for each of the fingers. Results & Data Vital Signs (Past 12 Hours) Vital Signs Temp Pulse Resp BP Pulse Ox O2 Del Method 03/09/23 07:01 36.8 C 76 16 144/67 H 96 Room Air 03/08/23 21:50 36.9 C 76 18 125/71 96 Room Air 03/08/23 21:30 Room Air
--- NOTE | 2023-03-09 17:09 | Hospitalist Progress Note ---
Date of Service March 09, 2023 Assessment & Plan (1) Accidental fall: Plan: No syncope. Continue OT and PT. She is nonweightbearing status on the left arm due to the left wrist fracture. (2) Anemia, macrocytic: Plan: Severe B12 deficiency based on labs from previous admission. She is now on supplementation. Fecal occult blood is negative. Reticulocyte count is elevated. Intravascular hemolysis has been ruled out. No indication for steroid therapy at this time. Hematology consultation and recommendations appreciated (3) Acute UTI (urinary tract infection): Plan: Urinary tract infection symptoms. Treated with Cipro. Urinalysis negative here. (4) COVID-19: Plan: Positive nasal swab. Asymptomatic. CXR neg. Continue vitamin D. No treatment with remdesivir or Paxlovid indicated Discontinued COVID isolation (5) Closed fracture of left wrist: Plan: Appreciate orthopedic consultation and recommendations. She underwent open reduction internal fixation on March 01. She no longer requires [place] and is asking only for Tylenol at this time. The left forearm and left wrist are heavily bandaged at this time. Follow-up with orthopedics in 2 weeks (6) CHI (closed head injury): Plan: Due to mechanical fall at home. Facial contusion but no fractures. Head and cervical spine CTs negative (7) Orthostatic hypotension: Plan: Now resolved Plan She will need placement while the left wrist heals. She uses a walker chronically and is nonweightbearing at this point on the left arm . She is medically stable for discharge. Insurance has denied IPR placement. Case management is pursuing SNF placement at this time. Awaiting placement. Likely discharge tomorrow per case management. Admission and Anticipated Discharge Date Admission Date: February 26, 2023 Subjective Patient feels well today. Waiting for placement. Denies any chest pain or sh ortness of breath. Review of Systems Review of Systems: All systems reviewed & are unremarkable except as noted in Subjective Physical Exam Physical Exam: General: Awake, conversant Heart: S1, S2/regular rate and rhythm, no murmur rubs or gallops Lungs: Clear to auscultation bilaterally. Normal effort Abdomen: Soft/nontender/nondistended. No hepatosplenomegaly Extremities: No clubbing/cyanosis. No edema. Left wrist in splint Behavior: Appropriate, cooperative Results & Data Results & Data Vital Signs (Past 12 Hours) Vital Signs Temp Pulse Resp BP Pulse Ox O2 Del Method 03/09/23 15:07 36.9 C 83 16 135/71 96 Room Air 03/09/23 07:01 36.8 C 76 16 144/67 H 96 Room Air PG Care Time/CCT Total # of Minutes Spent Total Time Spent with Patient: Total time spent is greater than 50% in coordination of care (as documented) at patient's floor/unit and/or counseling patient: Coding Level of Care Code 76053 SUB INP/OBS CARE 2/35MIN Diagnoses Accidental fall W19.XXXA Anemia, macrocytic D53.9 Acute UTI (urinary tract infection) N39.0 COVID-19 U07.1 Closed fracture of left wrist S62.102A CHI (closed head injury) S09.90XA Orthostatic hypotension I95.1
[2023-03-10] MEDS: POLYETHYLENE (MIRALAX) 17 GM PACK PO SCH (07:45)
[2023-03-10] MEDS: SENNA 8.6 MG TAB PO SCH (07:47)
[2023-03-10] MEDS: CYANOCOBALAMIN (B-12) 500 MCG TABLET PO SCH (07:47)
[2023-03-10] MEDS: amLODIPine BESYLATE 5 MG TAB PO SCH (07:47)
[2023-03-10] MEDS: FERROUS SULFATE 325 MG TAB PO SCH ×2 (07:47→16:26)
--- NOTE | 2023-03-10 09:12 | Orthopedic Progress Note ---
Date of Service March 10, 2023 Assessment & Plan (1) S/P operative procedure on wrist: Plan: The patient was educated regarding today's findings. Conservative care measures were discussed. Her splint is still fitting well. Importance of doing supination and pronation was discussed with her. She will need follow-up in the office in 1 week for suture removal. Continue with ice and elevation. Case management is working to obtain authorization for patient to go to [facility] for rehab. Admission and Anticipated Discharge Date Admission Date: February 26, 2023 Subjective This 82-year-old female is seen for follow-up of an open reduction internal fixation for a left distal radius fracture after sustaining a fall. Patient is postoperative day 10. She states her pain is well-controlled. She states that the splint is comfortable. Patient states that she is starting go get sensation back in her thumb. She has been working on elbow and finger range of motion. She has been elevating and icing. She has used the platform walker for ambulatory purposes. She understands that she is to be nonweightbearing on the left upper extremity. Currently she denies chest pain, shortness of breath, fever, chills, sweats, numbness or tingling in her left upper extremity, except for her thumb. She also denies nausea, vomiting, diarrhea or difficulty voiding. Review of Systems Review of Systems: as per HPI otherwise noncontributory. Physical Exam Physical Exam: Left upper extremity: Splint that is clean dry and intact and left in place. Patient is able to reach terminal flexion extension at her elbow. She has appropriate dexterity of fingers 2 through 5. She has regained full ROM and sensation in her thumb. She has no difficulty performing pincer grasp with the thumb and index finger. Her capillary fill is less than 2 seconds. She is able to detect light sensation to touch over the pads of all digits. She does have some mild edema over the anterior aspect of the distal upper arm but the previously noted ecchymosis is fading. Results & Data Vital Signs (Past 12 Hours) Vital Signs Temp Pulse Resp BP Pulse Ox O2 Del Method 03/10/23 07:39 36.9 C 80 14 126/63 97 Room Air Diagnostic Findings Laboratory Results WBC 9.00 K/ul (4.8-10.8) 03/06/23 07:26 RBC 2.86 M/uL (4.20-5.40) L 03/06/23 07:26 Hgb 9.5 g/dl (12.0-16.0) L 03/06/23 07:26 Hct 28.1 % (37.0-47.0) L 03/06/23 07:26 MCV 98.3 fL (80.0-100.0) 03/06/23 07:26 MCH 33.2 pg (25.0-34.0) 03/06/23 07: MCHC 33.8 g/dL (32.0-36.0) 03/06/23 07:26 RDW Std Deviation 81.2 fL (36.4-46.3) H 03/06/23 07: RDW Coeff of Pj 22.8 % (11.5-14.5) H 03/06/23 07:26 Plt Count 436 K/uL (130-400) H 03/06/23 07:26 MPV 10.2 fL (9.4-12.4) 03/06/23 07:26 Immature Gran % (Auto) 0.4 % 03/06/23 07:26 Neut % (Auto) 68.7 % 03/06/23 07:26 Lymph % (Auto) 20.3 % 03/06/23 07:26 Nance % (Auto) 10.3 % 03/06/23 07:26 Eos % (Auto) 0.1 % 03/06/23 07:26 Baso % (Auto) 0.2 % 03/06/23 07:26 Reticulocyte % (Auto) 2.8 % (0.5-2.0) H 02/27/23 05:31 Neut # (Auto) 6.17 K/uL (1.40-6.50) 03/06/23 07:26 Lymph # (Auto) 1.83 K/uL (1.20-3.40) 03/06/23 07:26 Nance # (Auto) 0.93 K/uL (0.11-0.59) H 03/06/23 07:26 Eos # (Auto) 0.01 K/uL (0.00-0.50) 03/06/23 07:26 Baso # (Auto) 0.02 K/uL (0.00-0.20) 03/06/23 07:26 Reticulocyte # 0.07 10^6/uL (0.02-0.10) 02/27/23 05:31 Immature Gran # (Auto) 0.04 K/uL (0.01-0.20) 03/06/23 07:26 Absolute Nucleated RBC 0.02 K/uL (0.00-0.12) 03/02/23 07:32 Nucleated RBC % (auto) 0.3 % 03/02/23 07:32 Hypersegmented Neuts 1+ 03/04/23 05:36 Polychromasia 1+ 03/06/23 07:26 Poikilocytosis Present 02/28/23 08:49 Anisocytosis Present 03/06/23 07:26 Tear Drop Cells 1+ 03/06/23 07:26 Ovalocytes 1+ 03/06/23 07:26 Peripher Smr Path Cons 02/28/23 08:49 Haptoglobin 19 mg/dL (43-212) L 02/27/23 14:56 PT 11.3 Seconds (9.0-12.0) 02/24/23 20:40 INR 1.0 (0.9-1.1) 02/24/23 20:40 Sodium 140 mmol/L (136-145) 03/06/23 07:26 Potassium 4.0 mmol/L (3.5-5.1) 03/06/23 07:26 Chloride 108 mmol/L (98-107) H 03/06/23 07:26 Carbon Dioxide 25 mmol/L (21-32) 03/06/23 07:26 Anion Gap 7 (3-11) 03/06/23 07:26 BUN 17 mg/dl (6-23) 03/06/23 07:26 Creatinine 0.60 mg/dl (0.6-1.2) 03/06/23 07:26 Est Cr Clr Drug Dosing 61.9 ml/min 03/06/23 07:26 Est GFR ( Amer) 99.8 ml/min 03/06/23 07:26 Est GFR (Non-Af Amer) 86.1 ml/min 03/06/23 07:26 BUN/Creatinine Ratio 28.3 (10-20) H 03/06/23 07:26 Glucose 91 mg/dl (70-99(Fasting)) 03/06/23 07:26 POC Glucose 95 mg/dl (70-99) 02/27/23 20:17 Calcium 9.2 mg/dl (8.6-10.3) 03/06/23 07:26 Magnesium 2.1 mg/dl (1.7-2.4) 02/26/23 07:51 Iron 82 mcg/dl (35-150) 02/25/23 09:45 TIBC 285 mcg/dl (250-450) 02/25/23 09:45 Unsaturated IBC 203 mcg/dl (155-355) 02/25/23 09:45 Transferrin % Sat 29 % (15-50) 02/25/23 09:45 Ferritin 309.1 ng/ml (8-388) 02/25/23 09:45 Total Bilirubin 1.6 mg/dl (0.2-1.0) H 02/26/23 07:51 AST 27 U/L (13-39) 02/26/23 07:51 ALT 11 U/L (7-52) 02/26/23 07:51 Alkaline Phosphatase 55 U/L (34-104) 02/26/23 07:51 Lactate Dehydrogenase 1002 U/L (86-244) H 02/27/23 14:56 Total Creatine Kinase 126 U/L (26-192) 02/24/23 20:40 Troponin I High Sens 5.7 pg/ml (0-14) 02/24/23 20:40 Total Protein 6.8 gm/dl (6.0-8.3) 02/26/23 07:51 Albumin 4.3 gm/dl (3.4-5.0) 02/26/23 07:51 Globulin 2.5 gm/dl (2.5-4.0) 02/26/23 07:51 Albumin/Globulin Ratio 1.7 (0.9-2) 02/26/23 07:51 Vitamin B12 < 50 pg/ml (180-914) L 02/25/23 09:45 Folate > 22.30 ng/ml (>5.38) 02/25/23 09:45 Urine Color Yellow 02/24/23 19:18 Urine Appearance Clear (Clear) 02/24/23 19:18 Urine pH 6.5 (4.5-7.5) 02/24/23 19:18 Ur Specific [place] 1.014 (1.000-1.030) 02/24/23 19:18 Urine Protein Trace (Negative) H 02/24/23 19:18 Urine Glucose (UA) Negative (Negative) 02/24/23 19:18 Urine Ketones 1+ (Negative) H 02/24/23 19:18 Urine Blood Negative (Negative) 02/24/23 19:18 Urine Nitrite Negative (Negative) 02/24/23 19:18 Urine Bilirubin Negative (Negative) 02/24/23 19:18 Urine Urobilinogen Negative (Negative) 02/24/23 19:18 Ur Leukocyte Esterase Negative (Negative) 02/24/23 19:18 Urine WBC (Auto) 1-5 /hpf (0-5) 02/24/23 19:18 Urine RBC (Auto) 0-4 /hpf (0-4) 02/24/23 19:18 U Hyaline Cast (Auto) 1-5 /lpf (0-5) 02/24/23 19:18 U Epithel Cells (Auto) 10-20 /lpf (0-5) H 02/24/23 19:18 Urine Bacteria (Auto) Negative (Negative) 02/24/23 19:18 Stool Occult Bld Scrn Negative (Negative) 02/27/23 11:05 Adenovirus (PCR) Not Detected (NotDetected) 02/24/23 21:43 B. pertussis DNA (PCR) Not Detected (NotDetected) 02/24/23 21:43 B.parapertussis DNA PCR Not Detected (NotDetected) 02/24/23 21:43 C. pneumoniae DNA (PCR) Not Detected (NotDetected) 02/24/23 21:43 Coronavirus OC43 (PCR) Not Detected (NotDetected) 02/24/23 21:43 Coronavirus HKU1 (PCR) Not Detected (NotDetected) 02/24/23 21:43 Coronavirus 229E (PCR) Not Detected (NotDetected) 02/24/23 21:43 SARS-CoV-2 (PCR) DETECTED (NotDetected) A* 02/24/23 21:43 Coronavirus NL63 (PCR) Not Detected (NotDetected) 02/24/23 21:43 Human Metapneumovir PCR Not Detected (NotDetected) 02/24/23 21:43 Influenza Type A (PCR) Not Detected (NotDetected) 02/24/23 21:43 Influenza Type B (PCR) Not Detected (NotDetected) 02/24/23 21:43 M. pneumoniae (PCR) Not Detected (NotDetected) 02/24/23 21:43 Parainfluenza 1 (PCR) Not Detected (NotDetected) 02/24/23 21:43 Parainfluenza 2 (PCR) Not Detected (NotDetected) 02/24/23 21:43 Parainfluenza 3 (PCR) Not Detected (NotDetected) 02/24/23 21:43 Parainfluenza 4 (PCR) Not Detected (NotDetected) 02/24/23 21:43 RSV (PCR) Not Detected (NotDetected) 02/24/23 21:43 Entero/Rhino (PCR) Not Detected (NotDetected) 02/24/23 21:43 Blood Type A Positive 02/24/23 20:40 Antibody Screen NEGATIVE 02/24/23 20:40 Crossmatch See Detail 02/24/23 20:[address] 02/24/23 19:10 Exam(s): CT C SPINE EXAM: CT Cervical Spine Without Intravenous Contrast CLINICAL HISTORY: Neck trauma. TECHNIQUE: Axial computed tomography images of the cervical spine without intravenous contrast. CTDI is 23.94 mGy and DLP is 452.21 mGy-cm. Automated exposure control was utilized for the study. A dose lowering technique was utilized adhering to the principles of ALARA. COMPARISON: No relevant prior studies available. FINDINGS: Vertebrae: Unremarkable. No fracture or malalignment. Discs/spinal canal/neural foramina: There are degenerative changes of the spine. No spinal canal stenosis. Soft tissues: Unremarkable. No prevertebral soft tissue swelling. IMPRESSION: No acute finding of the cervical spine. Electronically signed by: Clari Rizo MD 02/24/23 21:[address] 02/24/23 19:10 Exam(s): CT HEAD Without Contrast EXAM: CT Head Without Intravenous Contrast CLINICAL HISTORY: Head trauma moderate-severe. TECHNIQUE: Axial computed tomography images of the head/brain without intravenous contrast. CTDI is 36.43 mGy and DLP is 546.36 mGy-cm. Automated exposure control was utilized for the study. A dose lowering technique was utilized adhering to the principles of ALARA. COMPARISON: CT brain 01/14/2023 FINDINGS: Brain: No intracranial hemorrhage, mass-effect or midline shift. No abnormal extra axial fluid. No evidence of acute infarct. 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 Ventricles: Unremarkable. No ventriculomegaly. Bones/joints: Unremarkable. No acute fracture. Soft tissues: Unremarkable. Sinuses: Unremarkable as visualized. No acute sinusitis. Mastoid air cells: Unremarkable as visualized. No mastoid effusion. IMPRESSION: No acute intracranial finding. Electronically signed by: Clari Rizo MD 02/24/23 21:05 PM Forearm X-Ray 02/24/23 19:34 XR forearm LT 2V CLINICAL HISTORY: Forearm trauma COMPARISON: None FINDINGS: Alignment of the left elbow is anatomic. No proximal left radial or ulnar fracture is present. No evidence for a left elbow joint effusion. Distal left radial and ulnar fractures are noted. These are better depicted on the left wrist radiographs. IMPRESSION: 1. Acute distal left radial and ulnar fractures better depicted on the left wrist radiographs. 2. No proximal left radial or ulnar fracture. No left elbow joint effusion. ACT 112: Negative or not required by law. Electronically signed by: Jesse Zambrano M.D. 02/25/2023 8:06 AM Chest X-Ray 02/24/23 19:37 XR chest 1V portable CLINICAL HISTORY: Fall. COMPARISON STUDY: Chest radiograph January 14, 2023. FINDINGS: Lung volumes are normal. Lungs are clear. There is no pneumothorax or pleural effusion. Cardiac size is stable. Mediastinal contours are normal. There is no evidence for pulmonary edema. IMPRESSION: No acute cardiopulmonary findings. No significant change in appearance of the chest. ACT 112: Negative or not required by law. Electronically signed by: Jesse Zambrano M.D. 02/25/2023 8:03 AM Femur X-Ray 02/26/23 11:13 XR femur RT 2V routine CLINICAL HISTORY: Right femur pain. Fall. COMPARISON STUDY: Pelvis 01/14/2023. Right femur 09/09/2021. FINDINGS: No acute fracture or dislocation within the right femur. Postoperative changes again noted. The hardware appears intact. No abnormal periprosthetic lucency. There is normal, healed mid shaft right femoral fracture. Soft tissues are unremarkable. IMPRESSION: Stable postoperative changes within the right femur. No acute fracture or dislocation. ACT 112: Negative or not required by law. Electronically signed by: Hilario Moore M.D. 02/26/2023 12:31 PM Wrist X-Ray 03/01/23 07:00 INTRAOPERATIVE RADIOGRAPHS CLINICAL HISTORY: Open reduction and internal fixation of the distal left radius. Fluoro time: 25 seconds Ka,r: 0.54 mGy FINDINGS: 3 spot fluoroscopic views of the left wrist are correlated with radiographs of the wrist dated 02/24/2023. Again seen are fractures of the distal radius and ulna. A buttress plate has been placed along the volar cortex of the distal radius with mandaeism of near-anatomic alignment. Numerous cortical lag screw transfix the plate. Overlying soft tissue edema is noted. IMPRESSION: Intraoperative images from buttress plate fixation of the distal left radius. Electronically signed by: Sudheer Diego M.D. 03/01/2023 11:08 AM
--- NOTE | 2023-03-10 16:11 | Hospitalist Progress Note ---
Date of Service March 10, 2023 Assessment & Plan (1) Accidental fall: Plan: No syncope. Continue OT and PT. She is nonweightbearing status on the left arm due to the left wrist fracture. (2) Anemia, macrocytic: Plan: Severe B12 deficiency based on labs from previous admission. She is now on supplementation. Fecal occult blood is negative. Reticulocyte count is elevated. Intravascular hemolysis has been ruled out. No indication for steroid therapy at this time. Hematology consultation and recommendations appreciated (3) Acute UTI (urinary tract infection): Plan: Urinary tract infection symptoms. Treated with Cipro. Urinalysis negative here. (4) COVID-19: Plan: Positive nasal swab. Asymptomatic. CXR neg. Continue vitamin D. No treatment with remdesivir or Paxlovid indicated Discontinued COVID isolation (5) Closed fracture of left wrist: Plan: Appreciate orthopedic consultation and recommendations. She underwent open reduction internal fixation on March 01. She no longer requires [place] and is asking only for Tylenol at this time. The left forearm and left wrist are heavily bandaged at this time. Follow-up with orthopedics in 2 weeks (6) CHI (closed head injury): Plan: Due to mechanical fall at home. Facial contusion but no fractures. Head and cervical spine CTs negative (7) Orthostatic hypotension: Plan: Now resolved Plan She will need placement while the left wrist heals. She uses a walker chronically and is nonweightbearing at this point on the left arm . She is medically stable for discharge. Insurance has denied IPR placement. Case management is pursuing SNF placement at this time. Awaiting insurance authorization Admission and Anticipated Discharge Date Admission Date: February 26, 2023 Subjective Patient feels well. She has no complaints. Denies any chest pain or shortness of breath. Review of Systems Review of Systems: All systems reviewed & are unremarkable except as noted in Subjective Physical Exam Physical Exam: General: Awake, conversant, smiling Heart: S1, S2/regular rate and rhythm, no murmur rubs or gallops Lungs: Clear to auscultation bilaterally. Normal effort Abdomen: Soft/nontender/nondistended. No hepatosplenomegaly Extremities: No clubbing/cyanosis. No edema. Left wrist in splint Behavior: Appropriate, cooperative Results & Data Results & Data Vital Signs (Past 12 Hours) Vital Signs Temp Pulse Resp BP Pulse Ox O2 Del Method 03/10/23 15:05 36.8 C 74 16 146/77 H 97 Room Air 03/10/23 07:39 36.9 C 80 14 126/63 97 Room Air PG Care Time/CCT Total # of Minutes Spent Total Time Spent with Patient: Total time spent is greater than 50% in coordination of care (as documented) at patient's floor/unit and/or counseling patient: Coding Level of Care Code 14494 SUB INP/OBS CARE 2/35MIN Diagnoses Accidental fall W19.XXXA Anemia, macrocytic D53.9 Acute UTI (urinary tract infection) N39.0 COVID-19 U07.1 Closed fracture of left wrist S62.102A CHI (closed head injury) S09.90XA Orthostatic hypotension I95.1
[2023-03-11] MEDS: CYANOCOBALAMIN (B-12) 500 MCG TABLET PO SCH (08:49)
[2023-03-11] MEDS: SENNA 8.6 MG TAB PO SCH (08:49)
[2023-03-11] MEDS: amLODIPine BESYLATE 5 MG TAB PO SCH (08:49)
[2023-03-11] MEDS: FERROUS SULFATE 325 MG TAB PO SCH ×2 (08:49→17:26)
[2023-03-11] MEDS: POLYETHYLENE (MIRALAX) 17 GM PACK PO SCH (08:50)
--- NOTE | 2023-03-11 15:08 | Hospitalist Progress Note ---
Date of Service March 11, 2023 Assessment & Plan (1) Accidental fall: Plan: No syncope. Continue OT and PT. She is nonweightbearing status on the left arm due to the left wrist fracture. (2) Anemia, macrocytic: Plan: Severe B12 deficiency based on labs from previous admission. She is now on supplementation. Fecal occult blood is negative. Reticulocyte count is elevated. Intravascular hemolysis has been ruled out. No indication for steroid therapy at this time. Hematology consultation and recommendations appreciated (3) Acute UTI (urinary tract infection): Plan: Urinary tract infection symptoms. Treated with Cipro. Urinalysis negative here. (4) COVID-19: Plan: Positive nasal swab. Asymptomatic. CXR neg. Continue vitamin D. No treatment with remdesivir or Paxlovid indicated Discontinued COVID isolation (5) Closed fracture of left wrist: Plan: Appreciate orthopedic consultation and recommendations. She underwent open reduction internal fixation on March 01. She no longer requires [place] and is asking only for Tylenol at this time. The left forearm and left wrist are heavily bandaged at this time. Follow-up with orthopedics in 2 weeks (6) CHI (closed head injury): Plan: Due to mechanical fall at home. Facial contusion but no fractures. Head and cervical spine CTs negative (7) Orthostatic hypotension: Plan: Now resolved Plan She will need placement while the left wrist heals. She uses a walker chronically and is nonweightbearing at this point on the left arm . She is medically stable for discharge. Insurance has denied IPR placement. Case management is pursuing SNF placement at this time. Awaiting insurance authorization Admission and Anticipated Discharge Date Admission Date: February 26, 2023 Subjective No new complaints. Still waiting for placement. Review of Systems Review of Systems: All systems reviewed & are unremarkable except as noted in Subjective Physical Exam Physical Exam: General: Awake, conversant, smiling Heart: S1, S2/regular rate and rhythm, no murmur rubs or gallops Lungs: Clear to auscultation bilaterally. Normal effort Abdomen: Soft/nontender/nondistended. No hepatosplenomegaly Extremities: No clubbing/cyanosis. No edema. Left wrist in splint Behavior: Appropriate, cooperative Results & Data Results & Data Vital Signs (Past 12 Hours) Vital Signs Temp Pulse Resp BP Pulse Ox O2 Del Method 03/11/23 07:43 36.8 C 64 16 135/68 96 Room Air PG Care Time/CCT Total # of Minutes Spent Total Time Spent with Patient: Total time spent is greater than 50% in coordination of care (as documented) at patient's floor/unit and/or counseling patient: Coding Level of Care Code 84104 SUB INP/OBS CARE 2/35MIN Diagnoses Accidental fall W19.XXXA Anemia, macrocytic D53.9 Acute UTI (urinary tract infection) N39.0 COVID-19 U07.1 Closed fracture of left wrist S62.102A CHI (closed head injury) S09.90XA Orthostatic hypotension I95.1
[2023-03-12] MEDS: POLYETHYLENE (MIRALAX) 17 GM PACK PO SCH (08:12)
[2023-03-12] MEDS: FERROUS SULFATE 325 MG TAB PO SCH ×2 (08:12→17:12)
[2023-03-12] MEDS: CYANOCOBALAMIN (B-12) 500 MCG TABLET PO SCH (08:12)
[2023-03-12] MEDS: SENNA 8.6 MG TAB PO SCH (08:12)
[2023-03-12] MEDS: amLODIPine BESYLATE 5 MG TAB PO SCH (08:28)
--- NOTE | 2023-03-12 15:27 | Hospitalist Progress Note ---
Date of Service March 12, 2023 Assessment & Plan (1) Accidental fall: Plan: No syncope. Continue OT and PT. She is nonweightbearing status on the left arm due to the left wrist fracture. (2) Anemia, macrocytic: Plan: Severe B12 deficiency based on labs from previous admission. She is now on supplementation. Fecal occult blood is negative. Reticulocyte count is elevated. Intravascular hemolysis has been ruled out. No indication for steroid therapy at this time. Hematology consultation and recommendations appreciated (3) Acute UTI (urinary tract infection): Plan: Urinary tract infection symptoms. Treated with Cipro. Urinalysis negative here. (4) COVID-19: Plan: Positive nasal swab. Asymptomatic. CXR neg. Continue vitamin D. No treatment with remdesivir or Paxlovid indicated Discontinued COVID isolation (5) Closed fracture of left wrist: Plan: Appreciate orthopedic consultation and recommendations. She underwent open reduction internal fixation on March 01. She no longer requires [place] and is asking only for Tylenol at this time. The left forearm and left wrist are heavily bandaged at this time. Follow-up with orthopedics in 2 weeks (6) CHI (closed head injury): Plan: Due to mechanical fall at home. Facial contusion but no fractures. Head and cervical spine CTs negative (7) Orthostatic hypotension: Plan: Now resolved Plan She will need placement while the left wrist heals. She uses a walker chronically and is nonweightbearing at this point on the left arm . She is medically stable for discharge. Insurance has denied IPR placement. Case management is pursuing SNF placement at this time. Awaiting insurance authorization Admission and Anticipated Discharge Date Admission Date: February 26, 2023 Subjective Patient feels well. No new complaints Review of Systems Review of Systems: All systems reviewed & are unremarkable except as noted in Subjective Physical Exam Physical Exam: General: Awake, conversant, smiling Heart: S1, S2/regular rate and rhythm, no murmur rubs or gallops Lungs: Clear to auscultation bilaterally. Normal effort Abdomen: Soft/nontender/nondistended. No hepatosplenomegaly Extremities: No clubbing/cyanosis. No edema. Left wrist in splint Behavior: Appropriate, cooperative Results & Data Results & Data Vital Signs (Past 12 Hours) Vital Signs Temp Pulse Resp BP Pulse Ox O2 Del Method 03/12/23 08:14 36.7 C 70 16 151/66 H 97 Room Air PG Care Time/CCT Total # of Minutes Spent Total Time Spent with Patient: Total time spent is greater than 50% in coordination of care (as documented) at patient's floor/unit and/or counseling patient: Coding Level of Care Code 15917 SUB INP/OBS CARE 2/35MIN Diagnoses Accidental fall W19.XXXA Anemia, macrocytic D53.9 Acute UTI (urinary tract infection) N39.0 COVID-19 U07.1 Closed fracture of left wrist S62.102A CHI (closed head injury) S09.90XA Orthostatic hypotension I95.1
[2023-03-13] MEDS: ACETAMINOPHEN 325 MG TAB PO PRN (01:41)
[2023-03-13] MEDS: POLYETHYLENE (MIRALAX) 17 GM PACK PO SCH (08:12)
[2023-03-13] MEDS: FERROUS SULFATE 325 MG TAB PO SCH ×2 (08:12→17:22)
[2023-03-13] MEDS: amLODIPine BESYLATE 5 MG TAB PO SCH (08:12)
[2023-03-13] MEDS: CYANOCOBALAMIN (B-12) 500 MCG TABLET PO SCH (08:12)
[2023-03-13] MEDS: SENNA 8.6 MG TAB PO SCH (08:12)
--- NOTE | 2023-03-13 15:58 | Discharge Summary ---
Date of Service March 13, 2023 Admission HPI Per Admitting Provider The patient is an 82-year-old female with a past medical history including vitamin D insufficiency, acute blood loss anemia, UTI, orthostatic hypotension, periprosthetic femoral shaft fracture, hypertension, history of hip fracture and femur fracture. The family brought the patient to the emergency department after she was found after a fall at home from an interval time. Her main complaints are that of left wrist pain, and she did report hitting her head, but has no persistent symptoms. She has fallen a few times in the past., As noted, patient does live with family in [place]. Patient was [employer] positive for COVID-19, ever, denies any breathing, GI or other issues, and pulse ox is 97% on room air Patient did report that she thought she may have had a urinary tract infection, and had some old Cipro at home which she took a dose of the day, and then was found to be on the floor shortly after that. She does complain of bilateral lower extremity joint pains since taking the Cipro. The patient does not remember how she fell. X-rays do show a left distal radial head fracture that was splinted in the ED Admission Exam Per Admitting Provider The patient is awake, alert and oriented 3, well developed and well nourished, normocephalic and atraumatic, lying in bed and in no acute distress. HEENT--PERRL, EOMI, mucous membranes and oropharynx mildly dry. Neck--supple. No JVD. No bruits. Thyroid normal, trachea midline, no adenopathy. Heart--normal S1 and S2. No murmurs, rubs or gallops. Lungs--clear bilaterally, no respiratory distress, no accessory muscle use. Abdomen--normal bowel sounds and soft. Nontender. Nondistended, no hernias or masses, no organomegaly. Extremities--no cyanosis or clubbing. No edema. Dermatologic--normal skin turgor, normal color, no abnormal lymph nodes, no rash. Neurologic--cranial nerves II through XII grossly intact. Rheumatologic--limited exam of left wrist fracture Psychiatric--normal affect. Principal Diagnosis Status post fall Left wrist fracture Asymptomatic COVID (completed isolation phase) Discharge Exam General: Awake, conversant, smiling Heart: S1, S2/regular rate and rhythm, no murmur rubs or gallops Lungs: Clear to auscultation bilaterally. Normal effort Abdomen: Soft/nontender/nondistended. No hepatosplenomegaly Extremities: No clubbing/cyanosis. No edema. Left wrist in splint Behavior: Appropriate, cooperative Discharge Data Allergies Allergy/AdvReac Type Severity Reaction Status Date / Time minocycline [From Minocin] Allergy Severe SEVERE Verified 02/24/23 23:28 PAIN IN THE HEAD procaine Allergy Severe NOVACAINE->CAN'T Verified 02/24/23 23:28 BREATH erythromycin base Allergy Unknown Unknown Verified 02/24/23 23:28 oxytetracycline Allergy Unknown . Verified 02/24/23 23:28 polymyxin B Allergy Unknown . Verified 02/24/23 23:28 prednisone Allergy Unknown "COULD BE Verified 02/24/23 23:28 FATAL" - PER PCP Sulfa (Sulfonamide Allergy Unknown Rash Verified 02/24/23 23:28 Antibiotics) tramadol AdvReac Unknown "PUT ME IN Verified 02/24/23 23:28 A DAZE" Consultations 02/24/23 21:56 ED Decision to Admit Stat 02/25/23 09:24 Consult Orthopedic Surgery Routine 02/28/23 09:38 Consult Hematology Routine Procedures Performed Operation Date: 03/01/23 07:00 Actual Procedures p Left Distal Radius Open Reduction Internal Fixation(Left) - Ramon Mcdonough MD Ordered Studies 02/24/23 19:10 CT cervical spine wo con Stat CT head/brain wo con Stat 03/01/23 07:00 FL wrist LT 2V Routine Hospital Course (1) Accidental fall: No syncope. Continue OT and PT. She is nonweightbearing status on the left arm due to the left wrist fracture. (2) Anemia, macrocytic: Severe B12 deficiency based on labs from previous admission. She is now on supplementation. Fecal occult blood is negative. Reticulocyte count is elevated. Intravascular hemolysis has been ruled out. No indication for steroid therapy at this time. Hematology consultation and recommendations appreciated (3) Acute UTI (urinary tract infection): Urinary tract infection symptoms. Treated with Cipro. Urinalysis negative here. (4) COVID-19: Positive nasal swab. Asymptomatic. CXR neg. Continue vitamin D. No treatment with remdesivir or Paxlovid indicated Discontinued COVID isolation (5) Closed fracture of left wrist: Appreciate orthopedic consultation and recommendations. She underwent open reduction internal fixation on March 01. She no longer requires [place] and is asking only for Tylenol at this time. The left forearm and left wrist are heavily bandaged at this time. Follow-up with orthopedics in 2 weeks (6) CHI (closed head injury): Due to mechanical fall at home. Facial contusion but no fractures. Head and cervical spine CTs negative (7) Orthostatic hypotension: Now resolved Plan Insurance declined rehab. Patient's son is willing to take her home. Per PT/OT, patient is able to go home. Total Time Total Time Spent Total Time Spent (In Minutes): 35 Discharge Plan Discharge Items Patient Disposition: Home - Home Health Services Reason For Visit: SYNCOPE, FALL, LEFT WRIST FRACTURE Discharge Diagnosis: Status post fall Left wrist fracture Asymptomatic COVID (completed isolation phase) Activity: Per Instructions section Non-emergency contact: Primary Care Provider Call non-emergency contact if: you have any medication questions and your symptoms worsen Follow-up/Referrals: Lee Tellez [Primary Care Provider] - Isabella Zepeda PA-C [Physician Morning Show Host] - 03/15/23 11:15 am Diet: Heart Healthy Addtl Attending Provider Instructions: Advised to follow-up with PCP in 1 week Addtl Patient Safety Officer Provider Instructions: Orthopedic instructions: -Elevate left arm above your heart as needed for pain and swelling. -Ice to left wrist as needed for pain and swelling. -Keep splint on at all times. Do not get it wet. Keep on until your follow-up appointment. -Allowed for full range of motion of your elbow, fingers as tolerated. Open enclosure fingers frequently throughout the day to work on range of motion and prevent stiffness. -Nonweightbearing left wrist at all times. -May use a platform walker to assist with ambulation. -Call [phone] with any increased pain, swelling, fevers, chills or concerns about your left wrist. -Follow-up as scheduled on March 15 at 11:15 AM. Pending Studies at Discharge: No Stand-Alone Forms: My [employer], Smoking Cessation Medications and DC Order Prescriptions: New amlodipine [Norvasc] 5 mg Tablet 10 mg PO DAILY 30 Days Qty: 60 0RF Continued naproxen sodium [Aleve] 220 mg Tablet 220 mg PO DAILY PRN (Reason: Pain) acetaminophen [Tylenol Extra Strength] 500 mg tablet 1,000 mg PO BID PRN (Reason: Pain) ascorbic acid (vitamin C) 100 mg Tablet 0 mg PO DAILY ciprofloxacin HCl 500 mg tablet 500 mg PO ONCE Rx Instructions: 02/24/23 PT REPORTED SHE TOOK ONE CIPRO TABLET TODAY - LEFTOVER FROM AN DECEMBER 2022 RX. STATED SHE BELIEVES SHE HAS A UTI. cholecalciferol (vitamin D3) 25 mcg (1,000 unit) Capsule 2,000 unit PO QAM Qty: 60 5RF Discharge Orders: Discharge Order (Routine); Ordered 03/13/23 Ordered By: Airam Benjamin Admission Data Admit Date/Time: 02/26/23 11:23 Attending Provider: Airam Benjamin Admit Provider: Aldair Holden Primary Care Provider: Lee Tellez Other Providers: [place],[facility]; [facility]; Aldair Holden; Ramon Mcdonough; Humberto Peña; [facility] Coding Level of Care Code 27573 INP/OBS DISCH >30 MIN Diagnoses Accidental fall W19.XXXA Anemia, macrocytic D53.9 Acute UTI (urinary tract infection) N39.0 COVID-19 U07.1 Closed fracture of left wrist S62.102A CHI (closed head injury) S09.90XA Orthostatic hypotension I95.1
== END 2023-03-13 18:02 | disposition home health service (06) | DRG 510 ==
LOC: ED 17:32 → 2S 17:32 → SUATTDRO 22:53 → 2S 02-25 01:30 → SUATTDRO 02-26 11:23 → 3N 03-08 18:48